=== PATIENT | male | born 1955 | race Caucasian/White ===

== ENCOUNTER 2016-05-21 10:26 | Day surgery (SDC) | payer BC ==
[~2016-05-21] VITALS: Ht 180.3 cm; Wt 112.2 kg
[2016-05-21] MEDS: CEFAZOLIN 1000MG/55 ML D5W 55 ML IV SCH ×2 (06:00→13:02)
[~2016-05-21 10:26] MED LIST: ALL300 PO; ASPI81TA28 PO; CMD3 PO; COLC0.6T54 PO; DVN80 PO; LACTATED RINGER'S 1000ML IV SCH; METO25TA56 PO; WARF4TAB PO
[2016-05-21 10:50] VITALS: BP_SYST 153; BP_SYST 170; BP_DIAS 105; PULSE 110; TEMP 36.6; O2SAT 96; Ht 180.3 cm; Wt 112.2 kg
[2016-05-21] MEDS ORDERED: DVN/160 PO (11:05)
[2016-05-21] MEDS ORDERED: DILT120C68 PO (11:05)
[2016-05-21] MEDS ORDERED: BACITRACIN OINT 0.9 GM PKT ONE (12:31)
[2016-05-21] MEDS ORDERED: LIDOCAINE HCL 1% 20 ML VIAL ONE (12:31)
--- NOTE | 2016-05-21 12:32 | History & Physical Bridge Note ---
H&P Re-Evaluation Bridge Note: I have examined the patient, reviewed the History & Physical and in the interval since the performance of the History & Physical I have noted the following changes of clinical significance: No changes noted. I discussed the indications, procedure, risks and alternatives of loop recorder implantation with him and he understands and agrees to proceed. Consent obtained. He would prefer to have the procedure done without sedation and that will be our plan.
[2016-05-21] MEDS ORDERED: KEFZOL SPECIAL PROCEDURE STOCK 1 GM ADDVIAL IV ONE (12:43)
--- NOTE | 2016-05-21 13:08 | Cardiology Procedure Brief Nt ---
Preliminary Cardiology Note Procedure Date May 21, 2016. Pre-Procedure Diagnosis paroxysmal atrial fibrillation, bradycardia Post-Procedure Diagnosis same Procedure(s) Performed Loop recorder implantation Lmft Dr. Zaidi Orange Picking Supervisor(s) none Estimated Blood Loss 2 cc Preliminary Findings Good location Recommendations Monitor very briefly and discharge Specimens None Anesthesia local with no sedation Complication(s) None Disposition MTU
--- NOTE | 2016-05-21 13:13 | Discharge Instructions ---
Discharge Instructions Admission Reason for Admission: Atrial fibrillation Discharge Discharge Diagnosis / Problem: loop recorder implantation Discharge Goals Goal(s): Diagnostic testing Activity Recommendations Activity Limitations: resume your previous activity . Instructions / Follow-Up Instructions / Follow-Up ACTIVITY RECOMMENDATIONS: * Do not raise affected arm over head for 2 weeks. SPECIAL CARE INSTRUCTIONS: * If bleeding occurs, apply direct pressure to area for 5 minutes. * Call your doctor if you have severe pain, fever, drainage or bleeding at site. * Keep dressing on and dry. * Keep any scheduled doctor's appointment. * Implant Card - hand held device with website information given. FOLLOW UP VISIT: Dr. Zaidi 05/22/2016, 10:00 AM Current Hospital Diet Patient's current hospital diet: Discharge Diet Recommended Diet: AHA Diet (Heart Healthy) Pending Studies Studies pending at discharge: no Medical Emergencies . Who to Call and When: Medical Emergencies: If at any time you feel your situation is an emergency, please call 911 immediately. . Non-Emergent Contact Non-Emergency issues call your: Primary Care Provider . . "Provider Documentation" section prepared by Donald Zaidi. VTE Core Measure Inpt VTE Proph given/why not?: Treatment not indicated
[2016-05-21] MEDS ORDERED: ACETAMINOPHEN 325 MG TAB PO PRN (13:15)
[2016-05-21 13:25] VITALS: BP_SYST 142; BP_SYST 150; BP_DIAS 107; PULSE 106; TEMP 37; O2SAT 96
--- NOTE | 2016-05-21 13:34 | OPERATIVE REPORT ---
DATE OF OPERATION: 05/21/2016 PREOPERATIVE DIAGNOSES: Paroxysmal atrial fibrillation, bradycardia. POSTOPERATIVE DIAGNOSES: Same. PROCEDURE: Loop recorder implantation. SURGEON: Donald Zaidi M.D. ANESTHESIA: Local with no sedation. HISTORY OF PRESENT ILLNESS: This is a 60-year-old male who has a history of atrial fibrillation including catheter ablation in the past followed by valve replacement where he had a Cobb maze procedure performed as well. This year, he had recurrence of his atrial arrhythmia, sometimes he has severe symptoms with it and sometimes he is unaware of being in it. It is not clear what the extent of his atrial arrhythmia is nor what the difference in symptoms are due to. He also has a history of bradycardia and thoughts were entertained of putting in a pacemaker to allow treatment with antiarrhythmic therapy when he was evaluated at [facility]. He is therefore having a loop recorder placed to document the extent and duration of his atrial fibrillation or other arrhythmias and to monitor for bradycardia. DESCRIPTION OF PROCEDURE: After obtaining informed consent for the procedure, he was brought to the laboratory being NPO after midnight. He was identified in the laboratory, prepped and draped in standard sterile manner. The left prepectoral region at a location at around the fourth intercostal space 1 cm of the left sternal border was anesthetized with 1% lidocaine local anesthetic. A small skin incision was made and the loop recorder was inserted subcutaneously using the insertion tool. The incision was closed with a subcutaneous closure of 4-0 Vicryl followed by running subcuticular skin closure of 4-0 Vicryl. A Steri-Strip was applied, bacitracin ointment was applied, and a dressing applied. The patient tolerated the procedure well, there were no complications and estimated blood loss was less than 2 mL. The patient was transferred to the ambulatory unit for brief observation and discharge. The loop recorder is a Novatris LINQ model LNQ11, serial number [id number]. MTDD
[2016-09-07] MEDS ORDERED: HYDR-5688 PO (16:05)
[2016-09-07] MEDS ORDERED: CEPH500C2 PO (16:05)
[2016-09-23] MEDS ORDERED: METO-551 PO (16:26)
[2016-09-23] MEDS ORDERED: WARF3TAB6 PO (16:26)
[2016-09-25] MEDS ORDERED: CEPH500C2 PO (15:04)
[2016-12-11] MEDS ORDERED: NTRSLP4 SL (17:16)
== END 2016-05-21 14:05 | disposition home or self-care (01) ==
LOC: C.ACU 10:26
PROVIDERS: ATTEND Internal Medicine Cardiovascular Disease
DX: I48.0 Paroxysmal atrial fibrillation (principal); I25.10 Atherosclerotic heart disease of native coronary artery without angina pectoris; Z95.2 Presence of prosthetic heart valve; I34.0 Nonrheumatic mitral (valve) insufficiency; R00.1 Bradycardia, unspecified; I10 Essential (primary) hypertension; I09.1 Rheumatic diseases of endocardium, valve unspecified; E78.5 Hyperlipidemia, unspecified

== ENCOUNTER 2016-07-16 10:35 | Observation (INO) | payer BC ==
[~2016-07-16] VITALS: Ht 180.3 cm; Wt 107.0 kg
[~2016-07-16 10:35] MED LIST changes: +CEFAZOLIN 1000MG/55 ML D5W IV SCH; +CEFAZOLIN IV 1,000 MG in DEXTROSE 5% 50ML IV SCH; +DILT120C68 PO; +DVN/160 PO; -DVN80 PO; -LACTATED RINGER'S 1000ML IV SCH; -METO25TA56 PO; +MISSING PHYSICIAN SIGNATURE ON ORDER SCH
[2016-07-16 11:00] VITALS: BP 140/86; PULSE 56; TEMP 36.6; O2SAT 98; BMI 33.0
[2016-07-16] MEDS ORDERED: ENOX120I SQ (11:08)
[2016-07-16] MEDS ORDERED: LIDOCAINE HCL 1% 20 ML VIAL ONE ×2 (11:59→13:55)
[2016-07-16] MEDS ORDERED: BACITRACIN 50000 UNIT VIAL ONE (11:59)
[2016-07-16] MEDS ORDERED: BACITRACIN OINT 0.9 GM PKT ONE (11:59)
[2016-07-16] MEDS ORDERED: KEFZOL SPECIAL PROCEDURE STOCK 1 GM ADDVIAL IV ONE (12:34)
[2016-07-16] MEDS ORDERED: MIDAZOLAM HCL 5 MG/ML 1 ML VIAL ONE ×2 (12:44→12:59)
[2016-07-16] MEDS ORDERED: FENTANYL CITRATE INJ 50 MCG/1 ML 2 ML VIAL ONE ×2 (12:45→12:59)
--- NOTE | 2016-07-16 14:22 | Procedure Note ---
Pre-Mod Sedation Assessment General Date of Moderate Sedation: Jul 16, 2016. Vital Signs: Vital Signs Past 12 Hours Date Time Temp Pulse Resp B/P Pulse Ox O2 Delivery O2 Flow Rate FiO2 07/16/16 11:00 36.6 56 20 140/86 98 Room Air Review Cardiovascular: regular rate, rhythm Abdomen: normal bowel sounds Lungs: lungs clear Pre-Sedation Airway Assessment Oral Cavity: Chipped Teeth, Capped Teeth Smoking Status: Former Smoker Procedure Planning Contraindications-for Mod Sed: None Yes Notes The planned sedation has been discussed with the patient and consent obtained. I have identified the patient, determined the appropriateness of sedation and have assessed the patient immediately prior to the procedure. All medicine(s) and interventions are by my order.
--- NOTE | 2016-07-16 14:22 | History & Physical Bridge Note ---
H&P Re-Evaluation Bridge Note: I have examined the patient, reviewed the History & Physical and in the interval since the performance of the History & Physical I have noted the following changes of clinical significance: No changes noted. I reviewed the indications, procedure, risks and alternatives with the patient and his and he understands and agrees to proceed. Consent obtained.
--- NOTE | 2016-07-16 14:54 | Procedure Note ---
Post-Mod Sedation Assessment General Date of Moderate Sedation Jul 16, 2016. Vital Signs: Vital Signs Past 12 Hours Date Time Temp Pulse Resp B/P Pulse Ox O2 Delivery O2 Flow Rate FiO2 07/16/16 11:00 36.6 56 20 140/86 98 Room Air Review - Discharge Criteria Vital Signs Stable: Yes Alert/Oriented/Conversant: Yes Returned to Baseline Mental St: Yes Nausea Absent/Minimal: Yes Pain/Discomfort/Absent/Minimal: Yes Normal/Baseline Respirations: Yes Active Bleeding?: No
--- NOTE | 2016-07-16 14:58 | Cardiology Procedure Brief Nt ---
Preliminary Cardiology Note Procedure Date Jul 16, 2016. Pre-Procedure Diagnosis sick sinus syndrome Post-Procedure Diagnosis same Procedure(s) Performed Dual-chamber pacemaker implant Loop recorder explant Property Valuer Dr. Zaidi Data Entry Processor(s) None Estimated Blood Loss 50 cc Preliminary Findings Good lead position Recommendations Monitor overnight Specimens Loop recorder, return to Medtronic Anesthesia Local with sedation Complication(s) None Disposition PCU
[2016-07-16] MEDS ORDERED: KETOROLAC TROMETHAMINE 10 MG TAB PO PRN (15:00)
[2016-07-16] MEDS ORDERED: ACETAMINOPHEN 325 MG TAB PO PRN (15:00)
[2016-07-16 15:25] VITALS: BP 119/79; PULSE 60; TEMP 36.7; Ht 180.3 cm; Wt 107.0 kg
[2016-07-16 15:26] VITALS: O2SAT 94
--- NOTE | 2016-07-16 15:28 | OPERATIVE REPORT ---
DATE OF OPERATION: 07/16/2016 AMBULATORY OPERATIVE REPORT PREOPERATIVE DIAGNOSIS: Sick sinus syndrome. POSTOPERATIVE DIAGNOSIS: Same. PROCEDURES: 1. Dual chamber pacemaker implantation. 2. LINQ loop recorder explantation. SURGEON: Donald Zaidi MD ANESTHESIA: Local with sedation. HISTORY: This is a 60-year-old male who has a history of coronary artery disease and longstanding atrial fibrillation, for which he has had atrial fibrillation ablation. He also has a mitral valve replacement. He was having symptoms of palpitations, difficulty with exertion and was uncertain as to whether he needed a pacemaker or how much time he spent in atrial fibrillation. An implantable loop recorder was therefore placed on 05/21/2016. This loop recorder disclosed that he had atrial fibrillation with rapid heart rates. In addition, he had periods of bradycardia with heart rates in the 30s and pauses of up to 5 seconds without AV obinna blocking medications. He therefore requires a pacemaker for his bradycardia on medications for his tachyarrhythmia. DESCRIPTION OF PROCEDURE: After obtaining informed consent for the procedure, he was brought to the laboratory on the afternoon of 07/16/2016, being NPO after midnight. He was identified in the laboratory, prepped and draped in standard sterile manner for a left-sided pacemaker implantation. The left prepectoral region was anesthetized with 1% lidocaine local anesthetic and a left subclavian venipuncture was performed by percutaneous technique and a guidewire placed through the left subclavian vein into the superior vena cava. The area was further infiltrated with 1% lidocaine local anesthetic and a 5-cm incision was made parallel to the left clavicle and 2 cm below it and carried down to the anterior pectoralis fascia. A pacemaker pocket was formed by blunt dissection anterior to the pectoralis fascia and a bacitracin-soaked sponge (50,000 units in 50 mL normal saline solution) was placed in the pocket. An 8-[place] Medtronic lead introducer was placed over the guidewire into the left subclavian vein, the dilator and guidewire were removed and a bipolar active fixation steroid-tipped ventricular lead was advanced through the introducer into the superior vena cava. The guidewire was placed back through introducer and introducer stripped away from lead and guidewire. The introducer appeared to be somewhat tight passing from the subclavian vein into the superior vena cava. Therefore, another venipuncture was performed through the pacemaker pocket and a guidewire placed through the left subclavian vein into the superior vena cava. Another 8-[place] Citizen Medtronic lead introducer was placed over the guidewire into the left subclavian vein, the dilator and guidewire were removed and a bipolar active fixation steroid-tipped atrial lead was advanced through introducer into the superior vena cava. The guidewire was traced back through introducer and introducer stripped away from lead and guidewire. The other guidewire was removed at this time. The ventricular lead was advanced through the right ventricular outflow tract into the pulmonary artery and then using a straight stylette, was positioned in the right ventricular apex. Once in position, the ventricular pacing threshold was evaluated in bipolar configuration at a pulse width of 0.5 milliseconds. The final ventricular pacing threshold was 0.4 volts with a current of 0.3 milliamp, 5-volt lead impedance was 1049 ohms and R-waves were sensed at 11.3 millivolts. Diaphragmatic pacing was not present with a 10-volt bipolar output. It was difficult to manipulate the atrial lead, ultimately the atrial lead was removed as it appeared to be binding within the left subclavian vein. Another 8-[place] Citizen Medtronic lead introducer was placed over the guidewire into the superior vena cava. The dilator and guidewire were removed. This sheath remained in place and the lead was positioned into the region of the atrial appendage and a screw extended just fixing the lead in position. Once in position, atrial pacing threshold was evaluated in bipolar configuration at a pulse width of 0.5 milliseconds. Final atrial pacing threshold was 0.6 volts with a current of 1.1 milliamp, 5-volt lead impedance was 533 ohms and P waves were sensed at 2.6 millivolts. Diaphragmatic pacing was not present with a 10-volt bipolar output. Once this lead was in position, the introducer was stripped away from the lead. Once leads were in position, they were both attached to the anterior pectoralis fascia using 2 sutures of 2-0 silk around each lead collar. The bacitracin-soaked sponge was removed from the pocket, hemostasis was obtained and the pacemaker (Medtronic Advisa DR) was attached to the leads. It was placed in the pocket with the leads coiled beneath it and the incision was closed with a running double subcutaneous closure of 3-0 Vicryl followed by running subcuticular skin closure of 4-0 Vicryl. Bacitracin ointment was placed on incision and a pressure dressing applied. The LINQ loop recorder site was anesthetized with 1% lidocaine local anesthetic and a 1-cm incision was made and carried down to the recorder. The recorder was removed from the pocket and the pocket was closed with a subcutaneous closure of 4-0 Vicryl followed by a running subcuticular skin closure of 4-0 Vicryl. Bacitracin ointment was placed on this incision and a dressing applied. The patient tolerated the procedure well, there were no complications and estimated blood loss was 50 mL. The patient was transferred to the ambulatory unit for monitoring. The atrial lead is a Medtronic, model #5076, serial #[id number] and is a bipolar active fixation steroid-tipped MRI compatible lead. The ventricular lead is a Medtronic, model #5076, serial #[id number] and is a bipolar active fixation steroid-tipped MRI compatible lead. The pacemaker is a Medtronic Advisa MRI SureScan, model #A2DR01, serial #[id number]. This is an MRI compatible system. The pacemaker was reprogrammed in the laboratory to final settings. The LINQ loop recorder is a Medtronic, serial #[id number], implanted 05/21/2016. This loop recorder will be returned to [facility] (app). NEIL
[2016-07-16] MEDS ORDERED: IV FLUIDS COMPLETED PRN (16:00)
[2016-07-16 19:43] VITALS: BP 129/64; PULSE 86; TEMP 36.7; O2SAT 96
[2016-07-16 20:00] VITALS: O2SAT 96
[2016-07-16] MEDS ORDERED: ASPIRIN 81 MG ECTAB PO SCH (21:00)
[2016-07-16] MEDS: CEFAZOLIN IV 2,000 MG in DEXTROSE 5% 50ML 50 ML IV SCH (21:10)
[2016-07-16] MEDS: METOPROLOL TARTRATE 50 MG TAB PO SCH (21:11)
[2016-07-17] VITALS (7 sets, daily range): BP systolic 117–136; BP diastolic 72–81; PULSE 60–84; TEMP 36.4–36.9; O2SAT 96–98
[2016-07-17] MEDS: CEFAZOLIN IV 2,000 MG in DEXTROSE 5% 50ML 50 ML IV SCH ×2 (05:46→13:24)
--- NOTE | 2016-07-17 07:07 | DIAGNOSTIC IMAGING REPORT ---
CHEST 2 VIEWS ROUTINE CLINICAL HISTORY: Chest x-ray status post pacemaker placement COMPARISON STUDY: February 01, 2015 FINDINGS: There are postsurgical changes of a midline sternotomy and valvular replacement. There is no failure. There is no lobar consolidation. There are no pleural effusions. There is been interval placement of a left subclavian dual-chamber central venous pacemaker. There is no pneumothorax. The electrode position is unremarkable[ IMPRESSION: No evidence of pneumothorax status post placement of a left subclavian dual-chamber central venous pacemaker. Electronically signed by: Oiv Kemp M.D. 07/17/2016 7:06 AM Dictated Date/Time: 07/17/2016 7:05 AM
[2016-07-17 07:10] LABS: INR 1.1 (0.9-1.1)
--- NOTE | 2016-07-17 08:27 | Cardiology Follow-Up ---
Subjective Date of Service: Jul 17, 2016. Pt evaluation today including: conversation w/ patient, physical exam, lab review, review of studies, review of inpatient medication list History of Present Illness Post pacemaker implantation yesterday for sick sinus syndrome. He feels well today. Social History Smoking Status: Former Smoker Review of Systems Cardiac: + palpitations, + see HPI, No chest pain Medications Cardiovascular: Item Value Date Time Enoxaparin Sodium 120 mg 07/17/16 0900 (Lovenox Inj) Q12H/SQ Valsartan 160 mg 07/17/16 0900 (Diovan Tab) QAM/PO Warfarin Sodium 4 mg 07/17/16 0900 (Coumadin Tab) DAILY@1600/PO Aspirin 81 mg 07/16/162099 (Ecotrin Tab) QPM/PO 07/16/162110 Metoprolol 50 mg 07/16/162099 Tartrate BID/PO 07/16/162110 (Lopressor Tab) Objective Vital Signs Past 12 Hours Date Time Temp Pulse Resp B/P Pulse Ox O2 Delivery O2 Flow Rate FiO2 07/17/16 04:10 36.4 61 18 123/81 98 07/17/16 04:00 98 Room Air 07/17/16 00:23 36.9 60 18 117/73 97 Room Air 07/16/16 23:59 Room Air Last Recorded Weight-Kilograms: 107.000 Intake & Output 8-Hour Column 07/16/16 07/16/16 07/17/16 15:59 23:59 07:59 Intake Total 273 ml 254 ml Output Total 400 ml 500 ml Balance -127 ml -246 ml 24-Hour Column 07/17/16 07:59 Intake Total 527 ml Output Total 900 ml Balance -373 ml Physical Exam Constitutional: Level of Distress: NAD Lungs: Auscultation: breath sounds normal Cardiovascular: Heart Auscultation: RRR, no murmurs Data Laboratory Results: Last 24 Hours Test 07/17/16 04:44 07/17/16 06:35 Prothrombin Time 12.0 SECONDS Prothromb Time International Ratio 1.1 Imaging: Chest x-ray shows good lead position and no pneumothorax EKG: Atrial pacing with intact AV conduction Telemetry reviewed: Predominantly atrial pacing with intact AV conduction. No atrial arrhythmias. Pacemaker evaluation: Excellent pacing and sensing characteristics. Pacing was 70% of the time appropriately in the atrium. Assessment and Plan Postop day #1: Doing very well surgically and the device is working well. Stable for discharge today. Mitral valve replacement: He is going to start Lovenox this morning, his site looks very good and hopefully he will not have bleeding. I did caution him about what to watch for in terms of bleeding on the Lovenox. He will be sent home on Lovenox twice a day and we will monitor his INR on Wednesday.
[2016-07-17] MEDS: METOPROLOL TARTRATE 50 MG TAB PO SCH (08:39)
[2016-07-17] MEDS ORDERED: METO-551 PO (08:42)
--- NOTE | 2016-07-17 08:58 | Discharge Instructions ---
Discharge Instructions Admission Sick sinus syndrome Discharge Discharge Diagnosis / Problem: Loop recorder explant; dual-chamber pacemaker implant Discharge Goals Goal(s): Improve disease control Activity Recommendations Activity Limitations: as noted below ACTIVITY RECOMMENDATIONS: * Do not raise affected arm over head for 2 weeks. SPECIAL CARE INSTRUCTIONS: * If bleeding occurs, apply direct pressure to area for 5 minutes. * Call your doctor if you have severe pain, fever, drainage or bleeding at site. * Keep dressing on and dry for 48 hours then remove. * Keep any scheduled doctor's appointment. * Implant Card - hand held device with website information given. SKIN IRRITATION: * You may experience some redness and/or swelling in the area where radiation was administered. If any skin irritation occurs, please contact your family physician. FOLLOW UP VISIT: 07/21/16 @ 1:00 pm for incision check 08/17/16 @ 3:30 pm for device check . Current Hospital Diet Patient's current hospital diet: AHA Diet (Heart Healthy) Discharge Diet Recommended Diet: AHA Diet (Heart Healthy) Pending Studies Studies pending at discharge: no Medical Emergencies . Who to Call and When: Medical Emergencies: If at any time you feel your situation is an emergency, please call 911 immediately. . Non-Emergent Contact Non-Emergency issues call your: Humanities Professor . . "Provider Documentation" section prepared by Brandy Fitzpatrick. VTE Core Measure Inpt VTE Proph given/why not?: Enoxaparin (Lovenox)SQ
[2016-07-17] MEDS ORDERED: ENOXAPARIN 120 MG/0.8 ML SYR SQ SCH ×2 (09:00)
[2016-07-17] MEDS ORDERED: ALLOPURINOL 300 MG TAB PO SCH (09:00)
[2016-07-17] MEDS ORDERED: VALSARTAN 80 MG TAB PO SCH (09:00)
[2016-07-17] MEDS ORDERED: WARFARIN SOD 4 MG TAB PO SCH (09:00)
[2016-07-17 10:35] LABS: HEMATOCRIT 44.1 % (42-52); MEAN CELL VOLUME 94.2 fL (80-100); MEAN CORPUSCULAR HEMOGLOBIN 32.9 pg (25-34); MEAN CORPUSCULAR HGB CONC 34.9 g/dl (32-36); PLATELET COUNT 217 K/uL (130-400); RED BLOOD COUNT 4.68 M/uL (4.7-6.1); WHITE BLOOD COUNT 7.28 K/uL (4.8-10.8)
[2016-07-17 10:42] LABS: CREATININE 0.89 mg/dl (0.60-1.40)
[2016-07-17 10:45] LABS: PARTIAL THROMBOPLASTIN RATIO 1.2
--- NOTE | 2016-07-17 11:04 | Discharge Summary ---
Discharge Summary Admission Date: Jul 16, 2016 at 15:04 Discharge Date: Jul 17, 2016 Discharge Disposition: Home Primary Diagnosis: Sick sinus syndrome Secondary Diagnoses/Problems: Surgical Problems: (1) History of open heart surgery Status: Resolved Atrial fibrillation, CAD, MVR Procedures: Loop recorder explantation Dual-chamber pacemaker implantation Discharge Instructions Last Recorded Wt (Kilograms): 107.000 Activity Recommendations: limitations as noted below Allergies: Coded Allergies: No Known Allergies (Verified , 07/16/16) Additional Instructions: ACTIVITY RECOMMENDATIONS: * Do not raise affected arm over head for 2 weeks. SPECIAL CARE INSTRUCTIONS: * If bleeding occurs, apply direct pressure to area for 5 minutes. * Call your doctor if you have severe pain, fever, drainage or bleeding at site. * Keep dressing on and dry for 48 hours then remove. * Keep any scheduled doctor's appointment. * Implant Card - hand held device with website information given. SKIN IRRITATION: * You may experience some redness and/or swelling in the area where radiation was administered. If any skin irritation occurs, please contact your family physician. FOLLOW UP VISIT: Keep any scheduled doctor appointments. Special Care: Call your doctor if: * Temperature above 101 degrees * Pain not relieved by pain medicine ordered * There is increased drainage or redness from any incision * You have any unanswered questions or concerns. Avoid all tobacco products. If you need help to stop smoking, call [place]'s FREE QUITLINE at . This is a free call. Admission HPI This is a 60-year-old male who has a history of coronary artery disease and longstanding atrial fibrillation, for which he has had atrial fibrillation ablation. He also has a mitral valve replacement. He was having symptoms of palpitations, difficulty with exertion and was uncertain as to whether he needed a pacemaker or how much time he spent in atrial fibrillation. An implantable loop recorder was therefore placed on 05/21/2016. This loop recorder disclosed that he had atrial fibrillation with rapid heart rates. In addition, he had periods of bradycardia with heart rates in the 30s and pauses of up to 5 seconds without AV obinna blocking medications. He therefore requires a pacemaker for his bradycardia on medications for his tachyarrhythmia. Admission Physical Exam Additional Comments: Constitutional: Alert, cooperative and in no distress. HEENT: Unremarkable Neck: No jugular venous distention, carotid pulses are irregular but otherwise normal and equal bilaterally without bruits. Pulmonary: Clear to auscultation bilaterally. Cardiac: Irregular rhythm with no murmur, gallop or rub. Good prosthetic valve sounds. Abdomen: Soft, nontender with normal bowel sounds. Extremities: No edema. Distal pulses intact. Neurologic: No focal findings. Gait is steady. Skin: No rash, ecchymoses or petechiae. His loop recorder site on the left is well-healed without erythema, swelling or tenderness Hospital Course Patient is a 60-year-old male with long standing history of atrial fibrillation , coronary artery disease, and mechanical mitral valve replacement who underwent loop recorder explantation and dual-chamber pacemaker implantation on 07/16/[address] Zaidi. This was done due to the loop recorder showing rapid heart rates as well as periods of bradycardia and pauses up to 5 seconds. He tolerated the procedure well. Device check the following day showed excellent sensing and pacing characteristics. CXR showed good lead placement and no pneumothorax. He was placed on lovenox bridge given his MVR. He was also started on Metoprolol tartrate 50 mg twice daily for better rate control of his atrial fibrillation. He will have follow-up next week for an incision check and in 1 month for device check. Total time spent on discharge = This includes examination of the patient, discharge planning, medication reconciliation, and communication with other providers.
[2016-09-07] MEDS ORDERED: HYDR-5688 PO (16:05)
[2016-09-07] MEDS ORDERED: CEPH500C2 PO (16:05)
[2016-09-23] MEDS ORDERED: METO-551 PO (16:26)
[2016-09-23] MEDS ORDERED: WARF3TAB6 PO (16:26)
[2016-09-25] MEDS ORDERED: CEPH500C2 PO (15:04)
[2016-12-11] MEDS ORDERED: NTRSLP4 SL (17:16)
== END 2016-07-17 14:22 | disposition home or self-care (01) ==
LOC: C.ACU 10:35 → C.2T 15:04
PROVIDERS: ADMIT Internal Medicine Cardiovascular Disease; ATTEND Internal Medicine Cardiovascular Disease
DX: I49.5 Sick sinus syndrome (principal); I48.0 Paroxysmal atrial fibrillation; I25.10 Atherosclerotic heart disease of native coronary artery without angina pectoris; I11.9 Hypertensive heart disease without heart failure; I25.2 Old myocardial infarction; Z79.899 Other long term (current) drug therapy; Z79.01 Long term (current) use of 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; Z79.82 Long term (current) use of aspirin; Z98.890 Other specified postprocedural states; Z95.2 Presence of prosthetic heart valve; Z87.891 Personal history of nicotine dependence; Z82.49 Family history of ischemic heart disease and other diseases of the circulatory system

== ENCOUNTER → 2016-08-17 | Outpatient (CLI) | payer BC ==
[~2016-08-17] MED LIST changes: -CEFAZOLIN 1000MG/55 ML D5W IV SCH; -CEFAZOLIN IV 1,000 MG in DEXTROSE 5% 50ML IV SCH; +CEPH500C PO; +CEPH500C2 PO; -CMD3 PO; -DILT120C68 PO; +ENOX120I SQ; +FRS/40 PO; +FURO-85 PO; +HYDR-5688 PO; +METO-551 PO; -MISSING PHYSICIAN SIGNATURE ON ORDER SCH; +NTRSLP4 SL; +POTA20TA13 PO; +SULF800T23 PO; +WARF3TAB6 PO
--- NOTE | 2016-08-17 16:48 | DIAGNOSTIC IMAGING REPORT ---
CHEST 2 VIEWS ROUTINE CLINICAL HISTORY: Cardiac pacemaker. COMPARISON STUDY: Chest radiograph July 17, 2016. FINDINGS: There are median sternotomy wires and a prosthetic cardiac valve. Moderate cardiomegaly is unchanged. There is no evidence of pulmonary edema. There is no pneumothorax or pleural effusion. Right ventricular lead position is unchanged since exam of July 17, 2016. The position of the right atrial lead has changed and now projects over the inferior aspect of the right atrium. IMPRESSION: 1. Interval change in position of the right atrial lead since exam of July 17, 2016. The lead now projects over the inferior aspect of the right atrium. Unchanged position of right ventricular lead. 2. No acute cardiopulmonary findings. Electronically signed by: Rashawn Wang M.D. 08/17/2016 4:47 PM Dictated Date/Time: 08/17/2016 4:45 PM
== END | disposition home or self-care (01) ==
LOC: C.RAD1850 16:21
PROVIDERS: ATTEND Internal Medicine Cardiovascular Disease
DX: Z95.0 Presence of cardiac pacemaker (principal)

== ENCOUNTER 2016-08-25 13:19 | Day surgery (SDC) | payer BC ==
[~2016-08-25] VITALS: Ht 177.8 cm; Wt 107.7 kg
[~2016-08-25 13:19] MED LIST changes: +CEFAZOLIN 1000MG/55 ML D5W IV SCH; +CEFAZOLIN IV 1,000 MG in DEXTROSE 5% 50ML IV SCH; -CEPH500C PO; -CEPH500C2 PO; -FRS/40 PO; -FURO-85 PO; -HYDR-5688 PO; +LACTATED RINGER'S 1000ML IV SCH; -NTRSLP4 SL; -POTA20TA13 PO; -SULF800T23 PO; -WARF3TAB6 PO
[2016-08-25 13:55] VITALS: BP 127/86; PULSE 63; TEMP 36.7; O2SAT 94; Ht 177.8 cm; Wt 107.7 kg
[2016-08-25 14:28] LABS: INR 1.2 (0.9-1.1); PROTHROMBIN TIME (PATIENT) 13.4 SECONDS (9.0-12.0)
[2016-08-25] MEDS ORDERED: CEFAZOLIN IV 2,000 MG in DEXTROSE 5% 50ML 50 ML IV SCH (15:30)
[2016-08-25] MEDS ORDERED: CEFAZOLIN 2000 MG/60 ML D5W IV SCH (16:00)
[2016-08-25] MEDS ORDERED: BACITRACIN OINT 0.9 GM PKT ONE (16:09)
[2016-08-25] MEDS ORDERED: BACITRACIN 50000 UNIT VIAL ONE (16:09)
[2016-08-25] MEDS ORDERED: LIDOCAINE HCL 1% 20 ML VIAL ONE (16:09)
--- NOTE | 2016-08-25 16:21 | Procedure Note ---
Pre-Mod Sedation Assessment General Date of Moderate Sedation: Aug 25, 2016. Vital Signs: Vital Signs Past 12 Hours Date Time Temp Pulse Resp B/P Pulse Ox O2 Delivery O2 Flow Rate FiO2 08/25/16 13:55 36.7 63 20 127/86 94 Room Air Review Cardiovascular: regular rate, rhythm Abdomen: normal bowel sounds Lungs: lungs clear Pre-Sedation Airway Assessment Oral Cavity: WNL Short Thick Neck: No Hx of Sleep Apnea: No Smoking Status: Former Smoker Procedure Planning Contraindications-for Mod Sed: None Yes Notes The planned sedation has been discussed with the patient and consent obtained. I have identified the patient, determined the appropriateness of sedation and have assessed the patient immediately prior to the procedure. All medicine(s) and interventions are by my order.
--- NOTE | 2016-08-25 16:21 | History & Physical Bridge Note ---
H&P Re-Evaluation Bridge Note: I have examined the patient, reviewed the History & Physical and in the interval since the performance of the History & Physical I have noted the following changes of clinical significance: No changes noted. He stopped his warfarin 3 days prior to this procedure and took his Lovenox last evening and nothing today. I discussed the indications, procedure, risks and alternatives with him and his and they understand and he agrees to proceed. Consent obtained.
[2016-08-25] MEDS ORDERED: MIDAZOLAM HCL 5 MG/ML 1 ML VIAL ONE (16:34)
[2016-08-25] MEDS ORDERED: FENTANYL CITRATE INJ 50 MCG/1 ML 2 ML VIAL ONE ×2 (16:34→16:44)
--- NOTE | 2016-08-25 17:43 | Procedure Note ---
Post-Mod Sedation Assessment General Date of Moderate Sedation Aug 25, 2016. Vital Signs: Vital Signs Past 12 Hours Date Time Temp Pulse Resp B/P Pulse Ox O2 Delivery O2 Flow Rate FiO2 08/25/16 13:55 36.7 63 20 127/86 94 Room Air Review - Discharge Criteria Vital Signs Stable: Yes Alert/Oriented/Conversant: Yes Returned to Baseline Mental St: Yes Nausea Absent/Minimal: Yes Pain/Discomfort/Absent/Minimal: Yes Normal/Baseline Respirations: Yes Active Bleeding?: No
[2016-08-25] MEDS ORDERED: ACETAMINOPHEN/CODEINE 300/30MG TAB PO PRN (17:45)
[2016-08-25] MEDS ORDERED: ACETAMINOPHEN 325 MG TAB PO PRN (17:45)
--- NOTE | 2016-08-25 17:45 | Cardiology Procedure Brief Nt ---
Preliminary Cardiology Note Procedure Date Aug 25, 2016. Pre-Procedure Diagnosis atrial lead dislodgment Post-Procedure Diagnosis atrial lead dislodgment, pacemaker pocket hematoma Procedure(s) Performed Evacuation of hematoma Culture and sensitivity Atrial lead repositioning Axle Inspector Dr. Zaidi Print Developer Automatic(s) none Estimated Blood Loss 50 cc Preliminary Findings Large pocket hematoma, probably old blood but culture and sensitivity sent to exclude infection Repositioning of atrial lead and atrial appendage with good measurements. Recommendations Monitor briefly and discharge Specimens None Anesthesia local with sedation Complication(s) None Disposition [facility]
[2016-08-25 17:55] VITALS: BP 126/71; PULSE 60; TEMP 36.5; O2SAT 94
[2016-08-25 18:25] VITALS: BP 127/76; PULSE 68; TEMP 36.6; O2SAT 99
--- NOTE | 2016-08-25 18:29 | Discharge Instructions ---
Discharge Instructions Date of Service Aug 25, 2016. Admission Reason for Admission: Atrial Lead, Dislodgement Discharge Discharge Diagnosis / Problem: atrial lead dislodgment Discharge Goals Goal(s): Improve disease control Activity Recommendations Activity Limitations: resume your previous activity . Instructions / Follow-Up Instructions / Follow-Up ACTIVITY RECOMMENDATIONS: * Do not raise affected arm over head for 2 weeks. SPECIAL CARE INSTRUCTIONS: * If bleeding occurs, apply direct pressure to area for 5 minutes. * Call your doctor if you have severe pain, fever, drainage or bleeding at site [phone]. * Keep dressing on and dry. * Keep any scheduled doctor's appointment. * Implant Card - hand held device with website information given. SKIN IRRITATION: * You may experience some redness and/or swelling in the area where radiation was administered. If any skin irritation occurs, please contact your family physician. FOLLOW UP VISIT: Dr. Zaidi 08/26/2016 10:00 AM. Current Hospital Diet Patient's current hospital diet: Regular Diet Discharge Diet Recommended Diet: AHA Diet (Heart Healthy) Pending Studies Studies pending at discharge: no Medical Emergencies . Who to Call and When: Medical Emergencies: If at any time you feel your situation is an emergency, please call 911 immediately. . Non-Emergent Contact Non-Emergency issues call your: Primary Care Provider . . "Provider Documentation" section prepared by Donald Zaidi. VTE Core Measure Inpt VTE Proph given/why not?: Enoxaparin (Lovenox)SQ
[2016-08-25 18:55] VITALS: BP 147/77; PULSE 73; TEMP 36.7; O2SAT 99
[2016-08-25 19:29] VITALS: BP 126/79; PULSE 60; TEMP 36.7; O2SAT 99
[2016-08-26] MEDS ORDERED: CEFAZOLIN 2000 MG/60 ML D5W IV SCH (06:00)
[2016-09-07] MEDS ORDERED: HYDR-5688 PO (16:05)
[2016-09-07] MEDS ORDERED: CEPH500C2 PO (16:05)
--- NOTE | 2016-09-22 08:10 | OPERATIVE REPORT ---
DATE OF OPERATION: 08/25/2016 PREOPERATIVE DIAGNOSES: 1. Atrial lead dislodgement. 2. Pacemaker pocket hematoma. POSTOPERATIVE DIAGNOSIS: Same. PROCEDURES: 1. Evacuation of hematoma. 2. Culture and sensitivity. 3. Atrial lead repositioning. SURGEON: Donald Zaidi M.D. ANESTHESIA: Local with sedation. HISTORY OF PRESENT ILLNESS: This is a 60-year-old gentleman who had a history of coronary artery disease and a mechanical mitral valve replacement as well as paroxysmal atrial fibrillation. He also had documented bradycardia with pauses of up to 5 seconds identified on loop recorder monitoring. We therefore arranged loop recorder explantation and pacemaker implantation which was performed on 07/16/2016. In followup his atrial lead was not working properly, evaluation disclosed that on x-ray the atrial lead was free in the atrium. He was therefore scheduled for lead revision. Of note, he had significant pocket swelling due to initiation of Lovenox immediately after his initial surgery; therefore, the area remains somewhat swollen. OPERATION AND FINDINGS: After obtaining informed consent for the procedure, he was brought to the laboratory on the afternoon of 08/25/2016. He was identified in the laboratory, prepped and draped in standard sterile manner for a left-sided lead revision. The prepectoral region was anesthetized with 1% lidocaine local anesthetic and a 6 cm incision was made through the old implant scar and carried down to the pacemaker generator. A large quantity of old very dark blood was removed from the incision, there was no odor and it did not appear purulent. Despite that a culture was sent. The area was flushed with a bacitracin soaked solution (50,000 units in 50 mL normal saline solution). The pacemaker was removed from the pocket. The atrial lead was disconnected from the pacemaker and the atrial lead collar was disconnected from the pectoralis fascia. Using a curved stylette, the atrial lead was repositioned in atrial appendage. The screw was extended fixing the lead into position. The atrial lead appeared to be well fixed and the pacing threshold was evaluated in bipolar configuration at a pulse width of 0.5 milliseconds. Thresholds were good and therefore the lead was attached to the anterior pectoralis fascia using 2 sutures of 2-0 silk around the lead collar. The lead was reconnected to the pacemaker generator (the ventricular lead was not disconnected from the pacemaker or removed or adjusted). The device was placed in the pocket with the leads coiled beneath it, Luiz was placed in the incision to minimize the risk of recurrent bleeding and the incision was closed with a subcutaneous closure of 3-0 Vicryl in 2 layers followed by a running subcuticular closure of 4-0 Vicryl. Bacitracin ointment was placed on incision and a pressure dressing applied. The patient tolerated the procedure well, there were no complications and estimated blood loss was 50 mL not including the old blood evacuated from the incision. NEIL
[2016-09-23] MEDS ORDERED: WARF3TAB6 PO (16:26)
[2016-09-23] MEDS ORDERED: METO-551 PO (16:26)
[2016-09-25] MEDS ORDERED: CEPH500C2 PO (15:04)
[2016-12-11] MEDS ORDERED: NTRSLP4 SL (17:16)
== END 2016-08-25 19:41 | disposition home or self-care (01) ==
LOC: C.ACU 13:19
PROVIDERS: ATTEND Internal Medicine Cardiovascular Disease
DX: T82.128A Displacement of other cardiac electronic device, initial encounter (principal); Y83.1 Surgical operation with implant of artificial internal device as the cause of abnormal reaction of the patient, or of later complication, without mention of misadventure at the time of the procedure; I97.638 Postprocedural hematoma of a circulatory system organ or structure following other circulatory system procedure; I48.0 Paroxysmal atrial fibrillation; R00.1 Bradycardia, unspecified; I25.10 Atherosclerotic heart disease of native coronary artery without angina pectoris; I05.9 Rheumatic mitral valve disease, unspecified; Z95.0 Presence of cardiac pacemaker; E78.5 Hyperlipidemia, unspecified; I10 Essential (primary) hypertension; I34.0 Nonrheumatic mitral (valve) insufficiency; I25.2 Old myocardial infarction; Z82.49 Family history of ischemic heart disease and other diseases of the circulatory system; Z87.891 Personal history of nicotine dependence; Z79.82 Long term (current) use of aspirin; Z79.01 Long term (current) use of 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

== ENCOUNTER → 2016-09-03 | Outpatient (CLI) | payer BC ==
[~2016-09-03] MED LIST changes: -CEFAZOLIN 1000MG/55 ML D5W IV SCH; -CEFAZOLIN IV 1,000 MG in DEXTROSE 5% 50ML IV SCH; +CEPH500C PO; +CEPH500C2 PO; +FRS/40 PO; +FURO-85 PO; +HYDR-5688 PO; -LACTATED RINGER'S 1000ML IV SCH; +NTRSLP4 SL; +POTA20TA13 PO; +SULF800T23 PO; +WARF3TAB6 PO
[2016-09-03 15:57] LABS: BASO % 0.5 %; BASO ABS # 0.03 K/uL (0-0.2); COMPLETE YES; EOS % 3.4 %; HEMATOCRIT 40.3 % (42-52); IG% 0.3 %; LYMPH % 19.8 %; LYMPH ABS # 1.22 K/uL (1.2-3.4); MEAN CELL VOLUME 95.3 fL (80-100); MEAN CORPUSCULAR HEMOGLOBIN 31.4 pg (25-34); MEAN PLATELET VOLUME 11.1 fL (7.4-10.4); PLATELET COUNT 264 K/uL (130-400); RED BLOOD COUNT 4.23 M/uL (4.7-6.1); WHITE BLOOD COUNT 6.16 K/uL (4.8-10.8)
== END | disposition home or self-care (01) ==
LOC: C.LAB1850 14:04
PROVIDERS: ATTEND Internal Medicine Clinical Cardiac Electrophysiology
DX: Z95.0 Presence of cardiac pacemaker (principal)

== ENCOUNTER → 2016-09-07 | Day surgery (SDC) | payer BC ==
[~2016-09-07] VITALS: Ht 177.8 cm; Wt 108.0 kg
[~2016-09-07] MED LIST changes: +BACITRACIN 50000 UNIT VIAL ONE; +BACITRACIN OINT 0.9 GM PKT ONE; +LIDOCAINE HCL 1% 20 ML VIAL ONE
[2016-09-07 16:12] VITALS: BP 141/75; PULSE 60; TEMP 36.5; O2SAT 96; Ht 177.8 cm; Wt 108.0 kg
[2016-09-07 17:15] VITALS: BP 135/73; PULSE 60
--- NOTE | 2016-09-07 17:18 | Cardiology Procedure Brief Nt ---
Preliminary Cardiology Note Procedure Date Sep 07, 2016. Pre-Procedure Diagnosis pacemaker pocket hematoma Post-Procedure Diagnosis same Procedure(s) Performed Incision and drainage Culture Hr Specialist Dr. Zaidi Bingo Cashier(s) none Estimated Blood Loss 10 cc plus hematoma Preliminary Findings Moderate amount of old blood removed from the incision, no evidence of infection on visual examination Recommendations Monitor briefly and discharge Specimens Culture sent Anesthesia local, no sedation Complication(s) None Disposition Central Office Inspector recovery
--- NOTE | 2016-09-07 17:20 | Discharge Instructions ---
Discharge Instructions Date of Service Sep 07, 2016. Admission Reason for Admission: Hematoma Discharge Discharge Diagnosis / Problem: incision and drainage of hematoma Discharge Goals Goal(s): Decrease discomfort Activity Recommendations Activity Limitations: resume your previous activity . Instructions / Follow-Up Instructions / Follow-Up ACTIVITY RECOMMENDATIONS: * Do not raise affected arm over head for 2 weeks. SPECIAL CARE INSTRUCTIONS: * If bleeding occurs, apply direct pressure to area for 5 minutes. * Call your doctor if you have severe pain, fever, drainage or bleeding at site. * Keep dressing on and dry for 72 hours then remove. FOLLOW UP VISIT: Keep any scheduled doctor appointments. Current Hospital Diet Patient's current hospital diet: Discharge Diet Recommended Diet: AHA Diet (Heart Healthy) Pending Studies Studies pending at discharge: no Medical Emergencies . Who to Call and When: Medical Emergencies: If at any time you feel your situation is an emergency, please call 911 immediately. . Non-Emergent Contact Non-Emergency issues call your: Primary Care Provider . . "Provider Documentation" section prepared by Donald Zaidi. . VTE Core Measure Inpt VTE Proph given/why not?: Warfarin (Coumadin)
--- NOTE | 2016-09-07 19:33 | OPERATIVE REPORT ---
DATE OF OPERATION: 09/07/2016 AMBULATORY OPERATIVE REPORT PREOPERATIVE DIAGNOSIS: Pacemaker pocket hematoma. POSTOPERATIVE DIAGNOSIS: Same. PROCEDURE: Incision and drainage of pocket hematoma. Culture sent. SURGEON: Donald Zaidi MD ANESTHESIA: Local without sedation. HISTORY: This is a 60-year-old male with coronary artery disease, paroxysmal atrial fibrillation and bradycardia. He had a dual chamber pacemaker implanted, however, had atrial lead dislodgement, which required revision on 08/26/2016. His surgeries have been complicated by the need for Lovenox, which had been started the day after surgery resulting in a pocket hematoma on his first surgery, and also on his second redo for atrial lead repositioning. Conservative treatment has failed and he has had increasing discomfort and the area was quite swollen. He has not had any significant drainage from the site. It appears to be a pocket hematoma that is causing great deal of discomfort. It does not appear to be infected, but that is a possibility. He is therefore brought to the laboratory for incision and drainage of the pocket hematoma. OPERATION AND FINDINGS: After obtaining informed consent for the procedure, he was brought to the laboratory on the afternoon of 09/07/2016. He was not sedated by patient's wishes. He was prepped and draped in standard sterile manner, the left prepectoral region was anesthetized with 1% lidocaine local anesthetic and a 3 cm incision was made in the lateral portion of the prior incision. This was carried down to the pacemaker and dark old appearing blood was expressed from the incision. There did not appear to be any purulent material. Culture, however, was performed of the pacemaker pocket. Once the area appeared to be relatively free of old blood, a bacitracin-soaked solution (50,000 units in 50 mL normal saline solution) was placed in the pocket. This was expressed also. The incision was then closed with a deep cutaneous closure of 2-0 Vicryl followed by a subcutaneous closure of 3-0 Vicryl followed by a subcuticular skin closure of 4-0 Vicryl and Steri-Strips were applied. Bacitracin ointment was placed on incision and pressure dressing applied. The patient tolerated the procedure well, there were no complications and estimated blood loss was 10 mL plus some volume of old blood which was not quantified. He was transferred to the photofinishing laboratory worker recovery room where he will be observed briefly and discharged. NEIL
== END | disposition home or self-care (01) ==
LOC: C.EP 16:19
PROVIDERS: ATTEND Internal Medicine Cardiovascular Disease
DX: L76.32 Postprocedural hematoma of skin and subcutaneous tissue following other procedure (principal); Y83.1 Surgical operation with implant of artificial internal device as the cause of abnormal reaction of the patient, or of later complication, without mention of misadventure at the time of the procedure; I48.0 Paroxysmal atrial fibrillation; I25.10 Atherosclerotic heart disease of native coronary artery without angina pectoris; Z95.0 Presence of cardiac pacemaker; E78.5 Hyperlipidemia, unspecified; I10 Essential (primary) hypertension; I34.0 Nonrheumatic mitral (valve) insufficiency; Z95.2 Presence of prosthetic heart valve; I09.1 Rheumatic diseases of endocardium, valve unspecified; Z79.01 Long term (current) use of 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; Z82.49 Family history of ischemic heart disease and other diseases of the circulatory system

== ENCOUNTER → 2016-09-25 | Day surgery (SDC) | payer BC ==
[2016-09-23 15:58] VITALS: BMI 35.0
[~2016-09-25] VITALS: Ht 177.8 cm; Wt 111.4 kg
[~2016-09-25] MED LIST changes: +ACETAMINOPHEN 325 MG TAB PO PRN; +ARISTA ABSORBABLE HEMOSTAT 3GM TOP ONE; -BACITRACIN OINT 0.9 GM PKT ONE; +BACITRACIN OINT 15 GM TUBE ONE; +CEFAZOLIN IV 2,000 MG in DEXTROSE 5% 50ML 50 ML IV SCH; -ENOX120I SQ; +FENTANYL CITRATE INJ 50 MCG/1 ML 2 ML VIAL ONE; +FLOSEAL HEMOSTATIC MATRIX 5ML TOP ONE; -HYDR-5688 PO; +KETAMINE HCL INJ 50 MG/ML 10 ML VIAL ONE; +LACTATED RINGER'S 1000ML 1,000 ML IV SCH; +LIDOCAINE HCL 2% 2 ML VIAL (20MG/ML) ONE; +MIDAZOLAM HCL 1 MG/ML 2ML VIAL ONE; +ONDANSETRON INJ 2 MG/ML 2 ML VIAL ONE; +OXYCODONE/ACETAMINOPHEN 5-325 TAB PO PRN; +PROPOFOL IV EMULSION 10 MG/ML 20 ML VIAL IV ONE; +SURGICEL ABSORB HEMOSTAT 2IN X 14IN TOP ONE
[2016-09-25 09:23] VITALS: BP 166/95; PULSE 60; TEMP 36.7; O2SAT 98; Ht 177.8 cm; Wt 111.4 kg
[2016-09-25 09:41] LABS: HEMATOCRIT 42.8 % (42-52); MEAN CELL VOLUME 93.4 fL (80-100); MEAN PLATELET VOLUME 10.6 fL (7.4-10.4); PLATELET COUNT 244 K/uL (130-400); RED BLOOD COUNT 4.58 M/uL (4.7-6.1); WHITE BLOOD COUNT 6.09 K/uL (4.8-10.8)
[2016-09-25 09:49] LABS: MEAN CORPUSCULAR HGB CONC 33.2 g/dl (32-36)
[2016-09-25 09:58] LABS: INR 3.1 (0.9-1.1); PARTIAL THROMBOPLASTIN RATIO 1.7; PROTHROMBIN TIME (PATIENT) 34.3 SECONDS (9.0-12.0)
--- NOTE | 2016-09-25 10:18 | History & Physical Bridge Note ---
H&P Re-Evaluation Bridge Note: I have examined the patient, reviewed the History & Physical and in the interval since the performance of the History & Physical I have noted the following changes of clinical significance: The pacemaker site has continued to bleed, he has been saturating dressings. His INR has been predominantly in the therapeutic range. There evidently is a source of bleeding which is not stopping. His hemoglobin has not dropped significantly. We need to evacuate the hematoma and try to find a source of bleeding. I discussed the indications, procedure, risks and alternatives with him and his and they understand and he agrees to proceed. Consent obtained.
--- NOTE | 2016-09-25 12:56 | Cardiology Procedure Brief Nt ---
Preliminary Cardiology Note Procedure Date September 25, 2016. Pre-Procedure Diagnosis Pacer pocket hematoma and bleeding Post-Procedure Diagnosis Same Procedure(s) Performed Evacuation of hematoma Culture sent Hemostasis performed Water/Wastewater Engineer Dr. Zaidi Director Of Teenage Activities(s) None Estimated Blood Loss 20 cc (new blood) Preliminary Findings Moderate amount of clot removed from pacer site Difficult to identify site of bleeding Several hemostatic agents used (Flow seal, Luiz, Recommendations Monitor briefly and discharge Immobilize left arm Specimens Culture of pocked hematoma Anesthesia Local with sedation Complication(s) None Disposition Recovery Room / PACU
--- NOTE | 2016-09-25 13:18 | Anesthesiology Progress Note ---
Anesthesia Post Op Note Date & Time September 25, 2016 at 13:19 Vital Signs Pain Intensity: 0 Vital Signs Past 12 Hours Date Time Temp Pulse Resp B/P Pulse Ox O2 Delivery O2 Flow Rate FiO2 09/25/16 13:10 60 16 169/85 98 Room Air 09/25/16 13:00 60 16 157/98 99 Nasal Cannula 2 09/25/16 12:51 36. 60 16 179/111 99 Nasal Cannula 2 09/25/16 09:23 36.7 60 18 166/95 98 Room Air Notes Mental Status: alert / awake / arousable, participated in evaluation Pt Amnestic to Procedure: Yes Nausea / Vomiting: adequately controlled Pain: adequately controlled Airway Patency, RR, SpO2: stable & adequate BP & HR: stable & adequate Hydration State: stable & adequate Anesthetic Complications: no major complications apparent
[2016-09-25 13:30] VITALS: BP 125/90; PULSE 60; TEMP 36.4; O2SAT 98
[2016-09-25 14:00] VITALS: BP 140/83; PULSE 69; TEMP 36.3; O2SAT 98
[2016-09-25 14:30] VITALS: BP 139/87; PULSE 60; TEMP 36.3; O2SAT 98
--- NOTE | 2016-09-25 15:03 | Discharge Instructions ---
Discharge Instructions Date of Service September 25, 2016. Admission Reason for Admission: E Commerce Project Manager Anticoagulant Use Discharge Discharge Diagnosis / Problem: Evacuation of pacer pocket hematoma Discharge Goals Goal(s): Improve disease control Activity Recommendations Activity Limitations: resume your previous activity . Instructions / Follow-Up Instructions / Follow-Up ACTIVITY RECOMMENDATIONS: * Do not raise affected arm over head for 2 weeks. Try to use sling for 2 weeks at night. SPECIAL CARE INSTRUCTIONS: * If bleeding occurs, apply direct pressure to area for 5 minutes. * Call your doctor if you have severe pain, fever, drainage or bleeding at site. * Keep dressing on and dry for 24 hours then change, after 48 hours remove. * Keep any scheduled doctor's appointment. FOLLOW UP VISIT: Keep any scheduled doctor appointments. Current Hospital Diet Patient's current hospital diet: AHA Diet (Heart Healthy) Discharge Diet Recommended Diet: AHA Diet (Heart Healthy) Procedures Procedures Performed: Evacuation of left chest wall hematoma Pending Studies Studies pending at discharge: no Medical Emergencies . Who to Call and When: Medical Emergencies: If at any time you feel your situation is an emergency, please call 911 immediately. . Non-Emergent Contact Non-Emergency issues call your: Primary Care Provider . . "Provider Documentation" section prepared by Donald Zaidi. . VTE Core Measure Inpt VTE Proph given/why not?: Warfarin (Coumadin)
[2016-09-25 15:10] VITALS: BP 130/75; PULSE 63; TEMP 36.3; O2SAT 98
--- NOTE | 2016-09-25 17:50 | OPERATIVE REPORT ---
DATE OF OPERATION: 09/25/2016 PREOPERATIVE DIAGNOSIS: Pacemaker pocket hematoma with ongoing bleeding. POSTOPERATIVE DIAGNOSIS: Same. PROCEDURE: Evacuation of hematoma and hemostasis. SURGEON: Donald Zaidi MD ANESTHESIA: Local with sedation. HISTORY OF PRESENT ILLNESS: This is a 60-year-old male with a history of a mechanical mitral valve prosthesis who underwent pacemaker implantation on 07/16/2016. His atrial lead dislodged and he required repositioning of the atrial lead on 08/25/2016. He had continued difficulty with bleeding and the incision was explored on 09/07/2016 where hematoma was evacuated and hemostasis was attempted. A small incision was made and a culture was sent, cultures have always negative for infection. He continued to have bleeding, and drainage and after conservative treatment appeared to fail for several weeks with continued bleeding he is being brought to the operating room for more extensive hematoma evacuation and attempts at hemostasis. OPERATION AND FINDINGS: After obtaining informed consent for the procedure, he was brought to the operating room on the morning of 09/25/2016 being n.p.o. after midnight. He was identified in the operating room, prepped and draped in standard sterile manner for a left-sided procedure. The left prepectoral region was anesthetized with 1% lidocaine local anesthetic and the incision was opened with a 6-cm incision and carried down to the pacemaker generator. The generator was dissected free of tissue and explanted. A moderate amount of hematoma was evacuated. There was a fair amount of bleeding; however, it was difficult to tell whether this was new or old. The pocket itself did not appear to be bleeding substantially. Hemostasis was obtained with cautery; however, there still was a fair amount of oozing present. The INR was 3.1 prior to the procedure, it was intended to do the procedure with anticoagulation present. Several hemostatic strategies were employed. Cautery was used to try to minimize obvious bleeding sites, Surgicel was placed over the pacemaker when it was placed back in the pocket and FloSeal was used as well as Luiz. In addition, an antibiotic impregnated pacemaker pouch was used to minimize the risk of infection. A culture of the hematoma was sent as soon as it was opened. Hopefully with the strategies, bleeding will be minimized. At the end of procedure, there was no significant bleeding. The patient tolerated the procedure well, there were no complications and estimated blood loss for new blood was about 20 mL. The patient was transferred back to the PACU for recovery and subsequent discharge home. NEIL
== END | disposition home or self-care (01) ==
LOC: C.ACU 08:37
PROVIDERS: ATTEND Internal Medicine Cardiovascular Disease
DX: I97.638 Postprocedural hematoma of a circulatory system organ or structure following other circulatory system procedure (principal); I25.10 Atherosclerotic heart disease of native coronary artery without angina pectoris; I10 Essential (primary) hypertension; I48.91 Unspecified atrial fibrillation; I25.2 Old myocardial infarction; G47.33 Obstructive sleep apnea (adult) (pediatric); Z79.01 Long term (current) use of 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; E66.9 Obesity, unspecified; Z68.35 Body mass index [BMI] 35.0-35.9, adult

== ENCOUNTER → 2016-11-24 | Outpatient (CLI) | payer BC ==
[~2016-11-24] MED LIST changes: -ACETAMINOPHEN 325 MG TAB PO PRN; -ARISTA ABSORBABLE HEMOSTAT 3GM TOP ONE; -BACITRACIN 50000 UNIT VIAL ONE; -BACITRACIN OINT 15 GM TUBE ONE; -CEFAZOLIN IV 2,000 MG in DEXTROSE 5% 50ML 50 ML IV SCH; -FENTANYL CITRATE INJ 50 MCG/1 ML 2 ML VIAL ONE; -FLOSEAL HEMOSTATIC MATRIX 5ML TOP ONE; -KETAMINE HCL INJ 50 MG/ML 10 ML VIAL ONE; -LACTATED RINGER'S 1000ML 1,000 ML IV SCH; -LIDOCAINE HCL 1% 20 ML VIAL ONE; -LIDOCAINE HCL 2% 2 ML VIAL (20MG/ML) ONE; -MIDAZOLAM HCL 1 MG/ML 2ML VIAL ONE; -ONDANSETRON INJ 2 MG/ML 2 ML VIAL ONE; -OXYCODONE/ACETAMINOPHEN 5-325 TAB PO PRN; -PROPOFOL IV EMULSION 10 MG/ML 20 ML VIAL IV ONE; -SURGICEL ABSORB HEMOSTAT 2IN X 14IN TOP ONE
[2016-11-24 12:53] LABS: AST/SGOT 55 U/L (15-37); BLOOD UREA NITROGEN 14 mg/dl (7-18); CALCIUM 9.1 mg/dl (8.5-10.1); CARBON DIOXIDE 30 mmol/L (21-32); CHLORIDE 109 mmol/L (98-107); CHOLESTEROL 255 mg/dl (0-200); CREATININE 0.88 mg/dl (0.60-1.40); GLUCOSE 88 mg/dl (70-99); POTASSIUM 4.3 mmol/L (3.5-5.1); SODIUM 143 mmol/L (136-145)
[2016-11-24 12:58] LABS: ALKALINE PHOSPHATASE 86 U/L (45-117); ALT/SGPT 80 U/L (12-78); CHOLESTEROL/HDL RATIO 5.9; HDL CHOLESTEROL 43 mg/dl; LDL CHOLESTEROL CALCULATED 184 mg/dl; TRIGLYCERIDES 141 mg/dl (0-150); VERY LOW DENSITY LIPOPROT CALC 28 mg/dl
== END | disposition home or self-care (01) ==
LOC: C.LAB 11:35
PROVIDERS: ATTEND Family Medicine
DX: I10 Essential (primary) hypertension (principal)

== ENCOUNTER 2016-12-10 12:15 | Inpatient (IN) | payer BC ==
[~2016-12-10] VITALS: Ht 177.8 cm; Wt 115.6 kg
[~2016-12-10 12:15] MED LIST changes: -CEPH500C PO; -FRS/40 PO; -FURO-85 PO; -NTRSLP4 SL; -POTA20TA13 PO; -SULF800T23 PO
[2016-12-10 12:48] VITALS: BP 185/106; PULSE 66; TEMP 36.6; O2SAT 95
[2016-12-10 14:00] VITALS: BP 185/106; PULSE 66; TEMP 36.6; O2SAT 95; Ht 177.8 cm; Wt 115.6 kg
[2016-12-10] MEDS ORDERED: FURO-85 PO (14:28)
[2016-12-10] MEDS ORDERED: NITROGLYCERIN 0.4 MG SL PER TAB CHARGE SL PRN (14:30)
[2016-12-10] MEDS ORDERED: COLCHICINE 0.6 MG TAB PO PRN (14:30)
[2016-12-10] MEDS ORDERED: ALUMINUM/MAGNESIUM/SIMETH (MAALOX MAX) 30 ML UDC PO PRN (14:30)
[2016-12-10] MEDS ORDERED: MAGNESIUM HYDROXIDE SUSP 30 ML UDC PO PRN (14:30)
[2016-12-10] MEDS ORDERED: ONDANSETRON INJ 2 MG/ML 2 ML VIAL IV PRN (14:30)
[2016-12-10] MEDS ORDERED: POLYETHYLENE (MIRALAX) 17 GM PACK PO PRN (14:30)
[2016-12-10] MEDS ORDERED: ISOSORBIDE MONONITRATE 30 MG TABCR PO ONE (15:00)
--- NOTE | 2016-12-10 15:02 | History and Physical ---
History & Physical Date & Time of Service: Dec 10, 2016 at 14:30 Chief Complaint: Unstable Angina, Exacerbation Of Heart Failure Primary Care Physician: Huber Pang MD History of Present Illness Source: patient, clinic records, hospital records Patient is a pleasant 61 y/o male, with PMHx of CAD s/p PCI, sick sinus syndrome s/p pacemaker implantation, paroxysmal a.fib, rheumatic heart disease s /p mechanical mitral valve replacement, chronic diastolic CHF, HTN, hyperlipidemia- intolerant to statin therapy, and gout who was a direct admission from [facility] Cardiology office due to unstable angina symptoms. Patient has been experiencing chest discomfort with radiating symptoms to left arm over the last 1 month. Discomfort last 10-15 minutes and resolves with rest. He also notes a tightness in his throat that has been occurring over the last 2 weeks. Cannot recall if throat tightness and chest discomfort occur together. Symptoms are similar to past MS symptoms. He also notes increased SOB - +orthopnea, edema, and weight gain (+11 pounds). He was instructed by cardiology to increase his Metoprolol to 100 mg BID due to palpitations, and reports improvement in his symptoms. Patient denies any fever, chills, sweats, lightheadedness, dizziness, vision changes, cough, abdominal pain, nausea, vomiting, diarrhea, urinary symptoms, melena, numbness/tingling, weakness, muscle/joint pain, anxiety/depression, active bleeding, or new skin discoloration/changes. Past Medical/Surgical History Medical Problems: CAD s/p PCI Sick sinus syndrome s/p dual- chamber pacemaker implantation Paroxysmal a.fib- states he has had ~50 cardioversions Rheumatic heart disease s/p mechanical mitral valve replacement Chronic diastolic CHF HTN Hyperlipidemia- intolerant to statin therapy Gout Surgical history: Cardioversion x~50 Cardiac cath Dual- chamber pacemaker implantation Mechanical mitral valve replacement Open heart surgery Colonoscopy Rotator cuff surgery Family History FHx: heart disease Hypertension Social History Smoking Status: Former Smoker Alcohol Use: occasionally Drug Use: none Marital Status: Housing status: lives with family Occupational Status: employed Immunizations History of Influenza Vaccine: N/A History of Tetanus Vaccine?: Yes Tetanus Immunization Date: Oct 29, 2009 History of Pneumococcal: Yes Pneumococcal Date: Oct 29, 2009 History of Hepatitis B Vaccine: No Allergies Coded Allergies: Statins (Verified Allergy, Unknown, MUSCLE ACHES, 09/25/16) Home Medications Scheduled Allopurinol (Allopurinol), 300 MG PO QAM Aspirin (Aspirin Ec), 81 MG PO QPM Furosemide (Lasix), 40 MG PO DAILY Metoprolol Tartrate (Lopressor), 100 MG PO BID Valsartan (Diovan), 160 MG PO QAM Warfarin Sod (Jantoven), 3 MG PO 3XWEEK Warfarin Sodium (Coumadin), 4 MG PO 4XWEEK Scheduled PRN Colchicine (Colchicine), 0.6 MG PO BID PRN for GOUT FLARE-UP Physical Exam Vital Signs Date Time Temp Pulse Resp B/P (MAP) Pulse Ox O2 Delivery O2 Flow Rate FiO2 12/10/16 12:48 36.6 66 18 185/106 (132) 95 Room Air General Appearance: no apparent distress, + obese Head: normocephalic, atraumatic Eyes: normal inspection, PERRL ENT: hearing grossly normal Neck: supple Respiratory/Chest: lungs clear, no respiratory distress, no accessory muscle use Cardiovascular: regular rate, rhythm, + JVD, + pertinent finding (Mechanical valve ) Abdomen/GI: normal bowel sounds, non tender, soft Back: normal inspection Extremities/Musculoskelatal: no calf tenderness, no pedal edema, + swelling (+ trace-1 pitting edema of bilateral lower extremities ) Neurologic/Psych: alert, normal mood/affect, oriented x 3 Skin: normal color, warm/dry, no rash Impression Assessment and Plan Patient is a pleasant 61 y/o male, with PMHx of CAD s/p PCI, sick sinus syndrome s/p pacemaker implantation, paroxysmal a.fib, rheumatic heart disease s /p mechanical mitral valve replacement, chronic diastolic CHF, HTN, hyperlipidemia- intolerant to statin therapy, and gout who was a direct admission from [facility] Cardiology office due to unstable angina. Unstable angina: - Admit to tele for cardiac monitoring - Trend cardiac enzymes- initial trop was negative @1200 - O2 protocol - EKG QAM and PRN for CP - Last ha1c on record in '08- repeat tomorrow AM - Cardiology consulted, appreciate recommendations -- Start Imdur -- Lasix -- Obtain ECHO -- NPO after midnight- instructed patient to NOT eat each morning until seeing cardiology due to ?intervention pending INR -- Planning for cath, but INR 3.4- goal for intervention 2.5-3 Acute on chronic diastolic exacerbation: - Hold PO Lasix 40 mg; IV Lasix 40 mg x1 and monitor response/cardiology input - Monitor I&Os and daily weights - Obtain ECHO CAD s/p PCI, sick sinus syndrome s/p pacemaker implantation, paroxysmal a.fib, rheumatic heart disease s/p mechanical mitral valve replacement: - HOLD Coumadin 3 mg on , , Wed and 4 mg on ,,, Wed- follow PT/INR -- If INR < 2.5, begin IV Heparin - Continue Metoprolol 100 mg BID, ASA 81 mg daily, Diovan 160 mg daily HTN: - Continue Diovan as above- watch for hypotension w/ starting Imdur/IV Lasix - Hydralazine PRN Hyperlipidemia- INTOLERANT TO STATINS: Reviewed lipid panel from 11/24/16 Gout- STABLE: Continue Allopurinol 300 mg daily and Colchicine 0.6 mg BID PRN GI Prophylaxis: Protonix DVT Prophylaxis: Coumadin Code Status: LEVEL I, FULL Dispo: From home, lives with family- no discharge needs anticipated I personally interviewed and examined the patient I discussed the above plan with Miss Lu English I agree with her Hx and PE 61 y/o/m with PMHx of CAD s/p PCI, SSS s/p PPM, paroxysmal a.fib, rheumatic heart disease s/p mechanical mitral valve replacement, chronic diastolic CHF, HTN and dyslipidemia , he was sent from [facility] Cardiology office due to unstable angina. . ROS/PMHx: as HPI FHx/SHx/labs/meds reviewed as needed PE: average built, not in acute distress LUNGs: normal exam, no wheezing/R Heart: s1/s2 normal, no G/R/M, + mechanical click ABD: soft, ND, N tender Ext: B/L LE no edema or swelling Neuro: pleasant,AAOX3, EOMI, moves all ext, CN 2-12 intact Assessment: unstable angina Acute on chronic diastolic CHF exacerbation CAD S/P stent HTN the rest as HPI Plan: admit to telemetry hold coumadin cath as per roller skater continue home meds as appropriate Level of Care Telemetry Resuscitation Status FULL RESUSCITATION VTE Prophylaxis VTE Risk Assessment Done? Y/N: Yes Risk Level: Moderate Given or contraindicated: T.E.D. Stockings, SCD's, Contraindicated
[2016-12-10] MEDS: ACETAMINOPHEN 325 MG TAB PO PRN ×2 (15:45→20:54)
[2016-12-10] MEDS ORDERED: FUROSEMIDE INJ 40 MG in SYRINGE 0 ML IV ONE (16:00)
[2016-12-10] MEDS ORDERED: HydrALAZINE HCL 20 MG/ML VIAL IV. PRN (17:15)
--- NOTE | 2016-12-10 17:39 | Cardiology Consultation ---
Cardiology Consultation Date of Consultation: Dec 10, 2016. Requesting Physician: Dr. Corey Garg Attending Physician: Dr. Corey Garg Reason for Consultation: Unstable Angina Pt evaluation today including: conversation w/ patient, physical exam, chart review, lab review, review of studies, review of inpatient medication list, conversation w/ attending (Spoke with Dr. Corey Garg and admitting PA Dane English)) History of Present Illness Mr. Ren is a very pleasant 61-year-old gentleman with a history significant for paroxysmal atrial fibrillation since 1996 (he estimates greater than 50 cardioversions, and multiple anti rhythmic therapies) CAD status post PCI, diastolic CHF, rheumatic valvular heart disease status post mitral valve repair , tachy-mara syndrome s/p pacemaker placement, hypertension, and dyslipidemia (intolerant to statin therapy). He was diagnosed with atrial fibrillation in 1996. He has tried several medications including amiodarone, sotalol, Tikosyn, and rate-controlling medication. He did not tolerate amiodarone, Multaq or Tikosyn. He does not believe sotalol was effective. He has had the following studies/procedures: 1. Atrial fibrillation ablation 2004. 2. Coronary PCI October 2007: Proximal circumflex and distal RCA. 3. Mitral valve replacement 01/06/2012 at [facility]: Mechanical MVR. 4. Cobb Maze procedure 01/06/2012. 5. Loop recorder 05/21/2016. 6. Cardiac catheterization August 2015: Proximal LAD 20%; mid LAD 50% with negative FFR. Proximal RCA 40%. Mid PDA 60%, negative by FFR. 7. Echo 10/11/2015: Normal LV size, wall motion, systolic function. EF 65%. Moderate LVH. Dilated RV with reduced systolic function. Mild AI. Well seated mitral valve replacement with normal hemodynamics. PA SP 60mmHg. 8. Dual-chamber pacemaker implantation and loop recorder explantation 07/16/2016 : Sick sinus syndrome was noted on loop recorder. Heart rates in the 30s and pauses up to 5 seconds without AV obinna blocking agents, and also with atrial fibrillation and rapid ventricular response. 9. Echo 10/23/2016: Normal LV size with hyperdynamic systolic function. EF 65- 70%. No regional wall motion abnormalities. Mild to moderate LVH. RV not well visualized but appears to have mildly reduced systolic function. Mild left atrial dilation. Mechanical mitral valve with acceptable gradients. No significant MR. Over the past few weeks, he has had progressively worsening chest discomfort. He states that the left sided chest discomfort typically occurs with exertion and is a heaviness that radiates to the left arm and resolves with rest within a few minutes. He states it is similar to prior angina that he has experienced. He also has developed a sensation in his throat as though it feels difficult to swallow, which was also present during myocardial infarction in the past. This symptom is intermittent and has occurred only a few times, not nearly as common as the chest discomfort described above. He has actually had a few episodes of chest discomfort at rest, radiating to the left arm, lasting 10-15 minutes before spontaneously resolving. He has short of breath with chest discomfort but denies diaphoresis. He canceled an acute visit yesterday to discuss the symptoms but did come to the office today and was directly admitted for unstable angina. We discussed his symptoms yesterday on the phone and metoprolol was increased to 100 mg twice daily. He believes that his symptoms have improved since yesterday. He is currently chest pain-free. He has been experiencing palpitations, mostly at rest at night feeling as though his heart is racing. He has noted increased lower extremity swelling, dyspnea with exertion, and coughing while laying supine in bed. He describes orthopnea. He has gained 11 lb since October 23. He denies melena, hematochezia, hematuria, or other bleeding. He denies stroke or stroke-like symptoms. He denies syncope or near-syncope. Overall his symptoms have progressively worsened over time, causing concern to him. Review of systems: As above or otherwise negative/unremarkable. Family History FHx: heart disease Hypertension Father at the age of 42 with his 3rd myocardial infarction. Very strong family history of CAD. Social History Quit smoking in 1981. Occasional alcohol. No drugs. He is and lives at home with his . They have 3 daughters. One grandchild. He works for [employer] in the [employer] business. He is alone in his hospital room. Review of Systems Cardiac: + see HPI, + palpitations Allergies Coded Allergies: Statins (Verified Allergy, Unknown, MUSCLE ACHES, 09/25/16) Medications Current Inpatient Medications Medications (Trade) Dose Ordered Sig/Twin Route Start Time Stop Time Status Last Admin Dose Admin Acetaminophen (Tylenol Tab) 650 mg Q4H PRN PO 12/10/16 14:30 01/09/17 14:29 12/10/16 15:45 650 MG Al Hydrox/Mg Hydrox/Simethicone (Maalox Max Susp) 15 ml Q4H PRN PO 12/10/16 14:30 01/09/17 14:29 Magnesium Hydroxide (Milk Of Magnesia Susp) 30 ml Q12H PRN PO 12/10/16 14:30 01/09/17 14:29 Ondansetron HCl (Zofran Inj) 4 mg Q6H PRN IV 12/10/16 14:30 01/09/17 14:29 Nitroglycerin (Nitrostat Tab) 0.4 mg UD PRN SL 12/10/16 14:30 01/09/17 14:29 Polyethylene (Miralax Powder Packet) 17 gm DAILY PRN PO 12/10/16 14:30 01/09/17 14:29 Isosorbide Mononitrate (Imdur Ext Rel Tab) 30 mg QAM PO 12/11/16 09:00 01/10/17 08:59 Allopurinol (Zyloprim Tab) 300 mg QAM PO 12/11/16 09:00 01/10/17 08:59 Aspirin (Ecotrin Tab) 81 mg QPM PO 12/10/16 21:00 01/09/17 20:59 Colchicine (Colchicine Tab) 0.6 mg BID PRN PO 12/10/16 14:30 01/09/17 14:29 Metoprolol Tartrate (Lopressor Tab) 100 mg BID PO 12/10/16 21:00 01/09/17 20:59 Valsartan (Diovan Tab) 160 mg QAM PO 12/11/16 09:00 01/10/17 08:59 Pantoprazole Sodium (Protonix Tab) 40 mg QAM PO 12/11/16 09:00 01/10/17 08:59 Hydralazine HCl (HydrALAZINE INJ) 10 mg Q4H PRN IV. 12/10/16 17:15 01/09/17 17:14 UNV Physical Exam Vital Signs Past 12 Hours Date Time Temp Pulse Resp B/P (MAP) Pulse Ox O2 Delivery O2 Flow Rate FiO2 12/10/16 14:00 36.6 66 18 185/106 95 Room Air 12/10/16 12:48 36.6 66 18 185/106 (132) 95 Room Air Gen.: No acute distress. Alert and oriented. HEENT: Anicteric sclera. Neck: Mild JVD. No bruits. Normal carotid upstrokes bilaterally. Cardiac: PMI was nondisplaced. No ventricular heave. Regular rate and rhythm. [place] S1. Normal S2. 1/6 systolic murmur. No rubs or gallops. Pulmonary: Clear to auscultation bilaterally without wheezes, rales, or rhonchi. Abdomen: Soft, nontender, nondistended, with normoactive bowel sounds. No bruits noted. Extremities: 2+ radial pulses bilaterally; jason's test okay. 2+ femoral pulses bilaterally without bruit. 2+ posterior tibialis pulses bilaterally. 1+ bilateral lower extremity edema. No cyanosis. Psychiatric: Affect appears appropriate. Chest: Nontender to palpation. Data Laboratory Results: Labs 12/10/2016: Sodium 140; potassium 4.4; BUN 13; creatinine 0.79; troponin undetectable; WBC 6.64; hemoglobin 15.2; platelets 227; INR 3.4 ECG personally reviewed. ECG done in the office on 12/10/2016 at 10:37 a.m.: Atrial paced. [address]/T-wave abnormalities. Echocardiogram report reviewed as noted above in HPI. Assessment & Plan ASSESSMENT/PLAN: 1. Unstable angina: Symptoms are concerning for unstable angina any has documented CAD as noted above. He is currently chest pain-free. Continue current dose of metoprolol. Start isosorbide mononitrate 30 mg daily. No urgent indication for cardiac catheterization, and therefore will allow INR to drift downward before pursuing cardiac catheterization. If symptoms recur, especially with ST changes, would consider more urgent coronary angiography. He will be re-assessed on a daily basis in regards to his INR and cardiac catheterization timing. He was instructed to hold off on eating breakfast each morning until seen by Cardiology. 2. CAD status post prior PCI: Proximal circumflex and distal RCA PCI in 2007 and had nonobstructive CAD in August of 2015. Continue aspirin 81 mg daily indefinitely. Continue beta-shelly, ARB, and initiate nitrate therapy as above. He is intolerant to statin therapy. 3. Acute on chronic diastolic CHF: He appears hypervolemic. Recommend intravenous Lasix and assess urine output and fluid balance on a daily basis. Low-sodium diet. Daily weights. Repeat echocardiogram given change in symptoms since his last echo in October. CHF could be due to intermittent ischemia as well. 4. Mechanical mitral valve: Hold Coumadin tonight. If INR falls below 2.5, start heparin drip. Can proceed with cardiac catheterization via radial approach when INR drift down somewhat. To be reassessed on a daily basis. 5. Paroxysmal atrial fibrillation and tachy-mara syndrome: He has been having episodes of palpitations. Will consider interrogation of pacemaker to see if there is any correlation with his symptoms and tachy arrhythmia. Continue higher dose of beta-shelly, 100 mg twice daily of metoprolol, which was changed on 12/09/2016. 6. Hypertension: Blood pressure significantly elevated. P.r.n. hydralazine will be ordered. Hopefully blood pressure improves with some diuresis and increased beta-shelly dose. If not, further titrate medications as appropriate. 7. Dyslipidemia: He is intolerant to several statin therapies in the past. 8. Disposition: Cardiology will continue to follow. I am away in the hospital for the next [address] Deal was made aware of current issues. He will see him tomorrow. Plan care was discussed with admitting hospitalist team. Highly complex medical issues. Thank you for allowing me to participate in the care of your patient. Please call for any other questions or concerns. Sincerely, Loc Maguire M.D.
[2016-12-10 18:02] VITALS: BP 125/78; PULSE 76
--- NOTE | 2016-12-10 18:16 | DIAGNOSTIC IMAGING REPORT ---
TWO VIEW CHEST CLINICAL HISTORY: CHF. FINDINGS: PA and lateral chest radiographs are compared to study dated 08/17/2016. A 2-lead cardiac pacemaker is unchanged in position and partially secures the left mid chest. The patient is status post midline sternotomy. There is evidence of previous cardiac valve surgery. The heart is enlarged and there is atherosclerotic calcification of the thoracic aorta. There is mild pulmonary vascular congestion. Nonspecific interstitial thickening is similar to previous. No airspace consolidation or large pleural effusion is identified. There is no pneumothorax. The skeletal structures are osteopenic. The bony thorax appears intact. IMPRESSION: 1. Cardiomegaly and cardiac pacemaker. There is mild pulmonary vascular congestion. 2. No airspace consolidation or pleural effusion is identified. Electronically signed by: Cristóbal Fisher M.D. 12/10/2016 6:14 PM Dictated Date/Time: 12/10/2016 5:59 PM
[2016-12-10 19:24] VITALS: BP 113/70; PULSE 62; TEMP 36.7; O2SAT 94
[2016-12-10] MEDS: METOPROLOL TARTRATE 50 MG TAB PO SCH (20:51)
[2016-12-10] MEDS ORDERED: ASPIRIN 81 MG ECTAB PO SCH (21:00)
[2016-12-11] VITALS: O2SAT 95
[2016-12-11 00:15] VITALS: BP 128/75; PULSE 54; TEMP 36.6; O2SAT 96
[2016-12-11 04:00] VITALS: BP 114/72; PULSE 60; TEMP 36.6; O2SAT 95; O2SAT 96
[2016-12-11 04:26] LABS: BASO % 0.6 %; BASO ABS # 0.03 K/uL (0-0.2); COMPLETE YES; EOS % 4.3 %; HEMATOCRIT 42.1 % (42-52); IG% 0.2 %; LYMPH % 18.9 %; LYMPH ABS # 1.02 K/uL (1.2-3.4); MEAN CELL VOLUME 92.1 fL (80-100); MEAN CORPUSCULAR HEMOGLOBIN 30.6 pg (25-34); MEAN CORPUSCULAR HGB CONC 33.3 g/dl (32-36); MEAN PLATELET VOLUME 10.5 fL (7.4-10.4); MONO % 16.7 %; NEUT % 59.3 %; PLATELET COUNT 189 K/uL (130-400); RED BLOOD COUNT 4.57 M/uL (4.7-6.1); WHITE BLOOD COUNT 5.39 K/uL (4.8-10.8)
[2016-12-11 04:39] LABS: INR 3.4 (0.9-1.1); PROTHROMBIN TIME (PATIENT) 37.7 SECONDS (9.0-12.0)
[2016-12-11 04:44] LABS: ALT/SGPT 54 U/L (12-78); AST/SGOT 43 U/L (15-37); BLOOD UREA NITROGEN 17 mg/dl (7-18); BUN/CREATININE RATIO 18.5 (10-20); CALCIUM 8.4 mg/dl (8.5-10.1); CARBON DIOXIDE 31 mmol/L (21-32); CHLORIDE 106 mmol/L (98-107); CREATININE 0.91 mg/dl (0.60-1.40); GLUCOSE 93 mg/dl (70-99); MAGNESIUM 2.1 mg/dl (1.8-2.4); POTASSIUM 4.3 mmol/L (3.5-5.1); SODIUM 141 mmol/L (136-145)
[2016-12-11 04:50] LABS: ALKALINE PHOSPHATASE 74 U/L (45-117); PHOSPHORUS 3.8 mg/dl (2.5-4.9)
[2016-12-11] MEDS: METOPROLOL TARTRATE 50 MG TAB PO SCH (07:49)
[2016-12-11 07:59] VITALS: BP 126/73; PULSE 60; TEMP 36.6; O2SAT 96
[2016-12-11 08:38] LABS: ESTIMATED AVERAGE GLUCOSE 120 mg/dl; HA1C FLAG Normal (Normal)
[2016-12-11] MEDS ORDERED: PERFLUTREN LIPID MICROSPHERE (DEFINITY) IV ONE ×2 (08:45→11:26)
[2016-12-11] MEDS ORDERED: VALSARTAN 80 MG TAB PO SCH (09:00)
[2016-12-11] MEDS ORDERED: ALLOPURINOL 300 MG TAB PO SCH (09:00)
[2016-12-11] MEDS ORDERED: PANTOprazole SOD 40 MG TAB PO SCH (09:00)
[2016-12-11] MEDS ORDERED: ISOSORBIDE MONONITRATE 30 MG TABCR PO SCH (09:00)
--- NOTE | 2016-12-11 09:57 | Cardiology Follow-Up ---
Subjective Date of Service: Dec 11, 2016. Pt evaluation today including: conversation w/ patient, physical exam, chart review, lab review, review of studies, review of inpatient medication list, conversation w/ attending History of Present Illness Patient seen at bedside this morning. He reports that he is feeling much better. He has been chest pain free since his hospital admission. He diuresed about 1.5 L with one dose of IV Lasix, and his breathing has greatly improved. He denies orthopnea, PND, or any significant edema. He denies any recurrent tachy-palpitations. He further denies lightheadedness, dizziness, presyncope, abnormal bleeding, or cerebrovascular symptoms. Review of Systems Cardiac: + see HPI, + palpitations Objective Vital Signs Past 12 Hours Date Time Temp Pulse Resp B/P (MAP) Pulse Ox O2 Delivery O2 Flow Rate FiO2 12/11/16 08:00 Room Air 12/11/16 07:59 36.6 60 16 126/73 (90) 96 Room Air 12/11/16 04:00 95 Room Air 12/11/16 04:00 36.6 60 18 114/72 (86) 96 Room Air 12/11/16 00:15 36.6 54 18 128/75 (92) 96 Room Air 12/11/16 00:00 95 Room Air Last Recorded Weight-Kilograms: 115.600 Physical Exam Constitutional: Alert, oriented, in no acute distress HEENT: Head is atraumatic and normocephalic. EOMs intact. Sclera anicteric. Face is symmetric. No perioral cyanosis. Mucous membranes moist. Neck: Supple, no JVD Chest: Palpable device in left subclavian fossa Pulmonary: Normal respiratory effort, clear to auscultation bilaterally Cardiac: Regular rate and rhythm, crisp S1, normal S2, no gallops, no rubs, no obvious murmurs Extremities: Trace pretibial edema bilaterally. No clubbing or cyanosis. Pulses intact. Abdomen: Normal bowel sounds, soft, non-tender, no abdominal mass palpated Skin: Normal skin color, turgor, and pigmentation, no rash, no skin lesions Neurological: Oriented to person, place, and time Data Laboratory Results: Last 24 Hours Test 12/10/16 19:57 12/11/16 04:00 12/11/16 04:15 Creatine Kinase MB 3.5 ng/ml 3.1 ng/ml Creatine Kinase MB Ratio Troponin I < 0.015 ng/ml < 0.015 ng/ml White Blood Count 5.39 K/uL Red Blood Count 4.57 M/uL Hemoglobin 14.0 g/dL Hematocrit 42.1 % Mean Corpuscular Volume 92.1 fL Mean Corpuscular Hemoglobin 30.6 pg Mean Corpuscular Hemoglobin Concent 33.3 g/dl Platelet Count 189 K/uL Mean Platelet Volume 10.5 fL Neutrophils (%) (Auto) 59.3 % Lymphocytes (%) (Auto) 18.9 % Monocytes (%) (Auto) 16.7 % Eosinophils (%) (Auto) 4.3 % Basophils (%) (Auto) 0.6 % Neutrophils # (Auto) 3.20 K/uL Lymphocytes # (Auto) 1.02 K/uL Monocytes # (Auto) 0.90 K/uL Eosinophils # (Auto) 0.23 K/uL Basophils # (Auto) 0.03 K/uL RDW Standard Deviation 49.9 fL RDW Coefficient of Variation 14.8 % Immature Granulocyte % (Auto) 0.2 % Immature Granulocyte # (Auto) 0.01 K/uL Prothrombin Time 37.7 SECONDS Prothromb Time International Ratio 3.4 Sodium Level 141 mmol/L Potassium Level 4.3 mmol/L Chloride Level 106 mmol/L Carbon Dioxide Level 31 mmol/L Anion Gap 4.0 mmol/L Blood Urea Nitrogen 17 mg/dl Creatinine 0.91 mg/dl Est Creatinine Clear Calc Drug Dose 106.6 ml/min Estimated GFR () 103.6 Estimated GFR (Non- 89.4 BUN/Creatinine Ratio 18.5 Random Glucose 93 mg/dl Estimated Average Glucose 120 mg/dl Hemoglobin A1c 5.8 % Calcium Level 8.4 mg/dl Phosphorus Level 3.8 mg/dl Magnesium Level 2.1 mg/dl Total Bilirubin 0.7 mg/dl Aspartate Amino Transf (AST/SGOT) 43 U/L Alanine Aminotransferase (ALT/SGPT) 54 U/L Alkaline Phosphatase 74 U/L Total Protein 6.3 gm/dl Albumin 3.2 gm/dl Globulin 3.1 gm/dl Albumin/Globulin Ratio 1.0 EKG: Atrial paced rhythm at 60 bpm. Left axis deviation. No acute ST-T wave changes. Telemetry reviewed: Paced with occasional PVCs. Assessment and Plan ASSESSMENT/PLAN: 1. Chest pain: Fortunately, the patient has remained chest pain free since his hospitalization. His cardiac enzymes have been negative, and ECG shows no acute ischemic changes. Will therefore perform a stress echocardiogram for further evaluation. If the study is normal, he would be safe for discharge home. Continue current dose of metoprolol as well as isosorbide mononitrate. 2. CAD status post prior PCI: Proximal circumflex and distal RCA PCI in 2007 and had nonobstructive CAD in August of 2015. Continue aspirin 81 mg daily indefinitely. Continue beta-shelly, ARB, and initiate nitrate therapy as above. He is intolerant to statin therapy. 3. Diastolic CHF: He has diuresed 1.5 L, and he appears euvolemic on examination today. No need for further diuretic therapy at this time. Continue low-sodium diet and daily weights. Repeat echocardiogram with stress echo as noted above. 4. Mechanical mitral valve: Coumadin is currently on hold given the potential need for a cardiac catheterization. INR today was 3.4. Will await the results of the upcoming stress echo in order to determine whether or not he will need a cath and whether or not his Coumadin will be restarted. Check echo. 5. Paroxysmal atrial fibrillation and tachy-mara syndrome: He has been having episodes of palpitations. Pacemaker interrogation shows more frequent episodes of atrial fibrillation. His longest episode of a fib was 7 hours in duration. His rate increases up to 150-160s bpm with the arrhythmia. His symptoms have improved with increased beta shelly dose, and telemetry monitoring shows paced rhythm in the 60s with no atrial fibrillation/tachycardia. Continue higher dose of beta-shelly, 100 mg twice daily of metoprolol, which was changed on 2016. 6. Hypertension: Blood pressure has been well controlled. Continue current therapy. 7. Dyslipidemia: He is intolerant to several statin therapies in the past. 8. Disposition: Cardiology will continue to follow. The patient was seen and discussed with Dr. Tee, and the plan was made in collaboration with him. Dr. Tee Addendum: Patient seen and examined and agree with assessment and plan as outlined by HEVER Fitzpatrick. Reviewed patient stress echo from today and low risk for adverse events. Feel patient can be safely discharged to home with cardiology follow-up in the next 1-2 weeks. If recurrent pain will consider cardiac cath as an outpatient.
--- NOTE | 2016-12-11 13:56 | ECHOCARDIOGRAM REPORT ---
*NOTICE TO RECEIVING DEMOCRAT AGENCY This information is strictly Confidential and protected under [place] law. [place] law prohibits you from making any further disclosure of this information unless further disclosure is expressly permitted by the written consent of the person to whom it pertains or is authorized by law. A general authorization for the release of medical or other information is not sufficient for this purpose. Hospital accepts no responsibility if the information is made available to any other person, INCLUDING THE PATIENT. Interpretation Summary * Name: ISH BRYSON Study Date: 12/11/2016 07:04 AM BP: 114/72 mmHg * Patient Location: [facility]\S\N288\S\2 HR: 60 * : 1955 (M/d/yyyy) Gender: Male Height: 70 in * Age: 61 yrs Ethnicity: [place] Weight: 258 lb * Ordering Physician: Lu English * Referring Physician: Huber Pang * Performed By: Mynor Gant RCS * * Reason For Study: CHF * BSA: 2.3 m2 * -- Conclusions -- * 1. Normal LV size, borderline concentric LVH. * 2. Normal LV systolic function. LVEF 60-65%. Abnormal septal motion consistent with post-operative state. * 3. Mildly dilated RV with RV dysfunction. * 4. Well-seated mechanical mitral valve with expected transvalvular gardients. * 5. Normal estimated RA and PA pressures. * 6. Compared with prior study on 10/28/2014: No significant change. Procedure Details * A complete two-dimensional transthoracic echocardiogram was performed (2D, M-mode, Doppler and color flow Doppler). * A contrast injection of Definity was performed to improve assessment of LV function. * Contrast was injected into an intravenous site in the left arm. * One vial of Definity ultrasound contrast was diluted in normal saline to a total volume of 10 ml. A total of '2' ml of solution was administered during imaging. * Lot # [id number] of Definity utilized for procedure. * Expiration date [id number]. * The attending nurse who injected the contrast agent was Kym Jade RN. Left Ventricle * The left ventricle is grossly normal size. * There is borderline concentric left ventricular hypertrophy. * Ejection Fraction = 60-65%. * Septal motion is consistent with post-operative state. Right Ventricle * The right ventricle is mildly dilated. * The right ventricular systolic function is mild to moderately reduced. Atria * The left atrium is not well visualized. * Right atrium not well visualized. * The right atrium is mildly dilated. Mitral Valve * Significant mitral regurgitation is absent. * There is a mechanical mitral valve. * Prosthetic mitral valve peak and/or mean gradients are normal. Tricuspid Valve * The tricuspid valve is not well visualized. * There is trace tricuspid regurgitation. * Right ventricular systolic pressure is elevated at 30-40mmHg. Aortic Valve * The aortic valve opens well. * No hemodynamically significant valvular aortic stenosis. * There is no significant aortic regurgitation. Pulmonic Valve * The pulmonic valve is not well visualized. Great Vessels * Borderline aortic root dilatation. Pericardium/Pleural * There is no pericardial effusion. Great Vessels * Normal inferior vena cava size and collapsability with sniff indicates a normal right atrial pressure of 3 mmHg MMode 2D Measurements and Calculations IVSd 0.92 cm IVSs 1.2 cm LVIDd 5.1 cm LVIDs 3.7 cm LVPWd 1.1 cm LVPWs 1.2 cm IVS/LVPW 0.81 FS 28.2 % EDV(Teich) 124.1 ml ESV(Teich) 56.9 ml EF(Teich) 54.1 % EDV(cubed) 133.0 ml ESV(cubed) 49.3 ml EF(cubed) 62.9 % % IVS thick 29.6 % % LVPW thick 2.1 % LV mass(C)d 196.8 grams LV mass(C)dI 84.6 grams/m\S\2 LV mass(C)s 142.1 grams LV mass(C)sI 61.1 grams/m\S\2 CO(Teich) 4.4 l/min CI(Teich) 1.9 l/min/m\S\2 SV(Teich) 67.2 ml SI(Teich) 28.9 ml/m\S\2 CO(cubed) 5.4 l/min CI(cubed) 2.3 l/min/m\S\2 SV(cubed) 83.7 ml SI(cubed) 36.0 ml/m\S\2 Ao root diam 4.1 cm Ao root area 13.0 cm\S\2 ACS 2.0 cm LA dimension 3.8 cm asc Aorta Diam 3.3 cm LA/Ao 0.93 LVAd ap4 37.2 cm\S\2 LVLd ap4 9.3 cm EDV(MOD-sp4) 128.0 ml LVAs ap4 23.1 cm\S\2 LVLs ap4 8.4 cm ESV(MOD-sp4) 55.0 ml EF(MOD-sp4) 57.0 % LVAd ap2 27.3 cm\S\2 LVLd ap2 9.6 cm EDV(MOD-sp2) 66.0 ml LVAs ap2 20.1 cm\S\2 LVLs ap2 8.5 cm ESV(MOD-sp2) 39.0 ml EF(MOD-sp2) 40.9 % CO(MOD-sp4) 4.7 l/min CI(MOD-sp4) 2.0 l/min/m\S\2 SV(MOD-sp4) 73.0 ml SI(MOD-sp4) 31.4 ml/m\S\2 CO(MOD-sp2) 1.8 l/min CI(MOD-sp2) 0.75 l/min/m\S\2 SV(MOD-sp2) 27.0 ml SI(MOD-sp2) 11.6 ml/m\S\2 Doppler Measurements and Calculations MV E max lacy 164.0 cm/sec MV A max lacy 59.8 cm/sec MV E/A 2.7 MV V2 max 205.6 cm/sec MV max PG 16.9 mmHg MV V2 mean 100.3 cm/sec MV mean PG 5.2 mmHg MV V2 VTI 57.6 cm MV P1/2t max lacy 205.0 cm/sec MV P1/2t 67.5 msec MVA(P1/2t) 3.3 cm\S\2 MV dec slope 889.6 cm/sec\S\2 MV dec time 0.19 sec Ao V2 max 133.0 cm/sec Ao max PG 7.1 mmHg Ao max PG (full) 4.3 mmHg LV V1 max PG 2.8 mmHg LV V1 max 83.9 cm/sec PA V2 max 64.4 cm/sec PA max PG 1.7 mmHg TR max lacy 249.6 cm/sec
--- NOTE | 2016-12-11 14:05 | EXERCISE STRESS ECHO ---
*NOTICE TO RECEIVING CONSTITUTION PARTY AGENCY This information is strictly Confidential and protected under [place] law. [place] law prohibits you from making any further disclosure of this information unless further disclosure is expressly permitted by the written consent of the person to whom it pertains or is authorized by law. A general authorization for the release of medical or other information is not sufficient for this purpose. Hospital accepts no responsibility if the information is made available to any other person, INCLUDING THE PATIENT. Interpretation Summary * Name: ISH BRYSON Study Date: 12/11/2016 10:07 AM BP: 106/82 mmHg * Patient [facility]\S\N288\S\2 HR: 62 * : 1955 (M/d/yyyy) Gender: Male Height: 70 in * Age: 61 yrs Ethnicity: [place] Weight: 254 lb * Ordering Physician: Brandy Fitzpatrick * Referring Physician: Huber Pang * Performed By: Cathy Sears RCS * * Reason For Study: CHEST PAIN * BSA: 2.3 m2 * -- Conclusions -- * 1. Exercise stress echo appears to be negative at 83% MPHR. Abnormal septal motion consistent with ventricular pacing in recovery during image acquisition . * 2. Negative exercise ECG for ischemia at 83% MPHR. * 3. Normal functional capacity. Exercise 6:14, acheiving 7.3 METS. * 4. LV function normal at rest, for full details please see echo report from earlier today. Procedure Details * ECHOEX, CPT #37733 * A contrast injection of Definity was performed to improve assessment of LV function. * Contrast was injected into an intravenous site in the left arm. * One vial of Definity ultrasound contrast was diluted in normal saline to a total volume of 10 ml. A total of '5' ml of solution was administered during imaging. * Lot # [id number] of Definity utilized for procedure. * Expiration date JAN 01. * The attending nurse who injected the contrast agent was MAGALY DAVIDSON CPL, RN. Left Ventricle * The left ventricle is grossly normal size. * There is borderline concentric left ventricular hypertrophy. * Ejection Fraction = 60-65%. Stress Parameters * Sinus, intermittently atrially paced, occassional PVCs, left axis deviation. No ST abnormalities. * Stress ECG: No ST changes. No arrhythmias. * Intermittent ventricular pacing in recovery * The stress portion of this study was personally supervised by the undersigned interpreting physician. * Rest heart rate was '62' BPM. * Rest blood pressure was '106/82' * Maximum heart rate achieved was 131 bpm. * Maximum heart rate was 83 % of maximum age-predicted heart rate. * Maximum blood pressure was '148/60' * Total exercise time was '06:14' * Maximum exercise MET level achieved was '7.30' METS * Maximum treadmill speed was '3.30' miles per hour. * Maximum treadmill elevation was '14.00'% grade. Left Ventricular Findings with Stress * The study was technically adequate with some images being suboptimal in quality.
[2016-12-11 15:07] VITALS: BP 131/72; PULSE 62; TEMP 36.6; O2SAT 94
--- NOTE | 2016-12-11 17:15 | Discharge Instructions ---
Discharge Instructions Date of Service Dec 11, 2016. Admission Reason for Admission: Unstable Angina, Exacerbation Of Heart Failure Discharge Discharge Diagnosis / Problem: chest pain Discharge Goals Goal(s): Diagnostic testing Activity Recommendations Activity Limitations: resume your previous activity . Instructions / Follow-Up Instructions / Follow-Up the stress test looked reassuring. they weren't able to get the heart rate quite up fast enough, but things looked good with what we saw. since your symptoms got better after the increase in metoprolol, it is a bit concerning that this was angina - however, as we discussed, medication and lifestyle management are the "heavy hitters" with keeping people from having true bad endpoints with coronary disease (cath/stent/bypasses get people out of urgent trouble, but med and lifestyle management are what give the "five year data") --continue the increased meds by cardiology --follow up with cardiology next week --if the symptoms persist despite the increase in meds, they might need to revisit a cath Current Hospital Diet Patient's current hospital diet: AHA Diet (Heart Healthy) Discharge Diet Recommended Diet: AHA Diet (Heart Healthy) Pending Studies Studies pending at discharge: no Laboratory Results Hemoglobin A1c Test 12/11/16 04:15 Range/Units Estimated Average Glucose 120 mg/dl Hemoglobin A1c 5.8 H 4.5-5.6 % Lipid Panel Test 11/24/16 11:52 Range/Units Triglycerides Level 141 0-150 mg/dl Cholesterol Level 255 H 0-200 mg/dl HDL Cholesterol 43 mg/dl Cholesterol/HDL Ratio 5.9 LDL Cholesterol, Calculated 184 mg/dl Medical Emergencies . Who to Call and When: Medical Emergencies: If at any time you feel your situation is an emergency, please call 911 immediately. . Non-Emergent Contact Non-Emergency issues call your: Freight Handler . . "Provider Documentation" section prepared by Michael Boudreaux. . VTE Core Measure Inpt VTE Proph given/why not?: T.Avery. Stockings, SCD's, Contraindicated
[2016-12-11] MEDS ORDERED: NTRSLP4 SL (17:16)
[2016-12-11 17:22] VITALS: BP 131/72; PULSE 62; TEMP 36.6; O2SAT 94
--- NOTE | 2016-12-11 19:12 | Discharge Summary ---
Discharge Summary Date of Service Dec 11, 2016. Discharge Summary Admission Date: Dec 10, 2016 at 12:15 Discharge Date: Dec 11, 2016 Discharge Disposition: Home Principal Diagnosis: chest pain - negative stress, likely stable angina Immunizations: Have You Had Influenza Vaccine: N/A History of Tetanus Vaccine?: Yes Tetanus Immunization Date: Oct 29, 2009 History of Pneumococcal: Yes Pneumococcal Date: Oct 29, 2009 History of Hepatitis B Vaccine: No Procedures: Interpretation Summary * Name: ISH BRYSON Study Date: 12/11/2016 10:07 AM BP: 106/82 mmHg * Patient Location: [facility]\S\N288\S\2 HR: 62 * : 1955 (M/d/yyyy) Gender: Male Height: 70 in * Age: 61 yrs Ethnicity: [place] Weight: 254 lb * Ordering Physician: Brandy Fitzpatrick * Referring Physician: Huber Pang * Performed By: Cathy Sears RCS * * Reason For Study: CHEST PAIN * BSA: 2.3 m2 * -- Conclusions -- * 1. Exercise stress echo appears to be negative at 83% MPHR. Abnormal septal motion consistent with ventricular pacing in recovery during image acquisition . * 2. Negative exercise ECG for ischemia at 83% MPHR. * 3. Normal functional capacity. Exercise 6:14, acheiving 7.3 METS. * 4. LV function normal at rest, for full details please see echo report from earlier today. Procedure Details * ECHOEX, CPT #72747 * A contrast injection of Definity was performed to improve assessment of LV function. * Contrast was injected into an intravenous site in the left arm. * One vial of Definity ultrasound contrast was diluted in normal saline to a total volume of 10 ml. A total of '5' ml of solution was administered during imaging. * Lot # [id number] of Definity utilized for procedure. * Expiration date JAN 01. * The attending nurse who injected the contrast agent was MAGALY DAVIDSON CPL, RN. Left Ventricle * The left ventricle is grossly normal size. * There is borderline concentric left ventricular hypertrophy. * Ejection Fraction = 60-65%. Stress Parameters * Sinus, intermittently atrially paced, occassional PVCs, left axis deviation. No ST abnormalities. * Stress ECG: No ST changes. No arrhythmias. * Intermittent ventricular pacing in recovery * The stress portion of this study was personally supervised by the undersigned interpreting physician. * Rest heart rate was '62' BPM. * Rest blood pressure was '106/82' * Maximum heart rate achieved was 131 bpm. * Maximum heart rate was 83 % of maximum age-predicted heart rate. * Maximum blood pressure was '148/60' * Total exercise time was '06:14' * Maximum exercise MET level achieved was '7.30' METS * Maximum treadmill speed was '3.30' miles per hour. * Maximum treadmill elevation was '14.00'% grade. Left Ventricular Findings with Stress * The study was technically adequate with some images being suboptimal in quality. Last Resulted CBC 12/11/16 04:15 Red Blood Count 4.57, Mean Corpuscular Volume 92.1, Mean Corpuscular Hemoglobin 30.6, Mean Corpuscular Hemoglobin Concent 33.3, Mean Platelet Volume 10.5, Neutrophils (%) (Auto) 59.3, Lymphocytes (%) (Auto) 18.9, Monocytes (%) (Auto) 16.7, Eosinophils (%) (Auto) 4.3, Basophils (%) (Auto) 0.6, Neutrophils # (Auto ) 3.20, Lymphocytes # (Auto) 1.02, Monocytes # (Auto) 0.90, Eosinophils # (Auto ) 0.23, Basophils # (Auto) 0.03 Last Resulted BMP 12/11/16 04:15 Consultations: cardiology Medication Reconciliation New Medications: Nitroglycerin (Nitrostat) 0.4 Mg/1 Tab Subl 0.4 MG SL UD PRN for Chest Pain, #30 TAB Continued Medications: Allopurinol (Allopurinol) 300 Mg Tab 300 MG PO QAM, #90 Aspirin (Aspirin Ec) 81 Mg Tab 81 MG PO QPM Colchicine (Colchicine) 0.6 Mg Tab 0.6 MG PO BID PRN for GOUT FLARE-UP, TAB Furosemide (Lasix) 20 Mg Tab 40 MG PO DAILY for 30 Days, #60 TAB Metoprolol Tartrate (Lopressor) 50 Mg Tab 100 MG PO BID, TAB Valsartan (Diovan) 160 Mg Tab 160 MG PO QAM, TAB Warfarin Sod (Jantoven) 3 Mg Tab 3 MG PO 3XWEEK, TAB Wednesday-PT HAS INSTRUCTIONS FROM DR JEROME Warfarin Sodium (Coumadin) 4 Mg Tab 4 MG PO 4XWEEK, TAB Wednesday-PT HAS INSTRUCTIONS FROM DR JEROME Discharge Exam Physical Exam: General Appearance: no apparent distress Eyes: EOMI ENT: hearing grossly normal Neck: trachea midline Respiratory/Chest: no respiratory distress, no accessory muscle use Neurologic/Psychiatric: steam tender II-XII nml as tested, alert, normal mood/affect Skin: normal color, warm/dry Hospital Course admitted with chest pain concerning for angina -thought was possibly cath - cardiology saw and since sx improved after increase in metoprolol opted for stress. stress only 83% MPHR but was reassuring otherwise. no further sx. discussed med management and lifestyle. discussed if angina occurring at all again might still need cath, but that overall morbidity and mortality are better w med management - he expressed undersstanding and will f/u w cardiology this week, return sooner if sx recur Total Time Spent: Less than 30 minutes This includes examination of the patient, discharge planning, medication reconciliation, and communication with other providers. Discharge Instructions Please refer to the electronic Patient Visit Report (Discharge Instructions) for additional information. Additional Copies To Felipe Maguire MD
== END 2016-12-11 17:44 | disposition home or self-care (01) | DRG 302 ==
LOC: C.MED 12:15
PROVIDERS: ADMIT Internal Medicine; ATTEND Family Medicine
DX: I25.119 Atherosclerotic heart disease of native coronary artery with unspecified angina pectoris (principal); I50.33 Acute on chronic diastolic (congestive) heart failure; Z95.0 Presence of cardiac pacemaker; Z95.5 Presence of coronary angioplasty implant and graft; E66.9 Obesity, unspecified; Z68.36 Body mass index [BMI] 36.0-36.9, adult; I48.0 Paroxysmal atrial fibrillation; Z95.2 Presence of prosthetic heart valve; I25.2 Old myocardial infarction; Z82.49 Family history of ischemic heart disease and other diseases of the circulatory system; Z87.891 Personal history of nicotine dependence; E78.5 Hyperlipidemia, unspecified; I11.0 Hypertensive heart disease with heart failure; M10.9 Gout, unspecified; Z88.8 Allergy status to other drugs, medicaments and biological substances; Z79.01 Long term (current) use of 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; Z79.82 Long term (current) use of aspirin; Z79.899 Other long term (current) drug therapy

== ENCOUNTER → 2016-12-10 | Outpatient (CLI) | payer BC ==
[2016-12-10 11:54] LABS: HEMATOCRIT 44.5 % (42-52); MEAN CELL VOLUME 92.3 fL (80-100); MEAN CORPUSCULAR HEMOGLOBIN 31.5 pg (25-34); MEAN PLATELET VOLUME 10.8 fL (7.4-10.4); PLATELET COUNT 227 K/uL (130-400); RED BLOOD COUNT 4.82 M/uL (4.7-6.1); WHITE BLOOD COUNT 6.64 K/uL (4.8-10.8)
[2016-12-10 12:09] LABS: INR 3.4 (0.9-1.1); PROTHROMBIN TIME (PATIENT) 38.6 SECONDS (9.0-12.0)
[2016-12-10 12:31] LABS: MEAN CORPUSCULAR HGB CONC 34.2 g/dl (32-36)
[2016-12-10 12:34] LABS: BLOOD UREA NITROGEN 13 mg/dl (7-18); BUN/CREATININE RATIO 16.8 (10-20); CALCIUM 9.1 mg/dl (8.5-10.1); CARBON DIOXIDE 28 mmol/L (21-32); CHLORIDE 109 mmol/L (98-107); CREATININE 0.79 mg/dl (0.60-1.40); GLUCOSE 88 mg/dl (70-99); POTASSIUM 4.4 mmol/L (3.5-5.1); SODIUM 140 mmol/L (136-145)
== END | disposition home or self-care (01) ==
LOC: C.LAB1850 11:35
PROVIDERS: ATTEND Physician Assistant
DX: I48.0 Paroxysmal atrial fibrillation (principal); Z79.01 Long term (current) use of 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; I25.10 Atherosclerotic heart disease of native coronary artery without angina pectoris

== ENCOUNTER → 2016-12-28 | Outpatient (CLI) | payer BC ==
[~2016-12-28] MED LIST changes: +CEPH500C PO; -CEPH500C2 PO; +FRS/40 PO; +FURO-85 PO; +GADAVIST IV PRN; +NTRSLP4 SL; +POTA20TA13 PO; +SULF800T23 PO
--- NOTE | 2016-12-28 10:06 | DIAGNOSTIC IMAGING REPORT ---
MRI LEFT TIBIA AND FIBULA COMBO CLINICAL HISTORY: Left calf pain and swelling of three days duration. COMPARISON STUDY: No priors. TECHNIQUE: MRI of the left tibia and fibula is performed utilizing various T1 and T2-weighted sequences in the axial, sagittal, and coronal planes. Contrast-enhanced sequences are acquired following the IV administration of 11 cc of Gadavist. Note that interpretation is suboptimal without plain film correlate. FINDINGS: Normal marrow signal intensity is preserved in the tibia and fibula. The musculature of the calf is normal in bulk and signal intensity. Linear fat within the medial head of the right gastrocnemius muscle is likely related to remote injury. This is best seen on axial T1 sequence image 15. No intramuscular edema is seen. There is subcutaneous soft tissue edema and trace subcutaneous fluid seen in the mid to lower calf. There is nonspecific patchy abnormal enhancement within the subcutaneous soft tissues. No organized fluid collection is seen to suggest abscess. Visualized portions of the Achilles tendon appear intact. IMPRESSION: 1. No bony abnormality is seen in the left tibia or fibula. 2. Nonspecific subcutaneous soft tissue edema is seen in the mid to distal calf. This could be seen in the setting of cellulitis. Clinical correlation will be required. 3. No organized fluid collection is seen. Dictated: 12/28/2016 9:44 AM Transcribed: 12/28/2016 10:06 AM [place] Electronically signed by: Cristóbal Fisher M.D. 12/28/2016 10:20 AM Dictated Date/Time: 12/28/2016 9:44 AM
== END | disposition home or self-care (01) ==
LOC: C.MRI 07:18
PROVIDERS: ATTEND Family Medicine
DX: M79.81 Nontraumatic hematoma of soft tissue (principal)

== ENCOUNTER 2017-01-13 16:25 | Emergency (ER) | payer BC ==
[~2017-01-13] VITALS: Ht 177.8 cm; Wt 119.0 kg
[~2017-01-13 16:25] MED LIST changes: -CEPH500C PO; -FRS/40 PO; -FURO-85 PO; -GADAVIST IV PRN; -POTA20TA13 PO; -SULF800T23 PO
[2017-01-13 16:28] VITALS: Ht 177.8 cm; Wt 119.0 kg
[2017-01-13] MEDS ORDERED: FRS/40 PO (16:58)
[2017-01-13] MEDS ORDERED: POTA20TA13 PO (17:00)
[2017-01-13 17:09] LABS: BASO % 0.3 %; BASO ABS # 0.02 K/uL (0-0.2); COMPLETE YES; EOS % 3.6 %; HEMATOCRIT 44.7 % (42-52); IG% 0.3 %; LYMPH % 17.8 %; MEAN CELL VOLUME 93.3 fL (80-100); MEAN CORPUSCULAR HEMOGLOBIN 30.9 pg (25-34); MEAN CORPUSCULAR HGB CONC 33.1 g/dl (32-36); MEAN PLATELET VOLUME 10.7 fL (7.4-10.4); MONO % 19.9 %; NEUT % 58.1 %; PLATELET COUNT 253 K/uL (130-400); RED BLOOD COUNT 4.79 M/uL (4.7-6.1); WHITE BLOOD COUNT 6.18 K/uL (4.8-10.8)
[2017-01-13 17:20] LABS: INR 2.7 (0.9-1.1); PARTIAL THROMBOPLASTIN RATIO 1.7; PROTHROMBIN TIME (PATIENT) 30.6 SECONDS (9.0-12.0)
[2017-01-13 17:23] LABS: POINT OF CARE TROPONIN I < 0.030 ng/ml (0-0.045)
[2017-01-13 17:34] LABS: BUN/CREATININE RATIO 15.4 (10-20); CALCIUM 8.2 mg/dl (8.5-10.1); MAGNESIUM 2.2 mg/dl (1.8-2.4); POTASSIUM 3.9 mmol/L (3.5-5.1)
[2017-01-13 18:09] LABS: LYME DISEASE AB IGG NEG (NEG); LYME DISEASE AB IGM NEG (NEG)
--- NOTE | 2017-01-13 18:28 | DIAGNOSTIC IMAGING REPORT ---
CT ANGIOGRAM OF THE CHEST CLINICAL HISTORY: Atypical chest pain COMPARISON STUDY: Chest x-ray dated 12/10/2016 TECHNIQUE: Following the IV administration of 99 mL of Optiray-320, CT angiogram of the thorax was performed from the thoracic inlet to the lung bases utilizing the pulmonary embolus protocol. Images are reviewed in the axial, sagittal, and coronal planes. IV contrast was administered without complication. MIP imaging was performed. A dose lowering technique was utilized adhering to the principles of ALARA. CT DOSE: 681.08 mGy.cm FINDINGS: No pathologically enlarged axillary mediastinal or hilar lymph nodes were visualized. The ascending thoracic aorta measures 36 mm. There were no pulmonary artery filling defects to indicate acute pulmonary embolism. No pleural effusions are visualized. There are minor dependent atelectatic changes. There is no focal pulmonary consolidation. There is scattered tiny calcified granulomata. The heart is mildly enlarged. 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 There are coronary artery calcifications. There is a mitral valve prosthesis. IMPRESSION: 1. No evidence of acute pulmonary embolism 2. No evidence of focal pulmonary consolidation Electronically signed by: Ovi Kemp M.D. 01/13/2017 6:26 PM Dictated Date/Time: 01/13/2017 6:23 PM
[2017-01-13] MEDS ORDERED: OPTIRAY 320 IV PRN (18:30)
--- NOTE | 2017-01-13 19:32 | DIAGNOSTIC IMAGING REPORT ---
LEFT VENOUS DOPP LOWER EXT UNILAT CLINICAL HISTORY: 61 years-old Male presenting with LLE pain medial calf. TECHNIQUE: Real-time grayscale and color and spectral Doppler ultrasound imaging of the veins of the left lower extremity was performed. Compression and augmentation were also utilized. COMPARISON: None. FINDINGS: Left: Common femoral vein: Patent. Femoral vein: Patent. Greater saphenous vein: Patent. Popliteal vein: Patent. Calf veins: Patent. Other: At the site of clinical concern along the medial left calf, a laminar hypoechoic avascular collection measuring 3.5 x 0.5 x 2.2 cm is noted within the subcutaneous tissues, which are slightly thickened. IMPRESSION: 1. No evidence of deep venous thrombosis. 2. Laminar fluid collection in the left medial calf at the site of clinical concern could represent hematoma or abscess. The configuration would not be consistent with superficial venous thrombosis. Electronically signed by: Cj Miller M.D. 01/13/2017 7:31 PM Dictated Date/Time: 01/13/2017 7:29 PM
--- NOTE | 2017-01-13 19:37 | DIAGNOSTIC IMAGING REPORT ---
CHEST 2 VIEWS ROUTINE CLINICAL HISTORY: 61 years-old Male presenting with Cough. Fever. . TECHNIQUE: PA and lateral views of the chest were obtained. COMPARISON: 12/10/2016. FINDINGS: Left-sided pacer with leads to the right atrium and right ventricular apex. Additional epicardial pacing wire evident. Median sternotomy wires intact. Prosthetic aortic valve noted. Mildly prominent cardiac silhouette. No focal lung opacity. No large pleural effusion or pneumothorax. Osseous structures normal. Upper abdomen normal. IMPRESSION: 1. No acute cardiopulmonary disease. Electronically signed by: Cj Miller M.D. 01/13/2017 7:36 PM Dictated Date/Time: 01/13/2017 7:34 PM
[2017-01-13] MEDS ORDERED: CEPH500C PO (20:09)
[2017-01-13] MEDS ORDERED: SULF800T23 PO (20:09)
[2017-01-13] MEDS ORDERED: CEPHALEXIN 500MG HOME PACK 1 EA BTL PO ONE (20:15)
[2017-01-13] MEDS ORDERED: SEPTRA DS HOME PACK 1 EA VIAL PO ONE (20:15)
[2017-01-13 20:41] VITALS: BP 134/88; PULSE 67; TEMP 36.7; O2SAT 97
--- NOTE | 2017-01-14 13:38 | EMERGENCY ROOM VISIT NOTE ---
History First contact with patient: 16:32 Chief Complaint: INFECTION Stated Complaint: INFECTION Nursing Triage Summary: patient referred to ED by Dr. Pang, patient being treated for cellulitis of lower left leg, states "I just finished amoxicillin. I have pain and a little redness on my left leg, but Dr. Pang is concerned because now I have fevers, a stiff neck, a cough." History of Present Illness The patient is a 61 year old male who presents to the Emergency Room with multiple complaints. The patient primary concern is for pain in his left lower extremity. He has an area to the medial calf that has been bothering him off and on for a few weeks. He states this area becomes swollen and irritated. He states the pain is worse today than it has been in the past. He completed a 10 day course of amoxicillin about 3 or 4 days ago. He did have some improvement of his symptoms with the amoxicillin, however he did not achieve full resolution. The patient went to his primary care physician today, where he also had complaint of generalized body aches and fever. Because of this the patient is referred to the ER for further care and management. He has a history of significant cardiac disease this year, however he is not experiencing chest pain, chest tightness, or shortness of breath. He does have a dry cough of unknown origin which is relatively new. He is on warfarin and with history of A. fib. The patient rates his overall discomfort a 7/10. Review of Systems More than 10 systems were reviewed and otherwise negative with the exception of history of present illness. Past Medical/Surgical History Medical Problems: (1) Acu Myocard Infarction,Unspec Site, Episode Unspec (2) Atrial Fibrillation (3) atrial fibrillation with Rapid response (4) Cardiac Dysrhythmias Nec (5) Cardiomegaly (6) Coronary Atherosclerosis Of [place] Coronary Vessel (7) Heart disease (8) Hyperlipidemia Nec/Nos (9) Hypertension (10) Hypertension Nos (11) Long-Term (Current) Use Of Aspirin (12) Old Myocardial Infarct (13) Pneumonia (14) SSS (sick sinus syndrome) (15) Unstable angina Surgical Problems: (1) History of open heart surgery Family History FHx: heart disease Hypertension Social History Smoking Status: Never Smoker Drug Use: none Marital Status: Housing Status: lives with family Occupation Status: employed Current/Historical Medications Scheduled Allopurinol (Allopurinol), 300 MG PO QAM Aspirin (Aspirin Ec), 81 MG PO QPM Cephalexin Monohydrate (Keflex), 500 MG PO TID Furosemide (Lasix), 40 MG PO DAILY Metoprolol Tartrate (Lopressor), 100 MG PO BID Potassium Chloride Microencaps (Potassium Chloride Er), 20 MEQ PO DAILY Sulfa/Trimethoprim (Bactrim Ds 800MG/160MG), 1 TAB PO BID Valsartan (Diovan), 160 MG PO QAM Warfarin Sod (Jantoven), 3 MG PO 2XWK Warfarin Sodium (Coumadin), 4 MG PO 5XWK Scheduled PRN Colchicine (Colchicine), 0.6 MG PO BID PRN for GOUT FLARE-UP Nitroglycerin (Nitrostat), 0.4 MG SL UD PRN for Chest Pain Physical Exam Vital Signs Date Time Temp Pulse Resp B/P (MAP) Pulse Ox O2 Delivery O2 Flow Rate FiO2 01/13/17 20:41 36.7 67 16 134/88 97 01/13/17 20:21 67 16 134/88 97 Room Air 01/13/17 18:40 60 17 124/77 98 Room Air 01/13/17 16:28 36.7 71 20 157/97 96 Room Air Pain Rating (0-10): 0 Physical Exam VITALS: Vitals are noted on the nurse's note and reviewed by myself. Vital signs stable. GENERAL: Well-developed, well-nourished, white male, who is in no acute distress and resting comfortably. Patient is cooperative with the examination. HEAD: Normocephalic atraumatic. NECK: Supple without nuchal rigidity. No lymphadenopathy. No thyromegaly. Cervical spine is nontender. HEART: Regular rate and rhythm with systolic murmur LUNGS: Clear to auscultation bilaterally without wheezes, rales or rhonchi. No retractions or accessory muscle use. Coarse and dry cough appreciated throughout the examination. ABDOMEN: Positive normal bowel sounds x 4. Soft, nontender, without masses or organomegaly. No guarding or rebound tenderness. MUSCULOSKELETAL: Tenderness with erythema and edema appreciated along the medial left calf. No distinct palpable cord. Neurovascular status is intact to the lower extremity. NEURO: Patient was alert and oriented to person place and time. CN II through XII grossly intact. Medical Decision & Procedures ER Provider Diagnostic Interpretation: CHEST 2 VIEWS ROUTINE CLINICAL HISTORY: 61 years-old Male presenting with Cough. Fever. . TECHNIQUE: PA and lateral views of the chest were obtained. COMPARISON: 12/10/2016. FINDINGS: Left-sided pacer with leads to the right atrium and right ventricular apex. Additional epicardial pacing wire evident. Median sternotomy wires intact. Prosthetic aortic valve noted. Mildly prominent cardiac silhouette. No focal lung opacity. No large pleural effusion or pneumothorax. Osseous structures normal. Upper abdomen normal. IMPRESSION: 1. No acute cardiopulmonary disease. CT ANGIOGRAM OF THE CHEST CLINICAL HISTORY: Atypical chest pain COMPARISON STUDY: Chest x-ray dated 12/10/2016 TECHNIQUE: Following the IV administration of 99 mL of Optiray-320, CT angiogram of the thorax was performed from the thoracic inlet to the lung bases utilizing the pulmonary embolus protocol. Images are reviewed in the axial, sagittal, and coronal planes. IV contrast was administered without complication. MIP imaging was performed. A dose lowering technique was utilized adhering to the principles of ALARA. CT DOSE: 681.08 mGy.cm FINDINGS: No pathologically enlarged axillary mediastinal or hilar lymph nodes were visualized. The ascending thoracic aorta measures 36 mm. There were no pulmonary artery filling defects to indicate acute pulmonary embolism. No pleural effusions are visualized. There are minor dependent atelectatic changes. There is no focal pulmonary consolidation. There is scattered tiny calcified granulomata. The heart is mildly enlarged. 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 There are coronary artery calcifications. There is a mitral valve prosthesis. IMPRESSION: 1. No evidence of acute pulmonary embolism 2. No evidence of focal pulmonary consolidation LEFT VENOUS DOPP LOWER EXT UNILAT CLINICAL HISTORY: 61 years-old Male presenting with LLE pain medial calf. TECHNIQUE: Real-time grayscale and color and spectral Doppler ultrasound imaging of the veins of the left lower extremity was performed. Compression and augmentation were also utilized. COMPARISON: None. FINDINGS: Left: Common femoral vein: Patent. Femoral vein: Patent. Greater saphenous vein: Patent. Popliteal vein: Patent. Calf veins: Patent. Other: At the site of clinical concern along the medial left calf, a laminar hypoechoic avascular collection measuring 3.5 x 0.5 x 2.2 cm is noted within the subcutaneous tissues, which are slightly thickened. IMPRESSION: 1. No evidence of deep venous thrombosis. 2. Laminar fluid collection in the left medial calf at the site of clinical concern could represent hematoma or abscess. The configuration would not be consistent with superficial venous thrombosis. Laboratory Results 01/13/17 16:56 Red Blood Count 4.79, Mean Corpuscular Volume 93.3, Mean Corpuscular Hemoglobin 30.9, Mean Corpuscular Hemoglobin Concent 33.1, Mean Platelet Volume 10.7, Neutrophils (%) (Auto) 58.1, Lymphocytes (%) (Auto) 17.8, Monocytes (%) (Auto) 19.9, Eosinophils (%) (Auto) 3.6, Basophils (%) (Auto) 0.3, Neutrophils # (Auto ) 3.59, Lymphocytes # (Auto) 1.10, Monocytes # (Auto) 1.23, Eosinophils # (Auto ) 0.22, Basophils # (Auto) 0.02 01/13/17 16:56 Test 01/13/17 16:56 01/13/17 17:03 01/13/17 17:21 White Blood Count 6.18 K/uL (4.8-10.8) Red Blood Count 4.79 M/uL (4.7-6.1) Hemoglobin 14.8 g/dL (14.0-18.0) Hematocrit 44.7 % (42-52) Mean Corpuscular Volume 93.3 fL (80-100) Mean Corpuscular Hemoglobin 30.9 pg (25-34) Mean Corpuscular Hemoglobin Concent 33.1 g/dl (32-36) Platelet Count 253 K/uL (130-400) Mean Platelet Volume 10.7 fL (7.4-10.4) Neutrophils (%) (Auto) 58.1 % Lymphocytes (%) (Auto) 17.8 % Monocytes (%) (Auto) 19.9 % Eosinophils (%) (Auto) 3.6 % Basophils (%) (Auto) 0.3 % Neutrophils # (Auto) 3.59 K/uL (1.4-6.5) Lymphocytes # (Auto) 1.10 K/uL (1.2-3.4) Monocytes # (Auto) 1.23 K/uL (0.11-0.59) Eosinophils # (Auto) 0.22 K/uL (0-0.5) Basophils # (Auto) 0.02 K/uL (0-0.2) RDW Standard Deviation 50.9 fL (36.4-46.3) RDW Coefficient of Variation 14.8 % (11.5-14.5) Immature Granulocyte % (Auto) 0.3 % Immature Granulocyte # (Auto) 0.02 K/uL (0.00-0.02) Prothrombin Time 30.6 SECONDS (9.0-12.0) Prothromb Time International Ratio 2.7 (0.9-1.1) Activated Partial Thromboplast Time 45.0 SECONDS (21.0-31.0) Partial Thromboplastin Ratio 1.7 Anion Gap 2.0 mmol/L (3-11) Est Creatinine Clear Calc Drug Dose 97.7 ml/min Estimated GFR () 92.4 Estimated GFR (Non- 79.7 BUN/Creatinine Ratio 15.4 (10-20) Calcium Level 8.2 mg/dl (8.5-10.1) Magnesium Level 2.2 mg/dl (1.8-2.4) Total Bilirubin 0.5 mg/dl (0.2-1) Aspartate Amino Transf (AST/SGOT) 44 U/L (15-37) Alanine Aminotransferase (ALT/SGPT) 62 U/L (12-78) Alkaline Phosphatase 86 U/L (45-117) Pro-B-Type Natriuretic Peptide 145 pg/ml (0-900) Total Protein 7.1 gm/dl (6.4-8.2) Albumin 3.6 gm/dl (3.4-5.0) Globulin 3.5 gm/dl (2.5-4.0) Albumin/Globulin Ratio 1.0 (0.9-2) Lyme Disease IgG Antibody NEG (NEG) Lyme Disease IgM Antibody NEG (NEG) Bedside D-Dimer > 450 ng/mlFEU (0-450) Bedside Troponin I < 0.030 ng/ml (0-0.045) Bedside Lactic Acid Venous 1.00 mmol/L (0.90-1.70) Medications Administered Medications (Trade) Dose Ordered Sig/Twin Route Start Time Stop Time Status Last Admin Dose Admin Trimethoprim/ Sulfamethoxazole (Sulfameth/ Trimeth Ds 800/ 160MG Home Pack) 1 homepack UD ONCE PO 01/13/17 20:15 01/13/17 20:16 DC 01/13/17 20:38 1 HOMEPACK Cephalexin Monohydrate (Keflex 500MG Home Pack) 1 homepack NOW ONCE PO 01/13/17 20:15 01/13/17 20:16 DC 01/13/17 20:38 1 HOMEPACK ECG Change: Atrial-paced rhythm with prolonged AV conduction with occasional Premature ventricular complexes@ 61 bpm Left axis deviation Abnormal ECG When compared with ECG of 11-DEC-2016 07:47, Premature ventricular complexes are now Present ED Course Physical exam and history were performed. Nursing notes, EMR, and Medication List were personally reviewed. Patient appears to have left lower extremity pain off and on for the past several weeks. It appears to sometimes improved with antibiotics, but is causing her more discomfort today. Additionally patient reports having recent fever and has a persistent cough on examination that is evidently new. On exam he certainly does not appear toxic and does have tenderness of the left calf. IV access was established and labs were obtained. X-ray was performed. Ultrasound was ordered. EKG is as above. The patient was placed on a monitor technician. The patient's blood work is as above and was reviewed. He does not have a significant elevated white blood cell count, gross anemia, bandemia, or significant electrolyte imbalance. Troponin 1 is negative. Lactic acid 1 is negative. D-dimer is elevated and considering that he has had a fever, cough, and possible DVT symptoms a CT scan of the chest was performed. CT scan of the chest does not show evidence of acute pulmonary embolism. Ultrasound does not reveal DVT, but is concerning for possible infection versus serous collection. I discussed options of care with the patient. He was relieved that he does not have evidence of significant cardiopulmonary process. He has had this intermittent fever of unknown etiology, however considering that his left calf pain did improve with antibiotics recently and he may have infection on ultrasound I will start him on Bactrim and Keflex. The patient was given his first doses here in the department. He does not appear septic at this time, but I did have a lengthy discussion with him about monitoring for worrisome symptoms. I do recommend that he follow closely with his primary care physician to ensure improvement. The patient was very pleased with this and voiced understanding. He was invited back to the ER with any new, worsening, or concerning symptoms. He was discharged home under the care of his . The chart was completed utilizing [employer]. Grammatical errors, random word insertions, pronoun errors, and incomplete sentences are an occasional consequence of this system due to software limitations, ambient noise, and hardware issues. Any formal questions or concerns about the content, text, or information contained within the body of this dictation should be directly addressed to the provider for clarification. . Medical Decision Differential diagnosis: Etiologies such as DVT, musculoskeletal, infection, joint effusion, trauma, lymphedema, idiopathic, CHF, as well as others were entertained.. Medication Reconcilliation Current Medication List: was personally reviewed by me Blood Pressure Screening Patient's blood pressure: Normal blood pressure Blood pressure disposition: Referred to PCP Impression Primary Impression: Cellulitis of left lower leg Departure Information Dispostion Home / Self-Care Condition GOOD Prescriptions Cephalexin Monohydrate (Keflex) 500 Mg Cap 500 MG PO TID for 9 Days, #27 CAP Prov: Salty Montero PA-C 01/13/17 Sulfa/Trimethoprim (Bactrim Ds 800MG/160MG) Tab 1 TAB PO BID for 9 Days, #18 TAB Prov: Salty Montero PA-C 01/13/17 Forms HOME CARE DOCUMENTATION FORM, IMPORTANT VISIT INFORMATION Patient Instructions My [facility] Additional Instructions You were seen and evaluated today on an emergency basis only. This is not a substitute for, or an effort to provide, complete comprehensive medical care. It is not possible to recognize and treat all injuries or illnesses in a single emergency department visit. For this reason it is recommended that you followup with your primary care physician early next week for recheck of your condition. Trimethoprim-Sulfamethoxazole(Bactrim DS): Take one pill twice daily for 10 days for your skin infection. All antibiotics can cause diarrhea. If this occurs and you feel worse or it does not resolve in 1-2 days follow up with your doctor or return to the Emergency Department as this could be signs of serious underlying problems. Any medication can cause an allergic reaction, stop the pills immediately and return to the ER for rash, hives, breathing difficulties, or swelling. Cephalexin(Keflex) 500mg: Take one pill 3 times daily for 10 days for your skin infection. All antibiotics can cause diarrhea. If this occurs and you feel worse or it does not resolve in 1-2 days follow up with your doctor or return to the Emergency Department as this could be signs of serious underlying problems. Any medication can cause an allergic reaction, stop the pills immediately and return to the ER for rash, hives, breathing difficulties, or swelling. Monitor your Coumadin number closely as antibiotics can drastically change your INR. You may need to adjust your dosing of Coumadin while on these antibiotis. You are welcome to return to the emergency department anytime with new, worsening, or concerning symptoms.
== END 2017-01-13 20:43 | disposition home or self-care (01) ==
LOC: C.ED 16:26 → C.EDB 20:43
DX: L03.116 Cellulitis of left lower limb (principal); I48.91 Unspecified atrial fibrillation; I25.2 Old myocardial infarction; I49.9 Cardiac arrhythmia, unspecified; E78.5 Hyperlipidemia, unspecified; I11.9 Hypertensive heart disease without heart failure; I49.5 Sick sinus syndrome; I20.0 Unstable angina; Z79.01 Long term (current) use of 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; Z79.82 Long term (current) use of aspirin; Z82.49 Family history of ischemic heart disease and other diseases of the circulatory system

== ENCOUNTER → 2017-06-17 | Outpatient (CLI) | payer BC ==
[~2017-06-17] MED LIST changes: +FRS/40 PO; +POTA20TA13 PO
== END | disposition home or self-care (01) ==
LOC: C.RDSM 18:36
PROVIDERS: ATTEND Family Medicine
DX: M25.562 Pain in left knee (principal)

== ENCOUNTER 2017-09-20 10:40 | Emergency (ER) | payer BC ==
[~2017-09-20] VITALS: Ht 177.8 cm; Wt 117.0 kg
[~2017-09-20 10:40] MED LIST changes: -CIPR-255 PO; -METO100T14 PO; -WARF3TAB6 PO
[2017-09-20 10:43] VITALS: TEMP 36.9; Ht 177.8 cm; Wt 117.0 kg
[2017-09-20] MEDS ORDERED: METO100T14 PO (10:59)
[2017-09-20] MEDS ORDERED: SODIUM CHLORIDE 0.9% 1000ML 1,000 ML IV STA ×2 (11:39→13:27)
[2017-09-20] MEDS ORDERED: ONDANSETRON INJ 2 MG/ML 2 ML VIAL IV STA (11:39)
[2017-09-20] MEDS ORDERED: OPTIRAY 320 IV PRN (11:45)
[2017-09-20 11:55] LABS: BASO % 0.1 %; BASO ABS # 0.01 K/uL (0-0.2); EOS % 1.5 %; EOS ABS # 0.14 K/uL (0-0.5); HEMATOCRIT 40.3 % (42-52); HEMOGLOBIN 13.4 g/dL (14.0-18.0); IG# 0.02 K/uL (0.00-0.02); LYMPH % 7.8 %; LYMPH ABS # 0.72 K/uL (1.2-3.4); MEAN CELL VOLUME 93.5 fL (80-100); MEAN CORPUSCULAR HEMOGLOBIN 31.1 pg (25-34); MEAN CORPUSCULAR HGB CONC 33.3 g/dl (32-36); MEAN PLATELET VOLUME 11.3 fL (7.4-10.4); MONO % 14.1 %; NEUT % 76.3 %; NEUT ABS # 7.06 K/uL (1.4-6.5); PLATELET COUNT 209 K/uL (130-400); RED CELL DISTRIBUTION WIDTH SD 51.7 fL (36.4-46.3); WHITE BLOOD COUNT 9.25 K/uL (4.8-10.8)
[2017-09-20 12:17] LABS: ALBUMIN 3.2 gm/dl (3.4-5.0); CALCIUM 8.2 mg/dl (8.5-10.1); CREATININE 0.83 mg/dl (0.60-1.40)
[2017-09-20 12:20] LABS: TOTAL PROTEIN 7.2 gm/dl (6.4-8.2)
--- NOTE | 2017-09-20 13:01 | DIAGNOSTIC IMAGING REPORT ---
ABD/PELVIS IV CONTRAST ONLY CLINICAL HISTORY: 61 years-old Male presenting with abd pain LLQ . TECHNIQUE: Multidetector CT of the abdomen and pelvis was performed after the administration of intravenous contrast. IV contrast: 120 mL of Optiray 320. A dose lowering technique was used consistent with the principles of ALARA (as low as reasonably achievable). COMPARISON: None. CT DOSE (mGy.cm): The estimated cumulative dose is 1712.30. FINDINGS: Lead Qa Analyst topogram: Median sternotomy wires. Left subclavian pacer with leads to the right atrium and right ventricular apex. Lung bases: Minimal basilar opacities, likely atelectasis. Normal heart size. Coronary artery and mitral annular calcification. Epicardial lead also noted. No pericardial or pleural effusion. Liver: Normal morphology. Heterogeneity of enhancement pattern with mild periportal edema suggested. Subcentimeter hypodense lesion in the anterior left hepatic lobe likely hepatic cyst or hamartoma. Hepatic artery and portal veins patent. Hepatic veins not yet opacified likely due to the timing of the contrast bolus. Biliary: No intrahepatic or extrahepatic biliary ductal dilatation. Normal gallbladder. Pancreas: Normal. Spleen: Normal. Adrenal glands: Normal. Kidneys and ureters: Multiple hypodensities in the kidneys likely simple cysts. No nephrolithiasis. No hydronephrosis. Bladder: Incompletely evaluated secondary to underdistention. Pelvic organs: Prostate enlargement likely secondary to benign prostatic hyperplasia. Bowel: Scattered diverticula in the descending colon. No pericolonic fat infiltration. The appendix is normal. No bowel obstruction. Peritoneal cavity: No free fluid or intraperitoneal gas. Lymph nodes: Several prominent upper abdominal lymph nodes in the portacaval and aortocaval regions. A lymph node in the portacaval region measures 11 mm in the short axis. A lymph node in the aortocaval region measures 11 mm in the short axis. Nodes are fairly low-density. Vasculature: Atherosclerosis of the normal caliber abdominal aorta. IVC patent. Circumaortic left renal vein. Abdominal wall: Focal infiltration in the right anterior abdominal wall associated with the cutis containing calcification represent a granuloma from prior medication administration or sebaceous cyst. Musculoskeletal: Degenerative changes of the spine. IMPRESSION: 1. Limited diverticulosis. No evidence of diverticulitis. No convincing evidence of acute intra-abdominal pathology. 2. Enlarged upper abdominal lymph nodes. These are nonspecific. Correlate with a history of malignancy or lymphoproliferative disease. Although these are not subcentimeter in the short axis, these are felt most likely to be reactive in etiology. 3. Heterogeneity of liver enhancement pattern may be due to aggressive volume resuscitation or parenchymal edema. Electronically signed by: Cj Miller M.D. 09/20/2017 12:59 PM Dictated Date/Time: 09/20/2017 12:51 PM
--- NOTE | 2017-09-20 13:04 | DIAGNOSTIC IMAGING REPORT ---
CT ANGIOGRAM OF THE CHEST CLINICAL HISTORY: Hemoptysis COMPARISON STUDY: January 13, 2017 TECHNIQUE: Following the IV administration of 120 mL of Optiray-320, CT angiogram of the thorax was performed from the thoracic inlet to the lung bases utilizing the pulmonary embolus protocol. Images are reviewed in the axial, sagittal, and coronal planes. IV contrast was administered without complication. MIP imaging was performed. A dose lowering technique was utilized adhering to the principles of ALARA. CT DOSE: 1712.30 mGy.cm FINDINGS: No pathologically enlarged axillary mediastinal or hilar lymph nodes were visualized. There was no evidence of thoracic aortic dilatation. There are coronary artery calcifications present. There is a mitral valve prosthesis. 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 There were no pulmonary artery filling defects to indicate acute pulmonary embolism. No pleural effusions are visualized. There was no evidence of focal pulmonary consolidation. There are multiple scattered calcified granulomas. IMPRESSION: 1. No evidence of acute pulmonary embolism 2. No evidence of focal pulmonary consolidation 3. No evidence of pathologic adenopathy Electronically signed by: Ovi Kemp M.D. 09/20/2017 1:03 PM Dictated Date/Time: 09/20/2017 12:59 PM
[2017-09-20] MEDS ORDERED: CIPR-255 PO (14:13)
[2017-09-20] MEDS ORDERED: CIPROFLOXACIN 250 MG TAB PO ONE (14:15)
[2017-09-20 14:33] VITALS: BP 120/78; PULSE 63; O2SAT 98
[2017-09-20] MEDS ORDERED: WARF3TAB6 PO (16:26)
--- NOTE | 2017-09-20 17:41 | EMERGENCY ROOM VISIT NOTE ---
History Report prepared by Tyaa: Nilo Rosas Under the Supervision of: Dr. Michael Douglas D.O. First contact with patient: 11:14 Chief Complaint: DEHYDRATION Stated Complaint: DEHYDRATION, DR REFERRED History of Present Illness The patient is a 61 year old male who presents to the Emergency Room with complaints of persistent diarrhea that began about a month ago. The patient states that the severity of his diarrhea has been waxing and waning. At times he describe the severity of his diarrhea as "ballistic." His at bedside noted that he had a fever of 102.0 degrees on Wednesday, 2 days ago. He began to experience some "burning" with urination 2 days ago as well. The patient continued to add that he has had a cough for the past 8 months. In the morning the patient's cough is producing blood which has been present and unchanged for the past 8 months. His last bowel movement was yesterday and diarrhea-like. He does have pain in his upper abdomen which is worsened by twisting/turning. He denies any trips/travel, antibiotic use, or unusual food/water sources. Source of History: patient, family Onset: 1 month ago Position: abdomen Symptom Intensity: Ballistic Quality: other (Diarrhea) Timing: other (persistent diarrhea) Associated Symptoms: + fevers, + cough, + diarrhea, + urinary symptoms Review of Systems See HPI for pertinent positives & negatives. A total of 10 systems reviewed and were otherwise negative. Past Medical & Surgical Medical Problems: (1) Acu Myocard Infarction,Unspec Site, Episode Unspec (2) Atrial Fibrillation (3) atrial fibrillation with Rapid response (4) Cardiac Dysrhythmias Nec (5) Cardiomegaly (6) Coronary Atherosclerosis Of [place] Coronary Vessel (7) Heart disease (8) Hyperlipidemia Nec/Nos (9) Hypertension (10) Hypertension Nos (11) Long-Term (Current) Use Of Aspirin (12) Old Myocardial Infarct (13) Pneumonia (14) SSS (sick sinus syndrome) (15) Unstable angina Surgical Problems: (1) History of open heart surgery Family History FHx: heart disease Hypertension Social History Smoking Status: Never Smoker Drug Use: none Marital Status: Housing Status: lives with family Occupation Status: employed Current/Historical Medications Scheduled Allopurinol (Allopurinol), 300 MG PO QAM Aspirin (Aspirin Ec), 81 MG PO QPM Ciprofloxacin Hcl (Cipro), 500 MG PO BID Furosemide (Lasix), 40 MG PO DAILY Metoprolol Tartrate (Lopressor) (Lopressor), 100 MG PO BID Potassium Chloride Microencaps (Potassium Chloride Er), 20 MEQ PO DAILY Valsartan (Diovan), 160 MG PO QAM Warfarin Sod (Jantoven), 3 MG PO [id number] Warfarin Sodium (Coumadin), 4 MG PO WK Scheduled PRN Colchicine (Colchicine), 0.6 MG PO BID PRN for GOUT FLARE-UP Nitroglycerin (Nitrostat), 0.4 MG SL UD PRN for Chest Pain Allergies Coded Allergies: Statins (Verified Allergy, Unknown, MUSCLE ACHES, 09/20/17) Physical Exam Vital Signs Date Time Temp Pulse Resp B/P (MAP) Pulse Ox O2 Delivery O2 Flow Rate FiO2 09/20/17 14:33 63 18 120/78 98 Room Air 09/20/17 12:50 65 18 137/90 99 Room Air 09/20/17 10:43 36.9 65 18 149/89 95 Room Air Physical Exam GENERAL: Sitting up in bed, alert, well appearing, well nourished, no distress, non-toxic EYE EXAM: normal conjunctiva. OROPHARYNX: no exudate, no erythema, lips, buccal mucosa, and tongue normal and mucous membranes are moist NECK: supple, no nuchal rigidity, no adenopathy, non-tender LUNGS: Clear to auscultation. Normal chest wall mechanics HEART: no murmurs, S1 normal and S2 normal ABDOMEN: abdomen soft, mild tenderness in the LLQ, normo-active bowel sounds, no masses, no rebound or guarding. BACK: Back is symmetrical on inspection and there is no deformity, no midline tenderness, no CVA tenderness. SKIN: no rashes and no bruising UPPER EXTREMITIES: upper extremities are grossly normal. LOWER EXTREMITIES: No pitting edema. NEURO EXAM: Normal sensorium, cranial nerves II-XII grossly intact, normal speech, no gross weakness of arms, no gross weakness of legs. Medical Decision & Procedures ER Provider Diagnostic Interpretation: Radiology results as stated below per my review and the radiologist's interpretation: ABD/PELVIS IV CONTRAST ONLY CLINICAL HISTORY: 61 years-old Male presenting with abd pain LLQ . TECHNIQUE: Multidetector CT of the abdomen and pelvis was performed after the administration of intravenous contrast. IV contrast: 120 mL of Optiray 320. A dose lowering technique was used consistent with the principles of ALARA (as low as reasonably achievable). COMPARISON: None. CT DOSE (mGy.cm): The estimated cumulative dose is 1712.30. FINDINGS: Information Systems Specialist topogram: Median sternotomy wires. Left subclavian pacer with leads to the right atrium and right ventricular apex. Lung bases: Minimal basilar opacities, likely atelectasis. Normal heart size. Coronary artery and mitral annular calcification. Epicardial lead also noted. No pericardial or pleural effusion. Liver: Normal morphology. Heterogeneity of enhancement pattern with mild periportal edema suggested. Subcentimeter hypodense lesion in the anterior left hepatic lobe likely hepatic cyst or hamartoma. Hepatic artery and portal veins patent. Hepatic veins not yet opacified likely due to the timing of the contrast bolus. Biliary: No intrahepatic or extrahepatic biliary ductal dilatation. Normal gallbladder. Pancreas: Normal. Spleen: Normal. Adrenal glands: Normal. Kidneys and ureters: Multiple hypodensities in the kidneys likely simple cysts. No nephrolithiasis. No hydronephrosis. Bladder: Incompletely evaluated secondary to underdistention. Pelvic organs: Prostate enlargement likely secondary to benign prostatic hyperplasia. Bowel: Scattered diverticula in the descending colon. No pericolonic fat infiltration. The appendix is normal. No bowel obstruction. Peritoneal cavity: No free fluid or intraperitoneal gas. Lymph nodes: Several prominent upper abdominal lymph nodes in the portacaval and aortocaval regions. A lymph node in the portacaval region measures 11 mm in the short axis. A lymph node in the aortocaval region measures 11 mm in the short axis. Nodes are fairly low-density. Vasculature: Atherosclerosis of the normal caliber abdominal aorta. IVC patent. Circumaortic left renal vein. Abdominal wall: Focal infiltration in the right anterior abdominal wall associated with the cutis containing calcification represent a granuloma from prior medication administration or sebaceous cyst. Musculoskeletal: Degenerative changes of the spine. IMPRESSION: 1. Limited diverticulosis. No evidence of diverticulitis. No convincing evidence of acute intra-abdominal pathology. 2. Enlarged upper abdominal lymph nodes. These are nonspecific. Correlate with a history of malignancy or lymphoproliferative disease. Although these are not subcentimeter in the short axis, these are felt most likely to be reactive in etiology. 3. Heterogeneity of liver enhancement pattern may be due to aggressive volume resuscitation or parenchymal edema. Electronically signed by: Cj Miller M.D. 09/20/2017 12:59 PM Dictated Date/Time: 09/20/2017 12:[address] ANGIOGRAM OF THE CHEST CLINICAL HISTORY: Hemoptysis COMPARISON STUDY: January 13, 2017 TECHNIQUE: Following the IV administration of 120 mL of Optiray-320, CT angiogram of the thorax was performed from the thoracic inlet to the lung bases utilizing the pulmonary embolus protocol. Images are reviewed in the axial, sagittal, and coronal planes. IV contrast was administered without complication. MIP imaging was performed. A dose lowering technique was utilized adhering to the principles of ALARA. CT DOSE: 1712.30 mGy.cm FINDINGS: No pathologically enlarged axillary mediastinal or hilar lymph nodes were visualized. There was no evidence of thoracic aortic dilatation. There are coronary artery calcifications present. There is a mitral valve prosthesis. 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 There were no pulmonary artery filling defects to indicate acute pulmonary embolism. No pleural effusions are visualized. There was no evidence of focal pulmonary consolidation. There are multiple scattered calcified granulomas. IMPRESSION: 1. No evidence of acute pulmonary embolism 2. No evidence of focal pulmonary consolidation 3. No evidence of pathologic adenopathy Electronically signed by: Ovi Kemp M.D. 09/20/2017 1:03 PM Dictated Date/Time: 09/20/2017 12:59 PM Laboratory Results 09/20/17 11:12 Red Blood Count 4.31, Mean Corpuscular Volume 93.5, Mean Corpuscular Hemoglobin 31.1, Mean Corpuscular Hemoglobin Concent 33.3, Mean Platelet Volume 11.3, Neutrophils (%) (Auto) 76.3, Lymphocytes (%) (Auto) 7.8, Monocytes (%) (Auto) 14.1, Eosinophils (%) (Auto) 1.5, Basophils (%) (Auto) 0.1, Neutrophils # (Auto ) 7.06, Lymphocytes # (Auto) 0.72, Monocytes # (Auto) 1.30, Eosinophils # (Auto ) 0.14, Basophils # (Auto) 0.01 09/20/17 11:12 Test 09/20/17 11:12 09/20/17 13:29 White Blood Count 9.25 K/uL (4.8-10.8) Red Blood Count 4.31 M/uL (4.7-6.1) Hemoglobin 13.4 g/dL (14.0-18.0) Hematocrit 40.3 % (42-52) Mean Corpuscular Volume 93.5 fL (80-100) Mean Corpuscular Hemoglobin 31.1 pg (25-34) Mean Corpuscular Hemoglobin Concent 33.3 g/dl (32-36) Platelet Count 209 K/uL (130-400) Mean Platelet Volume 11.3 fL (7.4-10.4) Neutrophils (%) (Auto) 76.3 % Lymphocytes (%) (Auto) 7.8 % Monocytes (%) (Auto) 14.1 % Eosinophils (%) (Auto) 1.5 % Basophils (%) (Auto) 0.1 % Neutrophils # (Auto) 7.06 K/uL (1.4-6.5) Lymphocytes # (Auto) 0.72 K/uL (1.2-3.4) Monocytes # (Auto) 1.30 K/uL (0.11-0.59) Eosinophils # (Auto) 0.14 K/uL (0-0.5) Basophils # (Auto) 0.01 K/uL (0-0.2) RDW Standard Deviation 51.7 fL (36.4-46.3) RDW Coefficient of Variation 15.0 % (11.5-14.5) Immature Granulocyte % (Auto) 0.2 % Immature Granulocyte # (Auto) 0.02 K/uL (0.00-0.02) Anion Gap 2.0 mmol/L (3-11) Est Creatinine Clear Calc Drug Dose 116.7 ml/min Estimated GFR () 108.5 Estimated GFR (Non- 93.6 BUN/Creatinine Ratio 13.1 (10-20) Calcium Level 8.2 mg/dl (8.5-10.1) Total Bilirubin 0.8 mg/dl (0.2-1) Direct Bilirubin 0.2 mg/dl (0-0.2) Aspartate Amino Transf (AST/SGOT) 35 U/L (15-37) Alanine Aminotransferase (ALT/SGPT) 61 U/L (12-78) Alkaline Phosphatase 89 U/L (45-117) Total Protein 7.2 gm/dl (6.4-8.2) Albumin 3.2 gm/dl (3.4-5.0) Lipase 269 U/L (73-393) Urine Color DK YELLOW Urine Appearance CLEAR (CLEAR) Urine pH 5.0 (4.5-7.5) Urine Specific [place] 1.024 (1.000-1.030) Urine Protein NEG (NEG) Urine Glucose (UA) NEG (NEG) Urine Ketones NEG (NEG) Urine Occult Blood 2+ (NEG) Urine Nitrite POS (NEG) Urine Bilirubin NEG (NEG) Urine Urobilinogen NEG (NEG) Urine Leukocyte Esterase SMALL (NEG) Urine WBC (Auto) 10-30 /hpf (0-5) Urine RBC (Auto) 0-4 /hpf (0-4) Urine Hyaline Casts (Auto) 1-5 /lpf (0-5) Urine Epithelial Cells (Auto) 0-5 /lpf (0-5) Urine Bacteria (Auto) 4+ (NEG) Laboratory results per my review. Medications Administered Medications (Trade) Dose Ordered Sig/Twin Route Start Time Stop Time Status Last Admin Dose Admin Sodium Chloride 1,000 ml @ 999 mls/hr Q1H1M STAT IV 09/20/17 11:39 09/20/17 12:39 DC 09/20/17 11:39 999 MLS/HR Ondansetron HCl (Zofran Inj) 4 mg NOW STAT IV 09/20/17 11:39 09/20/17 11:41 DC 09/20/17 11:54 4 MG Sodium Chloride 1,000 ml @ 999 mls/hr Q1H1M STAT IV 09/20/17 13:27 09/20/17 14:27 DC 09/20/17 13:27 999 MLS/HR Ciprofloxacin (Ciprofloxacin Tab) 500 mg NOW ONCE PO 09/20/17 14:15 09/20/17 14:16 DC 09/20/17 14:32 500 MG ED Course ED COURSE: Vital signs were reviewed and showed hypertensive vitals. The patients medical record was reviewed The above diagnostic studies were performed and reviewed. ED treatments and interventions as stated above. 1124: The patient was evaluated in room C3. A complete history and physical examination was performed. 1139: Ordered Zofran 4 mg IV, Sodium Chloride 1000 mL @ 999 mL/hr IV. 1327: Ordered Sodium Chloride 1000 mL @ 999 mL/hr IV. 1415: Ordered Ciprofloxacin 500 mg PO. 1418: Upon reevaluation, the patient is resting in bed.I discussed my findings with the patient and he understands and agrees with the treatment plan. Based on the patients age, coexisting illnesses, exam and lab findings the decision to treat as an outpatient was made. The patient remained stable while under my care. The patient appeared well at the time of discharge. Medical Decision Differential diagnoses includes but is not limited to gastritis, peptic ulcer disease, GERD, gallbladder disease, pancreatitis, small bowel obstruction, acute coronary syndrome, pericarditis, ischemic bowel, irritable bowel disease, irritable bowel syndrome, appendicitis, diverticulitis, malignancy, hernia, urinary tract infection, torsion, perforation, trauma, infectious. Patient is a 61-year-old male that presents the ER for diarrhea which has been present for the past month associated with right upper quadrant pain and coughing. Coughing has been there for the past 8 months with small amount of hemoptysis. This been unchanged. CBC along with BMP, LFTs, bilirubin lipase is unremarkable. UA shows a clear UTI. Patient is on Coumadin. Elected Cipro instead of Bactrim. CT abdomen and pelvis and chest were unremarkable. Patient was updated at bedside. He was discharged follow-up with PCP as an outpatient. He will check his Coumadin level tomorrow and discuss with his PCP for further management while on antibiotics. Discussed with Pt concerning signs and symptoms to watch out for. Pt was instructed to follow up with their PCP and discussed with the patient their option to return to the ED at anytime for persistent or worsening symptoms. The appropriate anticipatory guidance and out-patient management, including indications for return to the emergency department, were explained at length to the patient and understood. Medication Reconcilliation Current Medication List: was personally reviewed by me Blood Pressure Screening Patient's blood pressure: Elevated blood pressure Blood pressure disposition: Elevated BP felt to be situational Impression Primary Impression: UTI (urinary tract infection) Scribe Attestation The scribe's documentation has been prepared under my direction and personally reviewed by me in its entirety. I confirm that the note above accurately reflects all work, treatment, procedures, and medical decision making performed by me. Departure Information Dispostion Home / Self-Care Prescriptions Ciprofloxacin Hcl (CIPRO) 500 Mg Tab 500 MG PO BID, #20 TAB Prov: Michael Douglas, DO 09/20/17 Referrals Huber Pang MD (PCP) Forms HOME CARE DOCUMENTATION FORM, IMPORTANT VISIT INFORMATION, WORK / SCHOOL INSTRUCTIONS Patient Instructions My [facility] BookBag Additional Instructions Please follow up with your primary care doctor with in the next 24 hours. Any worsening of your symptoms, please return to the ED immediately. This includes any fevers greater than 100.4, worsening pain, chest pain, shortness breath, persistent nausea, vomiting, unable to eat or drink, or any other concerning signs or symptoms from your standpoint. Please follow-up with your primary care doctor within the next week for the coughing up of blood. Please take the antibiotics as prescribed. Please follow-up with your primary care doctor as well for the diarrhea. Problem Qualifiers Primary Impression: UTI (urinary tract infection) Urinary tract infection type: acute cystitis Hematuria presence: without hematuria Qualified Codes: N30.00 - Acute cystitis without hematuria
--- NOTE | 2017-09-22 12:07 | Pharmacy Progress Note ---
ED Pharmacist Culture FollowUp Date of Service: September 22, 2017. Patient was sent home with a prescription for Ciprofloxacin 500 mg BID x 10 days , which should cover the E. coli growing from the patient's urine culture.
== END 2017-09-20 14:57 | disposition home or self-care (01) ==
LOC: C.EDB 10:41 → C.EDC 14:57
DX: N30.00 Acute cystitis without hematuria (principal); R19.7 Diarrhea, unspecified; R05 Cough; R04.2 Hemoptysis; I48.91 Unspecified atrial fibrillation; I25.10 Atherosclerotic heart disease of native coronary artery without angina pectoris; E78.5 Hyperlipidemia, unspecified; I10 Essential (primary) hypertension; I25.2 Old myocardial infarction; Z79.82 Long term (current) use of aspirin; Z79.01 Long term (current) use of 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; Z79.899 Other long term (current) drug therapy; Z88.8 Allergy status to other drugs, medicaments and biological substances

== ENCOUNTER → 2017-09-20 | Outpatient (CLI) | payer BC ==
[~2017-09-20] MED LIST changes: +CIPR-255 PO; +METO100T14 PO
[2017-09-20 12:08] LABS: HEMOGLOBIN 13.9 g/dL (14.0-18.0); MEAN CELL VOLUME 93.8 fL (80-100); MEAN CORPUSCULAR HEMOGLOBIN 31.8 pg (25-34); MEAN CORPUSCULAR HGB CONC 33.9 g/dl (32-36); PLATELET COUNT 224 K/uL (130-400); WHITE BLOOD COUNT 9.51 K/uL (4.8-10.8)
[2017-09-20 12:17] LABS: ALBUMIN 3.3 gm/dl (3.4-5.0); AST/SGOT 38 U/L (15-37); BLOOD UREA NITROGEN 11 mg/dl (7-18); CALCIUM 8.5 mg/dl (8.5-10.1); CARBON DIOXIDE 28 mmol/L (21-32); CREATININE 0.83 mg/dl (0.60-1.40); GLUCOSE 92 mg/dl (70-99); POTASSIUM 4.1 mmol/L (3.5-5.1); SODIUM 141 mmol/L (136-145)
[2017-09-20 12:21] LABS: ALKALINE PHOSPHATASE 86 U/L (45-117); ALT/SGPT 62 U/L (12-78); CHOLESTEROL 149 mg/dl (0-200); LDL CHOLESTEROL CALCULATED 92 mg/dl
== END | disposition home or self-care (01) ==
LOC: C.LAB 10:29
PROVIDERS: ATTEND Family Medicine
DX: E78.4 Other hyperlipidemia (principal)

== ENCOUNTER → 2017-09-27 | Outpatient (CLI) | payer BC ==
[~2017-09-27] MED LIST changes: +CIPR-255 PO; -METO-551 PO; +METO100T14 PO; +WARF3TAB6 PO
--- NOTE | 2017-09-27 09:21 | DIAGNOSTIC IMAGING REPORT ---
CHEST 2 VIEWS ROUTINE CLINICAL HISTORY: Cough. COMPARISON STUDY: Chest CT September 20, 2017. FINDINGS: Lung volumes are normal. No pneumothorax or pleural effusion is noted. A dual lead left subclavian pacemaker, median sternotomy wires and prosthetic mitral valve are noted. There is no consolidation to suggest pneumonia. There is no evidence for pulmonary edema. IMPRESSION: No acute cardiopulmonary findings. Electronically signed by: Rashawn Wang M.D. 09/27/2017 9:20 AM Dictated Date/Time: 09/27/2017 9:18 AM
== END | disposition home or self-care (01) ==
LOC: C.RAD1850 08:20
PROVIDERS: ATTEND Internal Medicine Clinical Cardiac Electrophysiology
DX: R05 Cough (principal)

== ENCOUNTER 2023-06-30 12:23 | Inpatient (IN) ==
--- NOTE | 2023-06-30 12:39 | ED Triage Note ---
Date of Service June 30, 2023 Provider in Triage Author: Bj Toth History of Present Illness This patient was briefly evaluated while in triage. An abbreviated physical exam was performed. This patient is a 67-year-old Male who presents to the ED for evaluation of chest pain since last (6 days ago). Patient reports that his pain radiates into his left neck and shoulder. Patient has a history of coronary artery disease and heart attack with 3 stents. Patient was seen by Dr. Vivar yesterday, and was referred to the emergency department. Patient does have a cardiac pacer. Patient has not taken any nitroglycerin today. He did take it 2 nights ago with relief. Patient also reports a history of atrial fibrillation with ablation, and is on warfarin. Physical Exam CONSTITUTIONAL: Healthy and well nourished. Patient appears in moderate discomfort. HEENT: No scleral icterus or conjunctival injection/pallor. NECK: Full active range of motion without discomfort. LYMPHATICS: No cervical chain adenopathy. RESPIRATORY: Clear to auscultation bilaterally with no wheezing, crackles, rhonchi or stridor. CARDIOVASCULAR: Regular rate and rhythm with no murmurs, rubs or gallops. GASTROINTESTINAL: Bowel sounds present in all quadrants. MUSCULOSKELETAL: No tenderness to palpation over the chest wall. INTEGUMENTARY: No rash or other significant dermatologic conditions noted. HEMATOLOGIC: No ecchymosis or petechiae. PSYCHIATRIC: Positive affect. NEUROLOGIC: No focal neurologic deficits noted. Initial orders for labs and / or imaging were placed and patient was placed in the waiting area until a bed is available. Please see further documentation for the full ED course.
--- NOTE | 2023-06-30 13:04 | Emergency Department Note ---
Impression & Plan Angina at rest ED Provider Note NAME: ISH BRYSON AGE: 67 SEX: M : 1955 ARRIVES VIA: Walk-In INFORMANT: Patient, ED PROVIDER(S): France Lenz MD CHIEF COMPLAINT: Chest pain/pressure HPI: This is a 67-year-old male presenting for left-sided chest pain. Patient states that since last , about 6 days ago, he began having left-sided chest pressure. He notes increasing shortness of breath as well. He notes that he has history of WI in 2004 and has had 3 stents. He is Coumadin daily. He notes that the chest pain currently radiates from his left chest into his neck. Not down into his arm yet. He notes he follows with Dr. Azul, who did blood work yesterday. Reportedly they called ER and his high sensitive troponin yesterday was 163. Otherwise patient notes increasing dyspnea. He took no nitro today. He did not think he was having anything dangerous so he waited until today to be brought in. He notes twinges of worsening pain occasionally that take his breath away. Patient said he had mild nausea without vomiting and slight diaphoresis as well. ROS: See above HPI for pertinent positives & negatives. A total of 10 systems reviewed and were otherwise negative. PAST MEDICAL HISTORY: See Below PAST SURGICAL HISTORY: See Below FAMILY HISTORY: See Below SOCIAL HISTORY: See Below HOME MEDICATIONS: See Below ALLERGIES: See Below VITALS: See Below PHYSICAL EXAMINATION: General: Mildly uncomfortable, no significant diaphoresis Head: Normocephalic and atraumatic Eyes: Normal inspection, extraocular muscles intact Ear, nose, throat: Normal external exam Neck: Normal range of motion Respiratory: lungs clear to auscultation bilaterally Cardiovascular: Regular rate/rhythm, no murmur GI: soft, nontender, no guarding or rebound Extremities: nontender, moves all extremities Neuro: The patient awake and alert, appropriately conversive, no focal deficits, symmetric faces Skin: Warm, dry, and intact MEDICAL DECISION MAKING: This is a 67-year-old male with extensive cardiac history presenting for left- sided chest pain. Patient sent in by director of family service center for suspected NSTEMI. -ECG independently interpreted by me with ventricularly paced rhythm, rate of 78, left bundle branch block, normal QTc, no ST segment elevations consistent with STEMI criteria, negative for Sgarbossa criteria -Will get chest x-ray and basic blood work including troponin to assess for abnormality including rising troponin, history of or findings of CHF -Patient's troponin yesterday was elevated, it is currently elevated at 249 here. Patient is having persistent pain despite aspirin, nitro. Concern for unstable angina at this time. -Patient will be admitted to hospital service under the care of Dr. Gilbert Differential diagnosis: ACS, PE, unstable angina, pneumonia, CHF ER treatment provided: See below Diagnostics interpreted by me: ECG: As above Cardiac Monitoring: An order was placed for continuous cardiac monitoring. The monitor shows a rate of 70 with sinus rhythm. Laboratory studies: As stated above and show below. Imaging studies: See below. Past Med/Surg History Medical History (Updated 06/30/23 @ 15:39 by France Lenz MD) Hx of chronic congestive heart failure Obesity denies being diabetic - on trulicity for weight loss and jardiance for heart failure On anticoagulant therapy LEYDA (obstructive sleep apnea) CPAP Hx of myocardial infarction 2004 Pacemaker 2017 medtronic, [facility]- last checked 02/2023 Cardiomegaly Paroxysmal atrial fibrillation CAD (coronary artery disease) HLD (hyperlipidemia) Hypertension Gout Surgical History Hx of colonoscopy Hx of cardiac catheterization x 2-- 2004 following [place] and 2020- X 1 stent [facility] [place]aze operation for atrial fibrillation Hx of atrioventricular node ablation 07/2022 Atrial fibrillation status post cardioversion 10/30/2011 S/P left heart catheterization by percutaneous approach 2007 S/P placement of cardiac pacemaker S/P MVR (mitral valve replacement) 2011- [facility] Family History Family/Other Myocardial infarction Mother Ovarian cancer Other Heart disease Denies family history of Prostate cancer Breast cancer Colorectal cancer Social History Smoking Status: Former smoker Tobacco Type: Cigarettes Age Started Using Tobacco: 5; Age Quit Using Tobacco: 27; packs per day: 2; Second Hand Exposure: No; Do You Dip or Chew Tobacco: No; Hx Alcohol Use: Yes Alcohol type: beer, wine and hard liquor Alcohol Intake Frequency: 2-4 x/Month Hx Substance Use: No (Pt has medical marijuana card and only uses a topical lotion) Preferred Language: Congolese Communication Ability: Effective Radio Communications Mechanician Required: No Beliefs That Will Affect Care: None marital status: Current Living Situation: Spouse current occupational status: retired How many Children do You have: 3 Feels Safe at Home: Yes Childhood Exposure to Second-Hand Smoke: No Diet: regular Dental Care, Regularly: No Physical Activity Frequency: 1-2 Times per Week Seatbelt Use: always Sunscreen Use: No Assistive Devices: CPAP Allergies Allergies Allergy/AdvReac Type Severity Reaction Status Date / Time [id number] Reductase AdvReac Unknown MUSCLE Verified 06/07/23 16:07 Inhibitor ACHES [Kgtyjkn-Ulp-Skl Reductase Inhibitor] Home Meds Home Medications Medication Instructions Recorded Confirmed colchicine 0.6 mg tablet 0.6 mg PO BID PRN GOUT 04/04/18 06/30/23 bumetanide 2 mg tablet 2 mg PO QAM PRN Fluid Retention 07/02/22 06/30/23 cephalexin 500 mg capsule 2,000 mg PO DIRECTED PRN PRIOR 07/02/22 06/30/23 TO DENTAL APPT. empagliflozin 10 mg tablet 10 mg PO QAM 07/02/22 06/30/23 (Jardiance) magnesium 250 mg tablet 250 mg PO 3XWK 07/02/22 06/30/23 nitroglycerin 0.4 mg sublingual 0.4 mg sublingual DIRECTED PRN 07/02/22 06/30/23 tablet Chest Pain sacubitril 49 mg-valsartan 51 mg 1 tab PO BID 07/02/22 06/30/23 tablet (Entresto) sildenafil (pulm.hypertension) 20 20 mg PO DIRECTED PRN Erectile 07/02/22 06/30/23 mg tablet Dysfunction warfarin 3 mg tablet 0 mg PO QPM 07/02/22 06/30/23 aspirin 81 mg tablet,delayed 81 mg PO QAM 04/26/23 06/30/23 release (Adult Aspirin Regimen) dulaglutide 0.75 mg/0.5 mL 0.75 mg subcut .weekly 04/26/23 06/30/23 subcutaneous pen injector (Trulicity) ferrous gluconate 240 mg (27 mg 240 mg PO DAILY 04/26/23 06/30/23 iron) tablet (Ferate) metoprolol succinate 50 mg 25 mg PO BID 04/26/23 06/30/23 tablet,extended release 24 hr spironolactone 25 mg tablet 25 mg PO 3XWK PRN leg edema 06/30/23 06/30/23 Results & Data (ED) Vital Signs Vital Signs - 24 hr 06/30/23 12:36 06/30/23 12:43 06/30/23 13:28 Temperature 36.9 C Temperature Source Temporal Artery Scan Pulse Rate 73 71 Pulse Rate [Apical] Respiratory Rate 18 Respiratory Effort / Characteristics Non-Labored Spontaneous Short of Breath Respiratory Depth Normal Respiratory Pattern Regular Blood Pressure 130/73 Blood Pressure [Right Arm] Blood Pressure Mean 92 Blood Pressure Mean [Right Arm] Blood Pressure Position Sitting Pulse Oximetry 97 Oxygen Delivery Method Room Air Sepsis Recent Fever Within 48 Hours No Sepsis New/Unexplained Change in Mental Status N/A Sepsis Action Taken by Nursing No Action Required 06/30/23 13:51 06/30/23 14:25 Temperature Temperature Source Pulse Rate Pulse Rate [Apical] 70 Respiratory Rate 18 Respiratory Effort / Characteristics Respiratory Depth Respiratory Pattern Blood Pressure Blood Pressure [Right Arm] 125/86 Blood Pressure Mean Blood Pressure Mean [Right Arm] 99 Blood Pressure Position Pulse Oximetry 96 97 Oxygen Delivery Method Room Air Room Air Sepsis Recent Fever Within 48 Hours Sepsis New/Unexplained Change in Mental Status Sepsis Action Taken by Nursing Laboratory Data 06/30/23 12:48 06/30/23 12:48 Lab Results 06/30/23 06/30/23 Range/Units 12:48 14:37 WBC 5.75 (4.8-10.8) K/ul RBC 5.60 (4.70-6.10) M/uL Hgb 17.4 (14.0-18.0) g/dl Hct 51.1 (42.0-52.0) % MCV 91.3 (80.0-100.0) fL MCH 31.1 (25.0-34.0) pg MCHC 34.1 (32.0-36.0) g/dL RDW Std Deviation 49.1 H (36.4-46.3) fL RDW Coeff of Vlad 14.6 H (11.5-14.5) % Plt Count 218 (130-400) K/uL MPV 10.4 (9.4-12.4) fL Immature Gran % (Auto) 0.5 % Neut % (Auto) 67.6 % Lymph % (Auto) 13.7 % Coffee % (Auto) 13.7 % Eos % (Auto) 4.0 % Baso % (Auto) 0.5 % Neut # (Auto) 3.88 (1.40-6.50) K/uL Lymph # (Auto) 0.79 L (1.20-3.40) K/uL Coffee # (Auto) 0.79 H (0.11-0.59) K/uL Eos # (Auto) 0.23 (0.00-0.50) K/uL Baso # (Auto) 0.03 (0.00-0.20) K/uL Immature Gran # (Auto) 0.03 (0.01-0.20) K/uL PT 25.7 H (9.0-12.0) Seconds INR 2.5 H (0.9-1.1) APTT 42 H (21-31) Seconds PTT Ratio 1.5 Sodium 139 (136-145) mmol/L Potassium 4.1 (3.5-5.1) mmol/L Chloride 105 (98-107) mmol/L Carbon Dioxide 27 (21-32) mmol/L Anion Gap 7 (3-11) BUN 15 (6-23) mg/dl Creatinine 0.85 (0.6-1.4) mg/dl Est Cr Clr Drug Dosing 104.5 ml/min Est GFR ( Amer) 103.0 ml/min Est GFR (Non-Af Amer) 88.9 ml/min BUN/Creatinine Ratio 17.6 (10-20) Glucose 107 H (70-99(Fasting)) mg/dl Calcium 9.1 (8.6-10.3) mg/dl Total Bilirubin 0.6 (0.2-1.0) mg/dl AST 33 (13-39) U/L ALT 37 (7-52) U/L Alkaline Phosphatase 65 (34-104) U/L Troponin I High Sens 249.0 H* 228.1 H* (0-20) pg/ml Total Protein 7.3 (6.0-8.3) gm/dl Albumin 4.3 (3.4-5.0) gm/dl Globulin 3.0 (2.5-4.0) gm/dl Albumin/Globulin Ratio 1.4 (0.9-2) Lipase 56 (11-82) U/L Administered Medications Nitroglycerin (Nitroglycerin Sl 0.4 Mg/Tab Tab) 0.4 mg SL Q5M PRN PRN Reason: Chest Pain Stop: 07/30/23 13:00 Last Admin: 06/30/23 15:10 Dose: 0.4 mg Documented By: Admin: 06/30/23 13:08 Dose: 0.4 mg Documented By: ASHLEY Nitroglycerin (Nitroglycerin 2% Ointment 30gm Tube) 1 inch EXT Q6H ADIS Stop: 07/30/23 14:44 Last Admin: 06/30/23 15:09 Dose: 1 inch Documented By: NRB Discontinued Medications Amoxicillin/Clavulanate Potassium (Amoxicillin/Clavulanate 875 Mg Tab) 1 tab PO NOW ONE; Protocol Stop: 06/30/23 13:22 Last Admin: 06/30/23 13:51 Dose: Not Given Documented By: NRB Aspirin (Aspirin Chew 324 Mg) 324 mg PO NOW STA Stop: 06/30/23 13:02 Last Admin: 06/30/23 13:07 Dose: 324 mg Documented By: ASHLEY Acetaminophen (Ofirmev) 1,000 mg in 100 mls @ 400 mls/hr IV NOW STA Stop: 06/30/23 13:35 Last Admin: 06/30/23 13:51 Dose: Not Given Documented By: NRB Imaging Data Radiologist's Impression: Chest X-Ray 06/30/23 12:39 XR chest 1V portable HISTORY: Chest pain, nonspecific COMPARISON: Chest 05/24/2023. FINDINGS: No pneumothorax. No pleural effusions. The heart remains mildly enlarged. There is mild central pulmonary vascular congestion without overt edema. No new focal lung consolidations to suggest a pneumonia. There is a left- sided pacemaker and poststernotomy changes, unchanged. IMPRESSION: Cardiomegaly and mild congestive change. ACT 112: Negative or not required by law. Electronically signed by: Neeraj Morales M.D. 06/30/2023 1:15 PM Discharge Plan Visit Data Chief Complaint: Cardiac Assessment Stated Complaint: TIGHT CHEST, NECK PAIN, CARDIAC HISTORY ED Provider: France Lenz Discharge Problem: Angina at rest Forms Stand Alone Forms: My [facility] Prescriptions Prescriptions: No Action aspirin [Adult Aspirin Regimen] 81 mg tablet,delayed release (DR/EC) 81 mg PO QAM Trulicity 0.75 mg/0.5 mL pen injector 0.75 mg subcut .weekly Patient Comments: mondays colchicine 0.6 mg Tablet 0.6 mg PO BID PRN (Reason: GOUT) bumetanide 2 mg tablet 2 mg PO QAM PRN (Reason: Fluid Retention) warfarin 3 mg tablet 0 mg PO QPM Rx Instructions: DOSE PER ANTICOAG. cephalexin 500 mg Capsule 2,000 mg PO DIRECTED PRN (Reason: PRIOR TO DENTAL APPT.) nitroglycerin 0.4 mg tablet, sublingual 0.4 mg sublingual DIRECTED PRN (Reason: Chest Pain) magnesium 250 mg Tablet 250 mg PO 3XWK Rx Instructions: WED, WED, & FRI. sildenafil (pulm.hypertension) 20 mg tablet 20 mg PO DIRECTED PRN (Reason: Erectile Dysfunction) Jardiance 10 mg tablet 10 mg PO QAM Entresto 49-51 mg tablet 1 tab PO BID metoprolol succinate 50 mg tablet extended release 24 hr 25 mg PO BID ferrous gluconate [Ferate] 240 mg (27 mg iron) tablet 240 mg PO DAILY spironolactone 25 mg tablet 25 mg PO 3XWK PRN (Reason: leg edema) Rx Instructions: 1/2 tablet 3x per week as needed Referrals Referrals: Bob Soliman III, CRNP [Primary Care Provider] -
[2023-06-30] MEDS: ASPIRIN CHEW 324 MG PO STA (13:07)
[2023-06-30] MEDS: NITROGLYCERIN SL 0.4 MG/TAB TAB SL PRN (13:08)
--- NOTE | 2023-06-30 13:16 | XRay Report ---
XR chest 1V portable HISTORY: Chest pain, nonspecific COMPARISON: Chest 05/24/2023. FINDINGS: No pneumothorax. No pleural effusions. The heart remains mildly enlarged. There is mild geremias tral pulmonary vascular congestion without overt edema. No new focal lung consolidations to suggest a pneumonia. There is a left-sided pacemaker and poststernotomy changes, unchanged. IMPRESSION: Cardiomegaly and mild congestive change. ACT 112: Negative or not required by law. Electronically signed by: Neeraj Morales M.D. 06/30/2023 1:15 PM
[2023-06-30 13:19] LABS: Basophils # (auto) 0.03 K/uL (0.00-0.20); Basophils % (auto) 0.5 %; Eosinophils # (auto) 0.23 K/uL (0.00-0.50); Hematocrit (blood only) 51.1 % (42.0-52.0); Hemoglobin 17.4 g/dl (14.0-18.0); Immature Granulocytes # (auto) 0.03 K/uL (0.01-0.20); Immature Granulocytes % (auto) 0.5 %; Lymphocytes # (auto) 0.79 K/uL (1.20-3.40); Lymphocytes % (auto) 13.7 %; Mean Corpuscular Hemoglobin 31.1 pg (25.0-34.0); Mean Corpuscular Hgb Conc 34.1 g/dL (32.0-36.0); Mean Corpuscular Volume 91.3 fL (80.0-100.0); Mean Platelet Volume 10.4 fL (9.4-12.4); Monocytes # (auto) 0.79 K/uL (0.11-0.59); Monocytes % (auto) 13.7 %; Neutrophils # (auto) 3.88 K/uL (1.40-6.50); Neutrophils % (auto) 67.6 %; Platelet Count 218 K/uL (130-400); RDW Coefficient of Variation 14.6 % (11.5-14.5); RDW Standard Deviation 49.1 fL (36.4-46.3); White Blood Count 5.75 K/ul (4.8-10.8)
[2023-06-30 13:33] LABS: Albumin Globulin Ratio 1.4 (0.9-2); Albumin Level 4.3 gm/dl (3.4-5.0); BUN Creatinine Ratio 17.6 (10-20); Bilirubin,Total 0.6 mg/dl (0.2-1.0); Calcium 9.1 mg/dl (8.6-10.3); Creatinine Clr Calc Pharmacy 104.5 ml/min; Est GFR (Non-African American) 88.9 ml/min; Potassium 4.1 mmol/L (3.5-5.1); Total Protein 7.3 gm/dl (6.0-8.3)
[2023-06-30 13:45] LABS: INR 2.5 (0.9-1.1); Partial Thromboplastin Ratio 1.5; Partial Thromboplastin Time 42 Seconds (21-31); Prothrombin Time 25.7 Seconds (9.0-12.0)
[2023-06-30] MEDS: AMOXICILLIN/CLAVULANATE 875 MG TAB PO ONE (13:51)
[2023-06-30] MEDS: ACETAMINOPHEN 1,000 MG/100 ML VIAL IV STA (13:51)
--- NOTE | 2023-06-30 14:38 | History & Physical Report ---
Date of Service June 30, 2023 Assessment & Plan (1) Unstable angina: Plan: Intermittent left-sided chest pain/pressure at rest, as well as SOB at rest, with increased frequency/duration (approximately 30 minutes) since 06/24 Extensive cardiac history (MN in 2004, multiple stents, s/p pacemaker, s/p mitral valve replacement) This is likely a progression from stable to unstable angina; Unstable angina v. NSTEMI Cardiology consulted as patient may need catheterization Hx cardiac catheterization x 2 (2004 following MN in 2020 x 1 stent at [facility]) Troponin elevated at 249.0-->228.1 on arrival Trend troponin q6h x 3 EKG revealed ventricular paced rhythm at 78 bpm; QRS 194; QTc 531 (caution use of QT prolonging agents) Echocardiogram ordered, pending Continuous telemetry monitoring Heparin IV low-dose w/o bolus A.m. CBC, BMP, PT/INR (2) Systolic heart failure: Plan: Patient has not been taking Bumex as needed Last echo on file was 04/04/2018: LVEF 55-60% Repeat echocardiogram (as above) Continue Entresto (3) Diabetes: Plan: Last A1c at 5.8% on 05/24/2023 Glucose 107 on admission Hold Jardiance, Trulicity Hold Lantus while inpatient; can manage with loose SSI SSI; with target BSG range 110-140mg/dL, CF 40, carb ratio 13 Keep n.p.o. then advance to T2DM diet Adjust regimen as needed (4) Paroxysmal atrial fibrillation: Plan: On Coumadin, metoprolol Hold Coumadin for now, heparin IV started in the ED (pending heart cath) INR 2.5 on arrival A.m. PT/INR (5) CAD (coronary artery disease): Plan: With stents x 3 Continue daily aspirin (6) Hypertension: Plan: Continue metoprolol (7) S/P MVR (mitral valve replacement): Plan: S/p MVR in 2011 d/t rheumatic heart disease (8) Pacemaker: Plan: S/p pacemaker in 2017 Plan Disposition: Admit to PCU telemetry Full code Keep n.p.o. for now then advance to T2DM, AHA diet (pending catheterization) DVT PPx: Heparin IV low-dose no bolus History of Present Illness Chief Complaint: Cardiac assessment Primary Care Provider: Bob Soliman, III, SY Vito is a 67-year-old male with PMH of atrioventricular node ablation, paroxysmal A-fib (on Coumadin), HTN, HLD, CAD, s/p mitral valve replacement, history of heart stents x 3, Gout, CHAYITO, diabetes, and chronic right-sided CHF. He presented for worsening intermittent left-sided chest pain and SOB at rest that started on 06/24. These episodes have been increasing in frequency/length (up to 30 minutes at a time). Patient also notes that he had sweating and clammy with his chest pain/pressure on Tuesday 06/27. No leg swelling noticed. He reports that his chest pain on arrival is mainly on the left side, and he endorses left chest pressure and pain in his left shoulder, neck, and jaw. He denies radiation down the left arm. He reports that he took his home Nitrostat 2 days ago, which is the only thing that alleviates his episodes of chest pain. Exertion such as climbing up steps exacerbates the pain. He does not use supplemental oxygen at home. Uses CPAP at night. Patient to call his regular morning medications today; no recent change in medications. He notes that he has not been using his Bumex or spironolactone for leg swelling, as this is as needed. Patient follows with Dr. Burns at [facility]. He is a former tobacco cigarette, cigar, and chewing tobacco user; quit in 1981. He endorses mild alcohol use; 1 drink per week. Vital stable at time of admission. ED course: Aspirin 324 mg p.o. Nitrostat 0.4 mg SL Acetaminophen 1000 mg IV ROS: Patient endorses sweating with CP, lightheadedness with exertion and standing up too quick, left jaw/neck/shoulder pain, intermittent SOB, dry cough x 2 days, and occasional bouts of diarrhea. Patient denies fever, chills, fainting, FERNANDEZ, pain/numbness/tingling in left arm, pleuritic CP, hemoptysis, abdominal pain, N/V/D, burning with urination, blood in urine, dysuria, or numbness/tingling in the arms or legs. Allergies Allergy/AdvReac Type Severity Reaction Status Date / Time Eabgtif-FAU-KsD Reductase AdvReac Unknown MUSCLE Verified 06/07/23 16:07 Inhibitor ACHES [Ovgjlgt-Ygq-Lpe Reductase Inhibitor] Home Medications Medication Instructions Recorded Confirmed Type colchicine 0.6 mg tablet 0.6 mg PO BID PRN GOUT 04/04/18 06/30/23 History bumetanide 2 mg tablet 2 mg PO QAM PRN Fluid Retention 07/02/22 06/30/23 History cephalexin 500 mg capsule 2,000 mg PO DIRECTED PRN PRIOR 07/02/22 06/30/23 History TO DENTAL APPT. empagliflozin 10 mg tablet 10 mg PO QAM 07/02/22 06/30/23 History (Jardiance) magnesium 250 mg tablet 250 mg PO 3XWK 07/02/22 06/30/23 History nitroglycerin 0.4 mg sublingual 0.4 mg sublingual DIRECTED PRN 07/02/22 06/30/23 History tablet Chest Pain sacubitril 49 mg-valsartan 51 mg 1 tab PO BID 07/02/22 06/30/23 History tablet (Entresto) sildenafil (pulm.hypertension) 20 20 mg PO DIRECTED PRN Erectile 07/02/22 06/30/23 History mg tablet Dysfunction warfarin 3 mg tablet 0 mg PO QPM 07/02/22 06/30/23 History aspirin 81 mg tablet,delayed 81 mg PO QAM 04/26/23 06/30/23 History release (Adult Aspirin Regimen) dulaglutide 0.75 mg/0.5 mL 0.75 mg subcut .weekly 04/26/23 06/30/23 History subcutaneous pen injector (Trulicity) ferrous gluconate 240 mg (27 mg 240 mg PO DAILY 04/26/23 06/30/23 History iron) tablet (Ferate) metoprolol succinate 50 mg 25 mg PO BID 04/26/23 06/30/23 History tablet,extended release 24 hr spironolactone 25 mg tablet 25 mg PO 3XWK PRN leg edema 06/30/23 06/30/23 History Past Med/Surg History Medical History (Updated 06/30/23 @ 15:52 by Neeraj Arroyo PA-C) Paroxysmal atrial fibrillation Hx of chronic congestive heart failure Obesity denies being diabetic - on trulicity for weight loss and jardiance for heart failure On anticoagulant therapy LEYDA (obstructive sleep apnea) CPAP Hx of myocardial infarction 2004 Pacemaker 2017 medtronic, SSS- last checked 02/2023 Cardiomegaly CAD (coronary artery disease) HLD (hyperlipidemia) Hypertension Gout Surgical History Hx of colonoscopy Hx of cardiac catheterization x 2-- 2004 following MN and 2020- X 1 stent [facility] S/P Maze operation for atrial fibrillation Hx of atrioventricular node ablation 07/2022 Atrial fibrillation status post cardioversion 10/30/2011 S/P left heart catheterization by percutaneous approach 2007 S/P placement of cardiac pacemaker S/P MVR (mitral valve replacement) 2011- [facility] Family History Family/Other Myocardial infarction Mother Ovarian cancer Other Heart disease Denies family history of Prostate cancer Breast cancer Colorectal cancer Social History Smoking Status: Former smoker Tobacco Type: Cigarettes Age Started Using Tobacco: 5; Age Quit Using Tobacco: 27; packs per day: 2; Second Hand Exposure: No; Do You Dip or Chew Tobacco: No; Hx Alcohol Use: Yes (Drink occasional) Alcohol type: beer Alcohol Intake Frequency: 2-4 x/Month Hx Substance Use: No Preferred Language: Welsh Communication Ability: Effective Mediation Commissioner Required: No Beliefs That Will Affect Care: None marital status: Current Living Situation: Spouse current occupational status: retired How many Children do You have: 3 Feels Safe at Home: No Is there a partner from a previous relationship who is making you feel unsafe now?: No Any Concerns about Your Family Situation: No Would You Like to Speak to Someone About Your Situation: No Childhood Exposure to Second-Hand Smoke: No Diet: regular Dental Care, Regularly: No Physical Activity Frequency: 1-2 Times per Week Seatbelt Use: always Sunscreen Use: No Assistive Devices: CPAP Review of Systems Review of Systems: See HPI above Physical Exam Physical Exam: General: no acute distress; non-toxic appearing; well-nourished; cooperative; 99% SpO2 on RA HEENT: normocephalic, atraumatic; no scleral icterus; PERRLA; moist mucus membrane; vision and hearing grossly intact Neck: supple; no JVD; no lymphadenopathy; trachea midline; patient is able to shrug both shoulders against resistance without pain Skin: warm, dry without signs of tenting; no cyanosis; no rashes, bruising, lesions, or erythema noted CV: chest wall NTP; left-sided chest wall NTP, including around the pacemaker site; RRR; S1/S2 normal; no murmurs/rubs/gallops; pulses intact and symmetric at radial, DP, and PT Lungs: no acute respiratory distress; symmetrical chest wall expansion; clear breath sounds across all lung park w/o adventitious sounds; no wheezing ABD: Soft, NTP; BS present; no rebound/guarding; mild ascites secondary to body habitus MSK: no tics or fasciculations; no edema noted in the LEs b/l, nonerythematous, brown Neuro: A&Ox3; normal mood and affect; fluent speech; sensation grossly intact in the LEs b/l Results & Data Results & Data Vital Signs (Past 12 Hours) Vital Signs Temp Pulse Pulse Resp BP BP Pulse Ox 06/30/23 14:25 70 18 125/86 97 06/30/23 13:51 96 06/30/23 13:28 71 06/30/23 12:36 36.9 C 73 18 130/73 97 O2 Del Method 06/30/23 14:25 Room Air 06/30/23 13:51 Room Air 06/30/23 13:28 06/30/23 12:36 Room Air Laboratory Results Abnormal lab results 06/30/23 Range/Units 12:48 RDW Std Deviation 49.1 H (36.4-46.3) fL RDW Coeff of Vlad 14.6 H (11.5-14.5) % Lymph # (Auto) 0.79 L (1.20-3.40) K/uL Bowie # (Auto) 0.79 H (0.11-0.59) K/uL PT 25.7 H (9.0-12.0) Seconds INR 2.5 H (0.9-1.1) APTT 42 H (21-31) Seconds Glucose 107 H (70-99(Fasting)) mg/dl Troponin I High Sens 249.0 H* (0-20) pg/ml Diagnostic Findings Chest X-Ray 06/30/23 12:39 XR chest 1V portable HISTORY: Chest pain, nonspecific COMPARISON: Chest 05/24/2023. FINDINGS: No pneumothorax. No pleural effusions. The heart remains mildly enlarged. There is mild central pulmonary vascular congestion without overt edema. No new focal lung consolidations to suggest a pneumonia. There is a left- sided pacemaker and poststernotomy changes, unchanged. IMPRESSION: Cardiomegaly and mild congestive change. ACT 112: Negative or not required by law. Electronically signed by: Neeraj Morales M.D. 06/30/2023 1:15 PM Supervising Physician Co-Signing Physician Notes Vito is 67-year-old male w with past medical history of MN in 2004 s/p PCI x 3 NELLA on Coumadin who has been having left-sided chest pressure for approximately 6 days. Endorses increasing dyspnea. Mild diaphoresis. EKG with a ventricular paced rhythm. Outpatient high-sensitivity troponin was 163 1 day ago. On ER assessment by sensitive troponin to 49. Patient received full dose aspirin, nitro x 1 while in the ER and Tylenol. Vito is seen at the bedside. He reports that he has had chest pain with exertion for quite some time however this normally goes away within just a few minutes at rest. The episodes have began getting longer over the last month, and have now extended up to 30 minutes. In addition they are now occurring at rest which is new in the last couple of days and worse in the last 2 days. He reports he has been not been taking Bumex as his legs have not been swollen, but he has been short of breath and has had sweating during his episodes of chest pain. He does have some left tenderness to palpation overlying his pacer but this is a different pain compared to what he experiences in the last week which has brought him in. He has not had any lightheadedness, dizziness, or syncope. He reports while in the ER he was chest pain free for around half hour or so after getting nitro, but pain has begun to recur in the last few minutes and is now back to a 06/19/2009 and increasing again. JVD about 1 cm above the clavicle with HJR, lungs are with bibasilar crackles, SM present. Legs are with trace ankle edema. Unstable Angina vs NSTEMI, hx CAD Patient has had stable angina resolving in under few minutes with rest for preceding months however this is progressed to episodes now at rest and lasting more than 30 minutes recently and associated with both shortness of breath and diaphoresis EKG paced. Troponin 200s in the ER. Suspect that he has had progressive stable angina. Interventional cardiology consulted. Troponin trended. Echo ordered. Will bridge to heparin overnight, likely cath tomorrow Nitropaste 1 inch added. Echo 2020: Moderate RV dilation, severe RV dysfunction, moderate to severe pulmonary hypertension with PA pressure 56. Saw cardiology 06/29 with concern for unstable angina with chest pain initially on exertion but now at rest for the last 6 days, some relief from nitro and similar to his prior pain that preceded his heart attack Distal RCA PCI 10/2007. 07/2019 high-grade proximal LAD s/p angioplasty Cardiac cath 07/2020 without acute changes compared to prior Mild congestive heart failure with EF 55 to 60% - Last EF 2017EF 55-60% -Reportedly with echo 2020 in [facility] system will attempt to obtain EF last reportedly normal Patient does have evidence of pulmonary edema on x-ray and JVD suggestive of mild volume overload. Normally takes Bumex but has not taken this recently have his legs have been relatively dry and not swollen - weight on admission was 115kg, dry weight is around [id number]. 97% on RA on admit. endorses orthpnea. While he has some evidence of mild congestion do not feel his presentation is from acute decompensated CHF. After ischemic eval -->resume bumex A-fib s/p ablation sick sinus syndrome s/p pacemaker placement 2016, MVR 2011 @ [facility] Presents with L chest pressure into the neck and the arm + intermittent diaphoresis. Troponin elevation of 249 in ER. EKG with paced rhythm Previously on amiodarone which was discontinued due to vision changes. Bradycardic response to Tikosyn in 2015. Patient anticoagulated on warfarin with INR 2.5 on admission. 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 INR is therapeutic today Will transition to heparin as noted above, transition back to warfarin once the chest pain has been adequately evaluated and treated w/ lovenox bridge if required Type II DM A1c 5.8% May 2023, patient compliant with Trulicity weekly and Jardiance 10 mg daily. Will hold Trulicity and defer basal insulin, sliding scale ordered CF 40 carb ratio 13. Jardiance temporarily Sliding scale goal BSG [id number] while inpatient PG Care Time/CCT Total # of Minutes Spent Total Time Spent with Patient: Total time spent is greater than 50% in coordination of care (as documented) at patient's floor/unit and/or counseling patient: Coding [place] [address] INT INP/OBS CARE 3/75MIN Patient Type Established History Comprehensive Exam Comprehensive Medical Decision Making High Complexity Diagnoses Unstable angina I20.0 Systolic heart failure I50.20 Diabetes E11.9 Paroxysmal atrial fibrillation I48.0 CAD (coronary artery disease) I25.10 Hypertension I10 S/P MVR (mitral valve replacement) Z95.2 Pacemaker Z95.0
[2023-06-30] MEDS: NITROGLYCERIN 2% OINTMENT 30GM TUBE EXT SCH (15:09)
[2023-06-30] MEDS ORDERED: CARBOHYDRATES FOR HYPOGLYCEMIA PO PRN (18:11)
[2023-06-30] MEDS ORDERED: ACETAMINOPHEN 325 MG TAB PO PRN (18:11)
[2023-06-30] MEDS ORDERED: GLUCAGON FOR INJ 1 MG VIAL SQ PRN (18:11)
[2023-06-30] MEDS ORDERED: GLUCOSE 10 TAB/TUBE PO PRN (18:11)
[2023-06-30] MEDS ORDERED: DEXTROSE 50% 50 ML SYRINGE IV PRN (18:11)
[2023-06-30] MEDS ORDERED: GLUCOSE 40% GEL 15 GM TUBE PO PRN (18:11)
[2023-06-30] MEDS ORDERED: Heparin IV Adult Wt-Based Low-Dose *NO* INITIAL Bolus Protocol IV SCH (18:15)
[2023-06-30] MEDS: INSULIN ASPART PER UNIT CHARGE SC SCH (18:25)
[2023-06-30] MEDS: HEPARIN SODIUM/DEXTROSE 25,000 UNITS/500 ML BAG IV SCH (19:10)
[2023-06-30] MEDS: MAGNESIUM OXIDE 400 MG TAB PO SCH (20:56)
[2023-06-30] MEDS: VALSARTAN/SACUBITRIL 51/49 MG TAB PO SCH (20:58)
[2023-06-30] MEDS: METOPROLOL SUCC 25MG EXT REL TAB PO SCH (20:58)
[2023-07-01 01:20] LABS: ANTI-Xa, UFH(UnfractionatedHep 0.17 IU/ml (0.3-0.7)
[2023-07-01] MEDS: HEPARIN SOD (PORCINE) 1000 UNIT/ML IV ONE (01:48)
--- NOTE | 2023-07-01 06:13 | Electrocardiogram Report ---
Test Reason : Blood Pressure : / mmHG Vent. Rate : 078 BPM Atrial Rate : 071 BPM P-R Int : 000 ms QRS Dur : 194 ms QT Int : 466 ms P-R-T Axes : 000 -73 092 degrees QTc Int : 531 ms Ventricular-paced rhythm Abnormal ECG When compared with ECG of 02-JUL-2022 16:50, Vent. rate has increased BY 4 BPM Confirmed by Felipe Maguire ([id number]) on 07/01/2023 6:12:45 AM Referred By: Confirmed By:Felipe Maguire
[2023-07-01 07:24] LABS: Basophils # (auto) 0.03 K/uL (0.00-0.20); Basophils % (auto) 0.5 %; Eosinophils # (auto) 0.25 K/uL (0.00-0.50); Eosinophils % (auto) 4.4 %; Hematocrit (blood only) 49.1 % (42.0-52.0); Hemoglobin 15.9 g/dl (14.0-18.0); Immature Granulocytes # (auto) 0.03 K/uL (0.01-0.20); Immature Granulocytes % (auto) 0.5 %; Lymphocytes # (auto) 0.63 K/uL (1.20-3.40); Lymphocytes % (auto) 11.2 %; Mean Corpuscular Hemoglobin 30.1 pg (25.0-34.0); Mean Corpuscular Hgb Conc 32.4 g/dL (32.0-36.0); Mean Corpuscular Volume 92.8 fL (80.0-100.0); Mean Platelet Volume 10.6 fL (9.4-12.4); Monocytes % (auto) 14.2 %; Neutrophils % (auto) 69.2 %; Platelet Count 206 K/uL (130-400); RDW Coefficient of Variation 14.7 % (11.5-14.5); RDW Standard Deviation 50.3 fL (36.4-46.3); Red Blood Count 5.29 M/uL (4.70-6.10); White Blood Count 5.64 K/ul (4.8-10.8)
[2023-07-01 07:43] LABS: BUN Creatinine Ratio 14.8 (10-20); Calcium 8.8 mg/dl (8.6-10.3); Est GFR (African American) 105.1 ml/min; Est GFR (Non-African American) 90.7 ml/min; Potassium 4.6 mmol/L (3.5-5.1)
[2023-07-01 07:53] LABS: Troponin I High Sensitivity 173.6 pg/ml (0-20)
[2023-07-01 08:07] LABS: ANTI-Xa, UFH(UnfractionatedHep 0.49 IU/ml (0.3-0.7); INR 2.3 (0.9-1.1); Prothrombin Time 23.6 Seconds (9.0-12.0)
[2023-07-01] MEDS: ASPIRIN 81 MG ECTAB PO SCH (08:44)
[2023-07-01] MEDS: FERROUS GLUCONATE 324 MG TAB PO SCH (08:44)
[2023-07-01 10:28] LABS: Partial Thromboplastin Ratio 2.6; Partial Thromboplastin Time 74 Seconds (21-31)
--- NOTE | 2023-07-01 14:16 | Pre Anesthesia Assessment ---
Date of Service July 01, 2023 Pre Sedation Assessment Vital Signs Temp Pulse Pulse Resp BP BP Pulse Ox 07/01/23 13:23 70 16 94 07/01/23 11:11 97.9 F 73 18 133/81 98 07/01/23 07:30 98.2 F 71 18 121/70 96 07/01/23 02:55 97.7 F 68 20 107/63 96 06/30/23 23:44 98.6 F 70 20 111/63 95 06/30/23 22:00 70 06/30/23 20:30 06/30/23 19:02 97.3 F L 71 16 137/80 95 06/30/23 18:11 97.5 F L 78 20 129/72 97 06/30/23 17:57 129/75 97 06/30/23 17:00 70 16 140/68 93 06/30/23 16:00 70 17 152/89 H 97 06/30/23 15:01 72 20 159/93 H 99 06/30/23 14:25 70 18 125/86 97 06/30/23 14:24 70 18 125/85 96 O2 Del Method 07/01/23 13:23 07/01/23 11:11 Room Air 07/01/23 07:30 Room Air 07/01/23 02:55 Room Air 06/30/23 23:44 Room Air 06/30/23 22:00 06/30/23 20:30 Room Air 06/30/23 19:02 Room Air 06/30/23 18:11 Room Air 06/30/23 17:57 Room Air 06/30/23 17:00 06/30/23 16:00 06/30/23 15:01 06/30/23 14:25 Room Air 06/30/23 14:24 Cardiovascular + regular rate Respiratory + respiratory effort normal Pre-Sedation Airway Assessment Smoking Status: Former smoker Hx Sleep Apnea: Yes Hx Difficult Intubation: No Short, Thick Neck: Yes Thyromental Distance: > or= 3.5 Finger Breadths Oral Cavity: + WNL Mallampati Class: III ASA: ASA3 NPO Status Date of Last Intake of Fluids: 07/01/23 Time of Last Intake of Fluids: 12:00 Date of Last Intake of Solid Food: 06/29/23 Time of Last Intake of Solid Foods: 23:00 Procedure Planning Contraindications for Sedation: none Current Medications Reviewed: Yes Notes The planned sedation has been discussed with the patient. Informed Consent was obtained. I have identified the patient, determined the appropriateness of sedation and have assessed the patient immediately prior to the procedure. All medicine(s) and interventions are by my order.
--- NOTE | 2023-07-01 14:24 | Cardiology Consultation ---
Date of Consultation July 01, 2023 Assessment & Plan (1) ACS (acute coronary syndrome): 2. 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 AF ? post AVN ablation 4. Mechanical mitral valve 5. Sick sinus post dual-chamber pacer 6. Pulmonary hypertension with RV dysfunction 7. HFpEF 8. Prediabetes:on GLP-1, SGLT2 Patient here with progressive chest pain with recent new rest symptoms concerning for ACS. High risk for adverse events and previously had int ermediate multivessel disease on last cath 3 years ago. Recommend proceeding with repeat cardiac catheterization (left and right). Stop heparin infusion therapist radiation to Store Consultant. Resume warfarin tonight post procedure. Further recommendations pending findings of coronary angiography. History of Present Illness Attending Physician: Diane Morris MD History of Present Illness Mr. Ren is a very pleasant 67-year-old male with a history of multivessel CAD, rheumatic heart disease post mechanical mitral valve 2011, sinus node dysfunction post dual PPM and paroxysmal symptomatic atrial fibrillation post surgical MAZE/numerous cardioversions/multiple AARDs/?AV obinna ablation at [facility] here with progressive chest pain concerning for ACS. Patient is followed by Dr. Vivar for his cardiac care. Prior cardiac history outlined below. Patient has been having exertional chest pain for weeks which has been gradually progressive. Last week or so has been having left-sided chest pain with associated shortness of breath occurring at rest. Symptoms increasing in frequency/duration. Episode 3 days ago where had associated diaphoresis/clammy feeling. On arrival yesterday patient with ongoing chest pain, ECG V paced, HS TropI flat at 200. INR 2.5. Past Cardiac History Per Dr Vivar: 1. Rheumatic valvular heart disease involving the mitral valve status post attempted mitral valve repair with subsequent need for mitral valve replacement during the same operative period December 2011 at [facility]. 2. Status post [place] maze to procedure at the time of his mitral valve replacement, residual 30% proximal LAD lesion and 20% mid circumflex stenosis. 3. Status post Medtronic dual-chamber pacemaker July 2016 status post atrial lead revision 08/25/2018 for sinus node dysfunction. 4. Previous use of amiodarone which led to vision abnormalities: Use of Tikosyn, sotalol and Multaq, all of which did not prevent his atrial fibrillation pre-maze procedure in 2011, bradycardia secondary to Tikosyn in 2015. 5. Statin myalgias. 6. Hyperlipidemia. 7. Hypertension. 8. Coronary artery disease status post prior angioplasty and stenting in the proximal circumflex and angioplasty and stenting of the distal RCA in October 2007. 9. Cardiac catheterization July 2019 with high-grade stenosis of the proximal LAD status post angioplasty and stenting with a residual 75% PDA and uohtjtjy-ck-zrbtqs diagonal disease; mechanical mitral valve with appropriate opening and closing angles and no evidence of thrombosis or pannus formation by HECTOR. b. Cardiac catheterization 07/2020 without any changes in his obstructive CAD. 10. Recurrent atrial arrhythmia status post failed sotalol and cardioversion July 2019 now with Tikosyn loading 08/04. 11. Echocardiogram 03/05/2021 with a moderately dilated right ventricle with severe RV dysfunction and a TAPSE of 0.7 cm with moderate tricuspid regurgitation and azpnrwlz-xf-creyzx pulmonary hypertension with a PA pressure of 56 mmHg in the face of severe RV dysfunction. Most Recent Cardiac studies: Echo 02/2023: LVEF 70%, no wall motion abnormalities, moderate LVH, dilated RV with mildly reduced function, calcified aortic valve with mild , moderate AI, well-seated mechanical mitral valve with MG 7 mmHg, moderate TR, moderate PI, PASP 52 08/2020 [facility]:* Moderate multivessel CAD including proximal RCA (50%; iFR 0.99), mid circumflex (50%; iFR 1.0) and mid LAD (50%; iFR 0.96) which was not hemodynamically significant on physiological testing. Widely patent previously placed LAD stent. * On direct comparison from angiography in 08/2015, there was mild interval progression of disease. 07/2019 * 90% stenosis in the proximal LAD was treated with Xience NELLA 3.0 x 15mm stent and post-dilated with a 3.5 mm balloon. Allergies Allergy/AdvReac Type Severity Reaction Status Date / Time Ihfoawe-BNZ-SgK Reductase AdvReac Unknown MUSCLE Verified 06/07/23 16:07 Inhibitor ACHES [Zsjfftn-Zdq-Zkc Reductase Inhibitor] Home Medications Medication Instructions Recorded Confirmed Type colchicine 0.6 mg tablet 0.6 mg PO BID PRN GOUT 04/04/18 06/30/23 History bumetanide 2 mg tablet 2 mg PO QAM PRN Fluid Retention 07/02/22 06/30/23 History cephalexin 500 mg capsule 2,000 mg PO DIRECTED PRN PRIOR 07/02/22 06/30/23 History TO DENTAL APPT. empagliflozin 10 mg tablet 10 mg PO QAM 07/02/22 06/30/23 History (Jardiance) magnesium 250 mg tablet 250 mg PO 3XWK 07/02/22 06/30/23 History nitroglycerin 0.4 mg sublingual 0.4 mg sublingual DIRECTED PRN 07/02/22 06/30/23 History tablet Chest Pain sacubitril 49 mg-valsartan 51 mg 1 tab PO BID 07/02/22 06/30/23 History tablet (Entresto) sildenafil (pulm.hypertension) 20 20 mg PO DIRECTED PRN Erectile 07/02/22 06/30/23 History mg tablet Dysfunction warfarin 3 mg tablet 0 mg PO QPM 07/02/22 06/30/23 History aspirin 81 mg tablet,delayed 81 mg PO QAM 04/26/23 06/30/23 History release (Adult Aspirin Regimen) dulaglutide 0.75 mg/0.5 mL 0.75 mg subcut .weekly 04/26/23 06/30/23 History subcutaneous pen injector (Trulicity) ferrous gluconate 240 mg (27 mg 240 mg PO DAILY 04/26/23 06/30/23 History iron) tablet (Ferate) metoprolol succinate 50 mg 25 mg PO BID 04/26/23 06/30/23 History tablet,extended release 24 hr spironolactone 25 mg tablet 25 mg PO 3XWK PRN leg edema 06/30/23 06/30/23 History Patient History Medical History (Updated 07/01/23 @ 14:22 by Alvin Tee MD) Paroxysmal atrial fibrillation Hx of chronic congestive heart failure Obesity denies being diabetic - on trulicity for weight loss and jardiance for heart failure On anticoagulant therapy LEYDA (obstructive sleep apnea) CPAP Hx of myocardial infarction 2004 Pacemaker 2017 medtronic, [facility]- last checked 02/2023 Cardiomegaly CAD (coronary artery disease) HLD (hyperlipidemia) Hypertension Gout Surgical History Hx of colonoscopy Hx of cardiac catheterization x 2-- 2004 following [place] and 2020- X 1 stent [facility] [place] S/P Maze operation for atrial fibrillation Hx of atrioventricular node ablation 07/2022 Atrial fibrillation status post cardioversion 10/30/2011 S/P left heart catheterization by percutaneous approach 2007 S/P placement of cardiac pacemaker S/P MVR (mitral valve replacement) 2011- [facility] Family History Family/Other Myocardial infarction Mother Ovarian cancer Other Heart disease Denies family history of Prostate cancer Breast cancer Colorectal cancer Social History Smoking Status: Former smoker Tobacco Type: Cigarettes Age Started Using Tobacco: 5; Age Quit Using Tobacco: 27; packs per day: 2; Second Hand Exposure: No; Do You Dip or Chew Tobacco: No; Tobacco Cessation Education Requested by Patient: No Hx Alcohol Use: Yes (Drink occasional) Alcohol type: beer Alcohol Intake Frequency: 2-4 x/Month Hx Substance Use: No Preferred Language: Angolan Communication Ability: Effective Forge Hand Required: No Beliefs That Will Affect Care: None marital status: Current Living Situation: Spouse current occupational status: retired How many Children do You have: 3 Other Information That Helps Us Care for You: No Feels Safe at Home: No Is there a partner from a previous relationship who is making you feel unsafe now?: No Any Concerns about Your Family Situation: No Would You Like to Speak to Someone About Your Situation: No Safety Concerns: Feels Safe At This Time Childhood Exposure to Second-Hand Smoke: No Diet: regular Dental Care, Regularly: No Physical Activity Frequency: 1-2 Times per Week Seatbelt Use: always Sunscreen Use: No Assistive Devices: CPAP Review of Systems Review of Systems: All systems reviewed & are unremarkable except as noted in HPI & below Physical Exam Physical Exam: General: Comfortable HEENT: Sclerae anicteric Lungs: Clear to auscultation bilaterally Cardiac: Regular rate and rhythm, 2/6 holosystolic left lower extremity border Vascular: 2+ radial on right Abdomen: Soft, nontender Extremities: Well perfused, no peripheral edema Neuro: Nonfocal Psych: Alert orient x3, normal affect and mood Results & Data Vital Signs (Past 12 Hours) Vital Signs Temp Pulse Pulse Resp BP Pulse Ox O2 Del Method 07/01/23 13:23 70 16 94 07/01/23 11:11 97.9 F 73 18 133/81 98 Room Air 07/01/23 07:30 98.2 F 71 18 121/70 96 Room Air 07/01/23 02:55 97.7 F 68 20 107/63 96 Room Air PG Care Time/CCT Total # of Minutes Spent Total Time Spent with Patient: Total time spent is greater than 50% in coordination of care (as documented) at patient's floor/unit and/or counseling patient: Coding Level of Care Code 15085 INT INP/OBS CARE 3/75MIN Diagnoses ACS (acute coronary syndrome) I24.9
[2023-07-01] MEDS: fentaNYL citrate PF 100 MCG/2 ML VIAL ONE ×2 (15:31→15:35)
[2023-07-01] MEDS: HEPARIN (PORCINE) 1000 UNIT/ML 10 ML (CATH LAB USE ONLY) ONE (15:32)
[2023-07-01] MEDS: niCARdipine HCL INJ 2.5 MG/ML 10 ML AMP ONE (15:33)
[2023-07-01] MEDS: NITROGLYCERIN/D5W 100MCG/ML 20ML SYR ONE (15:33)
[2023-07-01] MEDS: MIDAZOLAM HCL 1 MG/ML 2ML VIAL ONE ×2 (15:33→15:35)
[2023-07-01] MEDS: OPTIRAY 350 ONE (15:34)
[2023-07-01] MEDS: SODIUM CHLORIDE 0.9% 1,000 ML IV SCH (17:13)
--- NOTE | 2023-07-01 17:22 | Hospitalist Progress Note ---
Date of Service July 01, 2023 Assessment & Plan (1) Unstable angina: Plan: Intermittent left-sided chest pain/pressure at rest, as well as SOB at rest, with increased frequency/duration (approximately 30 minutes) since 06/24 Extensive cardiac history ([place] in [place], multiple stents, s/p pacemaker, s/p mitral valve replacement) Hx cardiac catheterization x 2 (2005 following [place] in 2020 x 1 stent at [place]) Troponin elevated at 249.0-->228.1/and trended downward EKG revealed ventricular paced rhythm at 78 bpm; QRS 194; QTc 531 (caution use of QT prolonging agents) Unstable angina with high risk NSTEMI Cardiology consulted and patient went for cardiac catheterization: 1.Multivessel coronary artery disease -100% acute on chronic mid circumflex occlusion with left to left collaterals 60% mid LAD at bifurcation with D1. 60% late mid stenosis. 90% ostial D1. Proximal LAD stent patent 50% proximal RCA. 60% ostial RPDA. Distal RCA stent patent 2. Normal intracardiac filling pressure Recommendations: On direct comparison from angiography at [facility] 08/30/2020 mid circumflex occlusion with collaterals is new. Has also had some progression in mid LAD disease. Diagonal, RCA, PDA disease unchanged. Recommend continue medical management including maximal antianginal therapy. If refractory angina in the future could consider FFR/complex PCI of LAD versus CABG. Continued ASCVD risk factor modification Follow-up with Dr. Vivar Echo with preserved EF, septal motion abnormality stable from previous, RV dilation with moderate dysfunction, mild to moderate AI, mechanical MV, borderline pulmonary hypertension Monitor on telemetry overnight, follow BMP Resume home Coumadin (2) Diabetes: Plan: Last A1c at 5.8% on 05/24/2023 Hold Jardiance, Trulicity Hold Lantus while inpatient; can manage with loose SSI SSI; with target BSG range 110-140mg/dL, CF 40, carb ratio 13 Adjust regimen as needed (3) Paroxysmal atrial fibrillation: Plan: On Coumadin, metoprolol INR 2.5 on arrival and now down to 2.3-missed 1 dose on 06/30 Resume Coumadin Follow PT/INR in the morning (4) CAD (coronary artery disease): Plan: With stents x 3 Continue daily aspirin, rosuvastatin, metoprolol (5) Hypertension: Plan: Blood pressures are controlled Continue metoprolol, Entresto (6) S/P MVR (mitral valve replacement): Plan: S/p MVR in 2011 d/t rheumatic heart disease (7) Pacemaker: Plan: S/p pacemaker in 2017 (8) (HFpEF) heart failure with preserved ejection fraction: Plan: Preserved EF, euvolemic Was given small amounts of fluid after cardiac catheterization He remains on Entresto and Toprol-XL although he never had reduced EF Plan Disposition: Continued stay on PCU telemetry Full code DVT PPx: Coumadin Admission and Anticipated Discharge Date Admission Date: June 30, 2023 Subjective Patient denies any chest pain since the cardiac catheterization, no shortness of breath, no other concerns. Telemetry with paced rhythm in the 70s. I discussed his care with cardiology. Physical Exam Constitutional: WD/WN, vitals as above Respiratory: normal respiratory effort, lungs clear to auscultation Cardiovascular: RRR, no murmur, no edema Psychiatric: A+Ox3, euthymic affect Results & Data Results & Data Vital Signs (Past 12 Hours) Vital Signs Temp Pulse Pulse Resp BP BP Pulse Ox 07/01/23 16:35 36.3 C L 70 18 109/70 97 07/01/23 15:45 62 18 122/73 96 07/01/23 15:39 62 18 146/84 H 96 07/01/23 13:23 70 16 94 07/01/23 11:11 36.6 C 73 18 133/81 98 07/01/23 07:30 36.8 C 71 18 121/70 96 O2 Del Method 07/01/23 16:35 Room Air 07/01/23 15:45 Room Air 07/01/23 15:39 Room Air 07/01/23 13:23 07/01/23 11:11 Room Air 07/01/23 07:30 Room Air Laboratory Results CBC, INR, BMP, troponins reviewed PG Care Time/CCT Total # of Minutes Spent Total Time Spent with Patient: Total time spent is greater than 50% in coordination of care (as documented) at patient's floor/unit and/or counseling patient: Coding Level of Care Code 62485 SUB INP/OBS CARE 3/50MIN Diagnoses Unstable angina I20.0 Diabetes E11.9 Paroxysmal atrial fibrillation I48.0 CAD (coronary artery disease) I25.10 Hypertension I10 S/P MVR (mitral valve replacement) Z95.2 Pacemaker Z95.0 (HFpEF) heart failure with preserved ejection fraction I50.30
--- NOTE | 2023-07-01 17:27 | Cardiac Catheterization ---
[facility] Data: Multiple Sclerosis Nurse Cardiac Status Clinical evaluation leading to the procedure CAD Presenation: Non STEMI Anginal Classification: CCS IV Diagnostic Physicians Name: Alvin Tee MD Closure Device Recommendations: Medical Therapy and/or Counseling Cardiac Cath Procedure Full Procedure Date July 01, 2023 Pre-Procedure Diagnosis Pre-Procedure Diagnosis: Non STEMI AUC Score AUC Score: 8 Post-Procedure Diagnosis Post-Procedure Diagnosis: Severe CAD, Unsuccessful PCI and Normal Intracardiac Pressures Procedure(s) Performed Procedure(s) Performed: Coronary Angiography and Left Heart Cath Commercial Specialist Alvin Tee MD Gut Sorter(s) Jeniffer Estimated Blood Loss Estimated Blood Loss: 10 Medication(s) Medication(s): Fentanyl, Heparin, Lidocaine 1%, Nicardipine, Nitroglycerin and Versed Summary of Findings Indication: ACS. History of multivessel CAD post prior stenting of LAD 07/2019 Access: 6 Fr right radial artery Catheters: Immanuel, diagnostic JR4, EBU 3.5 guide Findings: LM -normal caliber vessel, luminal irregularities LAD -medium caliber, calcified, 40% proximal stenosis prior to previously placed stent which is widely patent. 60% earlymid stenosis at distal end of prior stent just after takeoff of medium D1. 60% late mid stenosis at takeoff of second septal. Focal 50% distal stenosis with myocardial bridging before vessel wraps around apex. D1 with 90% ostial stenosis. Circumflex -medium caliber vessel, proximal to mid stent patent with 100% acute on chronic mid occlusion. Distal OM fills retrograde via left to left collaterals. RCA -dominant, large caliber, 50% proximal stenosis, mid segment mildly diseased, existing stent in distal RCA widely patent. 60% ostial RPDA disease. Attempted PCI of acute on chronic mid circumflex occlusion Left main cannulated with EBU 3.5 guide Attempt made to cross occlusion with pilot can router 50 wire and aid of 2.0 support balloon. Occlusion behaves more like chronic disease. In the absence of symptoms, significant troponin or wall motion abnormality procedure aborted for medical management LVEDP -15 Arterial Closure: TR band Summary: 1. Multivessel coronary artery disease -100% acute on chronic mid circumflex occlusion with left to left collaterals 60% mid LAD at bifurcation with D1. 60% late mid stenosis. 90% ostial D1. Proximal LAD stent patent 50% proximal RCA. 60% ostial RPDA. Distal RCA stent patent 2. Normal intracardiac filling pressure Recommendations: On direct comparison from angiography at [facility] 08/30/2020 mid circumflex occlusion with collaterals is new. Has also had some progression in mid LAD disease. Diagonal, RCA, PDA disease unchanged. Recommend continue medical management including maximal antianginal therapy. If refractory angina in the future could consider FFR/complex PCI of LAD versus CABG. Continued ASCVD risk factor modification Follow-up with Dr. Vivar Hemodynamics Rest Ao:: 108/62/84 Final Ao: 139/62/88 LV: 130/50 Recommendations Recommendations: Medical Therapy and/or Counseling Specimens Specimens: None Radiation Exposure (mGy) 3281 Contrast (mls) 95 Anesthesia Moderate 0849-2090 Procedural Complication(s) None Disposition PCU I attest to the content of the Intraoperative Record and any orders documented therein. Any exceptions are noted below. [facility] Card Cath Procedure Codes Cardiac Catheterization Procedure 1: Cardiovascular Cath Procedures: 89872 Coronaries and LHC (+/-LV) Moderate Sedation Procedure 1: Sedation/Anesthesia: 39925 Mod Sedation by the same physician;Init15 Min Child Age 5 & Up Procedure 2: Sedation/Anesthesia: 03204 Mod Sedation by the same physician; Ea [id number] Minutes PG Care Time/CCT Total # of Minutes Spent Total Time Spent with Patient: Total time spent is greater than 50% in coordination of care (as documented) at patient's floor/unit and/or counseling patient:
[2023-07-01] MEDS: WARFARIN SOD 3 MG TAB PO SCH (18:42)
--- NOTE | 2023-07-01 19:31 | XCELERA ---
[id number]
--- NOTE | 2023-07-01 21:03 | Electrocardiogram Report ---
Test Reason : Blood Pressure : / mmHG Vent. Rate : 070 BPM Atrial Rate : 070 BPM P-R Int : 000 ms QRS Dur : 194 ms QT Int : 490 ms P-R-T Axes : 000 -71 087 degrees QTc Int : 529 ms Ventricular-paced rhythm Abnormal ECG When compared with ECG of 30-JUN-2023 12:43, Vent. rate has decreased BY 8 BPM Confirmed by Felipe Maguire ([id number]) on 07/01/2023 9:03:39 PM Referred By: REFERRED SELF Confirmed By:Felipe Maguire
[2023-07-02 06:58] LABS: Basophils # (auto) 0.04 K/uL (0.00-0.20); Basophils % (auto) 0.8 %; Eosinophils # (auto) 0.34 K/uL (0.00-0.50); Eosinophils % (auto) 6.5 %; Hematocrit (blood only) 50.7 % (42.0-52.0); Hemoglobin 16.4 g/dl (14.0-18.0); Immature Granulocytes # (auto) 0.02 K/uL (0.01-0.20); Immature Granulocytes % (auto) 0.4 %; Lymphocytes # (auto) 0.62 K/uL (1.20-3.40); Lymphocytes % (auto) 11.8 %; Mean Corpuscular Hemoglobin 30.3 pg (25.0-34.0); Mean Corpuscular Hgb Conc 32.3 g/dL (32.0-36.0); Mean Corpuscular Volume 93.5 fL (80.0-100.0); Mean Platelet Volume 10.1 fL (9.4-12.4); Monocytes # (auto) 0.93 K/uL (0.11-0.59); Monocytes % (auto) 17.7 %; Neutrophils # (auto) 3.31 K/uL (1.40-6.50); Neutrophils % (auto) 62.8 %; Platelet Count 205 K/uL (130-400); RDW Coefficient of Variation 14.6 % (11.5-14.5); RDW Standard Deviation 50.1 fL (36.4-46.3); Red Blood Count 5.42 M/uL (4.70-6.10); White Blood Count 5.26 K/ul (4.8-10.8)
[2023-07-02 07:25] LABS: BUN Creatinine Ratio 14.1 (10-20); Calcium 8.8 mg/dl (8.6-10.3); Creatinine Clr Calc Pharmacy 103.3 ml/min; Est GFR (Non-African American) 88.9 ml/min; Magnesium 2.1 mg/dl (1.7-2.4); Potassium 4.6 mmol/L (3.5-5.1)
[2023-07-02 07:28] LABS: INR 1.9 (0.9-1.1); Prothrombin Time 20.2 Seconds (9.0-12.0)
[2023-07-02] MEDS: ISOSORBIDE MONO EXTENDED REL 30 MG TABCR PO SCH (12:39)
--- NOTE | 2023-07-02 13:30 | Discharge Summary ---
Discharge Summary Date of Service July 02, 2023 Notes For Next Care Provider F/u INR in 1 week Medication Changes From Visit Added isosorbide mononitrate 30mg po daily Admission HPI Per Admitting Provider Vito is a 67-year-old male with PMH of atrioventricular node ablation, paroxysmal A-fib (on Coumadin), HTN, HLD, CAD, s/p mitral valve replacement, history of heart stents x 3, Gout, CHAYITO, diabetes, and chronic right-sided CHF. He presented for worsening intermittent left-sided chest pain and SOB at rest that started on 06/24. These episodes have been increasing in frequency/length (up to 30 minutes at a time). Patient also notes that he had sweating and clammy with his chest pain/pressure on Tuesday 06/27. No leg swelling noticed. He reports that his chest pain on arrival is mainly on the left side, and he endorses left chest pressure and pain in his left shoulder, neck, and jaw. He denies radiation down the left arm. He reports that he took his home Nitrostat 2 days ago, which is the only thing that alleviates his episodes of chest pain. Exertion such as climbing up steps exacerbates the pain. He does not use supplemental oxygen at home. Uses CPAP at night. Patient to call his regular morning medications today; no recent change in medications. He notes that he has not been using his Bumex or spironolactone f or leg swelling, as this is as needed. Patient follows with Dr. Burns at [facility]. He is a former tobacco cigarette, cigar, and chewing tobacco user; quit in 1981. He endorses mild alcohol use; 1 drink per week. Vital stable at time of admission. ED course: Aspirin 324 mg p.o. Nitrostat 0.4 mg SL Acetaminophen 1000 mg IV ROS: Patient endorses sweating with CP, lightheadedness with exertion and standing up too quick, left jaw/neck/shoulder pain, intermittent SOB, dry cough x 2 days, and occasional bouts of diarrhea. Patient denies fever, chills, fainting, FERNANDEZ, pain/numbness/tingling in left arm, pleuritic CP, hemoptysis, abdominal pain, N/V/D, burning with urination, blood in urine, dysuria, or numbness/tingling in the arms or legs. Principal Dx & Hospital Course #1 = Principal Diagnosis (1) Unstable angina: Intermittent left-sided chest pain/pressure at rest, as well as SOB at rest, wit h increased frequency/duration (approximately 30 minutes) since 06/24 Extensive cardiac history ([place] in [place], multiple stents, s/p pacemaker, s/p mitral valve replacement) Hx cardiac catheterization x 2 (2004 following [place] in 2020 x 1 stent at [place]) Troponin elevated at 249.0-->228.1/and then trended downward EKG revealed ventricular paced rhythm at 78 bpm; QRS 194; QTc 531 Unstable angina with high risk NSTEMI Cardiology consulted and patient went for cardiac catheterization: 1.Multivessel coronary artery disease -100% acute on chronic mid circumflex occlusion with left to left collaterals 60% mid LAD at bifurcation with D1. 60% late mid stenosis. 90% ostial D1. Proximal LAD stent patent 50% proximal RCA. 60% ostial RPDA. Distal RCA stent patent 2. Normal intracardiac filling pressure Recommendations: On direct comparison from angiography at [facility] [place] 08/30/2020 mid circumflex occlusion with collaterals is new. Has also had some progression in mid LAD disease. Diagonal, RCA, PDA disease unchanged. Recommend continue medical management including maximal antianginal therapy. If refractory angina in the future could consider FFR/complex PCI of LAD versus CABG. Continued ASCVD risk factor modification Added isosorbide mononitrate 30m po QM-can titrate up as outpt if needed Follow-up with Dr. Vivar-I discussed his care with Dr. Vivar on day of discharge Echo with preserved EF, septal motion abnormality stable from previous, RV dilation with moderate dysfunction, mild to moderate AI, mechanical MV, borderline pulmonary hypertension No events on telemetry overnight following cath, BMP with normal renal function Resumed home Coumadin-INR 1.9 on day of discharge-take 4mg today and then 3mg daily, check INR at home in 1 week (2) Diabetes: Last A1c at 5.8% on 05/24/2023 resume home Ronnie Colvin (3) Paroxysmal atrial fibrillation: On Coumadin, metoprolol INR 2.5 on arrival and now down to 1.9-held 1 dose on 06/30 Resumed Coumadin as above (4) CAD (coronary artery disease): With stents x 3 Continue daily aspirin, metoprolol He is intolerant to statins Consider PCSK9 as outpt (5) Hypertension: Blood pressures are controlled Continue metoprolol, Entresto adding isosorbide (6) S/P MVR (mitral valve replacement): S/p MVR in 2012 d/t rheumatic heart disease on coumadin (7) Pacemaker: S/p pacemaker in 2017 (8) (HFpEF) heart failure with preserved ejection fraction: Preserved EF, euvolemic Was given small amounts of fluid after cardiac catheterization He remains on Entresto and Toprol-XL although he never had reduced EF Plan Disposition: dc to home, doing well Full code DVT PPx: Coumadin Discharge Exam Constitutional WD/WN, vitals as above Respiratory normal respiratory effort, lungs clear to auscultation Cardiovascular RRR, no murmur, no edema Psychiatric A+Ox3, euthymic affect Updated Medication List Medication Instructions Recorded Confirmed Type colchicine 0.6 mg tablet 0.6 mg PO BID PRN GOUT 04/04/18 06/30/23 History bumetanide 2 mg tablet 2 mg PO QAM PRN Fluid Retention 07/02/22 06/30/23 History cephalexin 500 mg capsule 2,000 mg PO DIRECTED PRN PRIOR 07/02/22 06/30/23 History TO DENTAL APPT. empagliflozin 10 mg tablet 10 mg PO QAM 07/02/22 06/30/23 History (Jardiance) magnesium 250 mg tablet 250 mg PO 3XWK 07/02/22 06/30/23 History nitroglycerin 0.4 mg sublingual 0.4 mg sublingual DIRECTED PRN 07/02/22 06/30/23 History tablet Chest Pain sacubitril 49 mg-valsartan 51 mg 1 tab PO BID 07/02/22 06/30/23 History tablet (Entresto) sildenafil (pulm.hypertension) 20 20 mg PO DIRECTED PRN Erectile 07/02/22 06/30/23 History mg tablet Dysfunction warfarin 3 mg tablet 0 mg PO QPM 07/02/22 06/30/23 History aspirin 81 mg tablet,delayed 81 mg PO QAM 04/26/23 06/30/23 History release (Adult Aspirin Regimen) dulaglutide 0.75 mg/0.5 mL 0.75 mg subcut .weekly 04/26/23 06/30/23 History subcutaneous pen injector (Trulicity) ferrous gluconate 240 mg (27 mg 240 mg PO DAILY 04/26/23 06/30/23 History iron) tablet (Ferate) metoprolol succinate 50 mg 25 mg PO BID 04/26/23 06/30/23 History tablet,extended release 24 hr spironolactone 25 mg tablet 25 mg PO 3XWK PRN leg edema 06/30/23 06/30/23 History isosorbide mononitrate 30 mg 30 mg PO QAM #30 tabs 07/02/23 Rx tablet,extended release 24 hr Hospital Stay Data Consultations 06/30/23 14:23 ED Decision to Admit Stat 06/30/23 18:11 Consult Cardiology Routine Procedures Performed Operation Date: 07/01/23 14:00 Actual Procedures p Cineradiography w/Routine Exam - Alvin Tee MD p Cath, Left with Cors and Vent - Alvin Tee MD Diagnostic Imagining Performed 07/01/23 07:04 CL Cath Imgs for PACS use only Routine ECHO Pending Results Patient Have Any Pending Studies at Discharge: No Discharge Instructions Given to Patient (Per Discharging Provider) You were admitted with angina and had a cardiac catheterization which showed acute on chronic occlusion of your mid circumflex artery. Attempts were made to open this up but were unsuccessful as it has likely been there for a while. You were started on isosorbide to help with angina and Dr. Vivar can adjust the dose of this as needed. Please take Coumadin 4mg for today and then go back to your usual 3mg daily. Check an INR at home in 1 week. Follow up with Dr. Vivar within 2 weeks. ACTIVITY RECOMMENDATIONS: Excess manipulation of the wrist should be avoided for the next 24-48 hours. * No lifting over 2 pounds (approximately a 1/2 gallon of milk) with the utilized arm for 24 hours. * No strenuous activity such as bowling or tennis for 3 days. * Keep the site of the procedure covered with a bandage for 24 hours. *You may shower the day after the procedure. Do not take a tub bath or submerge the puncture site in water for the next 3 days. *Do not operate any motorized equipment for 3 days. SPECIAL CARE INSTRUCTIONS: The site may be slightly bruised and sore following your procedure. Should any of the following occur, contact the Dr. who performed your procedure. 1. Redness/inflammation, swelling, chills, or fever, or colored drainage at procedure site within 3-7 days after your procedure. 2. Coldness, discoloration, ongoing numbness, severe pain, or swelling. Expect mild tingling of hand and tenderness at the puncture site for up to three days. If this persists beyond three days, or other symptoms develop, notify the Dr. who performed your procedure. BLEEDING: If the procedure site on your wrist begins to bleed, do not panic 1. Place 1 or 2 fingers firmly just slightly above the insertion site to stop the bleeding. You may be able to feel your pulse as you hold pressure. 2. Lift your finger after 5 minutes to see if the bleeding has stopped. 3. Once the bleeding has stopped, gently wipe the wrist area clean with a bandage. * If the bleeding from your wrist does not stop after 10 minutes, or if there is a large amount of bleeding or spurting, call 911 (do not drive yourself to the hospital). SKIN IRRITATION: * You may experience some redness and/or swelling in the area where radiation was administered. If any skin irritation occurs, please contact your family physician. FOLLOW UP VISIT: Keep any scheduled doctor appointments. Home Care: * Take your medications exactly as directed. Don't skip doses. * Remember that recovery after a heart attack takes time. Plan to rest for at lease 4-8 weeks while you recover. Then return to normal activity when your doctor says it's okay. * Ask your doctor about joining a heart rehabilitation program. * Tell your doctor if you are feeling depressed. Feelings of sadness are common after a heart attack, but it is important that you speak to someone if you are feeling overwhelmed by these feelings. * If you are having chest pain, call 911 for an ambulance. Do NOT drive yourself to the hospital. * Ask your family members to learn CPR. * Learn to take your own blood pressure and pulse. Keep a record of your results. Ask your doctor when you should seek emergency medical attention. He or she will tell you which blood pressure reading is dangerous. Lifestyle Changes: * Maintain a healthy weight. Get help to lose any extra pounds. * Cut back on salt. * Limit canned, dried, packaged, and fast foods. * Don't add salt to your food. * Season foods with herbs instead of salt when you cook. * Break the smoking habit. Enroll in a stop-smoking program to improve your chances of success. * Limit fatty foods. * Ask your doctor about having your lipid levels checked regularly. * Build up your activity according to your doctor's recommendation. * Ask your doctor when it's okay to resume sexual activity. * Tell your doctor about any erectile dysfunction (ED) medication you are shobha g. Some ED medications are not safe if you take certain heart medications. * Try to manage stress. Follow Up: It is important for you to keep your follow up appointments with your medical provider. Total Time Total Time Spent Total Time Spent (In Minutes): 40 min Coding Level of Care Code 87974 INP/OBS DISCH >30 MIN Diagnoses Unstable angina I20.0 Diabetes E11.9 Paroxysmal atrial fibrillation I48.0 CAD (coronary artery disease) I25.10 Hypertension I10 S/P MVR (mitral valve replacement) Z95.2 Pacemaker Z95.0 (HFpEF) heart failure with preserved ejection fraction I50.30
--- NOTE | 2023-07-07 12:17 | Coding Query ---
CODING QUERY To promote full compliance with coding requirements relating to patient care, provider participation is requested in all cases of billing department supervisor uncertainty. Please assist us with the question(s) below: Coding Question(s): The H&P documents, "This is likely a progression from stable to unstable angina; Unstable angina v. NSTEMI", and, "Unstable Angina vs NSTEMI, hx CAD", and the Cardiac Catheterization Report documents Pre-Procedural diagnosis of Non STEMI and Post-Procedure diagnosis of Severe CAD, and the 07/01 Progress Note and Discharge document, "Unstable angina with high risk NSTEMI". It is not clear if NSTEMI was still possible or ruled-out. Please specify below, in your clinical opinion, regarding NSTEMI: ( ) Possible NSTEMI ( ) NSTEMI is Ruled-Out ( ) Other: Please Specify NSTEMI Physician's Response(s): Thank you Dorita James Principal Diagnosis: "that condition established after study, to be chiefly responsible for occasioning the admission of the patient to the hospital for care." Co-Existing Principal Diagnosis: "when two or more diagnoses equally meet the criteria for principal diagnosis as determined by the circumstances of admission, diagnostic work up, and/or therapy provided, and the Alphabetic Index, Tabular List, or another coding guideline does not provide sequencing direction, any one of the diagnoses may be sequenced first." "When the physician has documented what appears to be a current diagnosis in the body of the record, but has not included the diagnosis in the final diagnostic statement, the physician should be asked whether the diagnosis should be added." (Source Coding [facility] 2 QTR90. p3-4) NEIL
== END 2023-07-02 15:03 | disposition home or self-care (01) | DRG 281 ==
LOC: ED 12:23 → 2S 15:20 → SUATTDRO 15:20 → 2S 18:12

== ENCOUNTER 2023-12-09 12:05 | Inpatient (IN) ==
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
[2023-12-09 15:07] LABS: Basophils # (auto) 0.03 K/uL (0.00-0.20); Basophils % (auto) 0.5 %; Eosinophils # (auto) 0.17 K/uL (0.00-0.50); Eosinophils % (auto) 2.8 %; Hematocrit (blood only) 33.8 % (42.0-52.0); Hemoglobin 10.4 g/dl (14.0-18.0); Immature Granulocytes # (auto) 0.02 K/uL (0.01-0.20); Immature Granulocytes % (auto) 0.3 %; Lymphocytes # (auto) 0.78 K/uL (1.20-3.40); Lymphocytes % (auto) 13.1 %; Mean Corpuscular Hemoglobin 27.9 pg (25.0-34.0); Mean Corpuscular Hgb Conc 30.8 g/dL (32.0-36.0); Mean Corpuscular Volume 90.6 fL (80.0-100.0); Mean Platelet Volume 9.8 fL (9.4-12.4); Monocytes # (auto) 0.92 K/uL (0.11-0.59); Monocytes % (auto) 15.4 %; Neutrophils # (auto) 4.05 K/uL (1.40-6.50); Neutrophils % (auto) 67.9 %; Platelet Count 431 K/uL (130-400); RDW Coefficient of Variation 15.5 % (11.5-14.5); RDW Standard Deviation 51.2 fL (36.4-46.3); Red Blood Count 3.73 M/uL (4.70-6.10); White Blood Count 5.97 K/ul (4.8-10.8)
[2023-12-09] MEDS: OPTIRAY 320 100ml IV ONE (15:18)
[2023-12-09 15:24] LABS: Albumin Globulin Ratio 1.1 (0.9-2); Albumin Level 3.9 gm/dl (3.4-5.0); BUN Creatinine Ratio 24.7 (10-20); Bilirubin,Total 0.6 mg/dl (0.2-1.0); C Reactive Protein 1.37 mg/dl (0-0.5); Calcium 8.9 mg/dl (8.6-10.3); Creatinine Clr Calc Pharmacy 108.7 ml/min; Est GFR (African American) 106.6 ml/min; Est GFR (Non-African American) 91.9 ml/min; Globulin 3.7 gm/dl (2.5-4.0); Magnesium 2.1 mg/dl (1.7-2.4); Potassium 4.1 mmol/L (3.5-5.1); Total Protein 7.6 gm/dl (6.0-8.3)
[2023-12-09 15:29] LABS: Troponin I High Sensitivity 14.1 pg/ml (0-20)
[2023-12-09 15:33] LABS: INR 2.3 (0.9-1.1); Prothrombin Time 23.3 Seconds (9.0-12.0)
[2023-12-09] MEDS: ACETAMINOPHEN 1,000 MG/100 ML VIAL IV STA (15:33)
[2023-12-09] MEDS: MoRPHine SULFATE 4 MG/ML 1 ML CARP\\VIAL IV STA (15:34)
[2023-12-09 15:39] LABS: Thyroid Stimulating Hormone 1.938 uIu/ml (0.300-4.500)
[2023-12-09 15:43] LABS: Appearance Urine Clear (Clear); Bilirubin Urine Negative (Negative); Blood Urine Negative (Negative); Color Urine Yellow; Glucose Urine UA 2+ (Negative); Ketones Urine Negative (Negative); Leukocyte Esterase Urine Negative (Negative); Nitrite Urine Negative (Negative); Protein Urine Negative (Negative); Specific Gravity Urine 1.023 (1.000-1.030); Urobilinogen Urine Negative (Negative); pH Urine 5.5 (4.5-7.5)
--- NOTE | 2023-12-09 15:52 | CT Scan Report ---
CT tib/fib RT w con CLINICAL HISTORY: non-healing surgical wounds TECHNIQUE: Multidetector row helical CT of the right tibia and fibula was performed without intraveno us contrast. Coronal and sagittal reformations were obtained. Automated dose lowering techniques and/ or adjustment according to patient size were utilized for this examination. CT DOSE: 320.86 mGy.cm Comparison: None available at the time of this dictation. FINDINGS: The osseous structures are without fracture or dislocation. The joint spaces are maintained. No joint effusion is seen. Ulceration is seen in the distal medial soft tissues. No drainable fluid collecti ons. IMPRESSION: Ulceration is seen in the distal medial soft tissues without abscess is or underlying osteomyelitis. ACT 112: Negative or not required by law. Electronically signed by: Maxwell Grey M.D. 12/09/2023 3:51 PM
--- NOTE | 2023-12-09 16:19 | Electrocardiogram Report ---
Test Reason : Blood Pressure : / mmHG Vent. Rate : 071 BPM Atrial Rate : 074 BPM P-R Int : 000 ms QRS Dur : 126 ms QT Int : 464 ms P-R-T Axes : 000 249 070 degrees QTc Int : 504 ms Ventricular-paced rhythm Abnormal ECG When compared with ECG of 15-NOV-2023 12:35, No significant change was found Confirmed by Triston Kulkarni ([id number]) on 12/09/2023 4:18:53 PM Referred By: REFERRED SELF Confirmed By:Tritson Kulkarni
--- NOTE | 2023-12-09 17:43 | History & Physical Report ---
Date of Service December 09, 2023 Assessment & Plan (1) Surgical wound, non healing: Plan: Admit to med/telemetry Currently stable and nontoxic-appearing Was sent to the [facility] ED today from the wound care clinic due to concerns for recurrent infection of the patient's right lower extremity CABG surgical site Patient had previously grown E. coli, Stenotrophomonas maltophilia, Myroides species on wound cultures from 11/11/2023. All species had been susceptible to Bactrim however patient subsequently developed ITP as a result causing large left lower extremity hematoma and transferred back to the [facility] CT of the right lower extremity today notes an ulceration in the distal medial soft tissues without abscess or underlying osteomyelitis. Could represent a developing phlegmon per radiology. ED spoke to both vascular surgery and general surgery, vascular surgery did not believe this was a vascular problem and signed off. General surgery will follow and monitor for now, however, if the patient would develop an abscess in the right lower extremity he would require transfer back to the [facility] for surgical intervention. Discussed antibiotic choices overnight with the pharmacy until infectious disease can give recommendations. At this time they recommended IV Levaquin plus p.o. minocycline if the patient is stable. If he would become unstable they would recommend meropenem plus p.o. minocycline > P.o. minocycline is currently being used as infectious disease would have to order IV and the patient is currently stable Infectious disease consult has been placed, their call-in line is currently c losed for the night. Will need to call tomorrow. Follow wound, blood cultures (pharmacy will request microbiology obtain additional/detailed culture results to assist with ongoing antibiotic choice moving forward) Will obtain right lower extremity venous Doppler to rule out DVT, although this is lower on the differential due to patient being on warfarin -Wound care nurse consult placed Heart healthy diet Home warfarin for DVT prophylaxis AM CBC, CMP, mag, PT/INR (2) S/P CABG x 5: Plan: Patient denies recent chest discomfort or dyspnea on exertion No acute changes on ECG today Continue aspirin, Zetia, metoprolol (3) (HFpEF) heart failure with preserved ejection fraction: Plan: Currently euvolemic on exam Continue Entresto for ischemic cardiomyopathy Patient does have 2 mg p.o. as needed Bumex for fluid retention, will hold this for now as he is euvolemic (4) Hypertension: Plan: Currently stable Continue metoprolol and Entresto Plan The patient was discussed with Dr. Velásquez admission History of Present Illness Chief Complaint: Concern for RLE chronic wound infection Primary Care Provider: Bob Soliman III, SY Vito is a 68-year-old male with a past medical history significant for CAD status post CABG x 5 at [facility] on 10/16/2023, rheumatic heart disease status post aortic valve replacement on warfarin, atrial fibrillation, heart fa ilure with preserved ejection fraction, hypertension, hyperlipidemia, LEYDA who presented to the [facility] ED on 524 from the wound care clinic due to concerns for infection of his ongoing right lower extremity CABG surgical site. Of note, patient was last seen in the [facility] ED on 11/15/2023 bilateral lower extremity pain with significant left lower extremity bruising. He was found to be in new onset ITP with a platelet count of 4 thought to be caused by patient being on Bactrim for his right lower extremity Her surgical site infection. Ultrasound left lower extremity showed extensive hematoma. He was subsequently transferred to the [facility] for further evaluation. The patient was reportedly monitored and treated with IVIG eventually discharged home. On arrival to the ED today he was initially noted to be hypotensive at 99/70, tachycardic at 92, but otherwise stable. Labs are significant for a WBC within normal limits, stable platelet count at 431, stable hemoglobin at 10.4, ESR of 43, INR 2.3, CRP of 1.37, Pro-Rubio within normal limits, and unremarkable. CT of the right tip/fib with con was read as an ulceration seen in the distal medial soft tissues without abscess or underlying osteomyelitis. The ED staff spoke to radiology regarding these results in further detail, they explained that this is likely a phlegmon but not an abscess at this time. The ED staff spoke with vascular surgery who did not believe that this was a vascular issue and recommended speaking to general surgery. General surgery explained that they are happy to follow the patient while here for ongoing monitoring and recommendations, however, if an abscess would eventually develop they would recommend transfer back to the [facility] as this is where his care and complications have been addressed thus far. Prior to admission the patient was given 4 mg IV morphine and 1 g IV Tylenol. The ED staff deferred antibiotics to our team based on his complicated history. Patient was sitting in bed in no acute distress at time of exam with his bedside, history is obtained from both. They come for the above history and states that after his discharge from [facility] on 11/20/2023 he has been doing well. They confirmed that no interventions were conducted at the [facility] for his left lower extremity hematoma and he was treated with IVIG. Patient has been following with our wound care clinic who last saw him on 12/02/2023 prior to his visit today. His wounds have been doing well prior to today's visit. The wound care clinic was concerning for purulent discharge and increased discomfort in the right lower extremity which is why they sent him to the ED for further evaluation. See wound care note from today for detailed description and pictures of his wounds. Patient denies recent fever, chills, chest pain, shortness of breath, abdominal pain, nausea/vomiting, dysuria, hematuria, diarrhea, or recent trauma. We explained that for now we will treat him at a facility with IV antibiotics and infectious disease consult, general surgery will be consulted to follow. For now we will restart antibiotic therapy and monitor. If the patient would develop an abscess he and his understand that he would have to be transferred to the [facility] for further intervention, they are in agreement with this plan. They confirmed the patient is a full code and his to make medical decisions for him if he cannot make himself. Please refer to Dr. Head's attestation for any changes to the treatment plan Allergies Allergy/AdvReac Type Severity Reaction Status Date / Time sulfamethoxazole AdvReac Severe LOWERS Verified 12/09/23 16:36 [From Bactrim] PLATLETS, ON WARFARIN trimethoprim [From Bactrim] AdvReac Severe LOWERS Verified 12/09/23 16:36 PLATLETS, ON WARFARIN [id number] Reductase AdvReac Intermediate MUSCLE & Verified 12/09/23 16:36 Inhibitor JOINT PAIN Home Medications Medication Instructions Recorded Confirmed Type empagliflozin 10 mg tablet 10 mg PO QAM 07/02/22 12/09/23 History (Jardiance) aspirin 81 mg tablet,delayed 81 mg PO QAM 04/26/23 12/09/23 History release (Adult Aspirin Regimen) pantoprazole 20 mg tablet,delayed 20 mg PO DAILY #30 tabs 11/03/23 12/09/23 Rx release potassium chloride 20 mEq 20 meq PO DAILY #30 tabs 11/03/23 12/09/23 Rx tablet,extended release bumetanide 2 mg tablet 2 mg PO QAM Fluid Retention 11/23/23 12/09/23 History ferrous gluconate 225 mg (27 mg 225 mg PO DAILY 11/23/23 12/09/23 History iron) tablet sacubitril 24 mg-valsartan 26 mg 1 tab PO BID 11/23/23 12/09/23 History tablet (Entresto) warfarin 2 mg tablet 3 mg PO QPM 11/23/23 12/09/23 History metoprolol succinate 25 mg 25 mg PO BID 11/25/23 12/09/23 History tablet,extended release 24 hr ezetimibe 10 mg tablet (Zetia) 10 mg PO DAILY #90 tabs 12/02/23 12/09/23 Rx hydrocodone 5 mg-acetaminophen 325 1 tab PO Q8H pain 12/09/23 12/09/23 History mg tablet magnesium 250 mg tablet 250 mg PO 3XWK 12/09/23 12/09/23 History Past Med/Surg History Problem List On warfarin therapy (Acute) Acute pain of lower extremity (Acute) Surgical wound, non healing (Acute) Cellulitis of right lower extremity (Acute) S/P CABG x 5 Pacemaker 2017 medtronic, [facility]- last checked 02/2023 (HFpEF) heart failure with preserved ejection fraction Paroxysmal atrial fibrillation Diabetes Systolic heart failure Respiratory distress Iron deficiency anemia (Chronic) Personal history of colonic polyps Coronary atherosclerosis of [place] coronary vessel Esophageal edema Calcific tendinitis (Acute) Cardiomegaly Gout (Chronic) CAD (coronary artery disease) HLD (hyperlipidemia) Hypertension (Chronic) Medical History Hx of chronic congestive heart failure Obesity denies being diabetic - on trulicity for weight loss and jardiance for heart failure On anticoagulant therapy LEYDA (obstructive sleep apnea) CPAP Hx of myocardial infarction 2004 Surgical History S/P MVR (mitral valve replacement) 2011- [facility] Hx of colonoscopy Hx of cardiac catheterization x 2-- 2004 following [place] and 2020- X 1 stent [facility] [place] S/P Maze operation for atrial fibrillation Hx of atrioventricular node ablation 07/2022 Atrial fibrillation status post cardioversion 10/30/2011 S/P left heart catheterization by percutaneous approach 2007 S/P placement of cardiac pacemaker Family History Family/Other Myocardial infarction "All of them." Mother Ovarian cancer Other Heart disease Denies family history of Prostate cancer Breast cancer Colorectal cancer Social History Smoking Status: Former smoker Tobacco Type: Cigarettes Age Started Using Tobacco: 5; Age Quit Using Tobacco: 27; packs per day: 2; Second Hand Exposure: No; Do You Dip or Chew Tobacco: No; Hx Alcohol Use: Yes (Drink occasional) Alcohol type: beer Alcohol Intake Frequency: 2-4 x/Month Hx Substance Use: No Preferred Language: Setswana Communication Ability: Effective Visual Impairment: No Limitations Hearing Ability: Normal Cloth Bolt Bander Required: No Beliefs That Will Affect Care: None marital status: Current Living Situation: Spouse current occupational status: retired How many Children do You have: 3 How many Children do You have Comment: One lives with patient but unable to assist, the other 2 are in [facility]. able to assist Feels Safe at Home: Yes Childhood Exposure to Second-Hand Smoke: No Diet: low salt and regular Dental Care, Regularly: No Physical Activity Frequency: 1-2 Times per Week Seatbelt Use: always Sunscreen Use: No Do you think of yourself as: straight/heterosexual Assistive Devices: CPAP and Walker Physical Exam Physical Exam: Physical Exam: General: In no acute distress, stated age, well-nourished, non-toxic appearing HEENT: Normocephalic, atraumatic, no scleral icterus, pupils around round, symmetrical, and reactive to light, moist mucus membranes, trachea midline, no thyromegaly Chest/Pulm: No respiratory distress, symmetrical chest expansion, clear br eath sounds throughout Cardiac: RRR, click from heart valve replacements noted Abdomen: Negative for ascites and bruising, normoactive bowel sounds, soft, non-tender to palpation throughout Musculoskeletal: Symmetrical and without signs of acute trauma, upper and lower extremities with full ROM, no atrophy, spasticity, or flaccidity Extremities: Radial, dorsalis pedis, and posterior tibial pulses are intact and symmetrical, no edema noted in the BL LE's Skin: See wound care note from today (12/09/23) for detailed description and images Neuro: Alert and oriented to person, place, month, year, and president, no focal defects, no tremors noted Psych: No acute distress, calm and cooperative during the exam Results & Data Results & Data Vital Signs (Past 12 Hours) Vital Signs Temp Pulse Pulse Resp BP BP Pulse Ox 12/09/23 16:31 71 12/09/23 15:00 70 22 111/68 98 12/09/23 14:30 81 22 126/74 98 12/09/23 14:00 120/77 98 12/09/23 13:30 121/74 94 12/09/23 12:08 36.4 C L 92 H 20 135/81 95 O2 Del Method 12/09/23 16:31 12/09/23 15:00 Room Air 12/09/23 14:30 Room Air 12/09/23 14:00 Room Air 12/09/23 13:30 Room Air 12/09/23 12:08 Room Air Laboratory Results Abnormal lab results 12/09/23 12/09/23 Range/Units 14:46 15:30 RBC 3.73 L (4.70-6.10) M/uL Hgb 10.4 L (14.0-18.0) g/dl Hct 33.8 L (42.0-52.0) % MCHC 30.8 L (32.0-36.0) g/dL RDW Std Deviation 51.2 H (36.4-46.3) fL RDW Coeff of Vlad 15.5 H (11.5-14.5) % Plt Count 431 H (130-400) K/uL Lymph # (Auto) 0.78 L (1.20-3.40) K/uL [place] # (Auto) 0.92 H (0.11-0.59) K/uL ESR 43 H (0-20) mm/hr PT 23.3 H (9.0-12.0) Seconds INR 2.3 H (0.9-1.1) BUN/Creatinine Ratio 24.7 H (10-20) C-Reactive Protein 1.37 H (0-0.5) mg/dl Urine Glucose (UA) 2+ H (Negative) Diagnostic Findings Lower Extremity CT 12/09/23 15:20 CT tib/fib RT w con CLINICAL HISTORY: non-healing surgical wounds TECHNIQUE: Multidetector row helical CT of the right tibia and fibula was performed without intravenous contrast. Coronal and sagittal reformations were obtained. Automated dose lowering techniques and/or adjustment according to patient size were utilized for this examination. CT DOSE: 320.86 mGy.cm Comparison: None available at the time of this dictation. FINDINGS: The osseous structures are without fracture or dislocation. The joint spaces are maintained. No joint effusion is seen. Ulceration is seen in the distal medial soft tissues. No drainable fluid collections. IMPRESSION: Ulceration is seen in the distal medial soft tissues without abscess is or underlying osteomyelitis. ACT 112: Negative or not required by law. Electronically signed by: Maxwell Grey M.D. 12/09/2023 3:51 PM ECG Additional Comments: Ventricular-paced rhythm Abnormal ECG When compared with ECG of 15-NOV-2023 12:35, No significant change was found Confirmed by Triston Kulkarni ([id number]) on 12/09/2023 4:18:53 PM Code Status & VTE Plan Code Status Full code VTE Prophylaxis Plan VTE Prophylaxis will be ordered: Yes Supervising Physician Co-Signing Physician Notes Patient seen and examined, chart reviewed, case discussed with Beau Wilkinson PA-C and I agree with the assessment and plan as above except as otherwise noted Labs and images reviewed Return to 68-year-old male history of CAD s/p CABG x 5 in clinic, rheumatic heart disease s/p AV replacement on warfarin, A-fib, heart failure preserved ejection fraction hypertension, hyperlipidemia, LEYDA was seen 11/15/2023 for left lower extremity pain and was found to be on ITP suspected drug-induced 2/2 Bactrim. Had extensive hematoma was transferred to [facility] for further. Treated with IVIG did well was discharged home. On arrival to ER he was hypotensive tachycardic, without leukocytosis. INR 2.3, ESR/CRP elevated Pro-Rubio was normal. Chest x-ray CT right lower extremity showed ulceration in distal medial soft tissues, with phlegmon but no abscess at his graft harvest site. This was reviewed with vascular surgery who recommended reviewed with general surgery. No indication for surgical intervention, if abscess develops then would need transfer back to [facility] at that time. Will be continued on IV Levaquin. CRP is trending progressing continue fq, otherwise switch to carbapenem. Surgical sites with some mild erythema and edema, -d/c. Hemodynamically stable on reassessment. Agree w/ above. Pts only other concern is reported as diabetic, pt denies this. Pt pre-DM A1C 5.8% last check in May. Would liek to be taken off SSI. Repeat A1C pending, will continue SSI until rechecked PG Care Time/CCT Total # of Minutes Spent Total Time Spent with Patient: Total time spent is greater than 50% in coordination of care (as documented) at patient's floor/unit and/or counseling patient: [place] [address] INT INP/OBS CARE 3MIN Patient Type Established Medical Decision Making High Complexity Diagnoses Non-healing surgical wound, initial encounter T81.89XA Encounter type: initial encounter S/P CABG x 5 Z95.1 Acute on chronic heart failure with preserved ejection fraction I50.33 Heart failure chronicity: acute on chronic Hypertension I10 (1) Surgical wound, non healing Encounter type: initial encounter Qualified Code(s): T81.89XA - Other complications of procedures, not elsewhere classified, initial encounter (3) (HFpEF) heart failure with preserved ejection fraction Heart failure chronicity: acute on chronic Qualified Code(s): I50.33 - Acute on chronic diastolic (congestive) heart failure
[2023-12-09] MEDS ORDERED: GLUCOSE 10 TAB/TUBE PO PRN (17:45)
[2023-12-09] MEDS ORDERED: DEXTROSE 50% 50 ML SYRINGE IV PRN (17:45)
[2023-12-09] MEDS ORDERED: GLUCAGON FOR INJ 1 MG VIAL SQ PRN (17:45)
[2023-12-09] MEDS ORDERED: GLUCOSE 40% GEL 15 GM TUBE PO PRN (17:45)
[2023-12-09] MEDS ORDERED: CARBOHYDRATES FOR HYPOGLYCEMIA PO PRN (17:45)
--- OUTSIDE RECORDS SUMMARY | 2023-12-09 17:49 | External Medical Summary | Continuity of Care Document ---
Author Name Unknown Organization [facility] [address] Address [address] [place], [place] [id number] Care Team Providers Care Row Boss Name Role Phone Bob Soliman Primary Care Physician [phone] [id number] Date(s): 12/02/23 - 12/02/23 [facility] [address] [facility] [address], [address] [place], [place] [phone] Encounter Diagnosis Atherosclerotic heart disease of [place] coronary artery without angina pectoris (Final) - Chronic right heart failure(Final) - Presence of prosthetic heart valve(Final) - Presence of aortocoronary bypass graft(Final) - Discharge Disposition: Home or Self Care Attending Physician: DO Vivar Jason D Referring Physician: DO Vivar Jason D Allergies, Adverse Reactions, Alerts Substance Criticality Severity Reaction Reaction Severity Status Statins (HMG-CoA reductase inhibitors) myalgias Active Immunizations Given and Recorded Vaccine Date Status Refusal Reason influenza virus vaccine, inactivated 03/21/21 Give n influenza virus vaccine, inactivated 01/23/20 Give n influenza virus vaccine, inactivated 01/23/19 Give n influenza virus vaccine, inactivated 03/25/17 Give n influenza virus vaccine, inactivated 02/04/15 Give n influenza virus vaccine, inactivated 03/29/14 Gregory rded influenza virus vaccine, inactivated 03/27/13 Gregory rded influenza virus vaccine, inactivated 03/21/12 Gregory rded influenza virus vaccine, inactivated 03/03/10 Gregory rded influenza virus vaccine, inactivated 04/01/09 Gregory rded zoster vaccine, inactivated 1 04/09/20 Recorded zoster vaccine, inactivated 2 04/09/20 Recorded zoster vaccine, inactivated 02/06/20 Recorded tetanus/diphtheria/pertuss, acel (Tdap) 06/15/18 G iven tetanus/diphtheria/pertuss, acel (Tdap) 03/03/10 R ecorded pneumococcal 23-valent vaccine 03/25/17 Given 1Result Comment: [facility] 2Result Comment: [facility] Medications acetaminophen-hydrocodone 325 mg-5 mg oral tablet Start: 11/10/23 3:05:00 PM EDT, 1 tab, PO, q6h, Refills: 0, PRN: as needed for pain Start Date: 11/10/23 Status: Ordered aspirin 81 mg oral delayed release tablet Start: 03/30/23 3:40:00 PM EST, 1 tab, PO, Daily, Disp# 90 tab, other Start Date: 03/30/23 Status: Ordered bumetanide 2 mg oral tablet Start: 11/10/23 3:29:00 PM EDT, 0.5 tab, PO, Daily, Disp# 45 tab, Refills: 3, other Start Date: 11/10/23 Status: Ordered cephalexin 500 mg oral capsule See Instructions, Disp# 4 cap, Refills: 3, TAKE 4 CAPSULES BY MOUTH ONCE THE MORNING BEFORE DENTAL PROCEEDURE, Pharmacy: [id number] Start Date: 04/03/21 Status: Ordered Entresto 24 mg-26 mg oral tablet Start: 11/10/23 3:27:00 PM EDT, 1 tab, PO, bid, Disp# 180 tab, Refills: 3, other Start Date: 11/10/23 Status: Ordered ferrous sulfate Start: 03/05/23 3:58:00 PM EDT, 325 mg =, PO, Daily Start Date: 03/05/23 Status: Ordered inhaler spacer Start: 10/07/20 5:00:00 PM EDT, See Instructions, Disp# 1 each, Refills: 0, dispense 1 inhaler spacer, Pharmacy: [facility]/pharmacy #[id number] Start Date: 10/07/20 Status: Ordered Jardiance 10 mg oral tablet Start: 01/05/23 8:59:00 AM EDT, See Instructions, Disp# 90 tab, Refills: 3, TAKE ONE TABLET BY MOUTHEVERY , Pharmacy: [id number] Start Date: 01/05/23 Status: Ordered Lovenox 120 mg/0.8 mL injectable solution Start: 10/01/23 10:04:00 AM EDT, 0.8 mL, subQ, q12h, Disp# 20 pen_needle, Refills: 1, Pharmacy: [facility] Start Date: 10/01/23 Status: Ordered magnesium oxide Start: 04/28/22 1:04:00 PM EST, 250 mg =, PO, qMonWedFri Start Date: 04/28/22 Status: Ordered Metoprolol Succinate ER 50 mg oral tablet, extended release Start: 04/15/23 11:32:00 AM EST, See Instructions, Disp# 90 tab, Refills: 3, 0.5 tab PO bid, Pharmacy: [facility] Start Date: 04/15/23 Status: Ordered nitroglycerin 0.4 mg sublingual tablet Start: 06/29/23 3:13:00 PM EST, 1 tab, SL, q5min, Disp# 100 tab, Refills: 3, PRN: as needed for chest pain, Pharmacy: [facility] Start Date: 06/29/23 Status: Ordered Potassium Chloride (Vzd-Rkam-Iuy M20) 20 mEq oral tablet, extended release TAKE ONE TABLET BY MOUTH ONCE DAILY Start Date: 11/10/23 Status: Ordered rosuvastatin 10 mg oral tablet Start: 11/10/23 3:06:00 PM EDT, 1 tab, PO, Daily Start Date: 11/10/23 Status: Ordered warfarin 3 mg oral tablet Start: 08/17/23 10:55:00 AM EDT, See Instructions, Disp# 90 tab, Refills: 3, TAKE 1 TABLET DAILY, Pharmacy: [facility] Start Date: 08/17/23 Status: Ordered Problem List Condition Confirmation Course Effective Dates Status Health Status Informant Cardiac pacemaker in situ Confirmed Active Chronic pain Confirmed Active Chronic right-sided CHF (congestive heart failure) Confirmed Active Chronic right-sided CHF (congestive heart failure) Confirmed Active CAD (coronary artery disease) Confirmed Active CAD in [place] artery Confirmed Active Atherosclerotic heart disease of [place] coronary artery with unspecified angina pectoris Confirmed Active Cough Confirmed Active Osteoarthritis, shoulder Confirmed Active Anticoagulated Confirmed Active Dyslipidemia (high LDL; low HDL) Confirmed Active S/P MVR (mitral valve replacement) Confirmed Active Hip pain Confirmed Active Hx of atrioventricular node ablation Confirmed Active S/P AVR Confirmed Active S/P CABG x 5 Confirmed Active S/P TVR (tricuspid valve repair) Confirmed Active HTN (hypertension) Confirmed Active Hypertensive heart disease with heart failure Confirmed Active Joint pain Confirmed Active Morbid obesity 1 Confirmed Active Osteopenia Confirmed Active Leg pain Confirmed Active Knee pain Confirmed Active Paroxysmal atrial fibrillation Confirmed Active Biventricular pacemaker check Confirmed Active Pneumonia Confirmed Active Pulmonary HTN Confirmed Active Pure hypercholesterolemia Confirmed Active Sinus node dysfunction Confirmed Active 1BMI >40 Procedures Procedure Date Related Diagnosis Body Site Status Cardiac catheterization 07/[address] of abdomen and pelvis wit h contrast 1 09/16/21 Completed Bone density scan 2 07/03/21 Compl eted Plain X-ray of lumbar spine 3 06/30/21 Completed Plain X-ray ribs right 4 06/30/21 Completed Chest X-ray 5 10/07/20 Completed Hip X-ray 6 09/13/20 Completed Cardiac catheter 7 08/11/19 Comple nicolás CAT scan 8 09/20/17 Completed MRI of lower leg 9 12/28/16 Comple nicolás EVACUATION OF HEMATOMA AND H EMOSTASIS PACEMAKER POCKET 09/25/16 Completed I&D of pocket hematoma 10 09/07/16 Completed Evacuation of hematoma (pace maker pocket hematoma 08/25/16 Completed CXR - Chest X-ray 11 08/17/16 Comp leted CXR - Chest X-ray 12 07/17/16 Comp leted Dual-chamber implantable pac emaker, demand 13 07/16/16 Completed Cardiac Loop Recorder 05/21/16 Com pleted Colonoscopy 14, 15 06/07/15 Comple nicolás Procedure on shoulder region--right 02/20/15 Completed Chest x-ray 16 02/01/15 Completed MRI of shoulder 17 12/07/14 Comple nicolás EKG 18 01/11/13 Completed Chest x-ray 19 01/06/13 Completed Procedure 20 01/06/12 Completed US abdominal scan 21 53 Comp leted Cardiac catheterization with stents x2 22 Completed Cardioversion 23 Complete d Catheter ablation for cardia c arrhythmia Completed LASIK Completed Maze procedure Completed MVR - Mitral valve replacement Completed 11. No acute process within the abdomen or pelvis. 2. No bowel obstruction. No bowel wall thickening. Colonic diverticulosis without evidence for acute diverticulitis. 3. Several healing right-sided rib fractures. 2AP Spine L1-L4 0.2 Dual Femur Total Mean -1.2 Femur Neck Left -1.6 Femur Neck Right -2.2 Femur Total Left -1.0 Femur Total Right -1.3 Z-Score -1.0 3impression: No acute fracture or subluxation 4impression: 1. Cardiomegaly without acute cardiopulmonary abnormality 2. No Acute displaced rib fracture or pneumothorax 5Impression: 1. Infiltrative lesion within left lower lung might represent pneumonia. 2. Interval decrease in size of cardiomediastinal silhouette. 61. No acute fractures 2. Osteoarthritic changes involving the left hip with femoral head spurring 7left heart cath, right heart cath, coronary angiography, PCI, fluoroscopy- mechianical valve 8ABD/ PELVIS IMPRESSION: 1) Limited diverticulosis. No evidence of diverticulitis. No convincing evidence of acute intra-abdominal path 2) Enlarged upper abdominal lymph nodes. These are nonspecific. Correlate with a history of malignancy or lymphoproliferative disease. 3) Heterogeneity of liver enhancement pattern may be due to aggressive volume 91. No bony abnormality is seen in the left tibia or fibula. 2. Nonspecific subcutaneous soft tissue edema is seen in the mid to distal calf. This could be seenin the setting of cellulitis. Clinical correlation will be required. 3. No organized fluid collection is seen. 10pacemaker pocket hematoma 111. Interval change in position of the right atrial lead since exam on July 17, 2016. The lead now projects over the inferior aspect of the right atrium. Unchanged position of right ventricular lead. 2. No acute cardiopulmonary findings. 12No evidence of penumothorax s/p placement of a left subclavian dual chamber central venous pacemaker. 131. Dual chamber pacemaker implantation. 2. LINQ loop record explantation. 14Patholgy: Colon, descending, polypectomy: Tubular Adenoma. Rectosigmoid, polypectomy: Hyperplastic Polyp 15Diverticulosis in the sigmoid colon. One 6mm polyp in the descending colon. Resected and retrieved.One 4 mm polyp at the recto-sigmoid colon. Resected and retrieved. 16postsurgical talon congestive changes. Cardiomegaly and mild congestive change. 17impression": High grade partial tear along the bursal surface of the distal supraspinatus tendon anteriorly (rim-rent tear). There is also a 6 mm focus of calcification within the distal supreaspinatus tendon anteriorly. This is consistent with calcific tendinitis. A 2 mm full-thickness tear within the infraspinatus tendon. Moderate to severe osteoarthritis at the glenohumeral joint as described above. Near-circumferential tear of the labrum as described above. There is an associated 11 x 10 mm septated paralabral cyst adjacent to the anterior-inferior glenoid. Mild tendinopathy involving the long head of the biceps tendon. Moderate acromioclavicular joint arthropathy. 18Interpretation: Marked sinus bradycardia Anterolateral ST-elevation repolarization variant. Negative precordial T-waves may be normal consider anteroseptal ischemia. 19Conclusion: No acute changes of cardiopulmonary disease. 20bi-atrial Cobb-Maze procedure along with prosthetic mitral valve replacement with an On-X mechanicalheart valve, including reduction of his left atrial size. 21No significant abnormality identified within the right upper quadrant 22Done by Dr. Turner 23afib Results Laboratory List Name Date Complete Blood Count (CBC) 12/02/23 Request to FAX Report (First Location) ( ACC NO TO BE FAXED) 12/02/23 Most recent to oldest [Reference Range]: 1 Phone No [phone] (12/02/23 9:48 AM) Faxed on: 12/03/23 10:50 (12/02/23 9:48 AM) MPV [9.0-12.2 fL] 9.7 fL (12/02/23 9:48 AM) RDW [11.5-14.2 %] 15.8 % *HI* (12/02/23 9:48 AM) Hct [39-48 %] 35.8 % *LOW* (12/02/23 9:48 AM) Hgb [13.0-17.0 g/dL] 10.4 g/dL *LOW* (12/02/23 9:48 AM) MCH [28-33 pg] 28.3 pg (12/02/23 9:48 AM) MCHC [32-36 g/dL] 29.1 g/dL *LOW* (12/02/23 9:48 AM) MCV [81-96 fL] 97.3 fL *HI* (12/02/23 9:48 AM) Plts [150-350 K/uL] 722 K/uL *HI* (12/02/23 9:48 AM) RBC [4.40-5.60 M/uL] 3.68 M/uL *LOW* (12/02/23 9:48 AM) WBC [4.0-10.4 K/uL] 5.47 K/uL (12/02/23 9:48 AM) 1Result Comment: Testing Performed By: Dept of Pathology [facility] [address], [address], [place] [address] Social History Social History Type Response Smoking Status Former Smoker, quit > 1 yr Sex Male Patient Care team information Care Team Personnel Name: Brittany Bauer Elizabeth Position: Pharmacist Schedule II Member Role: Pharmacy - Lifetime Address: Address: [facility] [address] [place] [address] [place] Name: SY Soliman Lester C Position: Referring Member Role: Primary Care Provider Address: Address: [address] [place] [id number] [place] Name: Brittany Davenport Todd Position: Pharmacist Schedule II Member Role: Pharmacy - Lifetime Address: Address: [address] [place] [address] [place] Name: Brittany Zee Francis Position: Pharmacist Schedule II Member Role: Pharmacy - Lifetime Address: Address: [facility] [address] [place] [address] [place] Name: Brittany Askew Paul T Position: Pharmacist Schedule II Member Role: Pharmacy - Lifetime Address: Address: [facility] [address] [place] [address] [place] Name: SY Goddard Stacey L Position: Nurse Pract - Cardiology Member Role: Lifetime Relationship Address: Address: [address] [place] [address] [place] Care Team Related Persons Name: NASIM BRYSON Address: [place] Address: home [address] [place] [id number] Name: NASIM BRYSON Address: home [address] [phone]
--- OUTSIDE RECORDS SUMMARY | 2023-12-09 17:49 | External Medical Summary | Continuity of Care Document ---
Author Name Unknown Organization [facility] [address] Address [address] [place], [place] [id number] Care Team Providers Care Auto Technician Mechanic Name Role Phone Bob Soliman Primary Care Physician [phone] [id number] Date[facility]s): 12/02/23 - 12/02/23 [facility] [address] [facility] [address], [facility] 1 [place], [phone] Encounter Diagnosis Iron deficiency anemia, unspecified(Final) - Other fatigue(Final) - Other muscle spasm(Final) - Discharge Disposition: Home or Self Care Attending Physician: SY Soliman Lester C Referring Physician: SY Soliman Lester C Allergies, Adverse Reactions, Alerts Substance Criticality Severity [...] pneumococcal 23-valent vaccine 03/25/17 Given 1Result Comment: [facility] 2Result Comment: [facility] Medications acetaminophen-hydrocodone 325 mg-5 mg oral [...] ONCE THE MORNING BEFORE DENTAL PROCEEDURE, Pharmacy: [facility] [id number] Start Date: 04/03/21 Status: Ordered Entresto 24 [...] Refills: 0, dispense 1 inhaler spacer, Pharmacy: [facility]/pharmacy #[id number] Start Date: 10/07/20 Status: Ordered Jardiance 10 mg oral tablet Start: 01/05/23 8:59:00 AM EDT, See Instructions, Disp# 90 tab, Refills: 3, TAKE ONE TABLET BY MOUTHEVERY , Pharmacy: [id number] Start Date: 01/05/23 Status: Ordered Lovenox 120 mg/0.8 mL injectable solution Start: 10/01/23 10:04:00 AM EDT, 0.8 mL, subQ, q12h, Disp# 20 pen_needle, Refills: 1, Pharmacy: [facility] Start Date: 10/01/23 Status: Ordered magnesium oxide Start: 04/28/22 1:04:00 PM EST, 250 mg =, PO, qMonWedFri Start Date: 04/28/22 Status: Ordered Metoprolol Succinate ER 50 mg oral tablet, extended release Start: 04/15/23 11:32:00 AM EST, See Instructions, Disp# 90 tab, Refills: 3, 0.5 tab PO bid, Pharmacy: [facility] Start Date: 04/15/23 Status: Ordered nitroglycerin 0.4 mg sublingual tablet Start: 06/29/23 3:13:00 PM EST, 1 tab, SL, q5min, Disp# 100 tab, Refills: 3, PRN: as needed for chest pain, Pharmacy: [facility] Start Date: 06/29/23 Status: Ordered Potassium Chloride (Ltp-Wkst-Dqj M20) 20 mEq oral tablet, extended release TAKE ONE TABLET BY MOUTH ONCE DAILY Start Date: 11/10/23 Status: Ordered rosuvastatin 10 mg oral tablet Start: 11/10/23 3:06:00 PM EDT, 1 tab, PO, Daily Start Date: 11/10/23 Status: Ordered warfarin 3 mg oral tablet Start: 08/17/23 10:55:00 AM EDT, See Instructions, Disp# 90 tab, Refills: 3, TAKE 1 TABLET DAILY, Pharmacy: [facility] Start Date: 08/17/23 Status: Ordered Problem List Condition Confirmation Course Effective Dates Status Health Status Informant Cardiac pacemaker in situ Confirmed Active Chronic pain Confirmed Active Chronic right-sided CHF (congestive heart failure) Confirmed Active Chronic right-sided CHF (congestive heart failure) Confirmed Active CAD (coronary artery disease) Confirmed Active CAD in [place] artery Confirmed Active Atherosclerotic heart disease of [place] coronary artery with unspecified angina pectoris Confirmed [...] 6 09/13/20 Completed Cardiac catheter 7 08/11/19 [facility] nicolás CAT scan 8 09/20/17 Completed MRI [...] Turner 23afib Results Laboratory List Name Date Comprehensive Metabolic Panel (COMP META B PANEL) 12/02/23 Ferritin (FERRITIN) 12/02/23 Iron Profile (IRON PROFILE) 12/02/23 Magnesium Level (MAGNESIUM) 12/02/23 Request to FAX Report (First Location) ( ACC NO TO BE FAXED) 12/02/23 Request to FAX Report (Second Location) (2ND FAX REQUEST) 12/02/23 Thyroid Stimulating Hormone (TSH) 4 Most recent to oldest [Reference Range]: 1 eGFR CKD-EPI [>60 mL/min/1.73 m2] >90 mL /min/1.73 m2 1 (12/02/23 9:45 AM) Estimated CrCl 116.70 mL/min (12/02/23 10:38 AM) Phone No [phone] (12/02/23 9:45 AM) Faxed on: 12/03/23 10:50 (12/02/23 9:45 AM) Phone No [phone]) [phone] (12/02/23 9:45 AM) Faxed on (2): 12/03/23 10:50 (12/02/23 9:45 AM) Anion Gap [5-14 mmol/L] 5 mmol/L (12/02/23 9:45 AM) Alb [3.5-5.0 g/dL] 4.1 g/dL (12/02/23 9:45 AM) Alk Phos [38-126 unit/L] 94 unit/L (12/02/23 9:45 AM) ALT [<50 unit/L] 33 unit/L (12/02/23 9:45 AM) AST [15-46 unit/L] 53 unit/L *HI* (12/02/23 9:45 AM) BUN [7-20 mg/dL] 21 mg/dL *HI* (12/02/23 9:45 AM) Ca [8.4-10.2 mg/dL] 8.9 mg/dL (12/02/23 9:45 AM) Cl- [96-107 mmol/L] 109 mmol/L *HI* (12/02/23 9:45 AM) HCO3 [22-30 mmol/L] 27 mmol/L (12/02/23 9:45 AM) Cret [0.70-1.30 mg/dL] 0.76 mg/dL (12/02/23 9:45 AM) Iron [50-158 ug/dL] 36 ug/dL *LOW* (12/02/23 9:45 AM) Ferritin [17.9-464.0 ng/mL] 196.3 ng/mL 4 (12/02/23 9:45 AM) Glu [74-106 mg/dL] 105 mg/dL (12/02/23 9:45 AM) K [3.5-5.1 mmol/L] 4.7 mmol/L (12/02/23 9:45 AM) Mg [1.6-2.3 mg/dL] 2.0 mg/dL 5 (12/02/23 9:45 AM) Na [137-145 mmol/L] 141 mmol/L (12/02/23 9:45 AM) Fe Sat [14-50 %] 10 % *LOW* (12/02/23 9:45 AM) T Bili [0.2-1.3 mg/dL] 0.8 mg/dL (12/02/23 9:45 AM) Total IBC [250-400 ug/dL] 365 ug/dL (12/02/23 9:45 AM) Prot [6.3-8.2 g/dL] 7.9 g/dL (12/02/23 9:45 AM) Transferrin [200-360 mg/dL] 309 mg/dL (12/02/23 9:45 AM) TSH [0.47-4.68 uIU/mL] 2.55 uIU/mL 6 (12/02/23 9:45 AM) 1Result Comment: Testing Performed [facility], [address] [facility], [place] [address] 2Result Comment: Testing Performed By: Dept of Pathology [facility] [address], [address] [facility] [place] [address] 3Result Comment: Testing Performed By: [facility], [address] [facility], [place] [address] 4Result Comment: Testing Performed By: [facility], [address] [facility] [place] [address] 5Result Comment: Testing Performed By: Dept of Pathology [facility], [address] [facility], [place] [address] 6Result Comment: Testing Performed By: Dept of Pathology [facility], [address] [facility], [place] [address] Social History Social History Type Response Smoking Status Former Smoker, quit > 1 yr Sex Male Patient Care team information Care Team Personnel Name: Brittany Bauer Elizabeth Position: Pharmacist Schedule II Member Role: Pharmacy - Lifetime Address: Address: [address] [address] [place] Name: SY Soliman Lester C Position: Referring Member Role: Primary Care Provider Address: Address: [address] [place] [address] [place] Name: Brittany Davenport Todd Position: Pharmacist Schedule II Member Role: Pharmacy - Lifetime Address: Address: [address] [place] [address] [place] Name: Brittany Zee Francis Position: Pharmacist Schedule II Member Role: Pharmacy - Lifetime Address: Address: [facility] [address] [place] [address] [place] Name: Brittany Askew Paul T Position: Pharmacist Schedule II Member Role: Pharmacy - Lifetime Address: Address: [facility] [address] [place] [address] [place] Name: SY Goddard Stacey L Position: Nurse Pract - Cardiology Member Role: Lifetime Relationship Address: Address: [address] [place] [address] [place] Care Team Related Persons Name: NASIM BRYSON Address: home [address], [phone] Name: NASIM BRYSON Address: [place] Address: home [address] [id number]
[2023-12-09] MEDS: WARFARIN SOD 3 MG TAB PO STA (19:10)
[2023-12-09] MEDS: MINOCYCLINE HCL 50 MG CAP PO STA (19:14)
[2023-12-09] MEDS: levoFLOXacin/D5W 750 MG/150 ML BAG IV STA (19:14)
[2023-12-09] MEDS: INSULIN ASPART PER UNIT CHARGE SC SCH (21:39)
[2023-12-09] MEDS: HYDROCODONE/ACETAMOPHEN 5/325MG TAB PO PRN (22:43)
[2023-12-09] MEDS: MINOCYCLINE HCL 50 MG CAP PO SCH (22:44)
[2023-12-09] MEDS: ACETAMINOPHEN 325 MG TAB PO SCH (22:44)
[2023-12-09] MEDS: METOPROLOL SUCC 25MG EXT REL TAB PO SCH (22:45)
[2023-12-09] MEDS: VALSARTAN/SACUBITRIL 26/24MG TAB PO SCH (22:46)
[2023-12-09] MEDS: WARFARIN SOD 3 MG TAB PO SCH (22:47)
[2023-12-10] MEDS: MoRPHine SULFATE 2 MG/ML CARP IV PRN (06:23)
--- NOTE | 2023-12-10 07:08 | Ultrasound Report ---
US venous doppler LE RT HISTORY: 68 years-old Male RLE swelling/pain acute pain and swelling of the right lower leg COMPARISON: 11/15/2023 TECHNIQUE: Multiple real-time sonographic images of the right lower extremity deep venous structures were obtained assessing grayscale appearance, color and spectral flow. FINDINGS: Normal flow, compressibility, phasicity and augmentation. Previously described complex fluid collecti on is not identified. Subcutaneous edema is noted. IMPRESSION: No sonographic evidence of deep venous thrombosis. ACT 112: Negative or not required by law. The above report was generated using voice recognition software. It may contain grammatical, syntax o r spelling errors. Electronically signed by: Mauricio Carballo M.D. 12/10/2023 7:07 AM
--- NOTE | 2023-12-10 07:13 | Ultrasound Report ---
US soft tissue ext ltd CLINICAL HISTORY: Please monitor for abscess near RLE wounds COMPARISON STUDY: Right tibia/fibula CT 12/09/2023. FINDINGS: Real-time sonographic imaging of the right lower leg was performed with residential sales representative imag es submitted. Suboptimal evaluation of the right lower leg due to the overlapping bandages. There is a complex subcutaneous fluid collection within the mid medial calf with mild peripheral vascularity. This measures 7.5 x 3.0 x 1.5 cm. There is an additional ill-defined complex fluid collection within the distal medial calf measuring 5.4 x 2.5 x 0.6 cm. IMPRESSION: Similar-appearing complex subcutaneous fluid collections within the right medial calf as described above. This could represent subcutaneous hematomas. Secondary infection such as a developi ng abscess would be difficult to exclude by imaging. ACT 112: Negative or not required by law. Electronically signed by: Neeraj Morales M.D. 12/10/2023 7:11 AM
[2023-12-10 07:42] LABS: Basophils # (auto) 0.03 K/uL (0.00-0.20); Basophils % (auto) 0.7 %; Eosinophils # (auto) 0.19 K/uL (0.00-0.50); Eosinophils % (auto) 4.7 %; Hematocrit (blood only) 33.4 % (42.0-52.0); Hemoglobin 10.2 g/dl (14.0-18.0); Immature Granulocytes # (auto) 0.01 K/uL (0.01-0.20); Immature Granulocytes % (auto) 0.2 %; Lymphocytes # (auto) 0.52 K/uL (1.20-3.40); Lymphocytes % (auto) 12.9 %; Mean Corpuscular Hemoglobin 27.3 pg (25.0-34.0); Mean Corpuscular Hgb Conc 30.5 g/dL (32.0-36.0); Mean Corpuscular Volume 89.3 fL (80.0-100.0); Mean Platelet Volume 9.6 fL (9.4-12.4); Monocytes % (auto) 19.9 %; Neutrophils # (auto) 2.47 K/uL (1.40-6.50); Neutrophils % (auto) 61.6 %; Platelet Count 348 K/uL (130-400); RDW Coefficient of Variation 15.5 % (11.5-14.5); RDW Standard Deviation 51.2 fL (36.4-46.3); Red Blood Count 3.74 M/uL (4.70-6.10); White Blood Count 4.02 K/ul (4.8-10.8)
[2023-12-10 07:45] LABS: Estimated Average Glucose 105 mg/dl; Hemoglobin A1C 5.3 % (4.5-5.6)
--- NOTE | 2023-12-10 07:53 | Surgery Consultation ---
Date of Consultation December 10, 2023 Assessment & Plan (1) Surgical wound, non healing: (2) Cellulitis of right lower extremity: Plan 5-year-old with nonhealing surgical wounds of the right lower extremity. There is no signs of abscess or osteomyelitis. I recommend continue wound care as initiated by the wound care clinic. Would recommend consult to wound care nurse. No surgical intervention required. Will sign off for now. Please call with questions or concerns. History of Present Illness Reason for Consultation: Nonhealing lower extremity wounds from prior vein harvest for cardiac surgery Requesting Physician: Herrera Gu MD Attending Physician: Herrera Gu MD History of Present Illness 68-year-old gentleman who underwent a CABG with right lower extremity vein harvest in September at the [facility] presents to the ER from the wound center with nonhealing lower extremity wounds. at the wound center, he stated that he was having significant pain in his right lower extremity near the incision sites. According to the wound center notes, the incision/wound sites did not look appreciably different or worse, however with pain at the wound sites. There are no purulent drainage from the wound sites. CT scan demonstrates no evidence of abscess. Allergies Allergy/AdvReac Type Severity Reaction Status Date / Time sulfamethoxazole AdvReac Severe LOWERS Verified 12/09/23 16:36 [From Bactrim] PLATLETS, ON WARFARIN trimethoprim [From Bactrim] AdvReac Severe LOWERS Verified 12/09/23 16:36 PLATLETS, ON WARFARIN [id number] Reductase AdvReac Intermediate MUSCLE & Verified 12/09/23 16:36 Inhibitor JOINT PAIN Home Medications Medication Instructions Recorded Confirmed Type empagliflozin 10 mg tablet 10 mg PO QAM 07/02/22 12/09/23 History (Jardiance) aspirin 81 mg tablet,delayed 81 mg PO QAM 04/26/23 12/09/23 History release (Adult Aspirin Regimen) pantoprazole 20 mg tablet,delayed 20 mg PO DAILY #30 tabs 11/03/23 12/09/23 Rx release potassium chloride 20 mEq 20 meq PO DAILY #30 tabs 11/03/23 12/09/23 Rx tablet,extended release bumetanide 2 mg tablet 2 mg PO QAM Fluid Retention 11/23/23 12/09/23 History ferrous gluconate 225 mg (27 mg 225 mg PO DAILY 11/23/23 12/09/23 History iron) tablet sacubitril 24 mg-valsartan 26 mg 1 tab PO BID 11/23/23 12/09/23 History tablet (Entresto) warfarin 2 mg tablet 3 mg PO QPM 11/23/23 12/09/23 History metoprolol succinate 25 mg 25 mg PO BID 11/25/23 12/09/23 History tablet,extended release 24 hr ezetimibe 10 mg tablet (Zetia) 10 mg PO DAILY #90 tabs 12/02/23 12/09/23 Rx hydrocodone 5 mg-acetaminophen 325 1 tab PO Q8H pain 12/09/23 12/09/23 History mg tablet magnesium 250 mg tablet 250 mg PO [id number] 12/09/23 12/09/23 History Patient History Medical History Hx of chronic congestive heart failure Obesity denies being diabetic - on trulicity for weight loss and jardiance for heart failure On anticoagulant therapy LEYDA (obstructive sleep apnea) CPAP Hx of myocardial infarction 2004 Surgical History S/P MVR (mitral valve replacement) 2011- [facility] Hx of colonoscopy Hx of cardiac catheterization x 2-- 2004 following [place] and 2020- X 1 stent [facility] S/P Maze operation for atrial fibrillation Hx of atrioventricular node ablation 07/2022 Atrial fibrillation status post cardioversion 10/30/2011 S/P left heart catheterization by percutaneous approach 2007 S/P placement of cardiac pacemaker Family History Family/Other Myocardial infarction "All of them." Mother Ovarian cancer Other Heart disease Denies family history of Prostate cancer Breast cancer Colorectal cancer Social History Smoking Status: Never smoker Tobacco Type: Cigarettes Age Started Using Tobacco: 5; Age Quit Using Tobacco: 27; packs per day: 2; Second Hand Exposure: No; Do You Dip or Chew Tobacco: No; Hx Alcohol Use: Yes Alcohol type: beer Alcohol Intake Frequency: 2-4 x/Month Hx Substance Use: No Preferred Language: [place] Citizen Communication Ability: Effective Visual Impairment: No Limitations Hearing Ability: Normal Twister Doffer Required: No Beliefs That Will Affect Care: None marital status: Current Living Situation: Spouse Current Living Situation Comment: independent at home with spouse. current occupational status: retired How many Children do You have: 3 How many Children do You have Comment: One lives with patient but unable to assist, the other 2 are in [facility]. able to assist Feels Safe at Home: Yes Childhood Exposure to Second-Hand Smoke: No Diet: low salt and regular Dental Care, Regularly: No Physical Activity Frequency: 1-2 Times per Week Seatbelt Use: always Sunscreen Use: No Do you think of yourself as: straight/heterosexual Assistive Devices: CPAP and Walker Review of Systems Review of Systems: All systems reviewed & are unremarkable except as noted in HPI & below Physical Exam Constitutional: WD/WN, vitals as above Eyes: PERRL, conjunctivae normal, anicteric sclerae Neck: trachea midline, no thyromegaly Respiratory: normal respiratory effort; no respiratory distress and no labored breathing Cardiovascular: Rate/Rhythm: regular rate and regular rhythm Gastrointestinal (Abdomen): Inspection/Auscultation: abdomen normal to inspection; abdomen not distended Skin: no rashes, warm and dry 3 incisions right lower extremity; minimal erythema, good granulation tissue, no purulence Psychiatric: A+Ox3, euthymic affect Results & Data Vital Signs (Past 12 Hours) Vital Signs Temp Pulse Pulse Pulse Resp BP BP 12/10/23 05:44 70 12/10/23 02:40 36.6 C 70 18 115/69 12/09/23 22:43 36.8 C 86 14 121/72 12/09/23 21:57 36.7 C 70 14 143/83 H Pulse Ox O2 Del Method 12/10/23 05:44 12/10/23 02:40 96 Room Air 12/09/23 22:43 95 Room Air 12/09/23 21:57 95 Room Air Laboratory Results 12/10/23 12/10/23 12/09/23 Range/Units 07:53 07:09 21:36 WBC 4.02 L (4.8-10.8) K/ul RBC 3.74 L (4.70-6.10) M/uL Hgb 10.2 L (14.0-18.0) g/dl Hct 33.4 L (42.0-52.0) % MCV 89.3 (80.0-100.0) fL MCH 27.3 (25.0-34.0) pg MCHC 30.5 L (32.0-36.0) g/dL RDW Std Deviation 51.2 H (36.4-46.3) fL RDW Coeff of Vlad 15.5 H (11.5-14.5) % Plt Count 348 (130-400) K/uL MPV 9.6 (9.4-12.4) fL Immature Gran % (Auto) 0.2 % Neut % (Auto) 61.6 % Lymph % (Auto) 12.9 % Glenn % (Auto) 19.9 % Eos % (Auto) 4.7 % Baso % (Auto) 0.7 % Neut # (Auto) 2.47 (1.40-6.50) K/uL Lymph # (Auto) 0.52 L (1.20-3.40) K/uL Glenn # (Auto) 0.80 H (0.11-0.59) K/uL Eos # (Auto) 0.19 (0.00-0.50) K/uL Baso # (Auto) 0.03 (0.00-0.20) K/uL Immature Gran # (Auto) 0.01 (0.01-0.20) K/uL ESR (0-20) mm/hr PT Pending (9.0-12.0) Seconds INR Pending (0.9-1.1) Sodium 140 (136-145) mmol/L Potassium 4.1 (3.5-5.1) mmol/L Chloride 106 (98-107) mmol/L Carbon Dioxide 30 (21-32) mmol/L Anion Gap 4 (3-11) BUN 17 (6-23) mg/dl Creatinine 0.70 (0.6-1.4) mg/dl Est Cr Clr Drug Dosing 119.6 ml/min Est GFR ( Amer) 110.8 ml/min Est GFR (Non-Af Amer) 95.6 ml/min BUN/Creatinine Ratio 24.3 H (10-20) Glucose 92 (70-99(Fasting)) mg/dl POC Glucose 103 H 107 H (70-99) mg/dl Estimat Average Glucose 105 mg/dl Hemoglobin A1c 5.3 (4.5-5.6) % Lactate (0.4-2.0) mmol/L Calcium 8.8 (8.6-10.3) mg/dl Magnesium 2.1 (1.7-2.4) mg/dl Total Bilirubin 0.7 (0.2-1.0) mg/dl AST 31 (13-39) U/L ALT 20 (7-52) U/L Alkaline Phosphatase 83 (34-104) U/L Total Creatine Kinase (30-223) U/L Troponin I High Sens (0-20) pg/ml C-Reactive Protein 1.13 H (0-0.5) mg/dl Total Protein 7.1 (6.0-8.3) gm/dl Albumin 3.6 (3.4-5.0) gm/dl Globulin 3.5 (2.5-4.0) gm/dl Albumin/Globulin Ratio 1.0 (0.9-2) Procalcitonin (0-0.5) ng/ml TSH (0.300-4.500) uIu/ml Urine Color Urine Appearance (Clear) Urine pH (4.5-7.5) Ur Specific [place] (1.000-1.030) Urine Protein (Negative) Urine Glucose (UA) (Negative) Urine Ketones (Negative) Urine Blood (Negative) Urine Nitrite (Negative) Urine Bilirubin (Negative) Urine Urobilinogen (Negative) Ur Leukocyte Esterase (Negative) 12/09/23 12/09/23 Range/Units 15:30 14:46 WBC 5.97 (4.8-10.8) K/ul RBC 3.73 L (4.70-6.10) M/uL Hgb 10.4 L (14.0-18.0) g/dl Hct 33.8 L (42.0-52.0) % MCV 90.6 (80.0-100.0) fL MCH 27.9 (25.0-34.0) pg MCHC 30.8 L (32.0-36.0) g/dL RDW Std Deviation 51.2 H (36.4-46.3) fL RDW Coeff of Vlad 15.5 H (11.5-14.5) % Plt Count 431 H (130-400) K/uL MPV 9.8 (9.4-12.4) fL Immature Gran % (Auto) 0.3 % Neut % (Auto) 67.9 % Lymph % (Auto) 13.1 % Glenn % (Auto) 15.4 % Eos % (Auto) 2.8 % Baso % (Auto) 0.5 % Neut # (Auto) 4.05 (1.40-6.50) K/uL Lymph # (Auto) 0.78 L (1.20-3.40) K/uL Glenn # (Auto) 0.92 H (0.11-0.59) K/uL Eos # (Auto) 0.17 (0.00-0.50) K/uL Baso # (Auto) 0.03 (0.00-0.20) K/uL Immature Gran # (Auto) 0.02 (0.01-0.20) K/uL ESR 43 H (0-20) mm/hr PT 23.3 H (9.0-12.0) Seconds INR 2.3 H (0.9-1.1) Sodium 141 (136-145) mmol/L Potassium 4.1 (3.5-5.1) mmol/L Chloride 105 (98-107) mmol/L Carbon Dioxide 30 (21-32) mmol/L Anion Gap 6 (3-11) BUN 19 (6-23) mg/dl Creatinine 0.77 (0.6-1.4) mg/dl Est Cr Clr Drug Dosing 108.7 ml/min Est GFR ( Amer) 106.6 ml/min Est GFR (Non-Af Amer) 91.9 ml/min BUN/Creatinine Ratio 24.7 H (10-20) Glucose 83 (70-99(Fasting)) mg/dl POC Glucose (70-99) mg/dl Estimat Average Glucose mg/dl Hemoglobin A1c (4.5-5.6) % Lactate 0.9 (0.4-2.0) mmol/L Calcium 8.9 (8.6-10.3) mg/dl Magnesium 2.1 (1.7-2.4) mg/dl Total Bilirubin 0.6 (0.2-1.0) mg/dl AST 34 (13-39) U/L ALT 21 (7-52) U/L Alkaline Phosphatase 88 (34-104) U/L Total Creatine Kinase 45 (30-223) U/L Troponin I High Sens 14.1 (0-20) pg/ml C-Reactive Protein 1.37 H (0-0.5) mg/dl Total Protein 7.6 (6.0-8.3) gm/dl Albumin 3.9 (3.4-5.0) gm/dl Globulin 3.7 (2.5-4.0) gm/dl Albumin/Globulin Ratio 1.1 (0.9-2) Procalcitonin < 0.02 (0-0.5) ng/ml TSH 1.938 (0.300-4.500) uIu/ml Urine Color Yellow Urine Appearance Clear (Clear) Urine pH 5.5 (4.5-7.5) Ur Specific [place] 1.023 (1.000-1.030) Urine Protein Negative (Negative) Urine Glucose (UA) 2+ H (Negative) Urine Ketones Negative (Negative) Urine Blood Negative (Negative) Urine Nitrite Negative (Negative) Urine Bilirubin Negative (Negative) Urine Urobilinogen Negative (Negative) Ur Leukocyte Esterase Negative (Negative) Diagnostic Findings CT tib/fib RT w con CLINICAL HISTORY: non-healing surgical wounds TECHNIQUE: Multidetector row helical CT of the right tibia and fibula was performed without intravenous contrast. Coronal and sagittal reformations were obtained. Automated dose lowering techniques and/or adjustment according to patient size were utilized for this examination. CT DOSE: 320.86 mGy.cm Comparison: None available at the time of this dictation. FINDINGS: The osseous structures are without fracture or dislocation. The joint spaces are maintained. No joint effusion is seen. Ulceration is seen in the distal medial soft tissues. No drainable fluid collections. IMPRESSION: Ulceration is seen in the distal medial soft tissues without abscess is or underlying osteomyelitis.
[2023-12-10 07:59] LABS: Albumin Level 3.6 gm/dl (3.4-5.0); BUN Creatinine Ratio 24.3 (10-20); Bilirubin,Total 0.7 mg/dl (0.2-1.0); C Reactive Protein 1.13 mg/dl (0-0.5); Calcium 8.8 mg/dl (8.6-10.3); Creatinine Clr Calc Pharmacy 119.6 ml/min; Est GFR (African American) 110.8 ml/min; Est GFR (Non-African American) 95.6 ml/min; Globulin 3.5 gm/dl (2.5-4.0); Magnesium 2.1 mg/dl (1.7-2.4); Potassium 4.1 mmol/L (3.5-5.1); Total Protein 7.1 gm/dl (6.0-8.3)
[2023-12-10 08:06] LABS: INR 2.7 (0.9-1.1); Prothrombin Time 27.1 Seconds (9.0-12.0)
[2023-12-10] MEDS: EZETIMIBE 10 MG TAB PO SCH (08:34)
[2023-12-10] MEDS: PANTOprazole 40 MG TAB PO SCH (08:34)
[2023-12-10] MEDS: ASPIRIN 81 MG ECTAB PO SCH (08:34)
[2023-12-10] MEDS ORDERED: FERROUS GLUCONATE PO SCH (09:00)
--- NOTE | 2023-12-10 11:39 | Infectious Disease Consult ---
Date of Consultation December 10, 2023 Assessment & Plan (1) Acute pain of lower extremity: (2) Surgical wound, non healing: (3) Cellulitis of right lower extremity: (4) Pacemaker: (5) S/P CABG x 5: (6) On warfarin therapy: Plan This is a 68-year-old man with a past medical history of CAD status post CABG x 5 ( [facility] on 10/14/2023), rheumatic heart disease status post mechanical aortic valve and mitral valve replacement on warfarin and tricuspid valve repair, atrial fibrillation, heart failure with preserved ejection fraction, status post pacemaker placement, hypertension who presents to the ED for evaluation of worsening right lower extremity nonhealing wounds at CABG vein harvest surgical sites. Of note, approximately 3 weeks post CABG at the [facility], he noted worsening of the right lower extremity surgical site wounds. He was seen by his PCP and wound was cultured. He was initially started on Keflex but the wounds worsened with increasing pain and erythema. Cultures finalized as pansensitive E. coli, stenotrophomonas maltophilia ( S Bactrim) and MDR Myroides sp (S Bactrim). He was started on Bactrim and took it for 2 days. On therapy the wound continued to worsen, so he presented to the [facility] ED on 11/14. He was found to have a platelet count of 4. His thrombocytopenia was thought to be related to the interaction between Bactrim and warfarin. He underwent lower extremity dopplers: negative for dvt but showed a complex elongated 13.6 x 1.4 x 1.7 cm fluid collection which extended from the right groin to mid thigh c/f hematoma and he was transferred to the [facility] for further evaluation. 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 He reports that he did not receive antibiotics for his lower extremity wounds. He was discharged home on approximately 11/19 to complete a course of IVIG IN [place]. It is unclear if he was scheduled to follow up with local ID for the wounds. He did well at home and with visits to the wound care center for wound debridement of slough and eschars . Approximately 3 to 4 days ago, he deveoped worsening redness, erythema and drainage from his surgical site wounds and was referred to the ED from wound care. He presented to the ED on 12/08. He denied fever, chills, sweats, nausea, vomiting, chest pain, cough. He reports pain at wound sites. He was not been on antibiotics. He denies any lower extremity grafts or stents near the wound sites. In the ED he is afebrile and hemodynamically stable. Labs: WBC 5.97, hemoglobin 10.4, hematocrit 33.8, ESR 43, BUN 19, creatinine 0.77, CRP 1.37. Right tib/fib CT with contrast shows ulceration in the distal medial soft tissue without abscess or underlying osteomyelitis. A right lower extremity soft tissue ultrasound shows similar-appearing complex subcutaneous fluid collections within the right medial calf. Which could represent a subcutaneous hematoma. Secondary infection such as abscess cannot be ruled out. Right lower extremity Doppler negative for DVT; Prior hematoma not seen. Wound cultures from his surgical site are growing gram-negative rods so far. He has been started on minocycline and Levaquin. Surgery evaluated him and did not pursue surgical intervention. ID consulted for wound infection with history of multiple organisms MICRO : -Wound culture 12/08 Gram Stain Rare Gram Negative Bacilli. Gram Positive Cocci, Wound Culture moderate Gram negative bacilli -Preliminary -Blood culture 12/08 NGTD PRIOR MICRO: Wound culture 11/11/2023: E. coli (pansensitive), Stenotrophomonas maltophilia (sensitive to Bactrim), Myroides sp (intermediate to cefepime, intermediate to piperacillin/tazobactam, resistant to gentamicin, resistant to tobramycin, sensitive to Bactrim) ABX: Levaquin 12/08- ongoing Minocycline 12/08-ongoing # RLE non healing surgical sites wounds/ cellulitis/SSTI/? 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 So far wound culture with moderate gram-negative bacilli. On imaging there is no evidence of osteomyelitis or abscess on CT tib-fib however soft tissue ultrasound shows question of fluid collections within the right medial calf. No surgical interventions per surgery. He has a history of polymicrobial gram-negative leopoldo growth from wound with pansensitive E. coli, stenotrophomonas maltophilia which is inherently resistant to multiple antibiotics as well as MDR Myroides species. He unfortunately developed ITP possibly 2/2 Bactrim which would cover all 3 prior GNR organisms. Myroides species infections is difficult to treat because it can be multidrug- resistant to a wider range of antibiotics. Some may be sensitive to quinolones and carbapenems however these would need to be tested if this organism grows again. It is unclear if the organism represented a pathogen or contaminant in the prior wound culture. He is currently on minocycline and Levaquin. Minocycline/levaquin should cover stenotrophomonas and Levaquin will cover the h/o PanS ecoli. It may or may not cover myroides. Unfortunately he has a history of a prolonged QTc and currently his QTc > than 500. Recommendations: Continue Minocycline 200 mg PO Q12h for empiric coverage of stenotrophomonas pending final ID and sensi of GNR ( bactrim not started as ? itp in past, dced Levaquin as prolonged qtc). Infection appears to be mild/moderate without deep space involvement at this time Discontinued Levaquin as QTC prolonged Started Meropenem for ? Myroides coverage. This will also cover for the prior PanS ecoli,since Levaquin discontinued. Meropenem will NOt cover stenotrophomonas, Follow uP ID and sensi of GNR on culture MRSA screen ordered If clinically decompensates and the GNR is identified as stenotrophomonas, then switch abx to Ceftzidime-avibactam 2.5 g iv 8 hours PLUS aztreonam 2 g IV q8 hrs If simple SSTI without bacteremia, I anticipate a 7-10 of abx based on clinical improvement. A longer course of 14 day may be needed if slow to respond Discussed case with ID pharmacist Thank you for this consult. ID will continue to follow. ID connect will not cover over the weekend. Please call [phone] with questions. Rosenda Fay MD, MPH Infectious Disease [facility], ID Division Consultation Information Consultation was provided via telemedicine using two-way real-time interactive telecommunication between the patient and the telemedicine provider. For the duration of the visit, the provider was performing the assessment from a different facility than the patient. This includesuse of bluetooth stethoscope forauscultationperformed by the telepresenter that the telemedicine provider can hear if described in the physical exam. Stone Processing Machine Operator contact information: Please call [facility] Call Center [phone]. (Phone Number For Physician Use Only) After establishing a telemedicine visit, patient was: Patient was verified with two unique identifiers Time Spent with Patient: Initial => 75 min History of Present Illness Reason for Consultation: Wound infection, history of multiple organisms Requesting Physician: HEVER Rhoades Attending Physician: Herrera Gu History of Present Illness This is a 68-year-old man with a past medical history of CAD status post CABG x 5 ( [facility] on 10/14/2023), rheumatic heart disease status post mechanical aortic valve and mitral valve replacement on warfarin and tricuspid valve repair, atrial fibrillation, heart failure with preserved ejection fraction, status post pacemaker placement, hypertension who presents to the ED for evaluation of worsening right lower extremity nonhealing wounds at CABG vein harvest surgical sites. Of note, approximately 3 weeks post CABG at the [facility], he noted worsening of the right lower extremity surgical site wounds. He was seen by his PCP and wound was cultured. He was initially started on Keflex but the wounds worsened with increasing pain and erythema. Cultures finalized as pansensitive E. coli, stenotrophomonas maltophilia ( S Bactrim) and MDR Myroides sp (S Bactrim). He was started on Bactrim and took it for 2 days. On therapy the wound continued to worsen, so he presented to the [facility] ED on 11/14. He was found to have a platelet count of 4. His thrombocytopenia was thought to be related to the interaction between Bactrim and warfarin. He underwent lower extremity dopplers: negative for dvt but showed a complex elongated 13.6 x 1.4 x 1.7 cm fluid collection which extended from the right groin to mid thigh c/f hematoma and he was transferred to the [facility] for further evaluation. 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 He reports that he did not receive antibiotics for his lower extremity wounds. He was discharged home on approximately 11/19 to complete a course of IVIG IN [place]. It is unclear if he was scheduled to follow up with local ID for the wounds. He did well at home and with visits to the wound care center for wound debridement of slough and eschars . Approximately 3 to 4 days ago, he deveoped worsening redness, erythema and drainage from his surgical site wounds and was referred to the ED from wound care. He presented to the ED on 12/08. He denied fever, chills, sweats, nausea, vomiting, chest pain, cough. He reports pain at wound sites. He was not been on antibiotics. He denies any lower extremity grafts or stents near the wound sites. In the ED he is afebrile and hemodynamically stable. Labs: WBC 5.97, hemoglobin 10.4, hematocrit 33.8, ESR 43, BUN 19, creatinine 0.77, CRP 1.37. Right tib/fib CT with contrast shows ulceration in the distal medial soft tissue without abscess or underlying osteomyelitis. A right lower extremity soft tissue ultrasound shows similar-appearing complex subcutaneous fluid collections within the right medial calf. Which could represent a subcutaneous hematoma. Secondary infection such as abscess cannot be ruled out. Right lower extremity Doppler negative for DVT; Prior hematoma not seen. Wound cultures from his surgical site are growing gram-negative rods so far. He has been started on minocycline and Levaquin. Surgery evaluated him and did not pursue surgical intervention. ID consulted for wound infection with history of multiple organisms. Allergies Allergy/AdvReac Type Severity Reaction Status Date / Time sulfamethoxazole AdvReac Severe LOWERS Verified 12/09/23 16:36 [From Bactrim] PLATLETS, ON WARFARIN trimethoprim [From Bactrim] AdvReac Severe LOWERS Verified 12/09/23 16:36 PLATLETS, ON WARFARIN Addqgiy-IAY-MxN Reductase AdvReac Intermediate MUSCLE & Verified 12/09/23 16:36 Inhibitor JOINT PAIN Home Medications Medication Instructions Recorded Confirmed Type empagliflozin 10 mg tablet 10 mg PO QAM 07/02/22 12/09/23 History (Jardiance) aspirin 81 mg tablet,delayed 81 mg PO QAM 04/26/23 12/09/23 History release (Adult Aspirin Regimen) pantoprazole 20 mg tablet,delayed 20 mg PO DAILY #30 tabs 11/03/23 12/09/23 Rx release potassium chloride 20 mEq 20 meq PO DAILY #30 tabs 11/03/23 12/09/23 Rx tablet,extended release bumetanide 2 mg tablet 2 mg PO QAM Fluid Retention 11/23/23 12/09/23 History ferrous gluconate 225 mg (27 mg 225 mg PO DAILY 11/23/23 12/09/23 History iron) tablet sacubitril 24 mg-valsartan 26 mg 1 tab PO BID 11/23/23 12/09/23 History tablet (Entresto) warfarin 2 mg tablet 3 mg PO QPM 11/23/23 12/09/23 History metoprolol succinate 25 mg 25 mg PO BID 11/25/23 12/09/23 History tablet,extended release 24 hr ezetimibe 10 mg tablet (Zetia) 10 mg PO DAILY #90 tabs 12/02/23 12/09/23 Rx hydrocodone 5 mg-acetaminophen 325 1 tab PO Q8H pain 12/09/23 12/09/23 History mg tablet magnesium 250 mg tablet 250 mg PO 3XWK 12/09/23 12/09/23 History Patient History Medical History Hx of chronic congestive heart failure Obesity denies being diabetic - on trulicity for weight loss and jardiance for heart failure On anticoagulant therapy LEYDA (obstructive sleep apnea) CPAP Hx of myocardial infarction 2004 Surgical History S/P MVR (mitral valve replacement) 2011- [facility], [place], operated by [facility] Hx of colonoscopy Hx of cardiac catheterization x 2-- [address] and 2020- X 1 stent [facility] [place] [facility] [place] S/P Maze operation for atrial fibrillation Hx of atrioventricular node ablation 07/2022 Atrial fibrillation status post cardioversion 10/30/2011 S/P left heart catheterization by percutaneous approach 2007 S/P placement of cardiac pacemaker Family History Family/Other Myocardial infarction "All of them." Mother Ovarian cancer Other Heart disease Denies family history of Prostate cancer Breast cancer Colorectal cancer Social History Smoking Status: Never smoker Tobacco Type: Cigarettes Age Started Using Tobacco: 5; Age Quit Using Tobacco: 27; packs per day: 2; Second Hand Exposure: No; Do You Dip or Chew Tobacco: No; Hx Alcohol Use: Yes Alcohol type: beer Alcohol Intake Frequency: 2-4 x/Month Hx Substance Use: No Preferred Language: Italian Communication Ability: Effective Visual Impairment: No Limitations Hearing Ability: Normal 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 current occupational status: retired How many Children do You have: 3 How many Children do You have Comment: One lives with patient but unable to assist, the other 2 are in [facility]. able to assist Feels Safe at Home: Yes Childhood Exposure to Second-Hand Smoke: No Diet: low salt and regular Dental Care, Regularly: No Physical Activity Frequency: 1-2 Times per Week Seatbelt Use: always Sunscreen Use: No Do you think of yourself as: straight/heterosexual Assistive Devices: CPAP and Walker Review of System A 10 point ROS obtained. Pertinent positives as per HPI. Physical Exam Physical Exam: Gen- NAD, laying in bed Neck- supple HEENT- Anicteric sclera Lungs- No increased work of breathing, sternal chest incision is well healed PPM incision on L chest is well healed, No TTP , erythema at PPM site Abd- soft, NT, ND Ext- RLE with CABG harvesting site incision site wounds on medial RLE ( 4 incisions) 1.Medial Thigh incision well healed, 2.Right medial proximal upper calf wound open with serous drainage and light periwound erythema and mild tenderness 3. right upper medial calf wound with partial closure in middle:top part of wound with purulent drainage, bottom pole is necrotic appearing with less purulent drainage- periwound tenderness and erythema 4. medial proximal ankle - open wound with some necrosis and tenderness and periwound erythema RLE edema> L Neuro- Awake, alert, oriented times 3 Psych- Normal mood, cooperative Results & Data Vital Signs (Past 12 Hours) Vital Signs Temp Pulse Pulse Resp BP Pulse Ox O2 Del Method 12/10/23 08:16 36.5 C 70 18 135/77 96 Room Air 12/10/23 05:44 70 12/10/23 02:40 36.6 C 70 18 115/69 96 Room Air Laboratory Results Laboratory Results - last 48 hr 12/09/23 12/09/23 12/09/23 14:46 15:30 21:36 WBC 5.97 RBC 3.73 L Hgb 10.4 L Hct 33.8 L MCV 90.6 MCH 27.9 MCHC 30.8 L RDW Std Deviation 51.2 H RDW Coeff of Vlad 15.5 H Plt Count 431 H MPV 9.8 Immature Gran % (Auto) 0.3 Neut % (Auto) 67.9 Lymph % (Auto) 13.1 Ocean % (Auto) 15.4 Eos % (Auto) 2.8 Baso % (Auto) 0.5 Neut # (Auto) 4.05 Lymph # (Auto) 0.78 L Ocean # (Auto) 0.92 H Eos # (Auto) 0.17 Baso # (Auto) 0.03 Immature Gran # (Auto) 0.02 ESR 43 H PT 23.3 H INR 2.3 H Sodium 141 Potassium 4.1 Chloride 105 Carbon Dioxide 30 Anion Gap 6 BUN 19 Creatinine 0.77 Est Cr Clr Drug Dosing 108.7 Est GFR ( Amer) 106.6 Est GFR (Non-Af Amer) 91.9 BUN/Creatinine Ratio 24.7 H Glucose 83 POC Glucose 107 H Estimat Average Glucose Hemoglobin A1c Lactate 0.9 Calcium 8.9 Magnesium 2.1 Total Bilirubin 0.6 AST 34 ALT 21 Alkaline Phosphatase 88 Total Creatine Kinase 45 Troponin I High Sens 14.1 C-Reactive Protein 1.37 H Total Protein 7.6 Albumin 3.9 Globulin 3.7 Albumin/Globulin Ratio 1.1 Procalcitonin < 0.02 TSH 1.938 Urine Color Yellow Urine Appearance Clear Urine pH 5.5 Ur Specific Howe 1.023 Urine Protein Negative Urine Glucose (UA) 2+ H Urine Ketones Negative Urine Blood Negative Urine Nitrite Negative Urine Bilirubin Negative Urine Urobilinogen Negative Ur Leukocyte Esterase Negative 12/10/23 12/10/23 07:09 07:53 WBC 4.02 L RBC 3.74 L Hgb 10.2 L Hct 33.4 L MCV 89.3 MCH 27.3 MCHC 30.5 L RDW Std Deviation 51.2 H RDW Coeff of Vlad 15.5 H Plt Count 348 MPV 9.6 Immature Gran % (Auto) 0.2 Neut % (Auto) 61.6 Lymph % (Auto) 12.9 Ocean % (Auto) 19.9 Eos % (Auto) 4.7 Baso % (Auto) 0.7 Neut # (Auto) 2.47 Lymph # (Auto) 0.52 L Ocean # (Auto) 0.80 H Eos # (Auto) 0.19 Baso # (Auto) 0.03 Immature Gran # (Auto) 0.01 ESR PT 27.1 H INR 2.7 H Sodium 140 Potassium 4.1 Chloride 106 Carbon Dioxide 30 Anion Gap 4 BUN 17 Creatinine 0.70 Est Cr Clr Drug Dosing 119.6 Est GFR ( Amer) 110.8 Est GFR (Non-Af Amer) 95.6 BUN/Creatinine Ratio 24.3 H Glucose 92 POC Glucose 103 H Estimat Average Glucose 105 Hemoglobin A1c 5.3 Lactate Calcium 8.8 Magnesium 2.1 Total Bilirubin 0.7 AST 31 ALT 20 Alkaline Phosphatase 83 Total Creatine Kinase Troponin I High Sens C-Reactive Protein 1.13 H Total Protein 7.1 Albumin 3.6 Globulin 3.5 Albumin/Globulin Ratio 1.0 Procalcitonin TSH Urine Color Urine Appearance Urine pH Ur Specific Howe Urine Protein Urine Glucose (UA) Urine Ketones Urine Blood Urine Nitrite Urine Bilirubin Urine Urobilinogen Ur Leukocyte Esterase Diagnostic Findings Lower Extremity CT 12/09/23 15:20 CT tib/fib RT w con CLINICAL HISTORY: non-healing surgical wounds TECHNIQUE: Multidetector row helical CT of the right tibia and fibula was performed without intravenous contrast. Coronal and sagittal reformations were obtained. Automated dose lowering techniques and/or adjustment according to patient size were utilized for this examination. CT DOSE: 320.86 mGy.cm Comparison: None available at the time of this dictation. FINDINGS: The osseous structures are without fracture or dislocation. The joint spaces are maintained. No joint effusion is seen. Ulceration is seen in the distal medial soft tissues. No drainable fluid collections. IMPRESSION: Ulceration is seen in the distal medial soft tissues without abscess is or underlying osteomyelitis. ACT 112: Negative or not required by law. Electronically signed by: Maxwell Grey M.D. 12/09/2023 3:51 PM Soft Tissue Ultrasound 12/09/23 18:33 US soft tissue ext ltd CLINICAL HISTORY: Please monitor for abscess near RLE wounds COMPARISON STUDY: Right tibia/fibula CT 12/09/2023. FINDINGS: Real-time sonographic imaging of the right lower leg was performed with telephone sales representative images submitted. Suboptimal evaluation of the right lower leg due to the overlapping bandages. There is a complex subcutaneous fluid collection within the mid medial calf with mild peripheral vascularity. This measures 7.5 x 3.0 x 1.5 cm. There is an additional ill-defined complex fluid collection within the distal medial calf measuring 5.4 x 2.5 x 0.6 cm. IMPRESSION: Similar-appearing complex subcutaneous fluid collections within the right medial calf as described above. This could represent subcutaneous hematomas. Secondary infection such as a developing abscess would be difficult to exclude by imaging. ACT 112: Negative or not required by law. Electronically signed by: Neeraj Morales M.D. 12/10/2023 7:11 AM Venous Doppler Study 12/09/23 18:33 US venous doppler LE RT HISTORY: 68 years-old Male RLE swelling/pain acute pain and swelling of the right lower leg COMPARISON: 11/15/2023 TECHNIQUE: Multiple real-time sonographic images of the right lower extremity deep venous structures were obtained assessing grayscale appearance, color and spectral flow. FINDINGS: Normal flow, compressibility, phasicity and augmentation. Previously described complex fluid collection is not identified. Subcutaneous edema is noted. IMPRESSION: No sonographic evidence of deep venous thrombosis. ACT 112: Negative or not required by law. The above report was generated using voice recognition software. It may contain grammatical, syntax or spelling errors. Electronically signed by: Mauricio Carballo M.D. 12/10/2023 7:07 AM Medications Administered Home Medications Medication Instructions Recorded Confirmed Last Taken empagliflozin 10 mg tablet 10 mg PO QAM 07/02/22 12/09/23 12/09/23 (Jardiance) aspirin 81 mg tablet,delayed 81 mg PO QAM 04/26/23 12/09/23 12/09/23 release (Adult Aspirin Regimen) pantoprazole 20 mg tablet,delayed 20 mg PO DAILY #30 tabs 11/03/23 12/09/23 12/09/23 release potassium chloride 20 mEq 20 meq PO DAILY #30 tabs 11/03/23 12/09/23 12/09/23 tablet,extended release bumetanide 2 mg tablet 2 mg PO QAM Fluid Retention 11/23/23 12/09/23 12/09/23 ferrous gluconate 225 mg (27 mg 225 mg PO DAILY 11/23/23 12/09/23 12/09/23 iron) tablet sacubitril 24 mg-valsartan 26 mg 1 tab PO BID 07/02/0712/09/23 12/09/23 08:00 tablet (Entresto) warfarin 2 mg tablet 3 mg PO QPM 11/23/23 12/09/23 12/08/23 metoprolol succinate 25 mg 25 mg PO BID 11/25/23 12/09/23 12/09/23 tablet,extended release 24 hr ezetimibe 10 mg tablet (Zetia) 10 mg PO DAILY #90 tabs 12/02/23 12/09/23 12/09/23 hydrocodone 5 mg-acetaminophen 325 1 tab PO Q8H pain 12/09/23 12/09/23 12/09/23 08:00 mg tablet magnesium 250 mg tablet 250 mg PO 3XWK 12/09/23 12/09/23 12/08/23 Active Medications Generic Name Dose Route Start Last Admin Trade Name Freq PRN Reason Stop Dose Admin Acetaminophen 650 mg 12/09/23 22:00 12/10/23 09:07 Acetaminophen 325 Mg Tab PO 01/08/24 21:59 650 mg Q6H ADIS Administration Hydrocodone Bitart/Acetaminophen 1 tab 12/09/23 21:24 12/09/23 22:43 Hydrocodone/Acetamophen 5/325mg Tab PO 12/23/23 21:23 1 tab Q8H PRN Administration Pain Aspirin 81 mg 12/10/23 09:00 12/10/23 08:34 Aspirin 81 Mg Ectab PO 01/09/24 08:59 81 mg QAM ADIS Administration Ezetimibe 10 mg 12/10/23 09:00 12/10/23 08:34 Ezetimibe 10 Mg Tab PO 01/09/24 08:59 10 mg DAILY ADIS Administration Insulin Aspart 0 units 12/09/23 21:00 12/10/23 08:26 Insulin Aspart Per Unit Charge SC 01/08/24 20:59 Not Given ACHS ADIS Metoprolol Succinate 25 mg 12/09/23 21:17 12/10/23 08:34 Metoprolol Succ 25mg Ext Rel Tab PO 01/08/24 21:16 25 mg BID ADIS Administration Minocycline HCl 200 mg 12/10/23 07:00 12/10/23 06:22 Minocycline Hcl 50 Mg Cap PO 12/17/23 06:59 200 mg Q12H ADIS Administration Protocol Morphine Sulfate 2 mg 12/09/23 18:28 12/10/23 06:23 Morphine Sulfate 2 Mg/Ml Carp IV 12/23/23 18:27 2 mg Q3H PRN Administration Pain(5+) Pantoprazole Sodium 40 mg 12/10/23 09:00 12/10/23 08:34 Pantoprazole 40 Mg Tab PO 01/09/24 08:59 40 mg DAILY ADIS Administration Sacubitril/Valsartan 1 tab 12/09/23 21:17 12/10/23 08:34 Valsartan/Sacubitril mg Tab PO 01/08/24 21:16 1 tab BID ADIS Administration (1) Acute pain of lower extremity Laterality: right Qualified Code(s): M79.604 - Pain in right leg
[2023-12-10] MEDS: WARFARIN SOD 3 MG TAB PO SCH (16:11)
[2023-12-10] MEDS ORDERED: MEROPENEM 1,000 MG in SYRINGE 0 ML IV SCH (16:30)
[2023-12-10] MEDS ORDERED: levoFLOXacin/D5W 750 MG/150 ML BAG IV SCH (18:00)
[2023-12-10] MEDS: MEROPENEM 500 MG in SYRINGE 0 ML IV SCH (18:04)
[2023-12-10] MEDS: DOCUSATE SODIUM 100 MG CAP PO SCH (20:48)
--- NOTE | 2023-12-10 22:08 | Hospitalist Progress Note ---
Date of Service December 10, 2023 Assessment & Plan (1) Surgical wound, non healing: Plan: Admit to med/telemetry Currently stable and nontoxic-appearing Was sent to the [facility] ED today from the wound care clinic due to concerns for recurrent infection of the patient's right lower extremity CABG surgical site Patient had previously grown E. coli, Stenotrophomonas maltophilia, Myroides species on wound cultures from 11/11/2023. 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 Could represent a developing phlegmon per radiology. ED spoke to both vascular surgery and general surgery, vascular surgery did not believe this was a vascular problem and signed off. General surgery will follow and monitor for now, however, if the patient would develop an abscess in the right lower extremity he would require transfer back to the [facility] for surgical intervention. Infectious disease consult has been placed, appreciate input. Placed on meropenem due to qtc prolongation from levaquin. Follow wound, blood cultures (pharmacy will request microbiology obtain additional/detailed culture results to assist with ongoing antibiotic choice moving forward) Will obtain right lower extremity venous Doppler to rule out DVT, although this is lower on the differential due to patient being on warfarin -Wound care nurse consult placed Heart healthy diet Home warfarin for DVT prophylaxis (2) S/P CABG x 5: Plan: Patient denies recent chest discomfort or dyspnea on exertion No acute changes on ECG today Continue aspirin, Zetia, metoprolol (3) (HFpEF) heart failure with preserved ejection fraction: Plan: Currently euvolemic on exam Continue Entresto for ischemic cardiomyopathy Patient does have 2 mg p.o. as needed Bumex for fluid retention, will hold this for now as he is euvolemic (4) Hypertension: Plan: Currently stable Continue metoprolol and Entresto Plan The patient was discussed with Dr. Velásquez admission Admission and Anticipated Discharge Date Admission Date: December 09, 2023 Subjective Patient appears comfortable. Pain is better, but remains present. Review of Systems Review of Systems: All systems reviewed & are unremarkable except as noted in HPI & below Physical Exam Constitutional: WD/WN, vitals as above Eyes: PERRL, conjunctivae normal, anicteric sclerae Neck: trachea midline, no thyromegaly Respiratory: normal respiratory effort; no respiratory distress and no labored breathing Cardiovascular: Rate/Rhythm: regular rate and regular rhythm Gastrointestinal (Abdomen): Inspection/Auscultation: abdomen normal to inspection; abdomen not distended Skin: no rashes, warm and dry 3 incisions right lower extremity; minimal erythema, good granulation tissue, no purulence Psychiatric: A+Ox3, euthymic affect Results & Data Results & Data Vital Signs (Past 12 Hours) Vital Signs Temp Pulse Pulse Resp BP Pulse Ox O2 Del Method 12/10/23 21:44 Room Air 12/10/23 19:21 36.7 C 73 18 145/84 H 96 Room Air 12/10/23 16:01 36.7 C 67 18 125/78 97 Room Air 12/10/23 12:58 70 12/10/23 11:36 36.8 C 72 18 125/80 95 Room Air PG Care Time/CCT Total # of Minutes Spent Total Time Spent with Patient: Total time spent is greater than 50% in coordination of care (as documented) at patient's floor/unit and/or counseling patient: Coding Level of Care Code 03592 SUB INP/OBS CARE 2/35MIN Diagnoses Non-healing surgical wound, initial encounter T81.89XA S/P CABG x 5 Z95.1 Acute on chronic heart failure with preserved ejection fraction I50.33 Heart failure chronicity: acute on chronic Hypertension I10 (3) (HFpEF) heart failure with preserved ejection fraction Heart failure chronicity: acute on chronic Qualified Code(s): I50.33 - Acute on chronic diastolic (congestive) heart failure
[2023-12-11 07:49] LABS: Basophils # (auto) 0.04 K/uL (0.00-0.20); Basophils % (auto) 0.8 %; Eosinophils # (auto) 0.16 K/uL (0.00-0.50); Eosinophils % (auto) 3.3 %; Hematocrit (blood only) 36.8 % (42.0-52.0); Hemoglobin 11.1 g/dl (14.0-18.0); Immature Granulocytes # (auto) 0.02 K/uL (0.01-0.20); Immature Granulocytes % (auto) 0.4 %; Lymphocytes # (auto) 0.59 K/uL (1.20-3.40); Lymphocytes % (auto) 12.3 %; Mean Corpuscular Hemoglobin 27.3 pg (25.0-34.0); Mean Corpuscular Hgb Conc 30.2 g/dL (32.0-36.0); Mean Corpuscular Volume 90.4 fL (80.0-100.0); Mean Platelet Volume 9.7 fL (9.4-12.4); Monocytes # (auto) 0.83 K/uL (0.11-0.59); Monocytes % (auto) 17.4 %; Neutrophils # (auto) 3.14 K/uL (1.40-6.50); Neutrophils % (auto) 65.8 %; Platelet Count 361 K/uL (130-400); RDW Standard Deviation 49.5 fL (36.4-46.3); Red Blood Count 4.07 M/uL (4.70-6.10); White Blood Count 4.78 K/ul (4.8-10.8)
[2023-12-11 08:09] LABS: INR 2.9 (0.9-1.1); Prothrombin Time 28.7 Seconds (9.0-12.0)
[2023-12-11 08:19] LABS: Albumin Globulin Ratio 1.1 (0.9-2); Albumin Level 3.8 gm/dl (3.4-5.0); BUN Creatinine Ratio 26.6 (10-20); Bilirubin,Total 0.6 mg/dl (0.2-1.0); C Reactive Protein 0.79 mg/dl (0-0.5); Est GFR (African American) 105.4 ml/min; Globulin 3.4 gm/dl (2.5-4.0); Potassium 4.4 mmol/L (3.5-5.1); Total Protein 7.2 gm/dl (6.0-8.3)
--- NOTE | 2023-12-11 22:12 | Hospitalist Progress Note ---
Date of Service December 11, 2023 Assessment & Plan (1) Surgical wound, non healing: Plan: Admit to med/telemetry Currently stable and nontoxic-appearing Was sent to the [facility] ED today from the wound care clinic due to concerns for recurrent infection of the patient's right lower extremity CABG surgical site Patient had previously grown E. coli, Stenotrophomonas maltophilia, Myroides species on wound cultures from 11/11/2023. All species had been susceptible to Bactrim however patient subsequently developed ITP as a result causing large left lower extremity hematoma and transferred back to the [facility] CT of the right lower extremity today notes an ulceration in the distal medial soft tissues without abscess or underlying osteomyelitis. Could represent a developing phlegmon per radiology. ED spoke to both vascular surgery and general surgery, vascular surgery did not believe this was a vascular problem and signed off. General surgery will follow and monitor for now, however, if the patient would develop an abscess in the right lower extremity he would require transfer back to the [facility] for surgical intervention. Infectious disease consult has been placed, appreciate input. Placed on meropenem due to qtc prolongation from levaquin. Follow wound, blood cultures (pharmacy will request microbiology obtain additional/detailed culture results to assist with ongoing antibiotic choice moving forward) Will obtain right lower extremity venous Doppler to rule out DVT, although this is lower on the differential due to patient being on warfarin -Wound care nurse consult placed Heart healthy diet Home warfarin for DVT prophylaxis Blood culture is showing:pseudomomnas, patient will need to be on carbapanem. WIll need at least 5 days of treatment. will keep over the weekend. (2) S/P CABG x 5: Plan: Patient denies recent chest discomfort or dyspnea on exertion No acute changes on ECG today Continue aspirin, Zetia, metoprolol (3) (HFpEF) heart failure with preserved ejection fraction: Plan: Currently euvolemic on exam Continue Entresto for ischemic cardiomyopathy Patient does have 2 mg p.o. as needed Bumex for fluid retention, will hold this for now as he is euvolemic (4) Hypertension: Plan: Currently stable Continue metoprolol and Entresto Admission and Anticipated Discharge Date Admission Date: December 09, 2023 Subjective Patient reports no new symptoms. Patient states his pain is controlled. Review of Systems Review of Systems: All systems reviewed & are unremarkable except as noted in HPI & below Physical Exam Constitutional: WD/WN, vitals as above Eyes: PERRL, conjunctivae normal, anicteric sclerae Neck: trachea midline, no thyromegaly Respiratory: normal respiratory effort; no respiratory distress and no labored breathing Cardiovascular: Rate/Rhythm: regular rate and regular rhythm Gastrointestinal (Abdomen): Inspection/Auscultation: abdomen normal to inspection; abdomen not distended Skin: no rashes, warm and dry Psychiatric: A+Ox3, euthymic affect Results & Data Results & Data Vital Signs (Past 12 Hours) Vital Signs Temp Pulse Pulse Resp BP BP Pulse Ox 12/11/23 20:00 36.7 C 73 18 125/76 97 12/11/23 16:05 36.7 C 69 18 128/75 96 12/11/23 15:41 70 12/11/23 11:57 36.5 C 69 18 107/67 97 12/11/23 11:02 70 O2 Del Method 12/11/23 20:00 Room Air 12/11/23 16:05 Room Air 12/11/23 15:41 12/11/23 11:57 Room Air 12/11/23 11:02 PG Care Time/CCT Total # of Minutes Spent Total Time Spent with Patient: Total time spent is greater than 50% in coordination of care (as documented) at patient's floor/unit and/or counseling patient: Coding Level of Care Code 12877 SUB INP/OBS CARE 2/35MIN Diagnoses Non-healing surgical wound, initial encounter T81.89XA S/P CABG x 5 Z95.1 Acute on chronic heart failure with preserved ejection fraction I50.33 Heart failure chronicity: acute on chronic Hypertension I10 (3) (HFpEF) heart failure with preserved ejection fraction Heart failure chronicity: acute on chronic Qualified Code(s): I50.33 - Acute on chronic diastolic (congestive) heart failure
[2023-12-12 07:32] LABS: Basophils # (auto) 0.03 K/uL (0.00-0.20); Basophils % (auto) 0.6 %; Eosinophils # (auto) 0.16 K/uL (0.00-0.50); Eosinophils % (auto) 3.4 %; Hematocrit (blood only) 35.9 % (42.0-52.0); Hemoglobin 11.1 g/dl (14.0-18.0); Immature Granulocytes # (auto) 0.01 K/uL (0.01-0.20); Immature Granulocytes % (auto) 0.2 %; Lymphocytes # (auto) 0.72 K/uL (1.20-3.40); Lymphocytes % (auto) 15.3 %; Mean Corpuscular Hemoglobin 27.3 pg (25.0-34.0); Mean Corpuscular Hgb Conc 30.9 g/dL (32.0-36.0); Mean Corpuscular Volume 88.2 fL (80.0-100.0); Monocytes # (auto) 0.84 K/uL (0.11-0.59); Monocytes % (auto) 17.8 %; Neutrophils # (auto) 2.95 K/uL (1.40-6.50); Neutrophils % (auto) 62.7 %; Platelet Count 352 K/uL (130-400); RDW Standard Deviation 48.6 fL (36.4-46.3); Red Blood Count 4.07 M/uL (4.70-6.10); White Blood Count 4.71 K/ul (4.8-10.8)
[2023-12-12 07:46] LABS: Albumin Globulin Ratio 1.1 (0.9-2); Albumin Level 3.7 gm/dl (3.4-5.0); BUN Creatinine Ratio 35.6 (10-20); Bilirubin,Total 0.6 mg/dl (0.2-1.0); C Reactive Protein 0.62 mg/dl (0-0.5); Calcium 8.9 mg/dl (8.6-10.3); Creatinine Clr Calc Pharmacy 143.2 ml/min; Est GFR (African American) 118.9 ml/min; Est GFR (Non-African American) 102.6 ml/min; Globulin 3.4 gm/dl (2.5-4.0); Magnesium 1.9 mg/dl (1.7-2.4); Potassium 4.1 mmol/L (3.5-5.1); Total Protein 7.1 gm/dl (6.0-8.3)
[2023-12-12 08:05] LABS: INR 2.3 (0.9-1.1); Prothrombin Time 23.4 Seconds (9.0-12.0)
--- NOTE | 2023-12-12 22:31 | Hospitalist Progress Note ---
Date of Service December 12, 2023 Assessment & Plan (1) Surgical wound, non healing: Plan: Admit to med/telemetry Currently stable and nontoxic-appearing Was sent to the [facility] ED today from the wound care clinic due to concerns for recurrent infection of the patient's right lower extremity CABG surgical site Patient had previously grown E. coli, Stenotrophomonas maltophilia, Myroides species on wound cultures from 11/11/2023. All species had been susceptible to Bactrim however patient subsequently developed ITP as a result causing large left lower extremity hematoma and transferred back to the [facility] CT of the right lower extremity today notes an ulceration in the distal medial soft tissues without abscess or underlying osteomyelitis. Could represent a developing phlegmon per radiology. ED spoke to both vascular surgery and general surgery, vascular surgery did not believe this was a vascular problem and signed off. General surgery will follow and monitor for now, however, if the patient would develop an abscess in the right lower extremity he would require transfer back to the [facility] for surgical intervention. Infectious disease consult has been placed, appreciate input. Placed on meropenem due to qtc prolongation from levaquin. Follow wound, blood cultures (pharmacy will request microbiology obtain additional/detailed culture results to assist with ongoing antibiotic choice moving forward) Will obtain right lower extremity venous Doppler to rule out DVT, although this is lower on the differential due to patient being on warfarin -Wound care nurse consult placed Heart healthy diet Home warfarin for DVT prophylaxis Blood culture is showing:pseudomonas, patient will need to be on carbapanem. WIll need at least 5 days of treatment. will keep over the weekend. will call ID on Wednesday. (2) S/P CABG x 5: Plan: Patient denies recent chest discomfort or dyspnea on exertion No acute changes on ECG today Continue aspirin, Zetia, metoprolol (3) (HFpEF) heart failure with preserved ejection fraction: Plan: Currently euvolemic on exam Continue Entresto for ischemic cardiomyopathy Patient does have 2 mg p.o. as needed Bumex for fluid retention, will hold this for now as he is euvolemic (4) Hypertension: Plan: Currently stable Continue metoprolol and Entresto Admission and Anticipated Discharge Date Admission Date: December 09, 2023 Subjective 68 yo male reports no new symptoms. Review of Systems Review of Systems: All systems reviewed & are unremarkable except as noted in HPI & below Physical Exam Constitutional: WD/WN, vitals as above Eyes: PERRL, conjunctivae normal, anicteric sclerae Neck: trachea midline, no thyromegaly Respiratory: normal respiratory effort; no respiratory distress and no labored breathing Cardiovascular: Rate/Rhythm: regular rate and regular rhythm Gastrointestinal (Abdomen): Inspection/Auscultation: abdomen normal to inspection; abdomen not distended Skin: no rashes, warm and dry Psychiatric: A+Ox3, euthymic affect Results & Data Results & Data Vital Signs (Past 12 Hours) Vital Signs Temp Pulse Pulse Resp BP Pulse Ox O2 Del Method 12/12/23 20:00 36.6 C 70 20 168/91 H 97 Room Air 12/12/23 15:25 36.6 C 77 18 149/83 H 96 Room Air 12/12/23 13:57 70 12/12/23 11:35 36.7 C 70 18 149/83 H 97 Room Air PG Care Time/CCT Total # of Minutes Spent Total Time Spent with Patient: Total time spent is greater than 50% in coordination of care (as documented) at patient's floor/unit and/or counseling patient: Coding Level of Care Code 49494 SUB INP/OBS CARE 2/35MIN Diagnoses Non-healing surgical wound, initial encounter T81.89XA S/P CABG x 5 Z95.1 Acute on chronic heart failure with preserved ejection fraction I50.33 Heart failure chronicity: acute on chronic Hypertension I10 (3) (HFpEF) heart failure with preserved ejection fraction Heart failure chronicity: acute on chronic Qualified Code(s): I50.33 - Acute on chronic diastolic (congestive) heart failure
[2023-12-13 11:32] LABS: INR 2.2 (0.9-1.1); Prothrombin Time 22.2 Seconds (9.0-12.0)
--- NOTE | 2023-12-13 11:41 | Infectious Disease Progress Nt ---
Date of Service December 13, 2023 Assessment & Plan (1) Acute pain of lower extremity: (2) Surgical wound, non healing: (3) Cellulitis of right lower extremity: (4) Pacemaker: (5) S/P CABG x 5: (6) On warfarin therapy: Plan This is a 68-year-old man with a past medical history of CAD status post CABG x 5 ( [facility] on 10/14/2023), rheumatic heart disease status post mechanical aortic valve and mitral valve replacement on warfarin and tricuspid valve repair, atrial fibrillation, heart failure with preserved ejection fraction, status post pacemaker placement, hypertension who presents to the ED for evaluation of worsening right lower extremity nonhealing wounds at CABG vein harvest surgical sites. Of note, approximately 3 weeks post CABG at the [facility], he noted worsening of the right lower extremity surgical site wounds. He was seen by his PCP and wound was cultured. He was initially started on Keflex but the wounds worsened with increasing pain and erythema. Cultures finalized as pansensitive E. coli, stenotrophomonas maltophilia ( S Bactrim) and MDR Myroides sp (S Bactrim). He was started on Bactrim and took it for 2 days. On therapy the wound continued to worsen, so he presented to the [facility] ED on 11/14. He was found to have a platelet count of 4. His thrombocytopenia was thought to be related to the interaction between Bactrim and warfarin. He underwent lower extremity dopplers: negative for dvt but showed a complex elongated 13.6 x 1.4 x 1.7 cm fluid collection which extended from the right groin to mid thigh c/f hematoma and he was transferred to the [facility] for further evaluation. 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 He reports that he did not receive antibiotics for his lower extremity wounds. He was discharged home on approximately 11/19 to complete a course of IVIG IN [place]. It is unclear if he was scheduled to follow up with local ID for the wounds. He did well at home and with visits to the wound care center for wound debridement of slough and eschars . Approximately 3 to 4 days ago, he deveoped worsening redness, erythema and drainage from his surgical site wounds and was referred to the ED from wound care. He presented to the ED on 12/08. He denied fever, chills, sweats, nausea, vomiting, chest pain, cough. He reports pain at wound sites. He was not been on antibiotics. He denies any lower extremity grafts or stents near the wound sites. In the ED he is afebrile and hemodynamically stable. Labs: WBC 5.97, hemoglobin 10.4, hematocrit 33.8, ESR 43, BUN 19, creatinine 0.77, CRP 1.37. Right tib/fib CT with contrast shows ulceration in the distal medial soft tissue without abscess or underlying osteomyelitis. A right lower extremity soft tissue ultrasound shows similar-appearing complex subcutaneous fluid collections within the right medial calf. Which could represent a subcutaneous hematoma. Secondary infection such as abscess cannot be ruled out. Right lower extremity Doppler negative for DVT; Prior hematoma not seen. Wound cultures from his surgical site grew gram-negative rods. He hewas receiving minocycline and Levaquin. Surgery evaluated him and did not pursue surgical intervention. ID consulted for wound infection with history of multiple organisms MICRO : -Wound culture 12/08 Gram Stain Rare Gram Negative Bacilli. Gram Positive Cocci, Wound Culture - Pseudomonas Aeruginosa -Blood culture 12/08 NGTD PRIOR MICRO: Wound culture 11/11/2023: E. coli (pansensitive), Stenotrophomonas maltophilia (sensitive to Bactrim), Myroides sp (intermediate to cefepime, intermediate to piperacillin/tazobactam, resistant to gentamicin, resistant to tobramycin, sensitive to Bactrim) ABX: Levaquin 12/08- 12/09 Minocycline 12/08-ongoing Meropenem 12/09-ongoing # RLE non healing surgical sites wounds/ cellulitis/SSTI/? 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 So far wound culture with moderate gram-negative bacilli. On imaging there is no evidence of osteomyelitis or abscess on CT tib-fib however soft tissue ultrasound shows question of fluid collections within the right medial calf. No surgical interventions per surgery. Given his history of polymicrobial gram-negative leopoldo growth from wound with pansensitive E. coli, stenotrophomonas maltophilia as well as MDR Myroides species, history ofITP possibly 2/2 Bactrim and prolonged QTC, his abx were switched to meropenem and Minocin on 12/09 pending ID and sensi of GNR on wound. GNR finalized as Pseudomonas Aeruginosa. Wound is healing up.. Recommendations: Discontinue Meropenem and Minocycline/ Start cefepime 2 G IV [id number] PSa wound coverage. Levaquin or cipro not a great option given prolonged qtc I anticipate a 10d of abx EOT 12/19/23 Check Weekly cbc with diff, cmp, on IV abx Dw team ID will sign off . Call with questions. Rosenda Fay MD, MPH Infectious Disease [facility], [facility] Call [phone] with questions. Admission and Anticipated Discharge Date Admission Date: December 09, 2023 Subjective Subsequent visit was provided via telemedicine using two-way real-time interactive telecommunication between the patient and the telemedicine provider. For the duration of the visit, the provider was performing the assessment from a different facility than the patient. This includesuse of bluetooth stethoscope forauscultationperformed by the telepresenter that the telemedicine provider can hear if described in the physical exam. Sensor Technician contact information: Please call [facility] . (Phone Number For Physician Use Only) After establishing a telemedicine visit, patient was: Patient was verified with two unique identifiers Time Spent with Patient: Subsequent => 25 min He feels well. Wound cx growing Pseudomonas Aeruginosa so far Physical Exam Physical Exam: Gen- NAD, laying in bed Neck- supple HEENT- Anicteric sclera Lungs- No increased work of breathing, sternal chest incision is well healed PPM incision on L chest is well healed, No TTP , No erythema at PPM site Abd- soft, NT, ND Ext- RLE with CABG harvesting site incision site wounds on medial RLE ( 4 incisions) 1.Medial Thigh incision well healed, 2.Right medial proximal upper calf wound open with no drainage today and light periwound erythema almost resolved; tenderness today 3. right upper medial calf wound with partial closure in middle:top part of wound with serous drainage ( no purulence today, bottom pole is less necrotic appearing with no drainage today - periwound tenderness much less and erythema less 4. medial proximal ankle - open wound with some minimal necrosis and less tenderness and periwound erythema RLE edema> L Neuro- Awake, alert, oriented times 3 Psych- Normal mood, cooperative Results & Data Vital Signs (Past 12 Hours) Vital Signs Temp Pulse Pulse Resp BP Pulse Ox O2 Del Method 12/13/23 07:48 36.5 C 72 18 126/79 95 Room Air 12/13/23 05:59 70 12/13/23 03:25 36.4 C L 71 20 150/87 H 96 Room Air Laboratory Results Laboratory Results - last 48 hr 12/12/23 12/13/23 07:00 10:41 WBC 4.71 L RBC 4.07 L Hgb 11.1 L Hct 35.9 L MCV 88.2 MCH 27.3 MCHC 30.9 L RDW Std Deviation 48.6 H RDW Coeff of Vlad 15.0 H Plt Count 352 MPV 10.0 Immature Gran % (Auto) 0.2 Neut % (Auto) 62.7 Lymph % (Auto) 15.3 Valencia % (Auto) 17.8 Eos % (Auto) 3.4 Baso % (Auto) 0.6 Neut # (Auto) 2.95 Lymph # (Auto) 0.72 L Valencia # (Auto) 0.84 H Eos # (Auto) 0.16 Baso # (Auto) 0.03 Immature Gran # (Auto) 0.01 PT 23.4 H 22.2 H INR 2.3 H 2.2 H Sodium 139 Potassium 4.1 Chloride 107 Carbon Dioxide 27 Anion Gap 5 BUN 21 Creatinine 0.59 L Est Cr Clr Drug Dosing 143.2 Est GFR ( Amer) 118.9 Est GFR (Non-Af Amer) 102.6 BUN/Creatinine Ratio 35.6 H Glucose 94 Calcium 8.9 Magnesium 1.9 Total Bilirubin 0.6 AST 29 ALT 17 Alkaline Phosphatase 78 C-Reactive Protein 0.62 H Total Protein 7.1 Albumin 3.7 Globulin 3.4 Albumin/Globulin Ratio 1.1 Diagnostic Findings Microbiology 12/09/23 14:46 Blood Aerobic Blood Culture - Preliminary No growth in Aerobic bottle after 48 hours. 12/09/23 14:46 Blood Anaerobic Blood Culture - Preliminary No growth in Anaerobic bottle after 48 hours. 12/09/23 14:24 Blood Aerobic Blood Culture - Preliminary No growth in Aerobic bottle after 48 hours. 12/09/23 14:24 Blood Anaerobic Blood Culture - Preliminary No growth in Anaerobic bottle after 48 hours. Surface Wound Culture Final 12/11/23-0850 Organism 1 Pseudomonas aeruginosa Quantity Moderate Sens Sensitivities to Follow +MixWound Plus Low Counts of Probable Skin Kailyn P aerugino RX M.I.C. --- --------- Cefepime S <=2 Ceftazidime S <=1 Ciprofloxacin S <=0.25 Gentamicin S <=4 Levofloxacin S <=0.5 Meropenem S <=1 Tobramycin S <=4 Pip/Tazo S <=16 Medications Administered Home Medications Medication Instructions Recorded Confirmed Last Taken empagliflozin 10 mg tablet 10 mg PO QAM 07/02/22 12/09/23 12/09/23 (Jardiance) aspirin 81 mg tablet,delayed 81 mg PO QAM 04/26/23 12/09/23 12/09/23 release (Adult Aspirin Regimen) pantoprazole 20 mg tablet,delayed 20 mg PO DAILY #30 tabs 11/03/23 12/09/23 12/09/23 release potassium chloride 20 mEq 20 meq PO DAILY #30 tabs 11/03/23 12/09/23 12/09/23 tablet,extended release bumetanide 2 mg tablet 2 mg PO QAM Fluid Retention 11/23/23 12/09/23 12/09/23 ferrous gluconate 225 mg (27 mg 225 mg PO DAILY 11/23/23 12/09/23 12/09/23 iron) tablet sacubitril 24 mg-valsartan 26 mg 1 tab PO BID 11/23/23 12/09/23 12/09/23 08:00 tablet (Entresto) warfarin 2 mg tablet 3 mg PO QPM 11/23/23 12/09/23 12/08/23 metoprolol succinate 25 mg 25 mg PO BID 11/25/23 12/09/23 12/09/23 tablet,extended release 24 hr ezetimibe 10 mg tablet (Zetia) 10 mg PO DAILY #90 tabs 12/02/23 12/09/23 12/09/23 hydrocodone 5 mg-acetaminophen 325 1 tab PO Q8H pain 12/09/23 12/09/23 12/09/23 08:00 mg tablet magnesium 250 mg tablet 250 mg PO [id number] 12/09/23 12/09/23 12/08/23 Active Medications Generic Name Dose Route Start Last Admin Trade Name Sadiqq PRN Reason Stop Dose Admin Acetaminophen 650 mg 12/09/23 22:00 12/13/23 10:27 Acetaminophen 325 Mg Tab PO 01/08/24 21:59 Not Given Q6H ADIS Hydrocodone Bitart/Acetaminophen 1 tab 12/09/23 21:24 12/12/23 17:42 Hydrocodone/Acetamophen 5/325mg Tab PO 12/23/23 21:23 1 tab Q8H PRN Administration Pain Aspirin 81 mg 12/10/23 09:00 12/13/23 08:16 Aspirin 81 Mg Ectab PO 01/09/24 08:59 81 mg QAM ADIS Administration Docusate Sodium 100 mg 12/10/23 21:00 12/13/23 08:15 Docusate Sodium 100 Mg Cap PO 01/09/24 20:59 100 mg BID ADIS Administration Ezetimibe 10 mg 12/10/23 09:00 12/13/23 08:16 Ezetimibe 10 Mg Tab PO 01/09/24 08:59 10 mg DAILY ADIS Administration Metoprolol Succinate 25 mg 12/09/23 21:17 12/13/23 08:15 Metoprolol Succ 25mg Ext Rel Tab PO 01/08/24 21:16 25 mg BID ADIS Administration Morphine Sulfate 2 mg 12/09/23 18:28 12/11/23 21:53 Morphine Sulfate 2 Mg/Ml Carp IV 12/23/23 18:27 2 mg Q3H PRN Administration Pain(5+) Pantoprazole Sodium 40 mg 12/10/23 09:00 12/13/23 08:15 Pantoprazole 40 Mg Tab PO 01/09/24 08:59 40 mg DAILY ADIS Administration Sacubitril/Valsartan 1 tab 12/09/23 21:17 12/13/23 08:15 Valsartan/Sacubitril 26/24mg Tab PO 01/08/24 21:16 1 tab BID ADIS Administration Warfarin Sodium 3 mg 12/10/23 16:00 12/12/23 17:42 Warfarin Sod 3 Mg Tab PO 01/09/24 15:59 3 mg DAILY@1600 ADIS Administration (1) Acute pain of lower extremity Laterality: right Qualified Code(s): M79.604 - Pain in right leg
[2023-12-13] MEDS: CEFEPIME 2,000 MG in SYRINGE 0 ML IV SCH (13:52)
--- NOTE | 2023-12-13 22:18 | Hospitalist Progress Note ---
Date of Service December 13, 2023 Assessment & Plan (1) Surgical wound, non healing: Plan: Admit to med/telemetry Currently stable and nontoxic-appearing Was sent to the [facility] ED today from the wound care clinic due to concerns for recurrent infection of the patient's right lower extremity CABG surgical site Patient had previously grown E. coli, Stenotrophomonas maltophilia, Myroides species on wound cultures from 11/11/2023. 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 Could represent a developing phlegmon per radiology. ED spoke to both vascular surgery and general surgery, vascular surgery did not believe this was a vascular problem and signed off. General surgery will follow and monitor for now, however, if the patient would develop an abscess in the right lower extremity he would require transfer back to the [facility] for surgical intervention. Thankfully this is not the case. Infectious disease consult has been placed, appreciate input. Plan will e to complete course with cefepime 2 gr IV for 10 days Last dose: 8/4 AM Placed Ultrasound guided peripheral line. Anticipate discharge on 12/13 -Wound care nurse consult placed Heart healthy diet Home warfarin for DVT prophylaxis (2) S/P CABG x 5: Plan: Patient denies recent chest discomfort or dyspnea on exertion No acute changes on ECG today Continue aspirin, Zetia, metoprolol (3) (HFpEF) heart failure with preserved ejection fraction: Plan: Currently euvolemic on exam Continue Entresto for ischemic cardiomyopathy Patient does have 2 mg p.o. as needed Bumex for fluid retention, will hold this for now as he is euvolemic (4) Hypertension: Plan: Currently stable Continue metoprolol and Entresto Admission and Anticipated Discharge Date Admission Date: December 09, 2023 Subjective Patient reports feeling back to baseline Review of Systems Review of Systems: All systems reviewed & are unremarkable except as noted in HPI & below Physical Exam Constitutional: WD/WN, vitals as above Eyes: PERRL, conjunctivae normal, anicteric sclerae Neck: trachea midline, no thyromegaly Respiratory: normal respiratory effort; no respiratory distress and no labored breathing Gastrointestinal (Abdomen): Inspection/Auscultation: abdomen normal to inspection; abdomen not distended Psychiatric: A+Ox3, euthymic affect Results & Data Results & Data Vital Signs (Past 12 Hours) Vital Signs Temp Pulse Pulse Resp BP BP Pulse Ox 12/13/23 19:48 36.8 C 74 18 141/79 H 96 12/13/23 13:00 71 12/13/23 11:53 36.8 C 68 18 159/86 H 96 O2 Del Method 12/13/23 19:48 Room Air 12/13/23 13:00 12/13/23 11:53 Room Air PG Care Time/CCT Total # of Minutes Spent Total Time Spent with Patient: Total time spent is greater than 50% in coordination of care (as documented) at patient's floor/unit and/or counseling patient: Coding Level of Care Code 41185 SUB INP/OBS CARE 2/35MIN Diagnoses Non-healing surgical wound, initial encounter T81.89XA S/P CABG x 5 Z95.1 Acute on chronic heart failure with preserved ejection fraction I50.33 Heart failure chronicity: acute on chronic Hypertension I10 (3) (HFpEF) heart failure with preserved ejection fraction Heart failure chronicity: acute on chronic Qualified Code(s): I50.33 - Acute on chronic diastolic (congestive) heart failure
--- NOTE | 2023-12-14 08:54 | Hospitalist Progress Note ---
Date of Service December 14, 2023 Assessment & Plan (1) Surgical wound, non healing: Plan: Was sent to the [facility] ED from the wound care clinic due to concerns for recurrent infection of the patient's right lower extremity CABG surgical site Patient had previously grown E. coli, Stenotrophomonas maltophilia, Myroides species on wound cultures from 11/11/2023. All species had been susceptible to Bactrim however patient subsequently developed ITP as a result causing large left lower extremity hematoma and transferred back to the [facility] CT of the right lower extremity notes an ulceration in the distal medial soft tissues without abscess or underlying osteomyelitis. . ED spoke to both vascular surgery and general surgery, vascular surgery did not believe this was a vascular problem and signed off. General surgery will fo llow and monitor for now, however, if the patient would develop an abscess in the right lower extremity he would require transfer back to the [facility] for surgical intervention. Infectious disease consult has been placed, appreciate input. Plan will be to complete course with cefepime 2 gr IV for 10 days Last dose: 8/4 AM Placed Ultrasound guided peripheral line. Anticipate discharge on 12/13 -Wound care nurse consult placed Heart healthy diet Home warfarin for DVT prophylaxis (2) S/P CABG x 5: Plan: Patient denies recent chest discomfort or dyspnea on exertion No acute changes on ECG today Continue aspirin, Zetia, metoprolol (3) (HFpEF) heart failure with preserved ejection fraction: Plan: Currently euvolemic on exam Continue Entresto for ischemic cardiomyopathy Patient does have 2 mg p.o. as needed Bumex for fluid retention, will hold this for now as he is euvolemic (4) Hypertension: Plan: Currently stable Continue metoprolol and Entresto Admission and Anticipated Discharge Date Admission Date: December 09, 2023 Results & Data Results & Data Vital Signs (Past 12 Hours) Vital Signs Temp Pulse Pulse Resp BP BP Pulse Ox 12/14/23 07:45 98.1 F 75 18 128/79 95 12/14/23 05:04 71 12/14/23 02:36 98.4 F 69 18 144/81 H 96 12/13/23 22:18 98.2 F 70 18 150/98 H 96 12/13/23 21:52 75 O2 Del Method 12/14/23 07:45 Room Air 12/14/23 05:04 12/14/23 02:36 Room Air 12/13/23 22:18 Room Air 12/13/23 21:52 PG Care Time/CCT Total # of Minutes Spent Total Time Spent with Patient: Total time spent is greater than 50% in coordination of care (as documented) at patient's floor/unit and/or counseling patient: Coding Diagnoses Non-healing surgical wound, initial encounter T81.89XA S/P CABG x 5 Z95.1 Acute on chronic heart failure with preserved ejection fraction I50.33 Heart failure chronicity: acute on chronic Hypertension I10 (3) (HFpEF) heart failure with preserved ejection fraction Heart failure chronicity: acute on chronic Qualified Code(s): I50.33 - Acute on chronic diastolic (congestive) heart failure
--- NOTE | 2023-12-14 17:46 | Discharge Summary ---
Discharge Summary Date of Service December 14, 2023 Principal Dx & Hospital Course #1 = Principal Diagnosis (1) Surgical wound, non healing: Was sent to the [facility] ED from the wound care clinic due to concerns for recurrent infection of the patient's right lower extremity CABG surgical site Patient had previously grown E. coli, Stenotrophomonas maltophilia, Myroides species on wound cultures from 11/11/2023. All species had been susceptible to Bactrim however patient subsequently developed ITP as a result causing large left lower extremity hematoma and transferred back to the [facility] CT of the right lower extremity notes an ulceration in the distal medial soft tissues without abscess or underlying osteomyelitis. . ED spoke to both vascular surgery and general surgery, vascular surgery did not believe this was a vascular problem and signed off. General surgery will follow and monitor for now, however, if the patient would develop an abscess in the right lower extremity he would require transfer back to the [facility] for surgical intervention. Infectious disease consult, appreciate input. Plan will be to complete course with cefepime 2 gr IV for 10 days -> Last dose: 8/4 AM Placed Ultrasound guided peripheral line. Discharge on 12/13 -Wound care will follow as outpt Home warfarin for DVT prophylaxis (2) S/P CABG x 5: Patient denies recent chest discomfort or dyspnea on exertion No acute changes on ECG Continue aspirin, Zetia, metoprolol (3) (HFpEF) heart failure with preserved ejection fraction: Currently euvolemic on exam Continue Entresto for ischemic cardiomyopathy Patient does have 2 mg p.o. as needed Bumex for fluid retention (4) Hypertension: Currently stable Continue metoprolol and Entresto Admission HPI Per Admitting Provider Vito is a 68-year-old male with a past medical history significant for CAD status post CABG x 5 at [facility] on 10/16/2023, rheumatic heart disease status post aortic valve replacement on warfarin, atrial fibrillation, heart failure with preserved ejection fraction, hypertension, hyperlipidemia, LEYDA who presented to the [facility] ED on 524 from the wound care clinic due to concerns for infection of his ongoing right lower extremity CABG surgical site. Of note, patient was last seen in the [facility] ED on 11/15/2023 bilateral lower extremity pain with significant left lower extremity bruising. He was found to be in new onset ITP with a platelet count of 4 thought to be caused by patient being on Bactrim for his right lower extremity Her surgical site infection. Ultrasound left lower extremity showed extensive hematoma. He was subsequently transferred to the [facility] for further evaluation. The patient was reportedly monitored and treated with IVIG eventually discharged home. On arrival to the ED today he was initially noted to be hypotensive at 99/70, tachycardic at 92, but otherwise stable. Labs are significant for a WBC within normal limits, stable platelet count at 431, stable hemoglobin at 10.4, ESR of 43, INR 2.3, CRP of 1.37, Pro-Rubio within normal limits, and unremarkable. CT of the right tip/fib with con was read as an ulceration seen in the distal medial soft tissues without abscess or underlying osteomyelitis. The ED staff spoke to radiology regarding these results in further detail, they explained that this is likely a phlegmon but not an abscess at this time. The ED staff spoke with vascular surgery who did not believe that this was a vascular issue and recommended speaking to general surgery. General surgery explained that they are happy to follow the patient while here for ongoing monitoring and recommendations, however, if an abscess would eventually develop they would recommend transfer back to the [facility] as this is where his care and complications have been addressed thus far. Prior to admission the patient was given 4 mg IV morphine and 1 g IV Tylenol. The ED staff deferred antibiotics to our team based on his complicated history. Patient was sitting in bed in no acute distress at time of exam with his bedside, history is obtained from both. They come for the above history and states that after his discharge from [facility] on 11/20/2023 he has been doing well. They confirmed that no interventions were conducted at the [facility] for his left lower extremity hematoma and he was treated with IVIG. Patient has been following with our wound care clinic who last saw him on 12/02/2023 prior to his visit today. His wounds have been doing well prior to today's visit. The wound care clinic was concerning for purulent discharge and increased discomfort in the right lower extremity which is why they sent him to the ED for further evaluation. See wound care note from today for detailed d escription and pictures of his wounds. Patient denies recent fever, chills, chest pain, shortness of breath, abdominal pain, nausea/vomiting, dysuria, hematuria, diarrhea, or recent trauma. We explained that for now we will treat him at a facility with IV antibiotics and infectious disease consult, general surgery will be consulted to follow. For now we will restart antibiotic therapy and monitor. If the patient would develop an abscess he and his understand that he would have to be transferred to the [facility] for further intervention, they are in agreement with this plan. They confirmed the patient is a full code and his to make medical decisions for him if he cannot make himself. Please refer to Dr. Head's attestation for any changes to the treatment plan Discharge Exam Patient has 3 wounds on his right lower extremity all were examined the middle of the 3 wounds that is the deepest small ulcerations with yellow fibrinous base but without signs of surrounding erythema or cellulitis. Updated Medication List Medication Instructions Recorded Confirmed Type empagliflozin 10 mg tablet 10 mg PO QAM 07/02/22 12/09/23 History (Jardiance) aspirin 81 mg tablet,delayed 81 mg PO QAM 04/26/23 12/09/23 History release (Adult Aspirin Regimen) pantoprazole 20 mg tablet,delayed 20 mg PO DAILY #30 tabs 11/03/23 12/09/23 Rx release potassium chloride 20 mEq 20 meq PO DAILY #30 tabs 11/03/23 12/09/23 Rx tablet,extended release bumetanide 2 mg tablet 2 mg PO QAM Fluid Retention 11/23/23 12/09/23 History ferrous gluconate 225 mg (27 mg 225 mg PO DAILY 11/23/23 12/09/23 History iron) tablet sacubitril 24 mg-valsartan 26 mg 1 tab PO BID 11/23/23 12/09/23 History tablet (Entresto) warfarin 2 mg tablet 3 mg PO QPM 11/23/23 12/09/23 History metoprolol succinate 25 mg 25 mg PO BID 11/25/23 12/09/23 History tablet,extended release 24 hr ezetimibe 10 mg tablet (Zetia) 10 mg PO DAILY #90 tabs 12/02/23 12/09/23 Rx hydrocodone 5 mg-acetaminophen 325 1 tab PO Q8H pain 12/09/23 12/09/23 History mg tablet magnesium 250 mg tablet 250 mg PO 3XWK 12/09/23 12/09/23 History cefepime 2 gram solution for 2 g IV Q12H 12/14/23 Rx injection Hospital Stay Data Consultations 12/09/23 17:28 ED Decision to Admit Stat 12/09/23 18:14 Consult Infectious Diseases Routine 12/09/23 18:19 Consult General Surgery Routine Diagnostic Imagining Performed 12/09/23 15:20 CT leg [CT tib/fib RT w con] Stat 12/09/23 18:33 US soft tissue ext ltd Routine US venous doppler LE RT Routine Pending Results Patient Have Any Pending Studies at Discharge: No Discharge Instructions Given to Patient (Per Discharging Provider) you will be on home IV antibiotics thru 12/19/23 continue to see wound care clinic to follow the progress of healing of your wound restart your bumex, but be aware of your weight and hydration, losing weight may mean that your bumex may need to be reduced, please have a follow up with Bob Soliman to asses your medications Total Time Total Time Spent Total Time Spent (In Minutes): It required greater than 30 minutes to prepare this patient for discharge. Coding Level of Care Code 99788 INP/OBS DISCH >30 MIN Diagnoses Non-healing surgical wound, initial encounter T81.89XA S/P CABG x 5 Z95.1 Acute on chronic heart failure with preserved ejection fraction I50.33 Heart failure chronicity: acute on chronic Hypertension I10
== END 2023-12-14 11:32 | disposition home health service (06) | DRG 863 ==
LOC: ED 12:05 → SUATTDRO 17:45 → 2W 17:45

== ENCOUNTER 2023-12-23 18:34 | Inpatient (IN) ==
[2023-12-23 19:23] LABS: Basophils # (auto) 0.04 K/uL (0.00-0.20); Basophils % (auto) 0.5 %; Eosinophils % (auto) 3.8 %; Hematocrit (blood only) 37.7 % (42.0-52.0); Hemoglobin 11.6 g/dl (14.0-18.0); Immature Granulocytes # (auto) 0.03 K/uL (0.01-0.20); Immature Granulocytes % (auto) 0.4 %; Lymphocytes # (auto) 0.69 K/uL (1.20-3.40); Lymphocytes % (auto) 8.7 %; Mean Corpuscular Hemoglobin 27.2 pg (25.0-34.0); Mean Corpuscular Hgb Conc 30.8 g/dL (32.0-36.0); Mean Corpuscular Volume 88.3 fL (80.0-100.0); Mean Platelet Volume 10.8 fL (9.4-12.4); Monocytes # (auto) 1.28 K/uL (0.11-0.59); Monocytes % (auto) 16.2 %; Neutrophils # (auto) 5.58 K/uL (1.40-6.50); Neutrophils % (auto) 70.4 %; Platelet Count 235 K/uL (130-400); RDW Standard Deviation 51.2 fL (36.4-46.3); Red Blood Count 4.27 M/uL (4.70-6.10); White Blood Count 7.92 K/ul (4.8-10.8)
[2023-12-23 19:41] LABS: Albumin Globulin Ratio 1.2 (0.9-2); Albumin Level 4.2 gm/dl (3.4-5.0); BUN Creatinine Ratio 20.2 (10-20); Bilirubin,Total 0.5 mg/dl (0.2-1.0); Calcium 8.9 mg/dl (8.6-10.3); Creatinine Clr Calc Pharmacy 81.1 ml/min; Est GFR (African American) 83.9 ml/min; Est GFR (Non-African American) 72.4 ml/min; Globulin 3.4 gm/dl (2.5-4.0); Magnesium 1.8 mg/dl (1.7-2.4); Potassium 4.3 mmol/L (3.5-5.1); Total Protein 7.6 gm/dl (6.0-8.3)
[2023-12-23 19:50] LABS: INR 2.2 (0.9-1.1); Partial Thromboplastin Ratio 1.2; Partial Thromboplastin Time 33 Seconds (21-31); Prothrombin Time 22.6 Seconds (9.0-12.0)
--- NOTE | 2023-12-23 20:34 | Emergency Department Note ---
Impression & Plan Cellulitis of right lower extremity, Surgical wound, non healing, Subtherapeutic international normalized ratio (INR) ED Provider Note ED Provider Note NAME: ISH BRYSON AGE:68 SEX: Male : 1955 ARRIVES VIA: Private vehicle INFORMANT: Patient ED PROVIDER(s): Pamela Tavarez DO CHIEF COMPLAINT: Worsening right lower extremity cellulitis HPI: This is a 68-year-old male presents emergency department due to concern for worsening right lower extremity cellulitis. Patient with problems over the last several months in his right lower extremity at the site of prior vein harvesting from a CABG performed at the [facility] back in September. Patient had been admitted several times both at our facility as well as the [facility] for recurrent infection and cellulitis at these vein sites in the right lower extremity. He just finished IV cefepime on Wednesday. The IV was removed on Wednesday. He states in the last 3 days he has had increased pain and increased redness in the right lower extremity again. He was seen at wound care again today and follow-up and was encouraged to return to the emergency department due to worsening appearance of the right lower extremity. He does have minimal drainage from several open wounds. He states he has noticed mild bodyaches although no fevers and chills, no nausea and vomiting, no abdominal pain, no dizziness. He states he is able to walk on the affected leg. He states the pain seems to wax and wane and is unrelated to weightbearing. PAST MEDICAL HISTORY:See Below PAST SURGICAL HISTORY:See Below FAMILY HISTORY:See Below SOCIAL HISTORY:See Below HOME MEDICATIONS:See Below ALLERGIES:See Below VITALS:See Below PHYSICAL EXAMINATION: GENERAL: alert, well appearing, well nourished, no distress, non-toxic EYE EXAM: normal conjunctiva, PERRL and EOM's grossly intact NECK: supple, no nuchal rigidity, no adenopathy, non-tender LUNGS: Clear to auscultation. Normal chest wall mechanics, no w/r/r HEART: no murmurs, S1 normal and S2 normal ABDOMEN: abdomen soft, non-tender, normo-active bowel sounds, no masses, no rebound or guarding. SKIN: no rashes, petechiae, orbruising UPPER EXTREMITIES: upper extremities are grossly normal. FROM, nml pulses b/l. LOWER EXTREMITIES: No pitting edema. FROM, nml pulses b/l. Several nonhealing wounds noted to the anterior aspect of the distal right lower extremity with surrounding erythema and increased warmth, tenderness with palpation over the wounds themselves, no other bony tenderness, no joint effusions, compartments soft, no skin sloughing, no vesicles, no petechiae; wound culture obtained by myself at bedside NEURO EXAM: Normal sensorium, cranial nerves II-XII grossly intact, normal speech, no facial droop,nogross weakness of arms, no gross weakness of legs. Gross sensation intact. No ataxia. Vital Signs: reviewed and remarkable Differential Diagnosis: cellulitis, abscess, MRSA infection, DVT, necrotizing fasciitis, dermatitis, drug eruption, as well as others were entertained. MEDICAL DECISION MAKING: This is a 68-year-old male presents emergency room due to concern for worsening cellulitis and right lower extremity wounds after recently finishing IV cefepime following admission here for same. He was afebrile vital signs stable on arrival. Patient complains of generalized bodyaches although no other systemic symptoms. Labs drawn and sent, IV established, wound culture obtained by me at bedside and sent additionally. I was able to contact on-call ID via [facility] who had also been involved in the patient's care last week during admission. They recommended monitoring the patient overnight, restarting IV cefepime, awaiting wound culture. She did ask that pictures be placed in the EMR for her review additionally. This was discussed with the patient at bedside who verbalized understanding and was in agreement and is happy to stay here and lieu of returning to the [facility]. Case discussed with the hospitalist team for additional evaluation and management. Patient's exam at this time not suggestive of abscess, and low suspicion for DVT given use of Coumadin although he was slightly subtherapeutic at 2.2 given a history of a mechanical valve. No evidence for compartment syndrome. Consultation(s): 2031: I called a left a message with ID via [facility] who was involved in the patient's care during his recent admission. 2106: Discussed with Dr. Villarreal, ID with [facility]. No blood culture needed at this time. Patient should be kept overnight, started on 2 g of IV cefepime and again, and culture placed for her to see him in the morning. She did request additional pictures to be taken of the affected areas and uploaded in the system for her to be able to review. 2129: Discussed with Dr. Myles, [facility] hospitalist team, for additional evaluation and management. ER Treatment Provided: See below Diagnostics Interpreted By Me: -Cardiac Monitoring: An order was placed for continuous cardiac monitoring. The monitor shows a rate of [] with [] rhythm. -Laboratory studies: As stated above and show below. -Imaging studies: [] Triage Nursing Note Reviewed Prior/Outside Records Reviewed Past Med/Surg History Problem List (Updated 12/24/23 @ 00:57 by Kerry Ricardo MD) GERD (gastroesophageal reflux disease) Subtherapeutic international normalized ratio (INR) (Acute) Abscess of leg Surgical wound, non healing (Acute) Cellulitis of right lower extremity (Acute) Paroxysmal atrial fibrillation Diabetes Systolic heart failure Respiratory distress Iron deficiency anemia (Chronic) Personal history of colonic polyps Coronary atherosclerosis of [place] coronary vessel Esophageal edema Calcific tendinitis (Acute) Cardiomegaly Gout (Chronic) CAD (coronary artery disease) HLD (hyperlipidemia) Medical History Hx of chronic congestive heart failure Obesity denies being diabetic - on trulicity for weight loss and jardiance for heart failure On anticoagulant therapy LEYDA (obstructive sleep apnea) CPAP Hx of myocardial infarction 2004 Surgical History S/P MVR (mitral valve replacement) 2011- [facility] Hx of colonoscopy Hx of cardiac catheterization x 2-- 2004 following SD and 2020- X 1 stent [place] S/P Maze operation for atrial fibrillation Hx of atrioventricular node ablation 07/2022 Atrial fibrillation status post cardioversion 10/30/2011 S/P left heart catheterization by percutaneous approach 2007 S/P placement of cardiac pacemaker Family History Family/Other Myocardial infarction "All of them." Mother Ovarian cancer Other Heart disease Denies family history of Prostate cancer Breast cancer Colorectal cancer Social History Smoking Status: Never smoker Tobacco Type: Cigarettes Age Started Using Tobacco: 5; Age Quit Using Tobacco: 27; packs per day: 2; Second Hand Exposure: No; Do You Dip or Chew Tobacco: No; Hx Alcohol Use: Yes Alcohol type: beer Alcohol Intake Frequency: 2-4 x/Month Hx Substance Use: No Preferred Language: Lao Communication Ability: Effective Visual Impairment: No Limitations Hearing Ability: Normal Teletype Clerk Required: No Beliefs That Will Affect Care: None marital status: Current Living Situation: Spouse Current Living Situation Comment: independent at home with spouse. current occupational status: retired How many Children do You have: 3 How many Children do You have Comment: One lives with patient but unable to assist, the other 2 are in [facility]. able to assist Other Information That Helps Us Care for You: No Feels Safe at Home: Yes Safety Concerns: Feels Safe At This Time Childhood Exposure to Second-Hand Smoke: No Diet: regular Dental Care, Regularly: No Physical Activity Frequency: 1-2 Times per Week Seatbelt Use: always Sunscreen Use: No Do you think of yourself as: straight/heterosexual Assistive Devices: CPAP and Walker Allergies Allergies Allergy/AdvReac Type Severity Reaction Status Date / Time sulfamethoxazole AdvReac Severe LOWERS Verified 12/23/23 08:02 [From Bactrim] PLATLETS, ON WARFARIN trimethoprim [From Bactrim] AdvReac Severe LOWERS Verified 12/23/23 08:02 PLATLETS, ON WARFARIN [id number] Reductase AdvReac Intermediate MUSCLE & Verified 12/23/23 08:02 Inhibitor JOINT PAIN Home Meds Home Medications Medication Instructions Recorded Confirmed empagliflozin 10 mg tablet 10 mg PO QAM 07/02/22 12/23/23 (Jardiance) aspirin 81 mg tablet,delayed 81 mg PO QAM 04/26/23 12/23/23 release (Adult Aspirin Regimen) bumetanide 2 mg tablet 2 mg PO QAM Fluid Retention 11/23/23 12/23/23 ferrous gluconate 225 mg (27 mg 225 mg PO DAILY 11/23/23 12/23/23 iron) tablet sacubitril 24 mg-valsartan 26 mg 1 tab PO BID 11/23/23 12/23/23 tablet (Entresto) warfarin 2 mg tablet 3 mg PO QPM 11/23/23 12/23/23 metoprolol succinate 25 mg 25 mg PO BID 11/25/23 12/23/23 tablet,extended release 24 hr hydrocodone 5 mg-acetaminophen 325 1 tab PO Q8H pain 12/09/23 12/23/23 mg tablet magnesium 250 mg tablet 250 mg PO 3XWK 12/09/23 12/23/23 Previous Rx's Medication Instructions Recorded pantoprazole 20 mg tablet,delayed 20 mg PO DAILY #30 tabs 11/03/23 release ezetimibe 10 mg tablet (Zetia) 10 mg PO DAILY #90 tabs 12/02/23 cefepime 2 gram solution for 2 g IV Q12H 12/14/23 injection potassium chloride 20 mEq 20 meq PO DAILY #90 tabs 12/16/23 tablet,extended release Results & Data (ED) Vital Signs Vital Signs - 24 hr 12/23/23 18:41 12/23/23 20:43 12/23/23 21:43 Temperature 36.6 C Temperature Source Temporal Artery Scan Pulse Rate 84 71 Pulse Rate [Finger] 70 Pulse Rhythm [Finger] Regular Pulse Strength [Finger] Normal Respiratory Rate 18 20 Respiratory Effort / Characteristics Non-Labored Spontaneous Non-Labored Spontaneous Respiratory Depth Normal Normal Respiratory Pattern Regular Blood Pressure 113/68 Blood Pressure [Right Arm] 129/76 Blood Pressure Mean 83 Blood Pressure Mean [Right Arm] 93 Blood Pressure Position [Right Arm] Sitting Pulse Oximetry 96 95 Oxygen Delivery Method Room Air Room Air Sepsis Recent Fever Within 48 Hours No Sepsis New/Unexplained Change in Mental Status N/A Sepsis Action Taken by Nursing No Action Required Laboratory Data 12/23/23 18:33 12/23/23 18:33 Lab Results 12/23/23 Range/Units 18:33 WBC 7.92 (4.8-10.8) K/ul RBC 4.27 L (4.70-6.10) M/uL Hgb 11.6 L (14.0-18.0) g/dl Hct 37.7 L (42.0-52.0) % MCV 88.3 (80.0-100.0) fL MCH 27.2 (25.0-34.0) pg MCHC 30.8 L (32.0-36.0) g/dL RDW Std Deviation 51.2 H (36.4-46.3) fL RDW Coeff of Vlad 16.0 H (11.5-14.5) % Plt Count 235 (130-400) K/uL MPV 10.8 (9.4-12.4) fL Immature Gran % (Auto) 0.4 % Neut % (Auto) 70.4 % Lymph % (Auto) 8.7 % [place] % (Auto) 16.2 % Eos % (Auto) 3.8 % Baso % (Auto) 0.5 % Neut # (Auto) 5.58 (1.40-6.50) K/uL Lymph # (Auto) 0.69 L (1.20-3.40) K/uL [place] # (Auto) 1.28 H (0.11-0.59) K/uL Eos # (Auto) 0.30 (0.00-0.50) K/uL Baso # (Auto) 0.04 (0.00-0.20) K/uL Immature Gran # (Auto) 0.03 (0.01-0.20) K/uL PT 22.6 H (9.0-12.0) Seconds INR 2.2 H (0.9-1.1) APTT 33 H (21-31) Seconds PTT Ratio 1.2 Sodium 139 (136-145) mmol/L Potassium 4.3 (3.5-5.1) mmol/L Chloride 104 (98-107) mmol/L Carbon Dioxide 27 (21-32) mmol/L Anion Gap 8 (3-11) BUN 21 (6-23) mg/dl Creatinine 1.04 (0.6-1.4) mg/dl Est Cr Clr Drug Dosing 81.1 ml/min Est GFR ( Amer) 83.9 ml/min Est GFR (Non-Af Amer) 72.4 ml/min BUN/Creatinine Ratio 20.2 H (10-20) Glucose 91 (70-99(Fasting)) mg/dl Calcium 8.9 (8.6-10.3) mg/dl Magnesium 1.8 (1.7-2.4) mg/dl Total Bilirubin 0.5 (0.2-1.0) mg/dl AST 38 (13-39) U/L ALT 27 (7-52) U/L Alkaline Phosphatase 85 (34-104) U/L Total Protein 7.6 (6.0-8.3) gm/dl Albumin 4.2 (3.4-5.0) gm/dl Globulin 3.4 (2.5-4.0) gm/dl Albumin/Globulin Ratio 1.2 (0.9-2) Procalcitonin < 0.02 (0-0.5) ng/ml Administered Medications Metoprolol Succinate (Metoprolol Succ 25mg Ext Rel Tab) 25 mg PO BID ADIS Stop: 01/22/24 23:45 Last Admin: 12/24/23 00:19 Dose: Not Given Documented By: DN Sacubitril/Valsartan (Valsartan/Sacubitril 26/24mg Tab) 1 tab PO BID ADIS Stop: 01/22/24 23:45 Last Admin: 12/24/23 00:19 Dose: Not Given Documented By: DN Discontinued Medications Cefepime HCl (Maxipime) 2,000 mg in 20 mls @ 5 mls/min IV NOW STA; Protocol Stop: 12/23/23 21:10 Last Admin: 12/23/23 21:17 Dose: 5 mls/min Documented By: DARRELL Discharge Plan Visit Data Chief Complaint: Infection Stated Complaint: INFECTION RT LEG ED Provider: Pamela Tavarez Discharge Problem: Cellulitis of right lower extremity, Surgical wound, non healing, Subtherapeutic international normalized ratio (INR) Patient Disposition: Admitted As Inpatient Discharge Instructions Interventions: ED Discharge Assessment Last Done: 12/23/23 23:17
[2023-12-23] MEDS: CEFEPIME 2,000 MG/20 ML VIAL IV STA (21:17)
--- NOTE | 2023-12-23 22:33 | History & Physical Report ---
Date of Service December 23, 2023 Assessment & Plan (1) Cellulitis of right lower extremity: Plan: 68M with PMH of CAD s/p CABG x 5, CHF s/p MVR, DM2, AF, CHAYITO, and a recently completed course of IV cefepime, who presents with concern for worsening RLE cellulitis now admitted, pending ID assessment, antibiotic recs. RLE Cellulitis -Afebrile, no chills. VSS. Mild local pain. No leukocytosis. Procalcitonin normal. -Recently completed course of IV cefepime days ago (12/18). -S/p cefepime x2 g given in the ER. ER physician also discussed case with ID, who recommended aforementioned IV antibiotics. Also recommended holding overnight for teleconference visit with patient tomorrow morning. -Blood culture, wound culture samples collected by ER physician sent to pathology. * Admit to MedSurg telemetry * ID consult placed appreciate mgmt recs * IV cefepime 2 g every 12 hours * Home Percocet 5/325 mg every 8 hours as needed Coronary artery disease -S/p CABG x 5 (2004, 2020, 2023), pacemaker placement (2017). Currently asymptomatic. * Continue home aspirin, Toprol, and Entresto. CHF -S/p mitral valve replacement (2011), atrial valve replacement, tricuspid valve repair, permanent pacemaker (2017). Asymptomatic. * Continue Toprol, Entresto as above. Continue home Bumex * Continue home magnesium, potassium chloride Atrial fibrillation/subtherapeutic INR -S/p maze procedure (2011), dual-chamber pacemaker placement (2017). -Takes Toprol, warfarin (3 mg every afternoon@4 PM). Target INR 2.5-3.5. * Continue home warfarin, Toprol (as above). * Trend PT/INR in a.m. labs Type 2 diabetes mellitus -Controlled most recent HgbA1c 5.3% on 12/10/2023. -Takes Jardiance, Zetia at home. Held on admission. * SSI, ACHS checks, per protocol (range 100-140 CF = 40 CR = 20) GERD * Continue home Protonix Iron deficiency anemia * Continue home ferrous gluconate Code: Full code Dispo: Med-Surg telemetry FEN/GI: Heart healthy DVT Prophylaxis: Home warfarin 3 mg every day@4 PM PT/OT: Yes Consults: Infectious Diseases Case Management: (2) Systolic heart failure: (3) Paroxysmal atrial fibrillation: (4) CAD (coronary artery disease): (5) Diabetes: (6) Iron deficiency anemia: (7) HLD (hyperlipidemia): (8) GERD (gastroesophageal reflux disease): History of Present Illness Primary Care Provider: Bob Soliman III, SY Vito is a 68-year-old man with a past medical history of coronary artery disease s/p CABG x 5, paroxysmal atrial fibrillation, hyperlipidemia, type 2 diabetes, iron deficiency anemia, and GERD, who presented to the ER for concern of worsening RLE cellulitis. This episode is the latest in a series of RLE infections following the harvesting of a vein from said leg in September for a CABG procedure he recently completed a course of IV cefepime on 12/18. Since then, he experienced increased pain, and redness in the right lower leg x 3 days. At his wound care appointment today, he was advised to return to the emergency depa rtment based on its worsening appearance. On ROS+, he denies fevers, chills, nausea, vomiting, abdominal pain, headache, dizziness, or intolerance to weightbearing on said leg. In the ER, labs revealed no evidence of leukocytosis (WBC-7.92), or significant electrolyte abnormalities. INR (2.2) was below his target range of 2.5-3.5. ED physician, Dr. Tavarez, discussed case with [facility] ID they recommended keeping him overnight, starting him on IV cefepime 2 g, and obtaining wound and blood cultures ahead of a teleconference visit with the patient tomorrow morning. The hospitalist service was then consulted for admission. Allergies Allergy/AdvReac Type Severity Reaction Status Date / Time sulfamethoxazole AdvReac Severe LOWERS Verified 12/23/23 08:02 [From Bactrim] PLATLETS, ON WARFARIN trimethoprim [From Bactrim] AdvReac Severe LOWERS Verified 12/23/23 08:02 PLATLETS, ON WARFARIN Lznmyda-JLL-CoU Reductase AdvReac Intermediate MUSCLE & Verified 12/23/23 08:02 Inhibitor JOINT PAIN Home Medications Medication Instructions Recorded Confirmed Type empagliflozin 10 mg tablet 10 mg PO QAM 07/02/22 12/23/23 History (Jardiance) aspirin 81 mg tablet,delayed 81 mg PO QAM 04/26/23 12/23/23 History release (Adult Aspirin Regimen) pantoprazole 20 mg tablet,delayed 20 mg PO DAILY #30 tabs 11/03/23 12/23/23 Rx release bumetanide 2 mg tablet 2 mg PO QAM Fluid Retention 11/23/23 12/23/23 History ferrous gluconate 225 mg (27 mg 225 mg PO DAILY 11/23/23 12/23/23 History iron) tablet sacubitril 24 mg-valsartan 26 mg 1 tab PO BID 11/23/23 12/23/23 History tablet (Entresto) warfarin 2 mg tablet 3 mg PO QPM 11/23/23 12/23/23 History metoprolol succinate 25 mg 25 mg PO BID 11/25/23 12/23/23 History tablet,extended release 24 hr ezetimibe 10 mg tablet (Zetia) 10 mg PO DAILY #90 tabs 12/02/23 12/23/23 Rx hydrocodone 5 mg-acetaminophen 325 1 tab PO Q8H pain 12/09/23 12/23/23 History mg tablet magnesium 250 mg tablet 250 mg PO 3XWK 12/09/23 12/23/23 History cefepime 2 gram solution for 2 g IV Q12H 12/14/23 12/23/23 Rx injection potassium chloride 20 mEq 20 meq PO DAILY #90 tabs 12/16/23 12/23/23 Rx tablet,extended release Past Med/Surg History Problem List GERD (gastroesophageal reflux disease) Subtherapeutic international normalized ratio (INR) (Acute) Abscess of leg Surgical wound, non healing (Acute) Cellulitis of right lower extremity (Acute) Paroxysmal atrial fibrillation Diabetes Systolic heart failure Respiratory distress Iron deficiency anemia (Chronic) Personal history of colonic polyps Coronary atherosclerosis of [place] coronary vessel Esophageal edema Calcific tendinitis (Acute) Cardiomegaly Gout (Chronic) CAD (coronary artery disease) HLD (hyperlipidemia) Medical History (HFpEF) heart failure with preserved ejection fraction Pacemaker 2017 [employer], [facility]- last checked 02/2023 Hypertension Hx of chronic congestive heart failure Obesity denies being diabetic - on trulicity for weight loss and jardiance for heart failure On anticoagulant therapy LEYDA (obstructive sleep apnea) CPAP Hx of myocardial infarction 2004 Surgical History S/P CABG x 5 S/P MVR (mitral valve replacement) 2011- [facility] Hx of colonoscopy Hx of cardiac catheterization x 2-- 2005 following MD and 2020- X 1 stent [facility] S/P Maze operation for atrial fibrillation Hx of atrioventricular node ablation 07/2022 Atrial fibrillation status post cardioversion 10/30/2011 S/P left heart catheterization by percutaneous approach 2007 S/P placement of cardiac pacemaker Family History Family/Other Myocardial infarction "All of them." Mother Ovarian cancer Other Heart disease Denies family history of Prostate cancer Breast cancer Colorectal cancer Social History Smoking Status: Never smoker Tobacco Type: Cigarettes Age Started Using Tobacco: 5; Age Quit Using Tobacco: 27; packs per day: 2; Second Hand Exposure: No; Do You Dip or Chew Tobacco: No; Hx Alcohol Use: Yes Alcohol type: beer Alcohol Intake Frequency: 2-4 x/Month Hx Substance Use: No Preferred Language: Albanian Communication Ability: Effective Visual Impairment: No Limitations Hearing Ability: Normal Double Needle Operator Required: No Beliefs That Will Affect Care: None marital status: Current Living Situation: Spouse Current Living Situation Comment: independent at home with spouse. current occupational status: retired How many Children do You have: 3 How many Children do You have Comment: One lives with patient but unable to assist, the other 2 are in [facility]. able to assist Other Information That Helps Us Care for You: No Feels Safe at Home: Yes Safety Concerns: Feels Safe At This Time Childhood Exposure to Second-Hand Smoke: No Diet: regular Dental Care, Regularly: No Physical Activity Frequency: 1-2 Times per Week Seatbelt Use: always Sunscreen Use: No Do you think of yourself as: straight/heterosexual Assistive Devices: None Review of Systems Review of Systems: All systems reviewed & are unremarkable except as noted in HPI & below Physical Exam Physical Exam: General: no acute distress, speaking in full sentences Resp: good inspiratory effort, no labored breathing HEENT: conjunctivae appear clear, no audible congestion, no swelling noted face or lips Skin (Leg): On RLE, confluent area of redness at the anterior medial johnson, extending proximally from just below the patella to the ankle bone distally. On LLE, healing area of pigmented skin, in a similar distribution to the RLE Neuro: alert and oriented x3, no focal deficits appreciated Psych: euthymic affect, pleasant and interactive, logical thought process Results & Data Results & Data Vital Signs (Past 12 Hours) Vital Signs Temp Pulse Pulse Resp BP BP Pulse Ox 12/23/23 22:21 72 20 122/73 97 12/23/23 21:43 71 12/23/23 20:43 70 20 129/76 95 12/23/23 18:41 36.6 C 84 18 113/68 96 O2 Del Method 12/23/23 22:21 Room Air 12/23/23 21:43 12/23/23 20:43 Room Air 12/23/23 18:41 Room Air Supervising Physician Co-Signing Physician Notes Attending addendum: I have physically seen this patient, have supervised the medical residents activities, and agree with the H&P unless as otherwise noted. Assessment and Plan: Right lower extremity cellulitis/postop wound infection- Wound culture positive for Pseudomonas aeruginosa on 12/09/2023 Most recent hospitalization from 12/08-12/14/2023, and then completed total 10 days of IV cefepime Admit to [facility] telemetry Recommendation of ID over the phone with ED cefepime 2 g IV every 12 hours IV will consult CAD status post MVR/status post AVR/tricuspid valve repair/permanent pacemaker/atrial fibrillation/status post maze procedure- Continue warfarin, Entresto, aspirin, bumetanide and metoprolol succinate Continue potassium chloride and magnesium supplementation Follow serial CBC with differential, basic metabolic panel and magnesium level INR 2.2, with range 2.5-3.5 He has already received his evening dose of warfarin If not at target in a.m., would give a bridging dose of Lovenox Diabetes mellitus- Hold Jardiance Place Accu-Cheks with NovoLog SSI Resident Activity Tracking Resident Involvement: Resident Care Provided Care Provided: Adult Hospital Medicine (2) Systolic heart failure Heart failure chronicity: chronic Qualified Code(s): I50.22 - Chronic systolic (congestive) heart failure (4) CAD (coronary artery disease) Associated angina: unspecified whether angina present Coronary Disease- Associated Artery/Lesion type: bypass graft [place] vs. transplanted heart: [place] heart Qualified Code(s): I25.810 - Atherosclerosis of coronary artery bypass graft(s) without angina pectoris (5) Diabetes Diabetes mellitus complication detail: with other circulatory complications Diabetes mellitus complication status: with circulatory complication Diabetes mellitus alf insulin use: without intermediate accountant use Diabetes mellitus type: type 2 Qualified Code(s): E11.59 - Type 2 diabetes mellitus with other circulatory complications (6) Iron deficiency anemia Iron deficiency anemia type: unspecified iron deficiency Qualified Code(s): D50.9 - Iron deficiency anemia, unspecified (7) HLD (hyperlipidemia) Hyperlipidemia type: unspecified Qualified Code(s): E78.5 - Hyperlipidemia, unspecified (8) GERD (gastroesophageal reflux disease) Esophagitis presence: esophagitis presence not specified Qualified Code(s): K21.9 - Gastro-esophageal reflux disease without esophagitis
[2023-12-24] MEDS: VALSARTAN/SACUBITRIL 26/24MG TAB PO SCH (00:19)
[2023-12-24] MEDS: METOPROLOL SUCC 25MG EXT REL TAB PO SCH (00:19)
[2023-12-24] MEDS ORDERED: GLUCOSE 40% GEL 15 GM TUBE PO PRN (01:58)
[2023-12-24] MEDS ORDERED: GLUCOSE 10 TAB/TUBE PO PRN (01:58)
[2023-12-24] MEDS ORDERED: DEXTROSE 50% 50 ML SYRINGE IV PRN (01:58)
[2023-12-24] MEDS ORDERED: CARBOHYDRATES FOR HYPOGLYCEMIA PO PRN (01:58)
[2023-12-24] MEDS ORDERED: GLUCAGON FOR INJ 1 MG VIAL SQ PRN (01:58)
[2023-12-24 06:58] LABS: Basophils # (auto) 0.04 K/uL (0.00-0.20); Basophils % (auto) 0.7 %; Eosinophils # (auto) 0.33 K/uL (0.00-0.50); Eosinophils % (auto) 5.4 %; Hematocrit (blood only) 34.4 % (42.0-52.0); Hemoglobin 10.8 g/dl (14.0-18.0); Immature Granulocytes # (auto) 0.02 K/uL (0.01-0.20); Immature Granulocytes % (auto) 0.3 %; Lymphocytes # (auto) 0.57 K/uL (1.20-3.40); Lymphocytes % (auto) 9.4 %; Mean Corpuscular Hemoglobin 27.3 pg (25.0-34.0); Mean Corpuscular Hgb Conc 31.4 g/dL (32.0-36.0); Mean Corpuscular Volume 86.9 fL (80.0-100.0); Mean Platelet Volume 10.5 fL (9.4-12.4); Monocytes # (auto) 1.02 K/uL (0.11-0.59); Monocytes % (auto) 16.7 %; Neutrophils # (auto) 4.11 K/uL (1.40-6.50); Neutrophils % (auto) 67.5 %; Platelet Count 220 K/uL (130-400); RDW Standard Deviation 50.6 fL (36.4-46.3); Red Blood Count 3.96 M/uL (4.70-6.10); White Blood Count 6.09 K/ul (4.8-10.8)
[2023-12-24 07:12] LABS: BUN Creatinine Ratio 27.5 (10-20); Calcium 8.5 mg/dl (8.6-10.3); Chol HDL Ratio 3.9 (0-5); Creatinine Clr Calc Pharmacy 121.7 ml/min; Est GFR (African American) 111.5 ml/min; Est GFR (Non-African American) 96.2 ml/min; Magnesium 1.9 mg/dl (1.7-2.4); Phosphorus 3.5 mg/dl (2.5-4.9)
[2023-12-24 07:17] LABS: INR 2.2 (0.9-1.1); Prothrombin Time 22.1 Seconds (9.0-12.0)
--- NOTE | 2023-12-24 07:49 | Hospitalist Progress Note ---
Date of Service December 24, 2023 Assessment & Plan (1) Cellulitis of right lower extremity: Plan: 68M with PMH of CAD s/p CABG x 5, CHF s/p MVR, DM2, AF, CHAYITO, and a recently completed course of IV cefepime, who presents with concern for worsening RLE cellulitis now admitted, pending ID assessment, antibiotic recs. *Complication of surgical procedure, in the setting of RLE infection following the harvesting of vein for CABG RLE Cellulitis -Afebrile, no chills. VSS. Mild local pain. No leukocytosis. Procalcitonin normal. -Recently completed course of IV cefepime days ago (last dose was on 12/18). CT RLE during that admission w/ ulceration in the distal medial soft tissues without abscess or underlying osteomyelitis. -S/p cefepime x2 g given in the ER. ER physician also discussed case with ID, who recommended aforementioned IV antibiotics. Also recommended holding overnight for teleconference visit with patient tomorrow morning. Obtained blood culture, wound culture samples collected by ER physician sent to pathology. 12/23 WBC wnl. Procalcitonin <0.02 Remains on Cefepime IV Blood culture from admission pending Checking ESR/CRP for completeness -- ESR elevated 37 (prior43) but CRP worse 1.28 (was 0.62) INR still subtherapeutic, adding Lovenox SQ BID. Remains on Coumadin 3mg daily. Continue to monitor INR Added Wound RN consult Elevation, pain control: Home Percocet 5/325 mg every 8 hours as needed Will repeat CT R tib/fib for further eval given prior concerns for complex fluid collection on U/S from 12/08. Report: ". There is a complex subcutaneous fluid collection within the mid medial calf with mild peripheral vascularity. This measures 7.5 x 3.0 x 1.5 cm. There is an additional ill-defined complex fluid collection within the distal medial calf measuring 5.4 x 2.5 x 0.6 cm." ID consult pending, appreciate recs/assistance Monitor labs/exam on repeat. F/u CT imaging (2) CAD (coronary artery disease): Plan: CAD, HFpEF, Atrial fibrillation s/p MAZE procedure 2012 CAD S/p CABG x 5 (2004, 2020, 2023), pacemaker placement (2017). Currently asymptoma tic. * Continue home aspirin, Toprol, and Entresto. HFpEF -S/p mitral valve replacement (2012), atrial valve replacement, tricuspid valve repair, permanent pacemaker (2017). Asymptomatic. * Continue Toprol, Entresto as above. * Continue home Bumex, KCl, magnesium * --> Does not appear to be volume overloaded at present time. * Monitor volume status Atrial fibrillation/subtherapeutic INR S/p maze procedure (2011), dual-chamber pacemaker placement (2017). Takes Toprol, warfarin (3 mg every afternoon@4 PM). Target INR 2.5-3.5. Continue home warfarin, Toprol (as above). Added Lovenox as above while INR <2.5, continue to monitor INR. (3) Systolic heart failure: Plan: as above adding daily weights (weight down 12kg at [facility] and was 106.6kg) - 106.5kg currently continues on entresto, bumex monitor volume status (4) Paroxysmal atrial fibrillation: Plan: Paced in 70s on monitor. Keep K/mag replete. Can downgrade off telemetry per request as has been stable/no CP/SOB/electrolyte abn (5) Diabetes: Plan: Type 2 diabetes mellitus -Controlled most recent HgbA1c 5.3% on 12/10/2023. Jardiance held on admission but resumed given likely for HF. Remains on zetia. BSG checks DISCONTINUED given A1c/no elevations and POC 90s on am labs (6) Iron deficiency anemia: Plan: Continue home ferrous gluconate (7) HLD (hyperlipidemia): (8) GERD (gastroesophageal reflux disease): Plan: Continue home Protonix Plan continued inpatient stay on Cefepime IV, wound RN consult CT tib/fib for eval fluid collection ID consult pending, appreciate recs/assistance Admission and Anticipated Discharge Date Admission Date: December 23, 2023 Supervising Physician Co-Signing Physician Notes The patient was not seen by me. The chart was reviewed. Case discussed with HEVER Castro. Agree with assessment and plan Subjective Evaluated this morning, working with therapy. Pain tolerable with the pain medication ordered but reports was getting better on the IV antitbiotics and started to worsen about two days after he stopped. Currently dressed, +warmth. Discussed obtaining a repeat CT of the LE for eval and fluid collection/abscess given prior imaging. ID consult not yet done. Remains on IV antibiotics and continued inpatient stay awaiting for imaging/ID consultation. No chest pain/shortness of breath/abdominal pain. Questions/concerns addressed at this time. Physical Exam Physical Exam: General: 68yo male walking in room with PT, NAD but reporting pain in his leg increasing with activity Head atraumatic, nornomocephalic, mmm, trachea midline Resp: even/unlabored, no w/c/r, on room air CV: RRR, +systolic murmur, no overt pitting edema, pulse present GI: +BS, soft/NT ; no zhao MSK/Neuro: RLE w/ dressing intact, +warmth, +indurated area to superior medial aspect, +warmth/tenderness dressing not removed per request until eval by ID Psych: AOx3, cooperative with exam Results & Data Results & Data Vital Signs (Past 12 Hours) Vital Signs Temp Pulse Pulse Resp BP Pulse Ox O2 Del Method 12/24/23 05:45 70 12/23/23 23:56 36.7 C 69 18 136/80 97 Room Air 12/23/23 22:21 72 20 122/73 97 Room Air 12/23/23 21:43 71 12/23/23 20:43 70 20 129/76 95 Room Air Laboratory Results 12/24/23 12/23/23 Range/Units 06:10 18:33 WBC 6.09 7.92 (4.8-10.8) K/ul RBC 3.96 L 4.27 L (4.70-6.10) M/uL Hgb 10.8 L 11.6 L (14.0-18.0) g/dl Hct 34.4 L 37.7 L (42.0-52.0) % MCV 86.9 88.3 (80.0-100.0) fL MCH 27.3 27.2 (25.0-34.0) pg MCHC 31.4 L 30.8 L (32.0-36.0) g/dL RDW Std Deviation 50.6 H 51.2 H (36.4-46.3) fL RDW Coeff of Vlad 16.0 H 16.0 H (11.5-14.5) % Plt Count 220 235 (130-400) K/uL MPV 10.5 10.8 (9.4-12.4) fL Immature Gran % (Auto) 0.3 0.4 % Neut % (Auto) 67.5 70.4 % Lymph % (Auto) 9.4 8.7 % Miner % (Auto) 16.7 16.2 % Eos % (Auto) 5.4 3.8 % Baso % (Auto) 0.7 0.5 % Neut # (Auto) 4.11 5.58 (1.40-6.50) K/uL Lymph # (Auto) 0.57 L 0.69 L (1.20-3.40) K/uL Miner # (Auto) 1.02 H 1.28 H (0.11-0.59) K/uL Eos # (Auto) 0.33 0.30 (0.00-0.50) K/uL Baso # (Auto) 0.04 0.04 (0.00-0.20) K/uL Immature Gran # (Auto) 0.02 0.03 (0.01-0.20) K/uL PT 22.1 H 22.6 H (9.0-12.0) Seconds INR 2.2 H 2.2 H (0.9-1.1) APTT 33 H (21-31) Seconds PTT Ratio 1.2 Sodium 140 139 (136-145) mmol/L Potassium 4.0 4.3 (3.5-5.1) mmol/L Chloride 106 104 (98-107) mmol/L Carbon Dioxide 27 27 (21-32) mmol/L Anion Gap 7 8 (3-11) BUN 19 21 (6-23) mg/dl Creatinine 0.69 D 1.04 (0.6-1.4) mg/dl Est Cr Clr Drug Dosing 121.7 81.1 ml/min Est GFR ( Amer) 111.5 83.9 ml/min Est GFR (Non-Af Amer) 96.2 72.4 ml/min BUN/Creatinine Ratio 27.5 H 20.2 H (10-20) Glucose 98 91 (70-99(Fasting)) mg/dl Calcium 8.5 L 8.9 (8.6-10.3) mg/dl Phosphorus 3.5 (2.5-4.9) mg/dl Magnesium 1.9 1.8 (1.7-2.4) mg/dl Total Bilirubin 0.5 (0.2-1.0) mg/dl AST 38 (13-39) U/L ALT 27 (7-52) U/L Alkaline Phosphatase 85 (34-104) U/L Total Protein 7.6 (6.0-8.3) gm/dl Albumin 4.2 (3.4-5.0) gm/dl Globulin 3.4 (2.5-4.0) gm/dl Albumin/Globulin Ratio 1.2 (0.9-2) Triglycerides 93 (0-150) mg/dl Cholesterol 153 (0-200) mg/dl LDL Cholesterol, Calc 95 mg/dl VLDL Cholesterol, Calc 19 (0-30) mg/dl HDL Cholesterol 39 mg/dl Cholesterol/HDL Ratio 3.9 (0-5) Procalcitonin < 0.02 (0-0.5) ng/ml PG Care Time/CCT Total # of Minutes Spent Total Time Spent with Patient: Total time spent is greater than 50% in coordination of care (as documented) at patient's floor/unit and/or counseling patient: Coding Level of Care Code 31073 SUB INP/OBS CARE 3/50MIN Diagnoses Cellulitis of right lower extremity L03.115 Coronary artery disease involving coronary bypass graft of [place] heart, unspecified whether angina present I25.810 Associated angina: unspecified whether angina present Coronary Disease-Associated Artery/Lesion type: bypass graft [place] vs. transplanted heart: [place] heart Chronic systolic heart failure I50.22 Heart failure chronicity: chronic Paroxysmal atrial fibrillation I48.0 Type 2 diabetes mellitus with other circulatory complication, without long-term current use of insulin E11.59 Diabetes mellitus complication detail: with other circulatory complications Diabetes mellitus complication status: with circulatory complication Diabetes mellitus director long term care insulin use: without director long term care use Diabetes mellitus type: type 2 Iron deficiency anemia, unspecified iron deficiency anemia type D50.9 Iron deficiency anemia type: unspecified iron deficiency Hyperlipidemia, unspecified hyperlipidemia type E78.5 Hyperlipidemia type: unspecified Gastroesophageal reflux disease, unspecified whether esophagitis present K21.9 Esophagitis presence: esophagitis presence not specified (2) CAD (coronary artery disease) Associated angina: unspecified whether angina present Coronary Disease- Associated Artery/Lesion type: bypass graft [place] vs. transplanted heart: [place] heart Qualified Code(s): I25.810 - Atherosclerosis of coronary artery bypass graft(s) without angina pectoris (3) Systolic heart failure Heart failure chronicity: chronic Qualified Code(s): I50.22 - Chronic systoli c (congestive) heart failure (5) Diabetes Diabetes mellitus complication detail: with other circulatory complications Diabetes mellitus complication status: with circulatory complication Diabetes mellitus director long term care insulin use: without fdc use Diabetes mellitus type: type 2 Qualified Code(s): E11.59 - Type 2 diabetes mellitus with other circulatory complications (6) Iron deficiency anemia Iron deficiency anemia type: unspecified iron deficiency Qualified Code(s): D50.9 - Iron deficiency anemia, unspecified (7) HLD (hyperlipidemia) Hyperlipidemia type: unspecified Qualified Code(s): E78.5 - Hyperlipidemia, unspecified (8) GERD (gastroesophageal reflux disease) Esophagitis presence: esophagitis presence not specified Qualified Code(s): K21.9 - Gastro-esophageal reflux disease without esophagitis
[2023-12-24] MEDS: INSULIN ASPART PER UNIT CHARGE SC SCH (08:01)
[2023-12-24] MEDS: CEFEPIME 2,000 MG in SYRINGE 0 ML IV SCH (08:11)
[2023-12-24] MEDS: HYDROCODONE/ACETAMOPHEN 5/325MG TAB PO PRN (08:23)
[2023-12-24] MEDS: ASPIRIN 81 MG ECTAB PO SCH (08:25)
[2023-12-24] MEDS: BUMETANIDE 1 MG TAB PO SCH (08:26)
[2023-12-24] MEDS: EZETIMIBE 10 MG TAB PO SCH (08:26)
[2023-12-24] MEDS: POTASSIUM CHLORIDE CRTAB 20 MEQ TABCR PO SCH (08:27)
[2023-12-24] MEDS: PANTOprazole 40 MG TAB PO SCH (08:27)
[2023-12-24] MEDS: FERROUS GLUCONATE 324 MG TAB PO SCH (08:28)
[2023-12-24 08:52] LABS: C Reactive Protein 1.28 mg/dl (0-0.5)
[2023-12-24] MEDS: ENOXAPARIN 100 MG/1ML SYR SQ SCH (08:58)
--- NOTE | 2023-12-24 09:45 | Infectious Disease Consult ---
Date of Consultation December 24, 2023 Assessment & Plan (1) Cellulitis of right lower extremity: Plan PROBLEM LIST Nonhealing wound with small collection at harvest site Cellulitis Allergy to Bactrim (sulfa) -thrombocytopenia, likely ITP Pacemaker H/o Prolonged QTc ABX: Levaquin 12/08- 12/09 Minocycline 12/08- 12/12 Meropenem 12/09- 12/12 Cefepime 12/12-12/18 Cefepime 12/22- CURRENT MICRO: 12/22 Bcx in lab 12/22 wound cx PSA, sens P PRIOR MICRO: -Wound culture 12/08 Gram Stain Rare Gram Negative Bacilli. Gram Positive Cocci, Wound Culture - Pseudomonas Aeruginosa -Blood culture 12/08 NGTD -Wound culture 11/11/2023: E. coli (pansensitive), Stenotrophomonas maltophilia (sensitive to Bactrim), Myroides sp (intermediate to cefepime, intermediate to piperacillin/tazobactam, resistant to gentamicin, resistant to tobramycin, sensitive to Bactrim) 68-year-old man with a past medical history of CAD status post CABG x 5 ( [facility] on 10/14/2023), rheumatic heart disease status post mechanical aortic valve and mitral valve replacement on warfarin and tricuspid valve repair, atrial fibrillation, heart failure with preserved ejection fraction, status post pacemaker placement, hypertension, previously admitted twice to [facility] on 11/14 and then 12/08-12/13 with right lower extremity non healing surgical site with cellulitis at harvest site. Wound cx grew PSA, panS and patient discharged on Cefepime, for a total of 10 days through 12/18. However a few days after dcing Cefepime and after removal of midline he had increased redness and pain at site. Our ID team was called and patient was directed to [facility] on 12/22. Pertinent history includes ongoing nonhealing wound after CABG. Prior to his last hospitalization, he was seen by his PCP and wound was cultured. He was initially started on Keflex but the wounds worsened with increasing pain and erythema. Cultures finalized as pansensitive E. coli, stenotrophomonas maltophilia ( S Bactrim) and MDR Myroides sp (S Bactrim). He was started on Bactrim and took it for 2 days. On therapy the wound continued to worsen, so he presented to the [facility] ED on 11/14 and found to be severely thrombocytopenic (platelets 4) thought to be secondary to bactrims interaction with warfarin. He underwent lower extremity dopplers: negative for dvt but showed a complex elongated 13.6 x 1.4 x 1.7 cm fluid collection which extended from the right groin to mid thigh c/f hematoma and he was transferred to the [facility] for further evaluation. 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 He reports that he did not receive antibiotics for his lower extremity wounds. He was discharged home on approximately 11/19 to complete a course of IVIG IN [place]. It is unclear if he was scheduled to follow up with local ID for the wounds. He did well at home and with visits to the wound care center for wound debridement of slough and eschars . Approximately 3 to 4 days ago, he developed worsening redness, erythema and drainage from his surgical site wounds and was referred to the ED from wound care. He presented to the ED on 12/08. He denied fever, chills, sweats, nausea, vomiting, chest pain, cough. He reports pain at wound sites. He was not been on antibiotics. He denies any lower extremity grafts or stents near the wound sites.Right tib/fib CT with contrast shows ulceration in the distal medial soft tissue without abscess or underlying osteomyelitis. A right lower extremity soft tissue ultrasound shows similar-appearing complex subcutaneous fluid collections within the right medial calf. Which could represent a subcutaneous hematoma. Secondary infection such as abscess cannot be ruled out. Right lower extremity Doppler negative for DVT; Prior hematoma not seen. Wound culture grew PSA, panS. At that time he was taking minocycline and Levaquin, he was changed to Cefepime. This Hospitalization: He came to ED on 12/22, VSS, Normal WBC, cr 1.04, 12/22 Bcx in lab, 12/22 wound cultures thus far growing PSA. I spoke with ED team and recommended starting patient on Cefepime CT shows ll-defined collection in the superior medial leg measuring 18 x 10 mm without enhancing daniel. Surgical clips are seen. Recommendations: -I have restarted Cefepime, hopeful that this is all PSA, panS and needs prolonged therapy vs new MDR infection or infection a/w prior wound cultures -This weekend please follow Pseudomonas sensi from wound -Surgery vs IR evaluation of fluid collection, possible aspiration v drainage? If so please send bacterial cultures -Wednesday, if cultures negative plan to place PICC line, anticipate he will need at least 4-6 weeks of therapy to cover fluid infection vs vascular involvement, with close plans to see [facility] Dr. Goddard to start service on Wednesday Please page OTW to IDC with questions I spoke with Primary team regarding my recommendations Elaine Villarreal MD Infectious Diseases Consultation Information Consultation was provided via telemedicine using two-way real-time interactive telecommunication between the patient and the telemedicine provider. For the duration of the visit, the provider was performing the assessment from a different facility than the patient. This includesuse of bluetooth stethoscope forauscultationperformed by the telepresenter that the telemedicine provider can hear if described in the physical exam. Upsetter Helper contact information: Please call [facility] . (Phone Number For Physician Use Only) After establishing a telemedicine visit, patient was: Patient was verified with two unique identifiers, Patient/authorized rep acknowledged consent and understanding and Gave permission to continue telehealth session Time Spent with Patient: Initial => 55 min History of Present Illness Reason for Consultation: Bypass graft infection Requesting Physician: Dr. Hadyen Attending Physician: Yasmany Hayden MD History of Present Illness 68-year-old man with a past medical history of CAD status post CABG x 5 ( [facility] on 10/14/2023), rheumatic heart disease status post mechanical aortic valve and mitral valve replacement on warfarin and tricuspid valve repair, atrial fibrillation, heart failure with preserved ejection fraction, status post pacemaker placement, hypertension, previously admitted twice to [facility] on 11/14 and then 12/08-12/13 with right lower extremity non healing surgical site with cellulitis at harvest site. Wound cx grew PSA, panS and patient discharged on Cefepime, for a total of 10 days through 12/18. However a few days after dcing Cefepime and after removal of midline he had increased redness and pain at site. Our ID team was called and patient was directed to [facility] on 12/22. Pertinent history includes ongoing nonhealing wound after CABG. Prior to his last hospitalization, he was seen by his PCP and wound was cultured. He was initially started on Keflex but the wounds worsened with increasing pain and erythema. Cultures finalized as pansensitive E. coli, stenotrophomonas maltophilia ( S Bactrim) and MDR Myroides sp (S Bactrim). He was started on Bactrim and took it for 2 days. On therapy the wound continued to worsen, so he presented to the [facility] ED on 11/14 and found to be severely thrombocytopenic (platelets 4) thought to be secondary to bactrims interaction with warfarin. He underwent lower extremity dopplers: negative for dvt but showed a complex elongated 13.6 x 1.4 x 1.7 cm fluid collection which extended from the right groin to mid thigh c/f hematoma and he was transferred to the [facility] for further evaluation. 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 He reports that he did not receive antibiotics for his lower extremity wounds. He was discharged home on approximately 11/19 to complete a course of IVIG IN [place]. It is unclear if he was scheduled to follow up with local ID for the wounds. He did well at home and with visits to the wound care center for wound debridement of slough and eschars . Approximately 3 to 4 days ago, he developed worsening redness, erythema and drainage from his surgical site wounds and was referred to the ED from wound care. He presented to the ED on 12/08. He denied fever, chills, sweats, nausea, vomiting, chest pain, cough. He reports pain at wound sites. He was not been on antibiotics. He denies any lower extremity grafts or stents near the wound sites.Right tib/fib CT with contrast shows ulceration in the distal medial soft tissue without abscess or underlying osteomyelitis. A right lower extremity soft tissue ultrasound shows similar-appearing complex subcutaneous fluid collections within the right medial calf. Which could represent a subcutaneous hematoma. Secondary infection such as abscess cannot be ruled out. Right lower extremity Doppler negative for DVT; Prior hematoma not seen. Wound culture grew PSA, panS. At that time he was taking minocycline and Levaquin, he was changed to Cefepime. This Hospitalization: He came to ED on 12/22, VSS, Normal WBC, cr 1.04, 12/22 Bcx in lab, 12/22 wound cultu res thus far growing PSA. I spoke with ED team and recommended starting patient on Cefepime CT shows ll-defined collection in the superior medial leg measuring 18 x 10 mm without enhancing daniel. Surgical clips are seen. This morning, patient confirms above history, He has been trying to get follow up with [facility] but no avail. Allergies Allergy/AdvReac Type Severity Reaction Status Date / Time sulfamethoxazole AdvReac Severe LOWERS Verified 12/23/23 08:02 [From Bactrim] PLATLETS, ON WARFARIN trimethoprim [From Bactrim] AdvReac Severe LOWERS Verified 12/23/23 08:02 PLATLETS, ON WARFARIN Uisinbf-LYA-GnY Reductase AdvReac Intermediate MUSCLE & Verified 12/23/23 08:02 Inhibitor JOINT PAIN Home Medications Medication Instructions Recorded Confirmed Type empagliflozin 10 mg tablet 10 mg PO QAM 07/02/22 12/23/23 History (Jardiance) aspirin 81 mg tablet,delayed 81 mg PO QAM 04/26/23 12/23/23 History release (Adult Aspirin Regimen) pantoprazole 20 mg tablet,delayed 20 mg PO DAILY #30 tabs 11/03/23 12/23/23 Rx release bumetanide 2 mg tablet 2 mg PO QAM Fluid Retention 11/23/23 12/23/23 History ferrous gluconate 225 mg (27 mg 225 mg PO DAILY 11/23/23 12/23/23 History iron) tablet sacubitril 24 mg-valsartan 26 mg 1 tab PO BID 11/23/23 12/23/23 History tablet (Entresto) warfarin 2 mg tablet 3 mg PO QPM 11/23/23 12/23/23 History metoprolol succinate 25 mg 25 mg PO BID 11/25/23 12/23/23 History tablet,extended release 24 hr ezetimibe 10 mg tablet (Zetia) 10 mg PO DAILY #90 tabs 12/02/23 12/23/23 Rx hydrocodone 5 mg-acetaminophen 325 1 tab PO Q8H pain 12/09/23 12/23/23 History mg tablet magnesium 250 mg tablet 250 mg PO 3XWK 12/09/23 12/23/23 History cefepime 2 gram solution for 2 g IV Q12H 12/14/23 12/23/23 Rx injection potassium chloride 20 mEq 20 meq PO DAILY #90 tabs 12/16/23 12/23/23 Rx tablet,extended release Patient History Medical History (HFpEF) heart failure with preserved ejection fraction Pacemaker 2017 medtronic, [facility]- last checked 02/2023 Hypertension Hx of chronic congestive heart failure Obesity denies being diabetic - on trulicity for weight loss and jardiance for heart failure On anticoagulant therapy LEYDA (obstructive sleep apnea) CPAP Hx of myocardial infarction 2004 Surgical History S/P CABG x 5 S/P MVR (mitral valve replacement) 2011- [facility] Hx of colonoscopy Hx of cardiac catheterization x 2-- 2004 following [place] and 2020- X 1 stent [facility] S/P Maze operation for atrial fibrillation Hx of atrioventricular node ablation 07/2022 Atrial fibrillation status post cardioversion 10/30/2011 S/P left heart catheterization by percutaneous approach 2007 S/P placement of cardiac pacemaker Family History Family/Other Myocardial infarction "All of them." Mother Ovarian cancer Other Heart disease Denies family history of Prostate cancer Breast cancer Colorectal cancer Social History Smoking Status: Never smoker Tobacco Type: Cigarettes Age Started Using Tobacco: 5; Age Quit Using Tobacco: 27; packs per day: 2; Second Hand Exposure: No; Do You Dip or Chew Tobacco: No; Hx Alcohol Use: Yes Alcohol type: beer Alcohol Intake Frequency: 2-4 x/Month Hx Substance Use: No Preferred Language: Setswana Communication Ability: Effective Visual Impairment: No Limitations Hearing Ability: Normal Urban Forester Required: No Beliefs That Will Affect Care: None marital status: Current Living Situation: Spouse Current Living Situation Comment: independent at home with spouse. current occupational status: retired How many Children do You have: 3 How many Children do You have Comment: One lives with patient but unable to assist, the other 2 are in [facility]. able to assist Other Information That Helps Us Care for You: No Feels Safe at Home: Yes Safety Concerns: Feels Safe At This Time Childhood Exposure to Second-Hand Smoke: No Diet: regular Dental Care, Regularly: No Physical Activity Frequency: 1-2 Times per Week Seatbelt Use: always Sunscreen Use: No Do you think of yourself as: straight/heterosexual Assistive Devices: None Physical Exam Physical Exam: Open ulcerated wounds (see media) Results & Data Vital Signs (Past 12 Hours) Vital Signs Temp Pulse Pulse Resp BP Pulse Ox O2 Del Method 12/24/23 08:50 36.8 C 70 20 100/61 95 Room Air 12/24/23 05:45 70 12/23/23 23:56 36.7 C 69 18 136/80 97 Room Air 12/23/23 22:21 72 20 122/73 97 Room Air 12/23/23 21:43 71 Laboratory Results Short CBC 12/23/23 12/24/23 Range/Units 18:33 06:10 WBC 7.92 6.09 (4.8-10.8) K/ul Hgb 11.6 L 10.8 L (14.0-18.0) g/dl Hct 37.7 L 34.4 L (42.0-52.0) % Plt Count 235 220 (130-400) K/uL BMP 12/23/23 12/24/23 18:33 06:10 Sodium 139 140 Potassium 4.3 4.0 Chloride 104 106 Carbon Dioxide 27 27 BUN 21 19 Creatinine 1.04 0.69 D Glucose 91 98 Calcium 8.9 8.5 L Liver Function 12/23/23 Range/Units 18:33 Total Bilirubin 0.5 (0.2-1.0) mg/dl AST 38 (13-39) U/L ALT 27 (7-52) U/L Alkaline Phosphatase 85 (34-104) U/L Albumin 4.2 (3.4-5.0) gm/dl Medications Administered Current Inpatient Medications Hydrocodone Bitart/Acetaminophen (Hydrocodone/Acetamophen 5/325mg Tab) 1 tab PO Q8H PRN PRN Reason: Pain Stop: 01/06/24 23:45 Last Admin: 12/24/23 08:23 Dose: 1 tab Aspirin (Aspirin 81 Mg Ectab) 81 mg PO QAM [facility] Stop: 01/23/24 08:59 Last Admin: 12/24/23 08:25 Dose: 81 mg Bumetanide (Bumetanide 1 Mg Tab) 2 mg PO QAM [facility] Stop: 01/23/24 08:59 Last Admin: 12/24/23 08:26 Dose: 2 mg Ezetimibe (Ezetimibe 10 Mg Tab) 10 mg PO DAILY [facility] Stop: 01/23/24 08:59 Last Admin: 12/24/23 08:26 Dose: 10 mg Enoxaparin Sodium (Enoxaparin 100 Mg/1ml Syr) 100 mg SQ Q12H [facility] Stop: 01/23/24 08:59 Last Admin: 12/24/23 08:58 Dose: 100 mg Ferrous Gluconate (Ferrous Gluconate 324 Mg Tab) 324 mg PO DAILY [facility] Stop: 01/23/24 08:59 Last Admin: 12/24/23 08:28 Dose: 324 mg Cefepime HCl 2,000 mg/ Syringe 20 mls @ 5 mls/min IV Q12H [facility]; Protocol Stop: 12/31/23 08:59 Last Admin: 12/24/23 08:11 Dose: 5 mls/min Metoprolol Succinate (Metoprolol Succ 25mg Ext Rel Tab) 25 mg PO BID [facility] Stop: 01/22/24 23:45 Last Admin: 12/24/23 08:25 Dose: 25 mg Pantoprazole Sodium (Pantoprazole 40 Mg Tab) 40 mg PO DAILY [facility] Stop: 01/23/24 08:59 Last Admin: 12/24/23 08:27 Dose: 40 mg Potassium Chloride (Potassium Chloride Crtab 20 Meq Tabcr) 20 meq PO DAILY [facility] Stop: 01/23/24 08:59 Last Admin: 12/24/23 08:27 Dose: 20 meq Sacubitril/Valsartan (Valsartan/Sacubitril 26/24mg Tab) 1 tab PO BID [facility] Stop: 01/22/24 23:45 Last Admin: 12/24/23 08:25 Dose: 1 tab Warfarin Sodium (Warfarin Sod 3 Mg Tab) 3 mg PO QPM [facility] Stop: 01/23/24 20:59
[2023-12-24] MEDS: OPTIRAY 320 100ml IV ONE (10:21)
--- NOTE | 2023-12-24 10:41 | CT Scan Report ---
CT tib/fib RT w con CLINICAL HISTORY: RLE nonhealing wounds, prior possible fluid collec TECHNIQUE: Multidetector row helical CT of the right tibia and fibula was performed with intravenous contrast. Coronal and sagittal reformations were obtained. Automated dose lowering techniques and/or adjustment according to patient size were utilized for this examination. CT DOSE: 317.56 mGy.cm Comparison: Comparison is made to CT tibia-fibula 12/09/2023 FINDINGS: The osseous structures are without fracture or dislocation. The joint spaces are maintained. No joint effusion is seen. Multiple ulcerations are seen. There is a ill-defined collection in the superior medial leg measuring 18 x 10 mm without enhancing daniel. Surgical clips are seen. IMPRESSION: Possible small phlegmonous collection in the upper leg without well-defined abscess. This collection is unchanged from prior exam. No bony erosions to suggest osteomyelitis. ACT 112: Negative or not required by law. Electronically signed by: Maxwell Grey M.D. 12/24/2023 10:39 AM
[2023-12-24] MEDS: MoRPHine SULFATE 2 MG/ML CARP IV PRN (12:12)
[2023-12-24] MEDS: EMPAGLIFLOZIN 10 MG TAB PO SCH (12:15)
--- NOTE | 2023-12-24 13:47 | Surgery Consultation ---
Date of Consultation December 24, 2023 Assessment & Plan (1) Surgical wound, non healing: (2) Cellulitis of right lower extremity: Plan 68-year-old gentleman with nonhealing wounds of his right lower extremity. CT scan does not demonstrate an abscess. He does have cellulitis. I would recommend IV antibiotics. I would not recommend any surgical intervention at this time, as he clearly is not able to heal lower extremity wounds. Continue wound care. We will sign off. No surgical intervention required. History of Present Illness Reason for Consultation: Nonhealing right lower extremity wounds Requesting Physician: Yasmany Hayden MD Attending Physician: Yasmany Hayden MD History of Present Illness 68-year-old gentleman had heart surgery at [facility] a few months ago. He has been treated by the wound clinic for nonhealing lower extremity venous harvest site wounds. He was sent over again from the wound clinic. CT scan of his lower extremity does not show an abscess. Allergies Allergy/AdvReac Type Severity Reaction Status Date / Time sulfamethoxazole AdvReac Severe LOWERS Verified 12/23/23 08:02 [From Bactrim] PLATLETS, ON WARFARIN trimethoprim [From Bactrim] AdvReac Severe LOWERS Verified 12/23/23 08:02 PLATLETS, ON WARFARIN [id number] Reductase AdvReac Intermediate MUSCLE & Verified 12/23/23 08:02 Inhibitor JOINT PAIN Home Medications Medication Instructions Recorded Confirmed Type empagliflozin 10 mg tablet 10 mg PO QAM 07/02/22 12/23/23 History (Jardiance) aspirin 81 mg tablet,delayed 81 mg PO QAM 04/26/23 12/23/23 History release (Adult Aspirin Regimen) pantoprazole 20 mg tablet,delayed 20 mg PO DAILY #30 tabs 11/03/23 12/23/23 Rx release bumetanide 2 mg tablet 2 mg PO QAM Fluid Retention 11/23/23 12/23/23 History ferrous gluconate 225 mg (27 mg 225 mg PO DAILY 11/23/23 12/23/23 History iron) tablet sacubitril 24 mg-valsartan 26 mg 1 tab PO BID 11/23/23 12/23/23 History tablet (Entresto) warfarin 2 mg tablet 3 mg PO QPM 11/23/23 12/23/23 History metoprolol succinate 25 mg 25 mg PO BID 11/25/23 12/23/23 History tablet,extended release 24 hr ezetimibe 10 mg tablet (Zetia) 10 mg PO DAILY #90 tabs 12/02/23 12/23/23 Rx hydrocodone 5 mg-acetaminophen 325 1 tab PO Q8H pain 12/09/23 12/23/23 History mg tablet magnesium 250 mg tablet 250 mg PO 3XWK 12/09/23 12/23/23 History cefepime 2 gram solution for 2 g IV Q12H 12/14/23 12/23/23 Rx injection potassium chloride 20 mEq 20 meq PO DAILY #90 tabs 12/16/23 12/23/23 Rx tablet,extended release Patient History Medical History (HFpEF) heart failure with preserved ejection fraction Pacemaker 2017 medtronic, [facility]- last checked 02/2023 Hypertension Hx of chronic congestive heart failure Obesity denies being diabetic - on trulicity for weight loss and jardiance for heart failure On anticoagulant therapy LEYDA (obstructive sleep apnea) CPAP Hx of myocardial infarction 2005 Surgical History S/P CABG x 5 S/P MVR (mitral valve replacement) 2011- [facility] Hx of colonoscopy Hx of cardiac catheterization x 2-- 2004 following [place] and 2020- X 1 stent [facility] S/P Maze operation for atrial fibrillation Hx of atrioventricular node ablation 07/2022 Atrial fibrillation status post cardioversion 10/30/2011 S/P left heart catheterization by percutaneous approach 2007 S/P placement of cardiac pacemaker Family History Family/Other Myocardial infarction "All of them." Mother Ovarian cancer Other Heart disease Denies family history of Prostate cancer Breast cancer Colorectal cancer Social History Smoking Status: Never smoker Tobacco Type: Cigarettes Age Started Using Tobacco: 5; Age Quit Using Tobacco: 27; packs per day: 2; Second Hand Exposure: No; Do You Dip or Chew Tobacco: No; Hx Alcohol Use: Yes Alcohol type: beer Alcohol Intake Frequency: 2-4 x/Month Hx Substance Use: No Preferred Language: Telugu Communication Ability: Effective Visual Impairment: No Limitations Hearing Ability: Normal 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 current occupational status: retired How many Children do You have: 3 How many Children do You have Comment: One lives with patient but unable to assist, the other 2 are in [facility]. able to assist Other Information That Helps Us Care for You: No Feels Safe at Home: Yes Safety Concerns: Feels Safe At This Time Childhood Exposure to Second-Hand Smoke: No Diet: regular Dental Care, Regularly: No Physical Activity Frequency: 1-2 Times per Week Seatbelt Use: always Sunscreen Use: No Do you think of yourself as: straight/heterosexual Assistive Devices: None Review of Systems Review of Systems: All systems reviewed & are unremarkable except as noted in HPI & below Physical Exam Eyes: PERRL, conjunctivae normal, anicteric sclerae ENMT: external ear and nose normal, oropharynx normal Neck: trachea midline, no thyromegaly Respiratory: normal respiratory effort; no respiratory distress and no labored breathing Cardiovascular: Rate/Rhythm: regular rate and regular rhythm Gastrointestinal (Abdomen): Inspection/Auscultation: abdomen normal to inspection; abdomen not distended Percussion/Palpation: abdomen soft; abdomen nontender Skin: no rashes, warm and dry Psychiatric: A+Ox3, euthymic affect Results & Data Vital Signs (Past 12 Hours) Vital Signs Temp Pulse Pulse Resp BP Pulse Ox O2 Del Method 12/24/23 11:32 36.5 C 70 20 111/69 96 Room Air 12/24/23 08:50 36.8 C 70 20 100/61 95 Room Air 12/24/23 05:45 70 Laboratory Results 12/24/23 12/23/23 Range/Units 06:10 18:33 WBC 6.09 7.92 (4.8-10.8) K/ul RBC 3.96 L 4.27 L (4.70-6.10) M/uL Hgb 10.8 L 11.6 L (14.0-18.0) g/dl Hct 34.4 L 37.7 L (42.0-52.0) % MCV 86.9 88.3 (80.0-100.0) fL MCH 27.3 27.2 (25.0-34.0) pg MCHC 31.4 L 30.8 L (32.0-36.0) g/dL RDW Std Deviation 50.6 H 51.2 H (36.4-46.3) fL RDW Coeff of Vlad 16.0 H 16.0 H (11.5-14.5) % Plt Count 220 235 (130-400) K/uL MPV 10.5 10.8 (9.4-12.4) fL Immature Gran % (Auto) 0.3 0.4 % Neut % (Auto) 67.5 70.4 % Lymph % (Auto) 9.4 8.7 % [place] % (Auto) 16.7 16.2 % Eos % (Auto) 5.4 3.8 % Baso % (Auto) 0.7 0.5 % Neut # (Auto) 4.11 5.58 (1.40-6.50) K/uL Lymph # (Auto) 0.57 L 0.69 L (1.20-3.40) K/uL [place] # (Auto) 1.02 H 1.28 H (0.11-0.59) K/uL Eos # (Auto) 0.33 0.30 (0.00-0.50) K/uL Baso # (Auto) 0.04 0.04 (0.00-0.20) K/uL Immature Gran # (Auto) 0.02 0.03 (0.01-0.20) K/uL ESR 37 H (0-20) mm/hr PT 22.1 H 22.6 H (9.0-12.0) Seconds INR 2.2 H 2.2 H (0.9-1.1) APTT 33 H (21-31) Seconds PTT Ratio 1.2 Sodium 140 139 (136-145) mmol/L Potassium 4.0 4.3 (3.5-5.1) mmol/L Chloride 106 104 (98-107) mmol/L Carbon Dioxide 27 27 (21-32) mmol/L Anion Gap 7 8 (3-11) BUN 19 21 (6-23) mg/dl Creatinine 0.69 D 1.04 (0.6-1.4) mg/dl Est Cr Clr Drug Dosing 121.7 81.1 ml/min Est GFR ( Amer) 111.5 83.9 ml/min Est GFR (Non-Af Amer) 96.2 72.4 ml/min BUN/Creatinine Ratio 27.5 H 20.2 H (10-20) Glucose 98 91 (70-99(Fasting)) mg/dl Calcium 8.5 L 8.9 (8.6-10.3) mg/dl Phosphorus 3.5 (2.5-4.9) mg/dl Magnesium 1.9 1.8 (1.7-2.4) mg/dl Total Bilirubin 0.5 (0.2-1.0) mg/dl AST 38 (13-39) U/L ALT 27 (7-52) U/L Alkaline Phosphatase 85 (34-104) U/L C-Reactive Protein 1.28 H (0-0.5) mg/dl Total Protein 7.6 (6.0-8.3) gm/dl Albumin 4.2 (3.4-5.0) gm/dl Globulin 3.4 (2.5-4.0) gm/dl Albumin/Globulin Ratio 1.2 (0.9-2) Triglycerides 93 (0-150) mg/dl Cholesterol 153 (0-200) mg/dl LDL Cholesterol, Calc 95 mg/dl VLDL Cholesterol, Calc 19 (0-30) mg/dl HDL Cholesterol 39 mg/dl Cholesterol/HDL Ratio 3.9 (0-5) Procalcitonin < 0.02 (0-0.5) ng/ml Diagnostic Findings CT tib/fib RT w con CLINICAL HISTORY: RLE nonhealing wounds, prior possible fluid collec TECHNIQUE: Multidetector row helical CT of the right tibia and fibula was performed with intravenous contrast. Coronal and sagittal reformations were obtained. Automated dose lowering techniques and/or adjustment according to patient size were utilized for this examination. CT DOSE: 317.56 mGy.cm Comparison: Comparison is made to CT tibia-fibula 12/09/2023 FINDINGS: The osseous structures are without fracture or dislocation. The joint spaces are maintained. No joint effusion is seen. Multiple ulcerations are seen. There is a ill-defined collection in the superior medial leg measuring 18 x 10 mm without enhancing daniel. Surgical clips are seen. IMPRESSION: Possible small phlegmonous collection in the upper leg without well-defined abscess. This collection is unchanged from prior exam. No bony erosions to suggest osteomyelitis. ACT 112: Negative or not required by law. Electronically signed by: Maxwell Grey M.D. 12/24/2023 10:39 AM
[2023-12-24] MEDS: WARFARIN SOD 3 MG TAB PO SCH (15:31)
--- NOTE | 2023-12-24 18:55 | Billing Data ---
Date of Service December 24, 2023 Coding Level of Care Code 56739 INT INP/OBS CARE
[2023-12-24] MEDS ORDERED: WARFARIN SOD 3 MG TAB PO SCH (21:00)
[2023-12-25 06:35] LABS: Basophils # (auto) 0.04 K/uL (0.00-0.20); Basophils % (auto) 0.7 %; Eosinophils # (auto) 0.33 K/uL (0.00-0.50); Eosinophils % (auto) 5.7 %; Hematocrit (blood only) 36.8 % (42.0-52.0); Hemoglobin 11.7 g/dl (14.0-18.0); Immature Granulocytes # (auto) 0.02 K/uL (0.01-0.20); Immature Granulocytes % (auto) 0.3 %; Lymphocytes # (auto) 0.68 K/uL (1.20-3.40); Lymphocytes % (auto) 11.7 %; Mean Corpuscular Hemoglobin 27.3 pg (25.0-34.0); Mean Corpuscular Hgb Conc 31.8 g/dL (32.0-36.0); Mean Corpuscular Volume 85.8 fL (80.0-100.0); Mean Platelet Volume 10.3 fL (9.4-12.4); Monocytes % (auto) 17.2 %; Neutrophils # (auto) 3.75 K/uL (1.40-6.50); Neutrophils % (auto) 64.4 %; Platelet Count 238 K/uL (130-400); RDW Coefficient of Variation 15.9 % (11.5-14.5); RDW Standard Deviation 49.9 fL (36.4-46.3); Red Blood Count 4.29 M/uL (4.70-6.10); White Blood Count 5.82 K/ul (4.8-10.8)
[2023-12-25 06:53] LABS: BUN Creatinine Ratio 25.3 (10-20); Calcium 8.9 mg/dl (8.6-10.3); Creatinine Clr Calc Pharmacy 110.8 ml/min; Est GFR (African American) 107.7 ml/min; Est GFR (Non-African American) 92.9 ml/min; Phosphorus 4.2 mg/dl (2.5-4.9)
[2023-12-25 07:00] LABS: INR 2.2 (0.9-1.1)
--- NOTE | 2023-12-25 07:47 | Hospitalist Progress Note ---
Date of Service December 25, 2023 Assessment & Plan (1) Cellulitis of right lower extremity: Plan: 68M with PMH of CAD s/p CABG x 5, CHF s/p MVR, DM2, AF, CHAYITO, and a recently completed course of IV cefepime, who presents with concern for worsening RLE cellulitis now admitted, pending ID assessment, antibiotic recs. *Complication of surgical procedure, in the setting of RLE infection following the harvesting of vein for CABG RLE Cellulitis -Afebrile, no chills. VSS. Mild local pain. No leukocytosis. Procalcitonin normal. -Recently completed course of IV cefepime days ago (last dose was on 12/18). CT RLE during that admission w/ ulceration in the distal medial soft tissues without abscess or underlying osteomyelitis. -S/p cefepime x2 g given in the ER. WBC wnl, procal <0.02 ER physician also discussed case with ID, who recommended aforementioned IV antibiotics. Also recommended holding overnight for teleconference visit with patient tomorrow morning. Obtained blood culture, wound culture samples collected by ER physician sent to pathology. Did check ESR, still elevated to 37 (was 43), CRP to 1.28 (was 0.62) 12/24 Cefepime IV continues Wound surface cx w/ probable pseudomonas on preliminary species - follow final Blood culture (1 bottle) - NGTD x 24 hrs WBC 5.8k, afebrile Hgb 11.7 CT RLE w/ reports of possible small phlegmonous collection in the upper leg without well-defined abscess. This collection is unchanged from prior exam. No bony erosions to suggest osteomyelitis. General surgery consulted - felt not having fluid collection/no drainage. Did message IR and not on over the weekend ID consulted -- discussed 12/23, likely needing at least 4 wks IV abx vs 6 wks if vein involved. Remains on Lovenox SQ BID until INR therapeutic, currently 2.2 --Will give 4mg dose of coumadin for today, monitor INR in AM. -- Consider increased daily dose if needed if remaining subtherapeutic. Pain control, elevation, wound RN on consult PT/OT consults, CM to follow Repeat labs/inflammatory markers/exam in AM Likely be here through the weekend for Bcx to be negative x 48hrs before PICC line placement and will need outpatient follow up with [facility] (2) Systolic heart failure: Plan: as above adding daily weights (weight down 12kg at [facility] and was 106.6kg) - 104.2kg and does not appear to be volume overloaded at present Continues entresto, bumex/KCl supplementation. Monitor volume status (3) Paroxysmal atrial fibrillation: Plan: Atrial fibrillation/subtherapeutic INR S/p maze procedure (2011), dual-chamber pacemaker placement (2017). Takes Toprol, warfarin (3 mg every afternoon@4 PM). Target INR 2.5-3.5. Paced in 70s on monitor 12/23, downgraded off telemetry given stable/no issues Continue home warfarin, Toprol Added Lovenox 12/23 BID as above while INR <2.5 INR 2.2 additional 1mg coumadin w/ this afternoon's dose 12/24 monitor INR w/ AM labs to see if able to stop Lovenox SQ if in range (2.5-3.5) (4) CAD (coronary artery disease): Plan: CAD, HFpEF, Atrial fibrillation s/p MAZE procedure 2011 CAD S/p CABG x 5 (2004, 2020, 2023), pacemaker placement (2017). Currently asymptomatic. * Continue home aspirin, Toprol, and Entresto. HFpEF S/p mitral valve replacement (2011), atrial valve replacement, tricuspid valve repair, permanent pacemaker (2016). Asymptomatic. * Continue Toprol, Entresto as above. * Continue home Bumex, KCl, magnesium * Does not appear to be volume overloaded at present time but will continue to monitor (5) Diabetes: Plan: Type 2 diabetes mellitus -Controlled most recent HgbA1c 5.3% on 12/10/2023. Jardiance held on admission but resumed given likely for HF - continues Remains on zetia. BSGs checks DISCONTINUED given A1c/no elevations and POC 90s on am labs yesterday, 103 on AM labs (6) Iron deficiency anemia: Plan: Continue home ferrous gluconate (7) HLD (hyperlipidemia): (8) GERD (gastroesophageal reflux disease): Plan: Continue home Protonix Plan continued inpatient stay on IV abx, will need continued IV abx at dc and PICC line once Blood cultures NGTD x 48 hours. therapy evals [facility] dc on Wednesday on IV abx with follow up at [facility] to see if needing to extend from 4 to 6 wks if vein involved. Admission and Anticipated Discharge Date Admission Date: December 23, 2023 Subjective Evaluated this morning, feeling well. Reviewed ID consultation and IV abx 4 vs 6 wks. Waiting for blood cultures to be negative for 48hours and then will obtain consent for PICC line and hopefully able to touch base w/ ID on wednesday to finalize abx plans and outpatient follow up with [facility]. Pain controlled, did appreciate dose of morphine to take edge off yesterday and help sleep but hasn't needed anything today. He inquired about INR level, discussed still subtherapeutic and will give additional 1mg dose for today/monitor INR in AM but remains on Lovenox SQ BID for now until in range. No CP/SOB, lightheaded/dizziness. Questions/concerns addressed at this time. [facility] dc Wednesday. Physical Exam Physical Exam: General: 68yo male sitting up in bed, NAD, appears much more comfortable Head atraumatic, normocephalic, mmm, trachea midline Resp: even/unlabored, no w/c/r, on room air CV: RRR, +systolic murmur, no overt pitting edema, pulse present GI: +BS, soft/NT ; no zhao MSK/Neuro: RLE w/ dressing intact, +warmth, +indurated area to superior medial aspect(decreased), +warmth/tenderness (much improved) Psych: AOx3, cooperative with exam Results & Data Results & Data Vital Signs (Past 12 Hours) Vital Signs Temp Pulse Resp BP Pulse Ox O2 Del Method 12/24/23 23:07 36.7 C 86 18 104/63 98 Room Air 12/24/23 21:46 Room Air Laboratory Results 12/25/23 12/24/23 Range/Units 06:13 06:10 WBC 5.82 (4.8-10.8) K/ul RBC 4.29 L (4.70-6.10) M/uL Hgb 11.7 L (14.0-18.0) g/dl Hct 36.8 L (42.0-52.0) % MCV 85.8 (80.0-100.0) fL MCH 27.3 (25.0-34.0) pg MCHC 31.8 L (32.0-36.0) g/dL RDW Std Deviation 49.9 H (36.4-46.3) fL RDW Coeff of Vlad 15.9 H (11.5-14.5) % Plt Count 238 (130-400) K/uL MPV 10.3 (9.4-12.4) fL Immature Gran % (Auto) 0.3 % Neut % (Auto) 64.4 % Lymph % (Auto) 11.7 % [place] % (Auto) 17.2 % Eos % (Auto) 5.7 % Baso % (Auto) 0.7 % Neut # (Auto) 3.75 (1.40-6.50) K/uL Lymph # (Auto) 0.68 L (1.20-3.40) K/uL [place] # (Auto) 1.00 H (0.11-0.59) K/uL Eos # (Auto) 0.33 (0.00-0.50) K/uL Baso # (Auto) 0.04 (0.00-0.20) K/uL Immature Gran # (Auto) 0.02 (0.01-0.20) K/uL ESR 37 H (0-20) mm/hr PT 22.0 H (9.0-12.0) Seconds INR 2.2 H (0.9-1.1) Sodium 139 (136-145) mmol/L Potassium 4.0 (3.5-5.1) mmol/L Chloride 103 (98-107) mmol/L Carbon Dioxide 30 (21-32) mmol/L Anion Gap 6 (3-11) BUN 19 (6-23) mg/dl Creatinine 0.75 (0.6-1.4) mg/dl Est Cr Clr Drug Dosing 110.8 ml/min Est GFR ( Amer) 107.7 ml/min Est GFR (Non-Af Amer) 92.9 ml/min BUN/Creatinine Ratio 25.3 H (10-20) Glucose 103 H (70-99(Fasting)) mg/dl Calcium 8.9 (8.6-10.3) mg/dl Phosphorus 4.2 (2.5-4.9) mg/dl Magnesium 2.0 (1.7-2.4) mg/dl C-Reactive Protein 1.28 H (0-0.5) mg/dl Diagnostic Findings Lower Extremity CT 12/24/23 08:17 CT tib/fib RT w con CLINICAL HISTORY: RLE nonhealing wounds, prior possible fluid collec TECHNIQUE: Multidetector row helical CT of the right tibia and fibula was performed with intravenous contrast. Coronal and sagittal reformations were obtained. Automated dose lowering techniques and/or adjustment according to patient size were utilized for this examination. CT DOSE: 317.56 mGy.cm Comparison: Comparison is made to CT tibia-fibula 12/09/2023 FINDINGS: The osseous structures are without fracture or dislocation. The joint spaces are maintained. No joint effusion is seen. Multiple ulcerations are seen. There is a ill-defined collection in the superior medial leg measuring 18 x 10 mm without enhancing daniel. Surgical clips are seen. IMPRESSION: Possible small phlegmonous collection in the upper leg without well-defined abscess. This collection is unchanged from prior exam. No bony erosions to suggest osteomyelitis. ACT 112: Negative or not required by law. Electronically signed by: Maxwell Grey M.D. 12/24/2023 10:39 AM PG Care Time/CCT Total # of Minutes Spent Total Time Spent with Patient: Total time spent is greater than 50% in coordination of care (as documented) at patient's floor/unit and/or counseling patient: Coding Level of Care Code 13453 SUB INP/OBS CARE 3/50MIN Diagnoses Cellulitis of right lower extremity L03.115 Chronic systolic heart failure I50.22 Heart failure chronicity: chronic Paroxysmal atrial fibrillation I48.0 Coronary artery disease involving coronary bypass graft of [place] heart, unspecified whether angina present I25.810 Associated angina: unspecified whether angina present Coronary Disease-Associated Artery/Lesion type: bypass graft [place] vs. transplanted heart: [place] heart Type 2 diabetes mellitus with other circulatory complication, without long-term current use of insulin E11.59 Diabetes mellitus complication detail: with other circulatory complica tions Diabetes mellitus complication status: with circulatory complication Diabetes mellitus detention insulin use: without oil heaterman use Diabetes mellitus type: type 2 Iron deficiency anemia, unspecified iron deficiency anemia type D50.9 Iron deficiency anemia type: unspecified iron deficiency Hyperlipidemia, unspecified hyperlipidemia type E78.5 Hyperlipidemia type: unspecified Gastroesophageal reflux disease, unspecified whether esophagitis present K21.9 Esophagitis presence: esophagitis presence not specified (2) Systolic heart failure Heart failure chronicity: chronic Qualified Code(s): I50.22 - Chronic systolic (congestive) heart failure (4) CAD (coronary artery disease) Associated angina: unspecified whether angina present Coronary Disease- Associated Artery/Lesion type: bypass graft [place] vs. transplanted heart: [place] heart Qualified Code(s): I25.810 - Atherosclerosis of coronary artery bypass graft(s) without angina pectoris (5) Diabetes Diabetes mellitus complication detail: with other circulatory complications Diabetes mellitus complication status: with circulatory complication Diabetes mellitus detention insulin use: without oil heaterman use Diabetes mellitus type: type 2 Qualified Code(s): E11.59 - Type 2 diabetes mellitus with other circu latory complications (6) Iron deficiency anemia Iron deficiency anemia type: unspecified iron deficiency Qualified Code(s): D50.9 - Iron deficiency anemia, unspecified (7) HLD (hyperlipidemia) Hyperlipidemia type: unspecified Qualified Code(s): E78.5 - Hyperlipidemia, unspecified (8) GERD (gastroesophageal reflux disease) Esophagitis presence: esophagitis presence not specified Qualified Code(s): K21.9 - Gastro-esophageal reflux disease without esophagitis
[2023-12-25] MEDS: WARFARIN SOD 1 MG TAB PO SCH (16:53)
[2023-12-26 06:15] LABS: Hematocrit (blood only) 38.9 % (42.0-52.0); Hemoglobin 12.1 g/dl (14.0-18.0); Mean Corpuscular Hemoglobin 27.3 pg (25.0-34.0); Mean Corpuscular Hgb Conc 31.1 g/dL (32.0-36.0); Mean Corpuscular Volume 87.8 fL (80.0-100.0); Mean Platelet Volume 10.5 fL (9.4-12.4); Platelet Count 266 K/uL (130-400); RDW Standard Deviation 51.3 fL (36.4-46.3); Red Blood Count 4.43 M/uL (4.70-6.10); White Blood Count 5.77 K/ul (4.8-10.8)
[2023-12-26 06:32] LABS: BUN Creatinine Ratio 34.9 (10-20); C Reactive Protein 0.92 mg/dl (0-0.5); Calcium 8.6 mg/dl (8.6-10.3); Creatinine Clr Calc Pharmacy 131.9 ml/min; Est GFR (African American) 115.7 ml/min; Est GFR (Non-African American) 99.8 ml/min; Magnesium 1.9 mg/dl (1.7-2.4); Potassium 3.7 mmol/L (3.5-5.1)
[2023-12-26 06:50] LABS: Prothrombin Time 20.3 Seconds (9.0-12.0)
--- NOTE | 2023-12-26 07:59 | Hospitalist Progress Note ---
<Statement entered by Dottie Tabares MD - 12/26/23 18:14> I have reviewed vital signs, chart notes, labs and imaging. I have personally seen, evaluated and examined the patient. I have also discussed the management of the patient with the MICKEY and I agree with the exam findings documented in the history and physical examination and the documented assessment and plan unless otherwise stated below. persistent wound infection / slow healing wounds at site of right lower extremity saphenous vein graft harvest For CABG 2 months ago. significantly improved since admission. Wound culture growing pansensitive Pseudomonas. there is a small persistent fluid collection along the course of the vein graft harvest. this is persistent/unchanged on our CT imaging. General surgery consulted did not recommend drainage. Considered IR aspiration however patient prefers follow-up with his surgeon at [facility]. ID recommended 4 to 6 weeks antibiotics. follow-up imaging advisable prior to completion of 4 weeks antibiotics, depending on clinical response may increase to 6 weeks. plan for discharge home with home infusion tomorrow. he follows with wound clinic. His heart failure has significantly improved since his CABG currently well- controlled on his oral medications has no signs of fluid overload, no peripheral edema. Date of Service December 26, 2023 Assessment & Plan (1) Cellulitis of right lower extremity: Plan: 68M with PMH of CAD s/p CABG x 5, CHF s/p MVR, DM2, AF, CHAYITO, and a recently completed course of IV cefepime, who presents with concern for worsening RLE cellulitis now admitted, pending ID assessment, antibiotic recs. *Complication of surgical procedure, in the setting of RLE infection following the harvesting of vein for CABG Recently completed course of IV cefepime days ago (last dose was on 12/18) and had completed 2 week course w/ US guided IV RLE Cellulitis IMPROVING WBC wnl, procal 0.02 on admission however significant RLE erythema/pain on admission w/ evidence for cellulitis on exam ESR checked, 37 (was 43), CRP to 1.28 (was 0.62) S/p Cefepime 2gm IV in ER, continued on cefepime on admission Wound RN consulted, Pain control CT RLE obtained for eval --> impression w/ possible phlegmonous collection without well defined abscess, unchanged from prior. No bony erosions to suggest osteomyelitis General surgery consulted, did not feel fluid collection/drainage needed. Did reach out to IR and not available over weekend. ID consulted for recs/eval given ongoing/repeat infection Cx w/ Pseudomonas, pansensitive on final Cefepime 2gm IV continued q12hr -- likely need at LEAST 4 weeks ongoing therapy with such vs 6 wks if eval in f/u [facility] if vein involved WBC wnl, afebrile. CRP continues to improve Blood cultures NGTD x 48 hours PICC line consent obtained today at direction of supervising provider given blood cultures remain NGTD x 48 hours. Discussed w/ IV team and can use midline for 6 wk duration if needed and given his recent pacemaker in past 3 months, wanting to avoid issues w/ pacemaker wires and mid-line ok'd by supervising provider. Rx to CM provided 12/25 and hopefully able to arrange for dc in AM if arranged DVT prophlyaxis: Coumadin 3mg daily continued. Continues on added Lovenox SQ BID until INR therapeutic range (2.5-3.5) given valve replacement (follows w/ Dr Vivar locally). --Was given 4mg coumadin on 12/24 and to get 6mg dose for today. --Has home INR machine and if needing can reach out to Dr Vivar to discuss in AM. (2) Systolic heart failure: Plan: Remains on Entresto, Metoprolol, Bumex/Kcl supplementation Volume status stable, weights acceptable and continue to monitor (3) Paroxysmal atrial fibrillation: Plan: Atrial fibrillation/subtherapeutic INR S/p maze procedure (2011), dual-chamber pacemaker placement (2016). Continue metoprolol, coumadin as above w/ lovenox until INR in range as outlined and may need to increase daily dosing at dc vs reach out to Dr Vivar in AM Paced on telemetry prior, downgraded/no issues (4) CAD (coronary artery disease): Plan: CAD, HFpEF, Atrial fibrillation s/p MAZE procedure 2011 CAD S/p CABG x 5 (2004, 2020, 2023), pacemaker placement (2016). Remains on home aspirin, home meds for CHF/afib as well as outlined. No CP/SOB (5) Diabetes: Plan: Type 2 diabetes mellitus Controlled most recent HgbA1c 5.3% on 12/10/2023. Jardiance held on admission but resumed given likely for HF - continued. Remains on zetia for HLD BSG checks discontinued as no elevations and pt request (6) Iron deficiency anemia: Plan: Continue home ferrous gluconate (7) HLD (hyperlipidemia): Plan: continues on zetia (8) GERD (gastroesophageal reflux disease): Plan: Continue home Protonix Plan Dispo: continued inpatient stay on IV abx - midline placement for today and rx to CM. Hopeful dc if IV abx arranged for tomorrow and will need f/u with [facility] to determine if needing to be extended to 6 wks (per IV team can use midline for 6 wk course if needed) Admission and Anticipated Discharge Date Admission Date: December 23, 2023 Subjective Patient evaluated this morning. Resting in bed. Denies pain today. Redness/warmth MUCH improved. Obtaining consent for PICC line under direction of supervising provider. Risks discussed, patient aware from prior PICC lines. Labs stable, WBC wnl. Blood cultures NGTD. Will have wound see in AM. Rx to CM for IV abx at discharge discussed. INR still low -- does eat great varied diet, more salads actually from his garden at home. Discussed increasing his coumadin for today/continuing Lovenox SQ BID and repeat INR in AM. He notes he has machine at home/follows with Dr Vivar and can touch base w/ Dr Vivar in AM if needing/wanting to increase coumadin/bridge at dc. Changed dressing, some drainage from superior dressing, reapplied aquacell/dressing. No fever/chills, chest pain, shortness of breath. Questions/concerns addressed at this time. Hopeful dc tomorrow. Physical Exam 2 Physical Exam: General: 68yo male sitting up in bed, NAD, appears much more comfortable Head atraumatic, normocephalic, mmm, trachea midline Resp: even/unlabored, no w/c/r, on room air CV: RRR, +systolic click from valve, no overt pitting edema, pulse present GI: +BS, soft/NT ; no zhao MSK/Neuro: RLE w/ dressing intact, erythema and warmth MUCH improved, almost resolved -superior wound w/ minimal brownish drjakub mai present on aquacell, removed - new aquacell applied/covered - inferior lesion improved, scant draina ge on aquacell but no active, reapplied Psych: AOx3, cooperative with exam Results & Data Results & Data Vital Signs (Past 12 Hours) Vital Signs Temp Pulse Resp BP Pulse Ox O2 Del Method 12/25/23 23:00 36.7 C 76 16 101/60 97 Room Air 12/25/23 22:18 Room Air 12/25/23 20:31 70 118/71 Laboratory Results 12/26/23 05:26 12/26/23 05:26 INR 2.0 Mag 1.9 CRP 0.92 PG Care Time/CCT Total # of Minutes Spent Total Time Spent with Patient: Total time spent is greater than 50% in coordination of care (as documented) at patient's floor/unit and/or counseling patient: Coding Level of Care Code 25758 SUB INP/OBS CARE 3/50MIN Diagnoses Cellulitis of right lower extremity L03.115 Chronic systolic heart failure I50.22 Heart failure chronicity: chronic Paroxysmal atrial fibrillation I48.0 Coronary artery disease involving coronary bypass graft of [place] heart, unspecified whether angina present I25.810 Associated angina: unspecified whether angina present Coronary Disease-Associated Artery/Lesion type: bypass graft [place] vs. transplanted heart: [place] heart Type 2 diabetes mellitus with other circulatory complication, without long-term current use of insulin E11.59 Diabetes mellitus complication detail: with other circulatory complications Diabetes mellitus complication status: with circulatory complication Diabetes mellitus jail insulin use: without jail use Diabetes mellitus type: type 2 Iron deficiency anemia, unspecified iron deficiency anemia type D50.9 Iron deficiency anemia type: unspecified iron deficiency Hyperlipidemia, unspecified hyperlipidemia type E78.5 Hyperlipidemia type: unspecified Gastroesophageal reflux disease, unspecified whether esophagitis present K21.9 Esophagitis presence: esophagitis presence not specified (2) Systolic heart failure Heart failure chronicity: chronic Qualified Code(s): I50.22 - Chronic systolic (congestive) heart failure (4) CAD (coronary artery disease) Associated angina: unspecified whether angina present Coronary Disease- Associated Artery/Lesion type: bypass graft [place] vs. transplanted heart: n ative heart Qualified Code(s): I25.810 - Atherosclerosis of coronary artery bypass graft(s) without angina pectoris (5) Diabetes Diabetes mellitus complication detail: with other circulatory complications D iabetes mellitus complication status: with circulatory complication Diabetes mellitus jail insulin use: without jail use Diabetes mellitus type: t ype 2 Qualified Code(s): E11.59 - Type 2 diabetes mellitus with other circulatory complications (6) Iron deficiency anemia Iron deficiency anemia type: unspecified iron deficiency Qualified Code(s): D 50.9 - Iron deficiency anemia, unspecified (7) HLD (hyperlipidemia) Hyperlipidemia type: unspecified Qualified Code(s): E78.5 - Hyperlipidemia, unspecified (8) GERD (gastroesophageal reflux disease) Esophagitis presence: esophagitis presence not specified Qualified Code(s): K 21.9 - Gastro-esophageal reflux disease without esophagitis
[2023-12-26] MEDS: WARFARIN SOD 3 MG TAB PO SCH (16:41)
[2023-12-27 07:16] LABS: Hematocrit (blood only) 40.8 % (42.0-52.0); Hemoglobin 12.5 g/dl (14.0-18.0); Mean Corpuscular Hemoglobin 27.1 pg (25.0-34.0); Mean Corpuscular Hgb Conc 30.6 g/dL (32.0-36.0); Mean Corpuscular Volume 88.3 fL (80.0-100.0); Mean Platelet Volume 9.9 fL (9.4-12.4); Platelet Count 275 K/uL (130-400); RDW Coefficient of Variation 15.9 % (11.5-14.5); RDW Standard Deviation 51.2 fL (36.4-46.3); Red Blood Count 4.62 M/uL (4.70-6.10); White Blood Count 6.21 K/ul (4.8-10.8)
--- NOTE | 2023-12-27 07:31 | Hospitalist Progress Note ---
Date of Service December 27, 2023 Assessment & Plan (1) Cellulitis of right lower extremity: Plan: 68M with PMH of CAD s/p CABG x 5, CHF s/p MVR, DM2, AF, CHAYITO, and a recently completed course of IV cefepime, who presents with concern for worsening RLE cellulitis now admitted, pending ID assessment, antibiotic recs. *Complication of surgical procedure, in the setting of RLE infection following the harvesting of vein for CABG Recently completed course of IV cefepime days ago (last dose was on 12/18) and had completed 2 week course w/ US guided IV Procal was 0.02 on admission. CRP 1.28 (prior was 0.62) CT RLE obtained for eval --> impression w/ possible phlegmonous collection without well defined abscess, unchanged from prior. No bony erosions to suggest osteomyelitis General surgery consulted, did not feel fluid collection/drainage needed. Did reach out to IR and not available over weekend. ID consult placed Cefepime IV continued Cx w/ PSEUDOMONAS Blood cultures REMAIN NEGATIVE Consent for mid-line obtained 12/25, placed by IV team for ongoing IV abx at [place] 12/25 Cellulitis IMPROVING Was continued on Cefepime and initially increased today by ID to q8h dosing however SWITCHING TO ZOSYN IV. New Rx to CM provided and to fax. Can use continuous infusion at [place]. Planning for 4 wk course, possible 6wk pending f/u [facility] if vein involved Had been continued on Lovenox/coumadin as outlined, no evidence for LE DVT however POSITIVE LUE VENOUS DOPPLER this morning 12/26. Is having blood return/flushing and currently working, but see tx as outlined below. (2) DVT (deep venous thrombosis): Plan: Admitted for RLE cellulitis despite recent outpt IV abx x 2 weeks. ID consulted and ongoing IV abx planned at [place] w/ extended course requiring IV antibiotics Consent for longer term IV access obtained 12/25, initially for PICC but mid-line ok for use for IV abx if needing 6 wk course per discussion with IV team and given recent pacemaker wanting to avoid issues w/ pacemaker wires s/p mid-line 12/25 evening Reporting development of discomfort/swelling at IV site however having good blood return and flushing per nursing staff Obtained Venous Doppler to r/o DVT however noting patient has been continued on Coumadin 3mg daily (with 4mg on 12/24, 6mg on 12/25) and Lovenox 1mg/kg SQ BID while inpatient INR was NOT <2 on admission but was below his goal 2.5-3.5 w/ mechanical valve and requiring ongoing lovenox to ensure no issues with such Unfortunately, doppler POSITIVE Report: Nonocclusive deep venous thrombus is a left internal jugular vein, extending to the axillary vein and portions of the brachial vein involving the PICC line. No evidence of superficial thrombosis is identified. Xa level sent, wnl based on days of getting Lovenox Discussed w/ anticoag clinic provider, recs to add anticardiolipin antibody/antiphospholipid antibody testing --> SENT Recs to utilize LOVENOX 100mg SQ BID x 1 MONTH for now. Coumadin has been placed on hold ? if related to pacemaker, on the left side. Telemetry stable prior, no CP/SOB GIven continues to work, will continue Lovenox as outlined, monitor for any issues Vascular consulted to weigh in, heme/onc as well. Did discuss w/ cardiology team at [place] via transfer center for discussion and they reviewed/discussed [facility] consult w/ prior ITP from Bactrim use and prior given IVIG and did not believe had any underlying TTP/HUS at that time. Platelets prior low, then elevated but have been WITHIN RANGE the entire hospitalization. They did NOT feel patient requiring transfer to institution at this time. Spoke with Dr Saleem Appreciate additional recs/assistance by [facility] Did ask nurse navigator to arrange for outpt f/u [facility] clinic at [place] for ongoing management unless any acute issues with line working but will maintain for now Continue to monitor (3) Systolic heart failure: Plan: Volume status stable, weights acceptable and continue to monitor Remains on Entresto, Metoprolol, Bumex/Kcl supplementation (4) Paroxysmal atrial fibrillation: Plan: Atrial fibrillation/subtherapeutic INR S/p maze procedure (2011), dual-chamber pacemaker placement (2016). Continue metoprolol, coumadin as above w/ lovenox until INR in range. SEE ABOVE REGARDING COUMADIN/LOVENOX GIVEN +DVT ON DOPPLER Paced on telemetry prior, downgraded/no issues (5) CAD (coronary artery disease): Plan: CAD, HFpEF, Atrial fibrillation s/p MAZE procedure 2011. Follows w/ [facility], locally with Dr Ghazala ESCOBAR S/p CABG x 5 (2004, 2020, 2023), pacemaker placement (2016). Remains on home aspirin, home meds for CHF/afib as well as outlined. No CP/SOB (6) Iron deficiency anemia: Plan: Continue home ferrous gluconate (7) HLD (hyperlipidemia): Plan: continues on zetia (8) GERD (gastroesophageal reflux disease): Plan: Continue home Protonix (9) Prediabetes: Plan: Home jardiance resumed for HF, continues on zetia. bsg checks stable prior and no high/low and have been discontinued per pt request can monitor if any issues Plan continued inpatient stay rx to CM for new Zosyn IV at [place], to continue minimum total 4wk, possible 6 wks pending f/u continue LOVENOX BID x 1 MONTH at least per [facility] clinic recs. heme/onc consult pending continue current midline for now given likely same risk if replaced on other arm given INR>2. Monitor for any issues if not flushing/no blood return for additional recs. did put routine vasc consult if needed Admission and Anticipated Discharge Date Admission Date: December 23, 2023 Subjective Evaluated this morning, reporting pain/swelling/discomfort to his left mid line starting last night. Venous US obtained which showed DVT unfortunately despite therapeutic INR and continued on Coumadin and Lovenox therapy SQ. He has gotten blood return and IV site is working and will discuss / [facility] clin ic/check Xa level and continue Lovenox SQ BID and Coumadin in meantime. Will see about touching base [facility] vascular integration specialist for discussion for any additional recs. No CP/SOB/palpitations/dizziness at present time. RLE cellulitis/pain MUCH improved, dressings intact and to be changed today (viewed yesterday). Recs from [facility] would be to use weight based 1mg/kg for a month Physical Exam Physical Exam: General: 68yo male sitting up in bed, NAD but having discomfort to his LUE in region of recently placed mid-line LUE is slightly more swollen than the RUE however does have radial pulse. sensation intact per nursing, line flushing/good blood return Head atraumatic, normocephalic, mmm, trachea midline Resp: even/unlabored, no w/c/r, on room air CV: RRR, +systolic click from valve, no overt pitting edema, pulse present GI: +BS, soft/NT ; no zhao MSK/Neuro: RLE w/ dressing intact x 2, no further erythema/warmth, nontender Psych: AOx3, cooperative with exam Results & Data Results & Data Vital Signs (Past 12 Hours) Vital Signs Temp Pulse Resp BP Pulse Ox O2 Del Method 12/26/23 22:52 36.6 C 70 16 103/62 97 Room Air 12/26/23 22:51 Room Air Laboratory Results 12/27/23 12/27/23 Range/Units 12:35 06:33 WBC 6.21 (4.8-10.8) K/ul RBC 4.62 L (4.70-6.10) M/uL Hgb 12.5 L (14.0-18.0) g/dl Hct 40.8 L (42.0-52.0) % MCV 88.3 (80.0-100.0) fL MCH 27.1 (25.0-34.0) pg MCHC 30.6 L (32.0-36.0) g/dL RDW Std Deviation 51.2 H (36.4-46.3) fL RDW Coeff of Vlad 15.9 H (11.5-14.5) % Plt Count 275 (130-400) K/uL MPV 9.9 (9.4-12.4) fL PT 21.4 H (9.0-12.0) Seconds INR 2.1 H (0.9-1.1) Heparin Anti-Xa, LM Wt 1.07 (< 0.10) IU/ML Sodium 139 (136-145) mmol/L Potassium 3.8 (3.5-5.1) mmol/L Chloride 101 (98-107) mmol/L Carbon Dioxide 33 H (21-32) mmol/L Anion Gap 5 (3-11) BUN 21 (6-23) mg/dl Creatinine 0.75 (0.6-1.4) mg/dl Est Cr Clr Drug Dosing 110.6 ml/min Est GFR ( Amer) 107.7 ml/min Est GFR (Non-Af Amer) 92.9 ml/min BUN/Creatinine Ratio 28.0 H (10-20) Glucose 101 H (70-99(Fasting)) mg/dl Calcium 8.8 (8.6-10.3) mg/dl Magnesium 1.9 (1.7-2.4) mg/dl Beta-2-GPI IgG Ab Pending Beta-2-GPI IgA Ab Pending Beta-2-GPI IgM Ab Pending Phosphatidyl&Prothr IgG Pending Phosphatidyl&Prothr IgM Pending Anti-Phospholipid Intrp Pending Anti-Cardiolipin IgG Ab Pending Anti-Cardiolipin IgA Ab Pending Anti-Cardiolipin IgM Ab Pending Diagnostic Findings Extremity Venous Study 12/27/23 08:58 US venous doppler UE LT CLINICAL HISTORY: r/o dvt PROCEDURE: Left upper extremity real-time compression venous ultrasound with Duplex and color Doppler imaging. Comparison: None available at the time of this dictation. FINDINGS/IMPRESSION: Nonocclusive deep venous thrombus is a left internal jugular vein, extending to the axillary vein and portions of the brachial vein involving the PICC line. No evidence of superficial thrombosis is identified. ACT 112: Negative or not required by law. Electronically signed by: Maxwell Grey M.D. 12/27/2023 11:11 AM PG Care Time/CCT Total # of Minutes Spent Total Time Spent with Patient: Total time spent is greater than 50% in coordination of care (as documented) at patient's floor/unit and/or counseling patient: Coding Level of Care Code 71585 SUB INP/OBS CARE 3/50MIN Diagnoses Cellulitis of right lower extremity L03.115 DVT (deep venous thrombosis) I82.409 Chronic systolic heart failure I50.22 Heart failure chronicity: chronic Paroxysmal atrial fibrillation I48.0 Coronary artery disease involving coronary bypass graft of [place] heart, unspecified whether angina present I25.810 Associated angina: unspecified whether angina present Coronary Disease-Associated Artery/Lesion type: bypass graft [place] vs. transplanted heart: [place] heart Iron deficiency anemia, unspecified iron deficiency anemia type D50.9 Iron deficiency anemia type: unspecified iron deficiency Hyperlipidemia, unspecified hyperlipidemia type E78.5 Hyperlipidemia type: unspecified Gastroesophageal reflux disease, unspecified whether esophagitis present K21.9 Esophagitis presence: esophagitis presence not specified Prediabetes R73.03 (3) Systolic heart failure Heart failure chronicity: chronic Qualified Code(s): I50.22 - Chronic systolic (congestive) heart failure (5) CAD (coronary artery disease) Associated angina: unspecified whether angina present Coronary Disease- Associated Artery/Lesion type: bypass graft [place] vs. transplanted heart: [place] heart Qualified Code(s): I25.810 - Atherosclerosis of coronary artery bypass graft(s) without angina pectoris (6) Iron deficiency anemia Iron deficiency anemia type: unspecified iron deficiency Qualified Code(s): D50.9 - Iron deficiency anemia, unspecified (7) HLD (hyperlipidemia) Hyperlipidemia type: unspecified Qualified Code(s): E78.5 - Hyperlipidemia, unspecified (8) GERD (gastroesophageal reflux disease) Esophagitis presence: esophagitis presence not specified Qualified Code(s): K21.9 - Gastro-esophageal reflux disease without esophagitis
[2023-12-27 07:47] LABS: INR 2.1 (0.9-1.1); Prothrombin Time 21.4 Seconds (9.0-12.0)
[2023-12-27 07:48] LABS: Calcium 8.8 mg/dl (8.6-10.3); Creatinine Clr Calc Pharmacy 110.6 ml/min; Est GFR (African American) 107.7 ml/min; Est GFR (Non-African American) 92.9 ml/min; Magnesium 1.9 mg/dl (1.7-2.4); Potassium 3.8 mmol/L (3.5-5.1)
--- NOTE | 2023-12-27 11:13 | Ultrasound Report ---
US venous doppler UE LT CLINICAL HISTORY: r/o dvt PROCEDURE: Left upper extremity real-time compression venous ultrasound with Duplex and color Doppler imaging. Comparison: None available at the time of this dictation. FINDINGS/IMPRESSION: Nonocclusive deep venous thrombus is a left internal jugular vein, extending to the axillary vein and portions of the brachial vein involving the PICC line. No evidence of superficial thrombosis is iden tified. ACT 112: Negative or not required by law. Electronically signed by: Maxwell Grey M.D. 12/27/2023 11:11 AM
--- NOTE | 2023-12-27 12:55 | Infectious Disease Progress Nt ---
Date of Service December 27, 2023 Assessment & Plan (1) Cellulitis of right lower extremity: Plan ID Problem List: 1. Nonhealing wound with fluid collection at RLE CABG harvest site, 12/22 wound Cx + Pseudomonas aeruginosa 2. RLE cellulitis with concern for possible deeper endovascular infection 3. Allergy to Bactrim (sulfa) -thrombocytopenia, likely ITP 4. Pacemaker in place 5. H/o Prolonged QTc Impression: Vito Ren is a 68-year-old man with history of CAD s/p CABG x 5 ([facility] on 10/14/2023), rheumatic heart disease s/p mechanical aortic valve and mitral valve replacement on warfarin and tricuspid valve repair, atrial fi brillation, HFpEF, s/p PPM, HTN, previously admitted twice to [facility] on 11/14 and then 12/08-12/13 with RLE nonhealing surgical site with c/f SSTI/cellulitis at CABG harvest site. On 12/08, wound cx grew PsA (king-S) and patient was d/emile on cefepime for a 10-day course through 12/18. However, a few days after d/cing cefepime and after removal of midline, the pt reported increased redness and pain at site. Our ID team was called, and patient was readmitted to [facility] on 12/22. Patient with recent admissions for ongoing nonhealing wound after CABG. Prior to his last hospitalization, he was seen by his PCP and wound was cultured on 11/11/23. He was initially started on Keflex, but the wounds worsened with increasing pain and erythema. Wound cultures finalized as king-sensitive E. coli, Stenotrophomonas maltophilia (S Bactrim) and MDR Myroides spp (S Bactrim). He was started on Bactrim and took it for 2 days. While on Bactrim, the wound continued to worsen, so he presented to the [facility] ED on 11/14 and found to be severely thrombocytopenic (platelets 4) thought to be secondary to Bactrims interaction with warfarin. He underwent lower extremity dopplers: negative for DVT but showed a complex elongated 13.6 x 1.4 x 1.7 cm fluid collection which extended from the right groin to mid-thigh c/f hematoma and he was transferred to the [facility] for further evaluation. 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 He reports that he did not receive antibiotics for his lower extremity wounds. while there He was discharged home on approximately 11/19 to complete a course of IVIG in [place]. It is unclear if he was scheduled to follow up with local ID for the wounds. He did well at home and with visits to the wound care center for wound debridement of slough and eschars. He developed worsening redness, erythema and drainage from his surgical site wounds and was referred to the ED from wound care. He was then admitted to [facility] 12/08-12/13 with RLE nonhealing surgical site with c/f recurrence of SSTI/cellulitis at CABG harvest site. 12/08 wound cx grew PsA (king-S). At that time, he was taking minocycline and levofloxacin, which was changed to cefepime. Pt was seen by ID and and patient was d/emile on cefepime for a 10-day course through 12/18. However, a few days after d/cing cefepime and after removal of midline, the pt reported increased redness and pain at site. ID noted that FQs were not an ideal option given pt with prolonged QTc. Pt again presents to [facility] with worsening redness and pain at his RLE after discontinuation of cefepime on 12/18. No fevers, chills. No LE grafts or stents on his RLE. He came to ED on 12/22, VSS, Normal WBC, Cr 1.04, 12/22 Bcx in lab, 12/22 wound cultures thus far growing PsA. CT RLE shows ulcerations in the RLE, ill- defined collection in the superior medial leg measuring 18 x 10 mm without enhancing daniel c/f phlegmonous change without well-defined abscess (unchanged from prior exam), and without bony erosions to suggest osteomyelitis; Surgical clips are seen. The patient was restarted on cefepime. Discussion Pt presents again with recurrence of RLE infection at the site of vein harvesting for CABG. This has recured despite numerous courses of abx including a recent 10d course of cefepime directed at the PsA from prior wound Cx. Concern that the patient may in fact have a more deep-seated endovascular infection (although BCx have been NGTD) given his recurrences, which may necessitate a longer course (e.g., 4 to 6 weeks of IV abx) to cover for both SSTI as well as possible endovascular involvement. Seen by general surgery on 12/23, recommended against surgical intervention due to c/f ability to heal LE wounds, and recommended continuing abx and wound care. Wound Cx from 12/22 again growing Pseudomonas aeruginosa (again king-S). 12/23 BCx NGTD. Can change to Zosyn which covers the recent Pseudomonas, to complete an additional tentative 4-week total course, with low threshold to extend to 6 weeks if further concern for vascular involvement upon follow-up with [facility] vascular surgery. Do also note wound Cx in 10/2023 with polymicrobial growth (E. coli, Steno, Myroides) which have not regrown; uncertain clinical significance but will have coverage of E. coli and partial coverage of the Myroides with the cefepime -> pip-tazo the patient has been on. Overall since they have not regrown, and given the likelihood of Pseudomonas as a primary driving pathogen, will continue abx to target the Pseudomonas (and also other possible GNR and polymicrobial/anaerobic growth). Recommendations: - Change to pip-tazo. While inpatient, continue pip-tazo 4.5 g IV q8h extended infusion. Upon discharge, can change to pip-tazo 18 g IV daily continuous infusion (or if unavailable can do 4.5 g IV q6h bolus dosing) to complete an additional tentative 4-week total course (12/2201/19/24) via PICC, with low threshold to extend to 6 weeks (total 12/2202/02/24) if ongoing concern for endovascular involvement upon follow-up with [facility] vascular surgery - Ensure close follow-up with primary care, wound care, and [facility] vascular as above - Weekly lab monitoring while on IV antibiotics: CBC w/ diff, CMP, ESR, CRP. Ensure that labs are faxed to PCP and ID clinic (if applicable) - Recommend referral to local outpatient ID for follow-up if able Plan discussed with HEVER Castro. Thank you for letting ID participate in the care of this patient. ID will sign off at this time. If questions, [facility] [phone]. Staci Goddard MD, MHS Infectious Diseases [facility]/ID Connect ID Connect direct line: [phone] Admission and Anticipated Discharge Date Admission Date: December 23, 2023 Subjective This patient recommendation is based on a telemedicine consult request which was completed asynchronously through chart review and information provided by the primary physician. The patient was not seen or examined today. The evaluation is consultative in nature and all patient care and treatment decisions can either be accepted or rejected by the patient's primary hospital-based treating physician using their own independent medical judgment for their patient. Time Spent Reviewing Chart: 31+ minutes - Seen by general surgery on 12/23, recommended against surgical intervention due to c/f ability to heal LE wounds. Recommend to continue abx and wound care. - Afebrile, WBC 6.21 - Discussed with primary team, current plan is for patient to continue at least 4 weeks IV abx with low threshold to extension to 6 weeks upon vascular surgery follow-up at [facility] - 12/26 LUE doppler showing L IJ DVT extending to axillary/brachial vein Results & Data Vital Signs (Past 12 Hours) Vital Signs Temp Pulse Resp BP Pulse Ox O2 Del Method 12/27/23 08:23 36.9 C 77 16 106/63 98 Room Air Diagnostic Findings Diagnostics: 12/26 LUE doppler Nonocclusive deep venous thrombus is a left internal jugular vein, extending to the axillary vein and portions of the brachial vein involving the PICC line. No evidence of superficial thrombosis is identified. 12/23 CT RLE with contrast FINDINGS: The osseous structures are without fracture or dislocation. The joint spaces are maintained. No joint effusion is seen. Multiple ulcerations are seen. There is a ill-defined collection in the superior medial leg measuring 18 x 10 mm without enhancing daniel. Surgical clips are seen. IMPRESSION: Possible small phlegmonous collection in the upper leg without well-defined abscess. This collection is unchanged from prior exam. No bony erosions to suggest osteomyelitis. Micro Data: 12/22 BCx x1: NGTD 12/22 wound cx: Pseudomonas aeruginosa (king-S) prior micro -Wound culture 12/08 Gram Stain Rare Gram Negative Bacilli. Gram Positive Cocci, Wound Culture - Pseudomonas Aeruginosa -Blood culture 12/08 NGTD -Wound culture 11/11/2023: E. coli (pansensitive), Stenotrophomonas maltophilia (sensitive to Bactrim), Myroides spp (intermediate to cefepime, intermediate to piperacillin/tazobactam, resistant to gentamicin, resistant to tobramycin, s ensitive to Bactrim) Antibiotic Summary: pip-tazo (12/26 present) prior Cefepime 12/22-12/26 Levaquin 12/08- 12/09 Minocycline 12/08- 12/12 Meropenem 12/09- 12/12 Cefepime 12/12-12/18
[2023-12-27] MEDS ORDERED: PIPERACILLIN/TAZOBACTAM 4.5 GM in DEXTROSE 5% MINI-B 100 ML IV SCH (13:00)
[2023-12-27 13:52] LABS: ANTI-Xa, LMWH(Low Molecular Wt 1.07 IU/ML (< 0.10)
[2023-12-27] MEDS: CEFEPIME 2,000 MG in SYRINGE 0 ML IV SCH (14:18)
[2023-12-27] MEDS: PIPERACILLIN/TAZOBACTAM 4.5 GM in DEXTROSE 5% MINI-B 100 ML IV ONE (14:28)
--- NOTE | 2023-12-27 15:39 | Electrocardiogram Report ---
Test Reason : Blood Pressure : */* mmHG Vent. Rate : 72 BPM Atrial Rate : 77 BPM P-R Int : * ms QRS Dur : 128 ms QT Int : 482 ms P-R-T Axes : * 252 66 degrees QTcB Int : 527 ms Ventricular-paced rhythm Biventricular pacemaker detected Abnormal ECG When compared with ECG of 09-Dec-2023 14:46, No significant change was found Confirmed by Fadi Pappas ([id number]) on 12/27/2023 3:39:17 PM Referred By: REFERRED SELF Confirmed By: Fadi Pappas
--- NOTE | 2023-12-27 17:25 | Oncology Consultation ---
Date of Consultation December 27, 2023 Assessment & Plan (1) DVT (deep venous thrombosis): (2) Subtherapeutic international normalized ratio (INR): Plan -Patient would benefit from dual anticoagulation with weight based lovenox and continuing with warfarin in setting of provoked Upper extremity DVT while on coumadin but will defer to [facility] anticoag recommendations. Agree with checking for APS -Follow up with coumadin clinic -Consider removing PICC line if pain persists -May need workup for RA in setting of persistent joint pain, ITP, family hx of lupus History of Present Illness Reason for Consultation: hx ITP, +DVT LUE on coumadin/lovenox Attending Physician: Dottie Tabares MD History of Present Illness 68-year-old man with a Complicated medical history including coronary artery disease s/p CABG x 5, paroxysmal atrial fibrillation, hyperlipidemia, type 2 diabetes, iron deficiency anemia,ITP With response to steroids and IVIG who presented to the ER with recurrent RLE infection at the site of vein harvesting for CABG. PICC line placed for IV antibiotic during hospitalization with US o btained 12/27/2023 due to left upper extremity pain revealing nonocclusive deep venous thrombus is a left internal jugular vein, extending to the axillary vein and portions of the brachial vein involving the PICC line. Of note, patient is on chronic anticoagulation with coumadin and INR was 2.1 when DVT was diagnosed. Allergies Allergy/AdvReac Type Severity Reaction Status Date / Time sulfamethoxazole AdvReac Severe LOWERS Verified 12/23/23 08:02 [From Bactrim] PLATLETS, ON WARFARIN trimethoprim [From Bactrim] AdvReac Severe LOWERS Verified 12/23/23 08:02 PLATLETS, ON WARFARIN [id number] Reductase AdvReac Intermediate MUSCLE & Verified 12/23/23 08:02 Inhibitor JOINT PAIN Home Medications Medication Instructions Recorded Confirmed Type empagliflozin 10 mg tablet 10 mg PO QAM 07/02/22 12/23/23 History (Jardiance) aspirin 81 mg tablet,delayed 81 mg PO QAM 04/26/23 12/23/23 History release (Adult Aspirin Regimen) pantoprazole 20 mg tablet,delayed 20 mg PO DAILY #30 tabs 11/03/23 12/23/23 Rx release bumetanide 2 mg tablet 2 mg PO QAM Fluid Retention 11/23/23 12/23/23 History ferrous gluconate 225 mg (27 mg 225 mg PO DAILY 11/23/23 12/23/23 History iron) tablet sacubitril 24 mg-valsartan 26 mg 1 tab PO BID 11/23/23 12/23/23 History tablet (Entresto) warfarin 2 mg tablet 3 mg PO QPM 11/23/23 12/23/23 History metoprolol succinate 25 mg 25 mg PO BID 11/25/23 12/23/23 History tablet,extended release 24 hr ezetimibe 10 mg tablet (Zetia) 10 mg PO DAILY #90 tabs 12/02/23 12/23/23 Rx hydrocodone 5 mg-acetaminophen 325 1 tab PO Q8H pain 12/09/23 12/23/23 History mg tablet magnesium 250 mg tablet 250 mg PO 3XWK 12/09/23 12/23/23 History cefepime 2 gram solution for 2 g IV Q12H 12/14/23 12/23/23 Rx injection potassium chloride 20 mEq 20 meq PO DAILY #90 tabs 12/16/23 12/23/23 Rx tablet,extended release enoxaparin 100 mg/mL subcutaneous 100 mg subcut Q12H #10 mL 12/27/23 Rx syringe Patient History Medical History (HFpEF) heart failure with preserved ejection fraction Pacemaker 2017 [employer], [facility]- last checked 02/2023 Hypertension Hx of chronic congestive heart failure Obesity denies being diabetic - on trulicity for weight loss and jardiance for heart failure On anticoagulant therapy LEYDA (obstructive sleep apnea) CPAP Hx of myocardial infarction 2004 Surgical History S/P CABG x 5 S/P MVR (mitral valve replacement) 2011- [facility] Hx of colonoscopy Hx of cardiac catheterization x 2-- 2004 following [place] and 2020- X 1 stent [facility] [place] S/P Maze operation for atrial fibrillation Hx of atrioventricular node ablation 07/2022 Atrial fibrillation status post cardioversion 10/30/2011 S/P left heart catheterization by percutaneous approach 2007 S/P placement of cardiac pacemaker Family History Family/Other Myocardial infarction "All of them." Mother Ovarian cancer Other Heart disease Denies family history of Prostate cancer Breast cancer Colorectal cancer Social History Smoking Status: Never smoker Tobacco Type: Cigarettes Age Started Using Tobacco: 5; Age Quit Using Tobacco: 27; packs per day: 2; Second Hand Exposure: No; Do You Dip or Chew Tobacco: No; Hx Alcohol Use: Yes Alcohol type: beer Alcohol Intake Frequency: 2-4 x/Month Hx Substance Use: No Preferred Language: Estonian Communication Ability: Effective Visual Impairment: No Limitations Hearing Ability: Normal Respite Worker Required: No Beliefs That Will Affect Care: None marital status: Current Living Situation: Spouse Current Living Situation Comment: independent at home with spouse. current occupational status: retired How many Children do You have: 3 How many Children do You have Comment: One lives with patient but unable to assist, the other 2 are in [facility]. able to assist Feels Safe at Home: Yes Childhood Exposure to Second-Hand Smoke: No Diet: regular Dental Care, Regularly: No Physical Activity Frequency: 1-2 Times per Week Seatbelt Use: always Sunscreen Use: No Do you think of yourself as: straight/heterosexual Assistive Devices: None Results & Data Vital Signs (Past 12 Hours) Vital Signs Temp Pulse Resp BP Pulse Ox O2 Del Method 12/27/23 15:43 36.9 C 84 16 114/77 97 Room Air 12/27/23 08:23 36.9 C 77 16 106/63 98 Room Air
[2023-12-27] MEDS: PIPERACILLIN/TAZOBACTAM 4.5 GM in DEXTROSE 5% MINI-B 100 ML IV SCH (19:54)
[2023-12-28 07:43] VITALS: BP 106/56; PULSE 78; RESP 18; TEMP 97.9; O2SAT 100
--- NOTE | 2023-12-28 08:01 | Discharge Summary ---
Discharge Summary Date of Service December 28, 2023 Principal Dx & Hospital Course #1 = Principal Diagnosis (1) Cellulitis of right lower extremity: 68M with PMH of CAD s/p CABG x 5, CHF s/p MVR, DM2, AF, CHAYITO, and a recently completed course of IV cefepime 2 week course LD 12/18, who presents with concern for worsening RLE cellulitis Admission for post op pseudomonas leg infection at site of vein harvest, deep tissue infection with concern for phlegmon *Complication of surgical procedure, in the setting of RLE infection following the harvesting of vein for CABG CT RLE --> possible phlegmonous collection without well defined abscess, unchanged from prior. No bony erosions to suggest osteomyelitis General surgery consulted, did not feel fluid collection/drainage needed. ID consult Cefepime initially, SWITCHING TO ZOSYN IV. 4-6 week course will be evaluated by pcp for duration Cx w/ PSEUDOMONAS Blood cultures REMAIN NEGATIVE Consent for mid-line obtained 12/25, placed by IV team for ongoing IV abx at dc POSITIVE LUE VENOUS DOPPLER 12/26. conversation with coag specialist, will have lovenox 100mg bid and hold Coumadin, re asses in one month but if transition will need overlap (2) DVT (deep venous thrombosis): Admitted for RLE cellulitis despite recent outpt IV abx x 2 weeks s/p mid-line 12/25 evening as anticipated longer antibiotic need Reporting development of discomfort/swelling at IV site however having good blood return and flushing per nursing staff Obtained Venous Doppler to r/o DVT patient has been continued on Coumadin 3mg daily (with 4mg on 12/24, 6mg on 12/25) and Lovenox 1mg/kg SQ BID while inpatient INR was NOT <2 on admission but was below his goal 2.5-3.5 w/ mechanical valve and requiring ongoing lovenox to ensure no issues with such Doppler of UE : Nonocclusive deep venous thrombus is a left internal jugular vein, extending to the axillary vein and portions of the brachial vein involving the PICC line. No evidence of superficial thrombosis is identified. Xa level sent, wnl based on days of getting Lovenox Discussed w/ anticoag clinic provider, recs to add anticardiolipin antibody/antiphospholipid antibody testing --> SENT Recs to utilize LOVENOX 100mg SQ BID x 1 MONTH for now. Coumadin has been placed on hold ? if related to pacemaker, on the left side. Telemetry stable prior, no CP/SOB Did discuss w/ cardiology team at [place] via transfer center for discussion and they reviewed/discussed [facility] consult w/ prior ITP from Bactrim use and prior given IVIG and did not believe had any underlying TTP/HUS at that time. Platelets prior low, then elevated but have been WITHIN RANGE the entire hospitalization. They did NOT feel patient requiring transfer to institution at this time. Yuki Irizarry did speak with Dr Saleem (3) Systolic heart failure: Volume status stable, weights acceptable and continue to monitor Remains on Entresto, Metoprolol, Bumex/Kcl supplementation home jardiance for heart failure also (4) Paroxysmal atrial fibrillation: Atrial fibrillation/ on chronic anticoagulation S/p maze procedure (2011), dual-chamber pacemaker placement (2016). Continue metoprolol, lovenox now given jugular DVT CAD S/p CABG x 5 (2004, 2020, 2023), pacemaker placement (2016). Remains on home aspirin, home meds for CHF/afib as well as outlined. No CP/SOB (5) Iron deficiency anemia: Continue home ferrous gluconate Plan continue LOVENOX BID x 1 MONTH at least per coag clinic recs. heme/onc consult pending continue current midline for now given likely same risk if replaced on other arm given INR>2. Monitor for any issues if not flushing/no blood return for additional recs. did put routine vasc consult if needed Notes For Next Care Provider need to determine transition from lovenox to coumadin need to derermine duration of antibiotics for leg vein harvest site infection 4- 6 weeks 6 weeks would be LD 02/02/24 consider IR drainage of wound Medication Changes From Visit lovenox for anticoagulaiton Zosyn for antibiotics Admission HPI Per Admitting Provider Vito is a 68-year-old man with a past medical history of coronary artery disease s/p CABG x 5, paroxysmal atrial fibrillation, hyperlipidemia, type 2 diabetes, iron deficiency anemia, and GERD, who presented to the ER for concern of worsening RLE cellulitis. This episode is the latest in a series of RLE infections following the harvesting of a vein from said leg in September for a CABG procedure he recently completed a course of IV cefepime on 8/4. Since then, he experienced increased pain, and redness in the right lower leg x 3 days. At his wound care appointment today, he was advised to return to the emergency department based on its worsening appearance. On ROS+, he denies fevers, chills, nausea, vomiting, abdominal pain, headache, dizziness, or intolerance to weightbearing on said leg. In the ER, labs revealed no evidence of leukocytosis (WBC-7.92), or significant electrolyte abnormalities. INR (2.2) was below his target range of 2.5-3.5. ED physician, Dr. Tavarez, discussed case with [facility] ID they recommended keeping him overnight, starting him on IV cefepime 2 g, and obtaining wound and blood cultures ahead of a teleconference visit with the patient tomorrow morning. The hospitalist service was then consulted for admission. Discharge Exam Pt is pleasant, no complaints other than picc site is pinching at times cardiac is regular lungs are clear leg wound continues to improve Updated Medication List Medication Instructions Recorded Confirmed Type empagliflozin 10 mg tablet 10 mg PO QAM 07/02/22 12/23/23 History (Jardiance) aspirin 81 mg tablet,delayed 81 mg PO QAM 04/26/23 12/23/23 History release (Adult Aspirin Regimen) pantoprazole 20 mg tablet,delayed 20 mg PO DAILY #30 tabs 11/03/23 12/23/23 Rx release bumetanide 2 mg tablet 2 mg PO QAM Fluid Retention 11/23/23 12/23/23 History ferrous gluconate 225 mg (27 mg 225 mg PO DAILY 11/23/23 12/23/23 History iron) tablet sacubitril 24 mg-valsartan 26 mg 1 tab PO BID 11/23/23 12/23/23 History tablet (Entresto) warfarin 2 mg tablet 3 mg PO QPM 11/23/23 12/23/23 History metoprolol succinate 25 mg 25 mg PO BID 11/25/23 12/23/23 History tablet,extended release 24 hr ezetimibe 10 mg tablet (Zetia) 10 mg PO DAILY #90 tabs 12/02/23 12/23/23 Rx hydrocodone 5 mg-acetaminophen 325 1 tab PO Q8H pain 12/09/23 12/23/23 History mg tablet magnesium 250 mg tablet 250 mg PO 3XWK 12/09/23 12/23/23 History potassium chloride 20 mEq 20 meq PO DAILY #90 tabs 12/16/23 12/23/23 Rx tablet,extended release cefepime 2 gram solution for 2 g IV Q12H 28 days #0 ea 12/26/23 12/23/23 Rx injection enoxaparin 100 mg/mL subcutaneous 100 mg subcut Q12H #10 mL 12/27/23 Rx syringe Hospital Stay Data Consultations 12/23/23 21:51 ED Decision to Admit Stat 12/23/23 23:08 Consult Infectious Diseases Routine 12/24/23 11:59 Consult General Surgery Routine 12/27/23 13:55 Consult Hematology Routine Consult Vascular Surgery Routine Diagnostic Imagining Performed 12/24/23 08:17 CT tib/fib RT w con Routine 12/27/23 08:58 US venous doppler UE LT Stat Pending Results Patient Have Any Pending Studies at Discharge: Yes Discharge Instructions Given to Patient (Per Discharging Provider) You have been hospitalized for repeat cellulitis of your right leg following vein harvesting for your cardiac procedure. Imaging was consistent with cellulitis and small fluid collection was determined "unchanged" however surgery did not feel this needed drainage and should have follow up with [facility] for ongoing care. We have consulted infectious disease while in the hospital and given cultures with pseudomonas, we have restarted/continued you on Cefepime IV which is to be continued for a MINIMUM of FOUR weeks, but may need extended to six weeks if vein is involved and myself and Dr Tabares would recommend discussing the wound care clinic before completion of antibiotics for repeat imaging and evaluation to see if they would like this continued to the six weeks or if still having fluid collection if their team would need to go after draining it if not resolved with antibiotic therapy. You have an IV site placed with a mid-line which is good for the total 6 week duration if needed. You did have evidence for a BLOOD CLOT in the arm of the IV site but has been working and needing to continue to monitor for any issues but is being maintained. At discharge, we are using LOVENOX TWICE DAILY AND TO CONTINUE FOR A MONTH prior to transitioning back to coumadin therapy. Anticardiolipin and antiphospholipid antibodies were sent and hematology/oncology evaluation in the hospital, which noted: Please follow up with primary care, Dr Vivar after discharge to monitor your status after discharge from the hospital AND CLOSE follow up with [facility] as discussed for ongoing management/extension of antibiotics to the six weeks if needed. Please return to the ER with any increased redness/pain/swelling/fever, or for any chest pain/shortness of breath or for any other symptoms concerning for you. It has been a pleasure being a part of the medical team providing for you while you have been in the hospital. Take care! Total Time Total Time Spent Total Time Spent (In Minutes): greater than 30 minutes to complete discharge process Coding Level of Care Code 25743 INP/OBS DISCH >30 MIN Diagnoses Cellulitis of right lower extremity L03.115 DVT (deep venous thrombosis) I82.409 Chronic systolic heart failure I50.22 Heart failure chronicity: chronic Paroxysmal atrial fibrillation I48.0 Iron deficiency anemia, unspecified iron deficiency anemia type D50.9 Iron deficiency anemia type: unspecified iron deficiency
[2023-12-28 08:12] LABS: Hematocrit (blood only) 40.6 % (42.0-52.0); Hemoglobin 12.6 g/dl (14.0-18.0); Mean Corpuscular Hemoglobin 27.1 pg (25.0-34.0); Mean Corpuscular Volume 87.3 fL (80.0-100.0); Mean Platelet Volume 9.9 fL (9.4-12.4); Platelet Count 272 K/uL (130-400); RDW Coefficient of Variation 15.9 % (11.5-14.5); RDW Standard Deviation 50.4 fL (36.4-46.3); Red Blood Count 4.65 M/uL (4.70-6.10); White Blood Count 5.12 K/ul (4.8-10.8)
[2023-12-28 08:33] LABS: BUN Creatinine Ratio 27.5 (10-20); Calcium 8.9 mg/dl (8.6-10.3); Creatinine Clr Calc Pharmacy 102.4 ml/min; Est GFR (African American) 104.9 ml/min; Est GFR (Non-African American) 90.5 ml/min; Potassium 3.6 mmol/L (3.5-5.1)
[2023-12-28 08:38] LABS: INR 2.1 (0.9-1.1); Partial Thromboplastin Ratio 1.4; Partial Thromboplastin Time 39 Seconds (21-31); Prothrombin Time 21.2 Seconds (9.0-12.0)
[2024-01-05 14:57] LABS: Anti Cardiolipin Ab IgG <2.0 GPL-U/mL (<20.0); Anti Cardiolipin Ab IgM <2.0 MPL-U/mL (<20.0); B2 Glycoprotein IgA <2.0 U/mL (<20.0); B2 Glycoprotein IgG <2.0 U/mL (<20.0); B2 Glycoprotein IgM 2.6 U/mL (<20.0); Phosphatidylser Prothrom IgG 26 U (<=30); Phosphatidylserine ProthromIgM 21 U (<=30)
== END 2023-12-28 15:33 | disposition home health service (06) | DRG 863 ==
LOC: ED 18:34 → 2N 21:49 → SUATTDRO 21:49 → 2N 23:17 → 3N 12-27 21:58

== ENCOUNTER 2024-11-10 13:44 | Observation (INO) ==
[2024-11-10 14:42] LABS: Hematocrit (blood only) 45.4 % (42.0-52.0); Hemoglobin 14.8 g/dl (14.0-18.0); Mean Corpuscular Hemoglobin 30.5 pg (25.0-34.0); Mean Corpuscular Hgb Conc 32.6 g/dL (32.0-36.0); Mean Corpuscular Volume 93.6 fL (80.0-100.0); Mean Platelet Volume 10.3 fL (9.4-12.4); Platelet Count 224 K/uL (130-400); RDW Coefficient of Variation 14.9 % (11.5-14.5); RDW Standard Deviation 51.4 fL (36.4-46.3); Red Blood Count 4.85 M/uL (4.70-6.10); White Blood Count 6.52 K/ul (4.8-10.8)
--- NOTE | 2024-11-10 14:44 | Gastrointestinal Consultation ---
Date of Consultation November 10, 2024 Assessment & Plan (1) Rectal bleeding: Plan Patient presented to the ED with complaints of rectal bleeding s/p colonoscopy with polypectomy yesterday. It sounds like mostly mild symptoms with clots. hgb/hct wnl. Patient was seen alongside Dr. Shelley. await results of INR. further recommendations to follow. Supervising Physician Co-Signing Physician Notes The patient was seen and evaluated in the emergency department along with the GI physician assistant buyer. At the time evaluation the patient was not having any rectal bleeding and was asymptomatic. Hemoglobin is within normal limits. Based on initial presentation appears the patient's bleeding is slowing. This likely represents post polypectomy bleeding which typically resolves on its own without endoscopic intervention. As the patient is on chronic anticoagulation he is at some increased risk for clinically significant bleeding and therefore hospital mission overnight for observation and further monitoring of blood counts is reasonable. If the patient's blood counts are stable and there is no active bleeding then no intervention is necessary. Avoidance of unnecessary NSAIDs is advised and when anticoagulation is resumed, targeting the lower end of therapeutic INR is advised for a few weeks until polypectomy sites have completely healed. If the patient has ongoing hematochezia associated with progressive anemia then colonoscopy with hemostatic methods may be necessary. History of Present Illness Reason for Consultation: rectal bleeding Requesting Physician: ED History of Present Illness Patient is a 69 year old male here today at the ED with complaints of bleeding s/p colonoscopy. He had colonoscopy yesterday with removal of 3 polyps. He tells me that he went home and ate beets and had red stools after this but did not think much of it because of the beets. He noticed that with subsequent bowel movements that he was seeing some blood on the toilet tissue as well as some clots. No significant blood loss. He has been using his lovenox, but had not restarted his coumadin yet. The remainder of the GI ROS were unremarkable. 11/10/24 Hgb 14.8. wbc 6.5, hct 45.4, platelets 224. INR pending. Allergies Allergy/AdvReac Type Severity Reaction Status Date / Time sulfamethoxazole AdvReac Severe LOWERS Verified 11/10/24 15:40 [From Bactrim] PLATLETS, ON WARFARIN trimethoprim [From Bactrim] AdvReac Severe LOWERS Verified 11/10/24 15:40 PLATLETS, ON WARFARIN Srdrcde-DXL-NtX Reductase AdvReac Intermediate MUSCLE & Verified 11/10/24 15:40 Inhibitor JOINT PAIN Home Medications Medication Instructions Recorded Confirmed Type bumetanide 2 mg tablet 2 mg PO QAM PRN Fluid Retention 11/23/23 11/10/24 History ferrous gluconate 225 mg (27 mg 225 mg PO DAILY 11/23/23 11/10/24 History iron) tablet sacubitril 24 mg-valsartan 26 mg 1 tab PO BID 11/23/23 11/10/24 History tablet (Entresto) metoprolol succinate 25 mg 25 mg PO BID 11/25/23 11/10/24 History tablet,extended release 24 hr magnesium 250 mg tablet 250 mg PO 3XWK 12/09/23 11/10/24 History empagliflozin 10 mg tablet 10 mg PO QAM #90 tabs 02/14/24 11/10/24 Rx (Jardiance) warfarin 3 mg tablet 3 mg PO UD 02/15/24 11/10/24 History aspirin 81 mg tablet,delayed 81 mg PO 5XWK 08/17/24 11/10/24 History release (Adult Aspirin Regimen) probenecid 500 mg tablet See Rx Instructions PO BID #60 tabs 10/24/24 11/10/24 Rx potassium chloride 20 mEq 20 meq PO QAM 11/01/24 11/10/24 History tablet,extended release enoxaparin 120 mg/0.8 mL 120 mg subcut BID 11/10/24 11/10/24 History subcutaneous syringe Patient History Medical History Epistaxis, recurrent LEYDA (obstructive sleep apnea) 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 Hypertension Hyperlipidemia History of gout GERD (gastroesophageal reflux disease) Coronary atherosclerosis of [place] coronary artery Cardiomegaly CAD (coronary artery disease) Recurrent cellulitis of lower extremity DVT (deep venous thrombosis) Personal history of colonic polyps Systolic heart failure Iron deficiency anemia Paroxysmal atrial fibrillation Pacemaker [employer] 2016 and 2023, follows with Dr Vivar Hx of chronic congestive heart failure Obesity denies being diabetic - jardiance for heart failure Hx of myocardial infarction 2004 Surgical History S/P CABG x 5 (09/2023) [facility]-with mechanical tricuspid and mitral valves, pacemaker replacement, several stents placed, post op right lower extremity infection, released from infectious disease 06/2024 S/P MVR (mitral valve replacement) 2012- [facility] Hx of colonoscopy Hx of cardiac catheterization x 2-- 2004 following [place] and 2020- X 1 stent [facility] [place] S/P Maze operation for atrial fibrillation Hx of atrioventricular node ablation 07/2022 Atrial fibrillation status post cardioversion 10/30/2011 S/P left heart catheterization by percutaneous approach 2007 S/P placement of cardiac pacemaker (09/2023) [facility] Family History Family/Other Myocardial infarction "All of them." Mother Ovarian cancer Other Heart disease Denies family history of Prostate cancer Breast cancer Colorectal cancer Social History Smoking Status: Former smoker Tobacco Type: Cigarettes Age Started Using Tobacco: 5; Age Quit Using Tobacco: 27; packs per day: 2; Cigarettes Per Day: 40; Second Hand Exposure: No; Do You Dip or Chew Tobacco: No; Hx Alcohol Use: Yes Alcohol type: beer Alcohol Intake Frequency: 2-4 x/Month Hx Substance Use: No Preferred Language: Polish Communication Ability: Effective Visual Impairment: No Limitations Hearing Ability: Normal 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 current occupational status: retired current occupation: Retired How many Children do You have: 3 How many Children do You have Comment: One lives with patient but unable to assist, the other 2 are in [facility]. able to assist Feels Safe at Home: Yes Childhood Exposure to Second-Hand Smoke: No Diet: regular Dental Care, Regularly: No Physical Activity Frequency: 1-2 Times per Week Seatbelt Use: always Sunscreen Use: No Do you think of yourself as: straight/heterosexual Assistive Devices: None Review of Systems Review of Systems: All systems reviewed & are unremarkable except as noted in HPI & below Physical Exam Constitutional: WD/WN, vitals as above Respiratory: normal respiratory effort, lungs clear to auscultation Cardiovascular: Rate/Rhythm: regular rate and regular rhythm Gastrointestinal (Abdomen): normal bowel sounds, soft, nontender, no hepatosplenomegaly Psychiatric: Orientation: alert and oriented x 3 Affect: euthymic affect Results & Data Vital Signs (Past 12 Hours) Vital Signs Temp Pulse Resp BP Pulse Ox O2 Del Method 11/10/24 14:02 97.3 F L 72 18 125/76 97 Room Air Coding Level of Care Code 42891 OFFICE CONSULT LVL Medical Decision Making Low Complexity Diagnoses Rectal bleeding K62.5
--- NOTE | 2024-11-10 14:57 | Emergency Department Note ---
History of Present Illness General Chief complaint: Rectal Bleed Stated complaint: INTERNAL BLEEDING,COLONOSCOPY YESTERDAY Time Seen by Provider: 11/10/24 14:29 History of Present Illness Provider Complaint: + gross hematochezia Onset (ago): 1 day(s) Pain Consistency: + constant Relieved By: + none Exacerbated By: + bowel movement Context: + anticoagulant use (Patient is usually on Coumadin for mechanical valves but had a colonoscopy done and has been bridged with Lovenox.) Associated symptoms: no abdominal pain, no nausea, no vomiting, no epistaxis, no fever, no chills, no headaches or no shortness of breath HPI Narrative: Patient states that he had a colonoscopy done by Dr. Patricia yesterday. Home Medications Medication Instructions Recorded Confirmed Type bumetanide 2 mg tablet 2 mg PO QAM PRN Fluid Retention 11/23/23 11/09/24 History ferrous gluconate 225 mg (27 mg 225 mg PO DAILY 11/23/23 11/09/24 History iron) tablet sacubitril 24 mg-valsartan 26 mg 1 tab PO BID 11/23/23 11/09/24 History tablet (Entresto) metoprolol succinate 25 mg 25 mg PO BID 11/25/23 11/09/24 History tablet,extended release 24 hr magnesium 250 mg tablet 250 mg PO 3XWK 12/09/23 11/09/24 History empagliflozin 10 mg tablet 10 mg PO QAM #90 tabs 02/14/24 11/09/24 Rx (Jardiance) warfarin 3 mg tablet 3 mg PO UD 02/15/24 11/09/24 History aspirin 81 mg tablet,delayed 81 mg PO UD 08/17/24 11/09/24 History release (Adult Aspirin Regimen) probenecid 500 mg tablet See Rx Instructions PO BID #60 tabs 10/24/24 11/09/24 Rx potassium chloride 20 mEq 20 meq PO QAM 11/01/24 11/09/24 History tablet,extended release Allergies Allergy/AdvReac Type Severity Reaction Status Date / Time sulfamethoxazole AdvReac Severe LOWERS Verified 11/09/24 09:54 [From Bactrim] PLATLETS, ON WARFARIN trimethoprim [From Bactrim] AdvReac Severe LOWERS Verified 11/09/24 09:54 PLATLETS, ON WARFARIN Vvogwxa-BBO-GrS Reductase AdvReac Intermediate MUSCLE & Verified 11/09/24 09:54 Inhibitor JOINT PAIN Past Med/Surg History Problem List (Updated 11/10/24 @ 15:20 by Fritz Mari MD) Hematochezia (Acute) Rectal bleeding Epistaxis, recurrent Statin myopathy (Chronic) GERD (gastroesophageal reflux disease) (HFpEF) heart failure with preserved ejection fraction (Chronic) On anticoagulant therapy LEYDA (obstructive sleep apnea) CPAP Coronary atherosclerosis of [place] coronary vessel Cardiomegaly Esophageal edema CAD (coronary artery disease) (Chronic) HLD (hyperlipidemia) (Chronic) Hypertension (Chronic) Gout (Chronic) Medical History Epistaxis, recurrent LEYDA (obstructive sleep apnea) CPAP group home (current) use of 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 Hypertension Hyperlipidemia History of gout GERD (gastroesophageal reflux disease) Coronary atherosclerosis of [place] coronary artery Cardiomegaly CAD (coronary artery disease) Recurrent cellulitis of lower extremity DVT (deep venous thrombosis) Personal history of colonic polyps Systolic heart failure Iron deficiency anemia Paroxysmal atrial fibrillation Pacemaker Medtronic 2016 and 2023, follows with Dr Vivar Hx of chronic congestive heart failure Obesity denies being diabetic - jardiance for heart failure Hx of myocardial infarction 2005 Surgical History S/P CABG x 5 (09/2023) [facility]-with mechanical tricuspid and mitral valves, pacemaker replacement, several stents placed, post op right lower extremity infection, released from infectious disease 06/2024 S/P MVR (mitral valve replacement) 2011- [facility] Hx of colonoscopy Hx of cardiac catheterization x 2-- 2004 following [place] and 2020- X 1 stent [facility] S/P Maze operation for atrial fibrillation Hx of atrioventricular node ablation 07/2022 Atrial fibrillation status post cardioversion 10/30/2011 S/P left heart catheterization by percutaneous approach 2007 S/P placement of cardiac pacemaker (09/2023) [facility] Family History Family/Other Myocardial infarction "All of them." Mother Ovarian cancer Other Heart disease Denies family history of Prostate cancer Breast cancer Colorectal cancer Social History Smoking Status: Former smoker Tobacco Type: Cigarettes Age Started Using Tobacco: 5; Age Quit Using Tobacco: 27; packs per day: 2; Cigarettes Per Day: 40; Second Hand Exposure: No; Do You Dip or Chew Tobacco: No; Hx Alcohol Use: Yes Alcohol type: beer Alcohol Intake Frequency: 2-4 x/Month Hx Substance Use: No Preferred Language: Urdu Communication Ability: Effective Visual Impairment: No Limitations Hearing Ability: Normal 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 current occupational status: retired current occupation: Retired How many Children do You have: 3 How many Children do You have Comment: One lives with patient but unable to assist, the other 2 are in [facility]. able to assist Feels Safe at Home: Yes Childhood Exposure to Second-Hand Smoke: No Diet: regular Dental Care, Regularly: No Physical Activity Frequency: 1-2 Times per Week Seatbelt Use: always Sunscreen Use: No Do you think of yourself as: straight/heterosexual Assistive Devices: None Physical Exam 2 Vital Signs: Vital Signs - 24 hr 11/10/24 14:02 Temperature 36.3 C L Temperature Source Temporal Artery Sc an Pulse Rate 72 Respiratory Rate 18 Respiratory Effort / Characteristics Non-Labored Sponta neous Respiratory Depth Normal Blood Pressure 125/76 Blood Pressure Malathi n 92 Pulse Oximetry 97 Oxygen Delivery Me thod Room Air Sepsis Recent Feve r Within 48 Hours No Sepsis New/Unexpla ined Change in Men mela Status N/A Sepsis Action Take n by Nursing No Action Required Physical Exam: Physical Exam GENERAL: oriented to person, place, and time. appears well-developed and well- nourished. She does not appear distressed. HENT: Exam performed. -Head: Normocephalic and atraumatic. -Right Ear: External ear normal. No mastoid erythema -Left Ear: External ear normal. No mastoid erythema -Mouth/Throat: The oropharynx is clear and moist. No trismus in the jaw. No dental abscesses or uvula swelling. No oropharyngeal exudate or tonsillar abscesses. EYES: Conjunctivae and EOM are normal.Right eye exhibits no discharge. Left eye exhibits no discharge. No scleral icterus. NECK: Normal range of motion. Neck supple. No JVD present. No tracheal deviation and normal range of motion present. CV: Normal rate, regular rhythm, normal heart sounds and intact distal pulses. There is no peripheral edema. Palpable radial pulses bue. PULM/CHEST: Effort normal and breath sounds normal. No respiratory distress. No stridor. no wheezes.no rales. -Chest Wall: no tenderness to palpation ABD: The abdomen is soft. Bowel sounds are normal. no distension. No mass is present. There is no tenderness. There is no rebound, no guarding, no Joyce's sign and no tenderness at McBurney's point. Rovsig negative Rectal: Grade hematochezia MUSC/SKEL: Normal range of motion. There is no peripheral edema, tenderness or deformity. NEURO: Motor and sensation grossly intact. SKIN: Skin is warm and dry. not diaphoretic. PSYCH: normal mood and affect. Behavior is normal. Judgment and thought content normal. Course Course 1429: The patient was evaluated in room B10. A complete history and physical exam was performed Cardiac monitoring: An order was placed for continuous cardiac monitoring. The monitor shows a rate of 70 with sinus rhythm interpreted by me 1518: Vital signs stable. Hemoglobin and hematocrit are stable. Discussed the case with GI Dr. Shelley who did evaluate the patient. After discussion with him we decided to keep the patient in the hospital overnight for observation and have GI follow him make sure the patient hemoglobin does not fall. He and I both agree no Protonix at this time given the patient only has hematochezia no melena. Patient [facility] be [facility] team. Medical Decision Making Medical Records Attestation: I reviewed the patient's medical records. Medical records reviewed. Patient had a colonoscopy done yesterday in which multiple polyps were removed. Laboratory Data Attestation: I reviewed the patient's lab results. 11/10/24 14:18 11/10/24 14:18 Lab Results 11/10/24 11/10/24 Range/Units 14:18 14:58 WBC 6.52 (4.8-10.8) K/ul RBC 4.85 (4.70-6.10) M/uL Hgb 14.8 (14.0-18.0) g/dl Hct 45.4 (42.0-52.0) % MCV 93.6 (80.0-100.0) fL MCH 30.5 (25.0-34.0) pg MCHC 32.6 (32.0-36.0) g/dL RDW Std Deviation 51.4 H (36.4-46.3) fL RDW Coeff of Vlad 14.9 H (11.5-14.5) % Plt Count 224 (130-400) K/uL MPV 10.3 (9.4-12.4) fL Sodium 141 (136-145) mmol/L Potassium 4.5 (3.5-5.1) mmol/L Chloride 109 H (98-107) mmol/L Carbon Dioxide 28 (21-32) mmol/L Anion Gap 4 (3-11) BUN 13 (6-23) mg/dl Creatinine 0.87 (0.6-1.4) mg/dl Est Cr Clr Drug Dosing 98.7 ml/min eGFR 92.25 BUN/Creatinine Ratio 14.9 (10-20) Glucose 84 (70-99(Fasting)) mg/dl Calcium 9.1 (8.6-10.3) mg/dl Total Bilirubin 0.6 (0.2-1.0) mg/dl AST 52 H (13-39) U/L ALT 53 H (7-52) U/L Alkaline Phosphatase 80 (34-104) U/L Troponin I High Sens 7.3 (0-20) pg/ml Total Protein 7.1 (6.0-8.3) gm/dl Albumin 4.0 (3.4-5.0) gm/dl Globulin 3.1 (2.5-4.0) gm/dl Albumin/Globulin Ratio 1.3 (0.9-2) POC Stool Occult Blood Positive A (Negative) [facility] Narrative 1429: The patient was evaluated in room B10. A complete history and physical exam was performed Cardiac monitoring: An order was placed for continuous cardiac monitoring. The monitor shows a rate of 70 with sinus rhythm interpreted by me 1518: Vital signs stable. Hemoglobin and hematocrit are stable. Discussed the case with GI Dr. Shelley who did evaluate the patient. After discussion with him we decided to keep the patient in the hospital overnight for observation and have GI follow him make sure the patient hemoglobin does not fall. He and I both agree no Protonix at this time given the patient only has hematochezia no melena. Patient will be admitted to the [facility] team. Impression & Plan Hematochezia Discharge Plan Visit Data Chief Complaint: Rectal Bleed Stated Complaint: INTERNAL BLEEDING,COLONOSCOPY YESTERDAY ED Provider: Fritz Mari Discharge Problem: Hematochezia Patient Disposition: Being Evaluated by Hospitalist Condition: Fair Forms Stand Alone Forms: My [facility] Prescriptions Prescriptions: No Action metoprolol succinate 25 mg tablet extended release 24 hr 25 mg PO BID warfarin 3 mg tablet 3 mg PO UD Patient Comments: 4 mg one day a week, 3 mg all other days as of 11/01/2024 PAT interview probenecid 500 mg tablet See Rx Instructions PO BID Qty: 60 2RF Rx Instructions: Take 1/2 tablet twice daily for one week and then increase to one tablet twice daily aspirin [Adult Aspirin Regimen] 81 mg tablet,delayed release (DR/EC) 81 mg PO UD Rx Instructions: 81 mg orally TAKES 5 DAYS A WEEK PER PT; Entresto 24-26 mg tablet 1 tab PO BID ferrous gluconate 225 mg (27 mg iron) tablet 225 mg PO DAILY bumetanide 2 mg tablet 2 mg PO QAM PRN (Reason: Fluid Retention) Rx Instructions: MAY TAKE SECOND DOSE IF INCREASE IN SWELLING Jardiance 10 mg tablet 10 mg PO QAM Qty: 90 3RF Patient Comments: prescribed for cardiac history, denies diabetes potassium chloride 20 mEq tablet extended release 20 meq PO QAM magnesium 250 mg Tablet 250 mg PO 3XWK Rx Instructions: MON, WED, & FRI. Referrals Referrals: Bob Soliman III, CRNP [Primary Care Provider] -
[2024-11-10 14:59] LABS: Albumin Globulin Ratio 1.3 (0.9-2); BUN Creatinine Ratio 14.9 (10-20); Bilirubin,Total 0.6 mg/dl (0.2-1.0); Calcium 9.1 mg/dl (8.6-10.3); Creatinine Clr Calc Pharmacy 98.7 ml/min; Globulin 3.1 gm/dl (2.5-4.0); Potassium 4.5 mmol/L (3.5-5.1); Total Protein 7.1 gm/dl (6.0-8.3)
[2024-11-10 15:04] LABS: Troponin I High Sensitivity 7.3 pg/ml (0-20)
[2024-11-10 16:22] LABS: INR 1.2 (0.9-1.1); Partial Thromboplastin Ratio 1.3; Partial Thromboplastin Time 35 Seconds (21-31)
--- NOTE | 2024-11-10 16:39 | History & Physical Report ---
Date of Service November 10, 2024 Assessment & Plan (1) Hematochezia: (2) Rectal bleeding: (3) (HFpEF) heart failure with preserved ejection fraction: Plan #Rectal bleeding Mild s/p colonoscopy. Observation overnight per gastroenterology recommendations Ok to continue Lovenox 120mg SQ BID for his mechanical aortic valve Trend hemoglobin, transfuse < 7 #Chronic CHF / CAD s/p CABG Continue his usual medications #Mechanical mitral valve Continue Lovenox, warfarin can be restart once no longer bleeding for 24-48 hours with his outpatient eligibility clerk VTE Prophylaxis - SCDs Disposition - observation to med/surg Admission and Anticipated Discharge Date Admission Date: November 10, 2026 History of Present Illness Chief Complaint: Rectal bleeding Primary Care Provider: Bob Soliman III, SY Vito Ren is a 69 year old male who presents to the ER with rectal bleeding following colonoscopy with polyp removal yesterday. Patient was seen by GI and hematochezia improving but given need to continue on Lovenox with mechanical heart valves recommended observation overnight. He denies any lightheadedness, chest pain or shortness of breath. Allergies Allergy/AdvReac Type Severity Reaction Status Date / Time sulfamethoxazole AdvReac Severe LOWERS Verified 11/10/24 15:40 [From Bactrim] PLATLETS, ON WARFARIN trimethoprim [From Bactrim] AdvReac Severe LOWERS Verified 11/10/24 15:40 PLATLETS, ON WARFARIN Jcerzbc-[id number]-WfA Reductase AdvReac Intermediate MUSCLE & Verified 11/10/24 15:40 Inhibitor JOINT PAIN Home Medications Medication Instructions Recorded Confirmed Type bumetanide 2 mg tablet 2 mg PO QAM PRN Fluid Retention 11/23/23 11/10/24 History ferrous gluconate 225 mg (27 mg 225 mg PO DAILY 11/23/23 11/10/24 History iron) tablet sacubitril 24 mg-valsartan 26 mg 1 tab PO BID 11/23/23 11/10/24 History tablet (Entresto) metoprolol succinate 25 mg 25 mg PO BID 11/25/23 11/10/24 History tablet,extended release 24 hr magnesium 250 mg tablet 250 mg PO 3XWK 12/09/23 11/10/24 History empagliflozin 10 mg tablet 10 mg PO QAM #90 tabs 02/14/24 11/10/24 Rx (Jardiance) warfarin 3 mg tablet 3 mg PO UD 10/01/24 06/27/25 History aspirin 81 mg tablet,delayed 81 mg PO 5XWK 08/17/24 11/10/24 History release (Adult Aspirin Regimen) probenecid 500 mg tablet See Rx Instructions PO BID #60 tabs 10/24/24 11/10/24 Rx potassium chloride 20 mEq 20 meq PO QAM 11/01/24 11/10/24 History tablet,extended release enoxaparin 120 mg/0.8 mL 120 mg subcut BID 11/10/24 11/10/24 History subcutaneous syringe Past Med/Surg History Problem List (Updated 11/10/24 @ 15:20 by Fritz Mari MD) Hematochezia (Acute) Rectal bleeding Epistaxis, recurrent Statin myopathy (Chronic) GERD (gastroesophageal reflux disease) (HFpEF) heart failure with preserved ejection fraction (Chronic) On anticoagulant therapy LEYDA (obstructive sleep apnea) CPAP Coronary atherosclerosis of [place] coronary vessel Cardiomegaly Esophageal edema CAD (coronary artery disease) (Chronic) HLD (hyperlipidemia) (Chronic) Hypertension (Chronic) Gout (Chronic) Medical History Epistaxis, recurrent LEYDA (obstructive sleep apnea) CPAP 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 Hypertension Hyperlipidemia History of gout GERD (gastroesophageal reflux disease) Coronary atherosclerosis of [place] coronary artery Cardiomegaly CAD (coronary artery disease) Recurrent cellulitis of lower extremity DVT (deep venous thrombosis) Personal history of colonic polyps Systolic heart failure Iron deficiency anemia Paroxysmal atrial fibrillation Pacemaker Medtronic 2016 and 2023, follows with Dr Vivar Hx of chronic congestive heart failure Obesity denies being diabetic - jardiance for heart failure Hx of myocardial infarction 2004 Surgical History S/P CABG x 5 (09/2023) [facility]-with mechanical tricuspid and mitral valves, pacemaker replacement, several stents placed, post op right lower extremity infection, released from infectious disease 06/2024 S/P MVR (mitral valve replacement) 2011- [facility] Hx of colonoscopy Hx of cardiac catheterization x 2-- 2005 following [place] and 2020- X 1 stent [facility] S/P Maze operation for atrial fibrillation Hx of atrioventricular node ablation 07/2022 Atrial fibrillation status post cardioversion 10/30/2011 S/P left heart catheterization by percutaneous approach 2007 S/P placement of cardiac pacemaker (09/2023) [facility] Family History Family/Other Myocardial infarction "All of them." Mother Ovarian cancer Other Heart disease Denies family history of Prostate cancer Breast cancer Colorectal cancer Social History Smoking Status: Former smoker Tobacco Type: Cigarettes Age Started Using Tobacco: 5; Age Quit Using Tobacco: 27; packs per day: 2; Cigarettes Per Day: 40; Second Hand Exposure: No; Do You Dip or Chew Tobacco: No; Hx Alcohol Use: No (drinks very occasionally) Hx Substance Use: No Preferred Language: Turkmen Communication Ability: Effective Visual Impairment: No Limitations Hearing Ability: Normal Insurance Service Representative Required: No Beliefs That Will Affect Care: None marital status: Current Living Situation: Spouse and Family Current Living Situation Comment: independent at home with spouse. current occupational status: retired current occupation: Retired How many Children do You have: 3 How many Children do You have Comment: One lives with patient but unable to assist, the other 2 are in [facility]. able to assist Feels Safe at Home: Yes Childhood Exposure to Second-Hand Smoke: No Diet: regular Dental Care, Regularly: No Physical Activity Frequency: 1-2 Times per Week Seatbelt Use: always Sunscreen Use: No Do you think of yourself as: straight/heterosexual Assistive Devices: None Review of Systems Review of Systems: All systems reviewed & are unremarkable except as noted in HPI & below Physical Exam Constitutional: WD/WN, vitals as above Respiratory: normal respiratory effort, lungs clear to auscultation Cardiovascular: RRR, no murmur, no edema Gastrointestinal (Abdomen): normal bowel sounds, soft, nontender, no hepatosplenomegaly Results & Data Results & Data Vital Signs (Past 12 Hours) Vital Signs Temp Pulse Pulse Resp BP BP Pulse Ox 11/10/24 16:06 73 19 120/68 97 11/10/24 15:36 70 11/10/24 15:35 75 17 143/73 H 97 11/10/24 14:02 36.3 C L 72 18 125/76 97 O2 Del Method 11/10/24 16:06 Room Air 11/10/24 15:36 11/10/24 15:35 Room Air 11/10/24 14:02 Room Air Laboratory Results Abnormal lab results 11/10/24 11/10/24 11/10/24 Range/Units 14:18 14:58 15:42 Hgb (14.0-18.0) g/dl Hct (42.0-52.0) % RDW Std Deviation 51.4 H (36.4-46.3) fL RDW Coeff of Vlad 14.9 H (11.5-14.5) % PT 13.0 H (9.0-12.0) Seconds INR 1.2 H (0.9-1.1) APTT 35 H (21-31) Seconds Chloride 109 H (98-107) mmol/L AST 52 H (13-39) U/L ALT 53 H (7-52) U/L POC Stool Occult Blood Positive A (Negative) 11/10/24 Range/Units 19:24 Hgb 13.6 L (14.0-18.0) g/dl Hct 41.6 L (42.0-52.0) % RDW Std Deviation (36.4-46.3) fL RDW Coeff of Vlad (11.5-14.5) % PT (9.0-12.0) Seconds INR (0.9-1.1) APTT (21-31) Seconds Chloride (98-107) mmol/L AST (13-39) U/L ALT (7-52) U/L POC Stool Occult Blood (Negative) Medications Administered ER Medications Given: None ECG Rate (beats per minute): 73 Rhythm: other (ventricular paced rhythm) Findings: + PVC Comparison ECG Date: from (December 27, 2023) Change: the following changes noted (PVCs now present) Code Status & VTE Plan Code Status Full VTE Prophylaxis Plan VTE Prophylaxis will be ordered: Yes PG Care Time/CCT Total # of Minutes Spent Total Time Spent with Patient: Total time spent is greater than 50% in coordination of care (as documented) at patient's floor/unit and/or counseling patient: Coding Level of Care Code 30119 INT INP/OBS CARE 2/55MIN Diagnoses Hematochezia K92.1 Rectal bleeding K62.5 Acute on chronic heart failure with preserved ejection fraction I50.33 Heart failure chronicity: acute on chronic (3) (HFpEF) heart failure with preserved ejection fraction Heart failure chronicity: acute on chronic Qualified Code(s): I50.33 - Acute on chronic diastolic (congestive) heart failure
[2024-11-10 19:24] VITALS: RESP 18
[2024-11-10] MEDS: ENOXAPARIN INJ 120 MG/0.8 ML SYR SQ SCH (19:35)
[2024-11-10] MEDS: ASPIRIN 81 MG ECTAB PO SCH (19:35)
[2024-11-10 19:39] LABS: Hematocrit (blood only) 41.6 % (42.0-52.0); Hemoglobin 13.6 g/dl (14.0-18.0)
[2024-11-10] MEDS: PROBENECID 500 MG TAB PO SCH (20:47)
[2024-11-10] MEDS: VALSARTAN/SACUBITRIL 26/24MG TAB PO SCH (20:47)
[2024-11-10] MEDS: METOPROLOL SUCC 25MG EXT REL TAB PO SCH (20:48)
[2024-11-10 21:13] VITALS: O2SAT 98
[2024-11-11 07:19] VITALS: BP 127/76; PULSE 70; TEMP 97.7
[2024-11-11 07:27] LABS: Hematocrit (blood only) 42.9 % (42.0-52.0); Hemoglobin 13.7 g/dl (14.0-18.0); Mean Corpuscular Hemoglobin 30.1 pg (25.0-34.0); Mean Corpuscular Hgb Conc 31.9 g/dL (32.0-36.0); Mean Corpuscular Volume 94.3 fL (80.0-100.0); Mean Platelet Volume 10.3 fL (9.4-12.4); Platelet Count 215 K/uL (130-400); RDW Standard Deviation 51.9 fL (36.4-46.3); Red Blood Count 4.55 M/uL (4.70-6.10); White Blood Count 5.92 K/ul (4.8-10.8)
--- NOTE | 2024-11-11 09:01 | Discharge Summary ---
Discharge Summary Date of Service November 11, 2024 Principal Dx & Hospital Course #1 = Principal Diagnosis (1) Hematochezia: (2) Rectal bleeding: (3) (HFpEF) heart failure with preserved ejection fraction: Plan Vito Ren is a 69 year old male observed overnight due to rectal bleeding following colonoscopy for polyp removal. Hemoglobin stayed stable overnight (14.8 -> 13.6 -> 13.7) with minimal ongoing bleeding. He is now medically stable for discharge and should stay on the Lovenox and hold warfarin until calling his j2ee developer on Wednesday for ongoing anticoagulation management. Notes For Next Care Provider No specific follow up required Medication Changes From Visit No change to medications Admission HPI Per Admitting Provider Vito Ren is a 69 year old male who presents to the ER with rectal bleeding following colonoscopy with polyp removal yesterday. Patient was seen by GI and hematochezia improving but given need to continue on Lovenox with mechanical heart valves recommended observation overnight. He denies any lightheadedness, chest pain or shortness of breath. Discharge Exam Constitutional WD/WN, vitals as above Respiratory normal respiratory effort, lungs clear to auscultation Cardiovascular RRR, no murmur, no edema Gastrointestinal (Abdomen) normal bowel sounds, soft, nontender, no hepatosplenomegaly Discharge Plan Discharge Items Patient Disposition: Home - Self-Care Reason For Visit: RECTAL BLEEDING Discharge Diagnosis: Rectal bleeding Condition on Discharge: Fair Activity: Resume your previous activity Non-emergency contact: [employer] Helper Call non-emergency contact if: you have any medication questions and your symptoms worsen Follow-up/Referrals: Bob Soliman III, SY [Primary Care Provider] - (No follow up required) Diet: Heart Healthy Addtl Attending Provider Instructions: You were observed overnight due to rectal bleeding following colonoscopy for polyp removal. Hemoglobin stayed stable overnight with minimal bleeding. You are now medically stable for discharge and should stay on the Lovenox and hold warfarin until calling your j2ee developer on Wednesday. Pending Studies at Discharge: No Stand-Alone Forms: My [facility] [place], Smoking Cessation Medications and DC Order Prescriptions: Continued metoprolol succinate 25 mg tablet extended release 24 hr 25 mg PO BID warfarin 3 mg tablet 3 mg PO UD Patient Comments: 4 mg one day a week, 3 mg all other days as of 11/01/2024 PAT interview Rx Instructions: ON HOLD WHILE ON LOVENOX probenecid 500 mg tablet See Rx Instructions PO BID Qty: 60 2RF Rx Instructions: Take 1/2 tablet twice daily for one week and then increase to one tablet twice daily aspirin [Adult Aspirin Regimen] 81 mg tablet,delayed release (DR/EC) 81 mg PO 5XWK Rx Instructions: 81 mg orally TAKES 5 DAYS A WEEK PER PT; Entresto 24-26 mg tablet 1 tab PO BID ferrous gluconate 225 mg (27 mg iron) tablet 225 mg PO DAILY bumetanide 2 mg tablet 2 mg PO QAM PRN (Reason: Fluid Retention) Rx Instructions: MAY TAKE SECOND DOSE IF INCREASE IN SWELLING Jardiance 10 mg tablet 10 mg PO QAM Qty: 90 3RF Patient Comments: prescribed for cardiac history, denies diabetes potassium chloride 20 mEq tablet extended release 20 meq PO QAM enoxaparin 120 mg/0.8 mL syringe 120 mg subcut BID magnesium 250 mg Tablet 250 mg PO 3XWK Rx Instructions: MON, WED, & WED. Discharge Orders: Discharge Order (Routine); Ordered 11/11/24 Ordered By: Martell Coulter/Other Patient Handouts: Understanding Rectal Bleeding Admission Data Admit Date/Time: 11/10/24 16:37 Attending Provider: Martell Frost Admit Provider: Martell Frost Primary Care Provider: Bob Soliman III Other Providers: Martell Frost Other Interventions: Discharge Summary Assessment (RN) Last Done: 11/11/24 11:00 Hospital Stay Data Consultations 11/10/24 15:16 ED Decision to Admit Stat Pending Results Patient Have Any Pending Studies at Discharge: No Discharge Instructions Given to Patient (Per Discharging Provider) You were observed overnight due to rectal bleeding following colonoscopy for polyp removal. Hemoglobin stayed stable overnight with minimal bleeding. You are now medically stable for discharge and should stay on the Lovenox and hold warfarin until calling your j2ee developer on Wednesday. Total Time Total Time Spent Total Time Spent (In Minutes): 35 Coding Level of Care Code 29145 INP/OBS DISCH >30 MIN Diagnoses Hematochezia K92.1 Rectal bleeding K62.5 Acute on chronic heart failure with preserved ejection fraction I50.33 Heart failure chronicity: acute on chronic
[2024-11-11] MEDS: EMPAGLIFLOZIN 10 MG TAB PO SCH (09:36)
[2024-11-11] MEDS: FERROUS GLUCONATE 324 MG TAB PO SCH (09:36)
[2024-11-11] MEDS: BUMETANIDE 1 MG TAB PO PRN (09:37)
[2024-11-11] MEDS: POTASSIUM CHLORIDE CRTAB 20 MEQ TABCR PO SCH (09:44)
--- NOTE | 2024-11-11 10:20 | Electrocardiogram Report ---
Test Reason : Blood Pressure : */* mmHG Vent. Rate : 73 BPM Atrial Rate : 227 BPM P-R Int : * ms QRS Dur : 124 ms QT Int : 452 ms P-R-T Axes : * 255 80 degrees QTcB Int : 497 ms Ventricular-paced rhythm with occasional Premature ventricular complexes Biventricular pacemaker detected Abnormal ECG When compared with ECG of 27-Dec-2023 14:00, Premature ventricular complexes are now Present Confirmed by Alvin Deal ([id number]) on 11/11/2024 10:19:28 AM Referred By: REFERRED SELF Confirmed By: Alvin Deal
[2024-11-13] MEDS ORDERED: MAGNESIUM OXIDE 400 MG TAB PO SCH (09:00)
== END 2024-11-11 11:25 | disposition home or self-care (01) ==
LOC: SUATTDRO → EDINP 13:44 → ED 13:44 → 3N 19:05